=== PATIENT | female | born 1955 | race Caucasian/White ===

== ENCOUNTER 2019-10-06 11:29 | Outpatient (CLI) | payer MEDICARE, SELFPAY ==
[2019-10-06 13:02] LABS: Alanine Aminotransferase 33 U/L (4-35); Albumin Level 4.5 g/dL (3.5-5.1); Alkaline Phosphatase 84 U/L (38-126); Aspartate Amino Transferase 34 U/L (14-36); Bilirubin,Total 0.4 mg/dL (0.2-1.3); Blood Urea Nitrogen 22 mg/dL (7-17); Calcium 9.3 mg/dL (8.4-10.2); Carbon Dioxide 32 mmol/L (22-30); Chloride 99 mmol/L (98-107); Estimated Glomerular Filt Rate 50; Glucose 107 mg/dL (65-105); Sodium 137 mmol/L (137-145)
[2019-10-06 13:11] LABS: NT Pro B Type Natriuretic Pept 91 PG/ML (5-100)
== END 2019-10-06 11:30 | disposition home or self-care (01) ==
PROVIDERS: PCP Family Medicine; Visit Provider Nurse Practitioner
DX: R60.9 Edema, unspecified (principal); I10 Essential (primary) hypertension; R06.00 Dyspnea, unspecified
CPT/HCPCS: 36415; 80053; 83880

== ENCOUNTER 2019-10-12 13:41 | Emergency (ER) | payer MEDICARE, SELFPAY ==
[2019-10-12 13:56] VITALS: BP 155/88; PULSE 76; RESP 18; TEMP 36.4; O2SAT 97
--- NOTE | 2019-10-12 14:07 | ED.DENTAL ---
HPI - Dental/Oral General Chief complaint: Dental/Oral Stated complaint: abscess on left side of face Time Seen by Provider: 10/12/19 14:05 Source: patient and RN notes reviewed Mode of arrival: ambulatory Limitations: no limitations History of Present Illness HPI Narrative: 63-year-old female presents with concern for left upper facial swelling, pain. Reports her tooth fell out of the left upper side of her mouth approximately 1 week ago. Reports she has been using oxycodone, ice, salt water rinses with no relief. Reports she has not seen a dentist in many years MD Complaint: tooth pain Teeth map: 1. Broken teeth Related Data Home Medications Medication Instructions Recorded Confirmed alprazolam 10/12/19 amlodipine 10/12/19 anastrozole mg 10/12/19 escitalopram oxalate mg 10/12/19 furosemide 10/12/19 losartan 10/12/19 meloxicam 10/12/19 oxycodone-acetaminophen 10/12/19 prochlorperazine maleate 10/12/19 propranolol 10/12/19 quetiapine 10/12/19 simvastatin mg 10/12/19 zonisamide PO 10/12/19 Allergies Allergy/AdvReac Type Severity Reaction Status Date / Time varenicline Allergy Unknown Verified 06/05/15 13:47 ASPIRIN/NAUSEATED Allergy Mild Uncoded 04/10/08 18:08 Review of Systems Review of Systems: Narrative: CONSTITUTIONAL: Denies malaise, chills, sweats, or fever. EYES: Denies visual changes, redness, or discharge. ENT: Denies rhinorrhea, congestion, sinus pain, otalgia or sore throat. Reports left jaw swelling, facial pain CARDIOVASCULAR: Denies chest pain, palpitations, or edema. RESPIRATORY: Denies cough or dyspnea. MUSCULOSKELETAL: Denies myalgia. NEUROLOGIC: Denies headache. All systems reviewed & are unremarkable except as noted in HPI and below [facility] Family History Family History (Updated 10/20/15 @ 23:21 by DOCTOR UNKNOWN) Mother Patient's mother is in good health Sibling Patient's sister is in good health Patient's brother is in good health Father Family history of malignant neoplasm Patient's father is Social History Social History Smoking status: Current every day smoker Alcohol intake: never Comments At time of signature, agree with nursing past medical, surgical, social and family history. There is no relevant family history pertinent to the presenting complaint Exam Narrative: Exam Narrative: GENERAL: Well-appearing, well-nourished, and in no acute distress. HEAD: Normocephalic, atraumatic. EYES: PERRLA, conjunctivae clear ENT: Nares clear, turbinates pink, no rhinorrhea or epistaxis. Mucous membranes moist. TM pearly alcaraz with sharp light reflex bilaterally; no tragal tenderness. Oropharynx without edema, erythema or lesions. Tonsils not enlarged and without exudate. Many broken teeth, missing teeth, caries. Teeth numbers 12 and 13 broken without periapical abscesses noted NECK: Supple. CHEST: No respiratory distress. Speaks in full sentences. HEART: Regular rate and rhythm. SKIN: Warm, dry, no rash. NEURO: Alert and oriented x3. PSYCH: Normal mood and affect Course Course Emergency Course: Patient is aware of diagnosis, understands and agrees to treatment plan. Anticipatory guidance given. Patient agrees to follow-up as directed and is aware of reasons to seek care at the emergency department. Portions of this record may have been created with voice recognition software Vital Signs Vital signs: Vital Signs Temperature 97.5 F L 10/12/19 13:56 Pulse Rate 76 10/12/19 13:56 Respiratory Rate 18 10/12/19 13:56 Blood Pressure 155/88 H 10/12/19 13:56 Pulse Oximetry 97 10/12/19 13:56 Temperature 97.5 F L 10/12/19 13:56 Pulse Rate 76 10/12/19 13:56 Respiratory Rate 18 10/12/19 13:56 Blood Pressure 155/88 H 10/12/19 13:56 Pulse Oximetry 97 10/12/19 13:56 Reviewed. Patient has history of hypertension MDM - Dental/Oral MDM Narrative Medical decision making narrative: Patients yessi
== END 2019-10-12 14:24 | disposition home or self-care (01) ==
PROVIDERS: Emergency Provider Nurse Practitioner; PCP Family Medicine
DX: K04.7 Periapical abscess without sinus (principal); F17.200 Nicotine dependence, unspecified, uncomplicated; E78.00 Pure hypercholesterolemia, unspecified; I10 Essential (primary) hypertension
CPT/HCPCS: 99213; G0463

== ENCOUNTER → 2020-01-03 11:50 | Outpatient (CLI) | payer MEDICARE, SELFPAY ==
--- NOTE | ~2020-01-03 | MM_ITS ---
EXAMINATION: MM screening ankita BI w rubia HISTORY: Screening TECHNIQUE: Craniocaudal and mediolateral oblique 3-D tomosynthesis images were obtained and synthetic 2-D images were generated. CAD analysis was submitted and interpreted. COMPARISON: No prior mammogram is available for comparison at this institution. BREAST PARENCHYMAL COMPOSITION: There are scattered areas of fibroglandular density. FINDINGS: There is no evidence of suspicious mass, calcification, or architectural distortion to sugg est malignancy in either breast. There has been no suspicious interval change. IMPRESSION: 1. No mammographic evidence of malignancy. 2. Recommend routine screening mammography in one year. BI-RADS Category 1: Negative Reviewed, dictated and finalized at location A.
== END ==
PROVIDERS: PCP Family Medicine; Visit Provider Family Medicine
DX: Z12.31 Encounter for screening mammogram for malignant neoplasm of breast (principal)
CPT/HCPCS: 77063; 77067

== ENCOUNTER 2022-02-28 05:16 | Inpatient (IN) | payer MEDICARE, SELFPAY ==
[2022-02-28] VITALS (11 sets, daily range): BP systolic 117–170; BP diastolic 52–87; PULSE 62–83; RESP 14–29; TEMP 30.7–36.8; O2SAT 88–98
--- NOTE | ~2022-02-28 | XR_ITS ---
EXAMINATION: XR chest 1V portable DATE: 02/28/2022 06:38 INDICATION: Left-sided chest pain TECHNIQUE: frontal view of the chest was obtained. COMPARISON: Chest radiograph dated 07/20/18 FINDINGS: Streaky bibasilar atelectasis, mild on the right and minimal on the left. No other airspace opacities , pulmonary edema, pleural effusion or pneumothorax. The cardiomediastinal silhouette is within kulwinder l limits conifer AP technique and slight rightward rotation of the patient. 4 level lower cervical an terior spinal fusion with anterior plate and screw fixation IMPRESSION: 1. Mild right and minimal left streaky basilar atelectasis. Reviewed, dictated and finalized at location A. K HOPPER
--- NOTE | 2022-02-28 05:16 | ECG_ITS ---
Measurements Intervals [place] Rate: 82 P: 40 HI: 145 QRS: 38 QRSD: 94 T: 49 QT: 380 QTc: 446 Interpretive Statements SINUS RHYTHM NONSPECIFIC T-WAVE ABNORMALITY BORDERLINE ECG NO PREVIOUS ECG AVAILABLE FOR COMPARISON Electronically Signed On 03-01-2022 7:22:28 UTILITY WORKER by Compa Mota M.D.
--- NOTE | 2022-02-28 05:40 | ED.GENADULT ---
HPI - General Adult General Chief complaint: Shortness of Breath/Dyspnea Stated complaint: SOB/COUGH/CP Time Seen by Provider: 02/28/22 05:17 History of Present Illness HPI narrative: this is a 66-year-old female presenting ED with a chief complaint of not feeling well. patient has had subjective fevers, cough, subjective shortness of breath and body aches. Patient denies headache, nausea, vomiting diarrhea. She does have a sick son at home who has similar symptoms. She is not vaccinated against flu. She is vaccinated against COVID. Patient is also describing a left-sided chest pain that she describes as burning/ stabbing/ Jason that radiates to her left arm, is 1/10 and constant. Is worse with movement. Patient originally said that was part of her flu-like symptoms but then she recalled that 3 weeks earlier she had fallen and her left chest have been sore since then. Related Data Home Medications Medication Instructions Recorded Confirmed alprazolam 1 mg tablet 10/12/19 amlodipine 5 mg tablet 10/12/19 anastrozole 1 mg tablet mg 10/12/19 escitalopram oxalate 20 mg tablet mg 10/12/19 furosemide 40 mg tablet 10/12/19 losartan 100 mg tablet 10/12/19 meloxicam 15 mg tablet 10/12/19 oxycodone-acetaminophen 5 mg-325 10/12/19 mg tablet prochlorperazine maleate 10 mg 10/12/19 tablet propranolol 40 mg tablet 10/12/19 quetiapine 50 mg tablet 10/12/19 simvastatin 80 mg tablet mg 10/12/19 zonisamide 50 mg capsule PO 10/12/19 Allergies Allergy/AdvReac Type Severity Reaction Status Date / Time varenicline Allergy Unknown Verified 06/05/15 13:47 ASPIRIN/NAUSEATED Allergy Mild Uncoded 04/10/08 18:08 Review of Systems Review of Systems: CONSTITUTIONAL: Denies night sweats. EYES: No eye pain ENT: Denies rhinorrhea CARDIOVASCULAR: Denies palpitations RESPIRATORY: Denies hemoptysis GASTROINTESTINAL: Denies hematemesis GENITOURINARY: Denies hematuria. SKIN: Denies rash MUSCULOSKELETAL: Denies myalgia. NEUROLOGIC: Denies weakness. PSYCHIATRIC: Denies delusions PMFSH Past Medical History Medical History Arm paresthesia, left Back pain Chronic obstructive pulmonary disease, unspecified Generalized anxiety disorder Other chronic pain Family History Family History Mother Patient's mother is in good health Sibling Patient's sister is in good health Patient's brother is in good health Father Family history of malignant neoplasm Patient's father is Social History Social History Smoking status: Current every day smoker Alcohol intake: never Exam Narrative: APPEARANCE: Patient is lying supine with her eyes closed. She takes several seconds to gather herself between answering interview questions. Head: atraumatic. EYES: EOMI, NOSE: Atraumatic NECK: Trachea midline RESPIRATORY: Increased respiratory rate. scattered rhonchi and expiratory wheezing on the right. CARDIOVASCULAR: RRR, no pitting edema ABDOMINAL: Non-distended, soft tender no guarding or rebound MUSCULOSKELETAl: reproducible tenderness over the left chest wall. Pain with range of motion of the left arm. NEURO: Alert. Moving 4/4 extremities SKIN:: Warm, dry. Normal color PSYCHIATRIC: Normal affect Course Vital Signs Vital signs: Vital Signs Temperature 98.2 F 02/28/22 05:18 Pulse Rate 83 02/28/22 05:18 Respiratory Rate 20 02/28/22 05:18 Blood Pressure 170/87 H 02/28/22 05:18 Pulse Oximetry 91 02/28/22 05:18 Oxygen Delivery Room Air 02/28/22 05:18 Temperature 98.2 F 02/28/22 05:18 Pulse Rate 83 02/28/22 05:18 Respiratory Rate 20 02/28/22 05:18 Blood Pressure 170/87 H 02/28/22 05:18 Pulse Oximetry 94 02/28/22 05:24 Oxygen Delivery Room Air 02/28/22 05:24 Medical Decision Srini
[2022-02-28] MEDS: ACETAMINOPHEN 500 MG TABLET 1000 MG PO (05:41)
[2022-02-28] MEDS: IBUPROFEN 400 MG TABLET 800 MG PO (05:42)
[2022-02-28] MEDS: SODIUM CHLORIDE 0.9% IV 1,000 ML 999 ML IV CONT (05:42)
[2022-02-28 05:48] LABS: Basophils Absolute Auto 0.1 K/mm3 (0.0-0.1); Basophils Percent Auto 0.8 % (0.2-1.2); Eosinophils Absolute Auto 0.1 K/mm3 (0-0.3); Eosinophils Percent Auto 0.9 % (0-4.4); Hematocrit 42.7 % (37.0-47.0); Immature Granulocyte Absolute 0.14 K/mm3 (0.00-0.031); Immature Granulocyte Percent A 1.1 % (0-0.5); Lymphocytes Absolute Auto 1.74 K/mm3 (0.9-3.2); Lymphocytes Percent Auto 13.7 % (18.3-44.2); Mean Corpuscular HGB Conc 32.8 g/dl (32-36); Mean Corpuscular Hemoglobin 32.2 pg (26-34); Mean Corpuscular Volume 98.2 fl (80-100); Monocytes Absolute Auto 1.2 K/mm3 (0.1-0.6); Monocytes Percent Auto 9.4 % (2.6-8.5); Neutrophils Absolute Auto 9.4 K/mm3 (1.3-6.7); Neutrophils Percent Auto 74.1 % (45.5-73.1); Platelet Count Result 384 k/mm3 (150-375); Red Blood Count 4.35 M/mm3 (4.2-5.4); Red Cell Distribution Width 11.9 % (11.5-14.5); White Blood Count 12.7 K/mm3 (4.5-10.0)
[2022-02-28 06:10] LABS: Alanine Aminotransferase 15 U/L (6-35); Albumin Level 4.1 g/dL (3.5-5.1); Alkaline Phosphatase 119 U/L (38-126); Anion Gap 9 mmol/L (8-16); Aspartate Amino Transferase 24 U/L (14-36); Bilirubin,Total 0.6 mg/dL (0.2-1.3); Blood Urea Nitrogen 18 mg/dL (7-17); Calcium 9.5 mg/dL (8.4-10.2); Carbon Dioxide 24 mmol/L (22-30); Chloride 101 mmol/L (98-107); Estimated CRCL calculation 53 ml/min; Estimated Glomerular Filt Rate 55; Glucose 114 mg/dL (65-110); INR 1.1; Magnesium 2.2 mg/dL (1.6-2.3); Prothrombin Time 13.7 Seconds (11.1-14.7); Sodium 134 mmol/L (137-145)
[2022-02-28 06:13] LABS: Troponin I < 0.012 ng/mL (0.000-0.034)
[2022-02-28 06:23] LABS: Influenza A QL RT-PCR Negative (Negative); Influenza B QL RT-PCR Negative (Negative); SARS-CoV-2 RNA PCR Negative
[2022-02-28 06:36] LABS: Partial Thromboplastin Time 39.1 SECONDS (22.3-36.8)
[2022-02-28] MEDS: SODIUM CHLORIDE 0.9% IV 1,000 ML 125 ML IV CONT (07:00)
--- NOTE | 2022-02-28 08:53 | ADMGEN ---
This patient, Amairani Preciado, was admitted to [facility] Surg Room 321-01. Patient/family oriented to hospital policies and general routines including ID bracelet, bed and alarms, visiting hours, pain management, procedures, bathroom and other care routines, personal items, smoking policy, room service/diet, and visiting hours. Information on how to activate the Rapid Response Team has been discussed. Patient/Family are encouraged to report perceived risks to care and to ask questions if they do not understand what they are told or what they should do.
--- NOTE | 2022-02-28 10:18 | PM.IMHP ---
H&P: HPI History of Present Illness Date/Time: 02/28/22 10:18 Chief Complaint: Shortness of breath Narrative: Amairani Preciado is a 66 yo female with COPD, anxiety, depression and prior breast cancer. She presented to the ED for evaluation of shortness of breath, cough, anorexia, myalgias, alternating chills and diaphoresis since for several days. She reports her son, son-in-law, and daughter are sick with similar symptoms. She reports her cough is non-productive. Her breathing has been progressively worsening at rest and with exacerbation. No headaches, sore throat, abdominal pain, nausea, vomiting, diarrhea, urinary changes, orthopnea, or paroxysmal nocturnal dyspnea. In the ED, her vitals were stable and she was afebrile. Influenza A/B, COVID19 and RSV PCR were negative. Chest x-ray suggested right and left basilar atelectasis. Lab work showed WBC 12.7 with left shift, but otherwise normal CBC, CMP and troponin. She was treated with IV Rocephin, IV Azithromycin, 1 L NS fluids, 1 gram acetaminophen, and 800 mg ibuprofen. She was referred for observation of presumed viral infection, COPD exacerbation and possible secondary bacterial pneumonia. Review of Systems Review of Systems: All systems reviewed & are unremarkable except as noted in HPI and below Constitutional: Comments: Weight loss 110 lbs in 1 year. Neurologic: Comments: chronic insomnia PMFSH Past Medical History Medical History (Updated 02/28/22 @ 16:29 by Daina Bernard APRN) Arm paresthesia, left Back pain Breast cancer Chronic obstructive pulmonary disease, unspecified Generalized anxiety disorder Hypertension Neuropathy Other chronic pain Seasonal allergies Tobacco dependence Surgical History Surgical History (Updated 02/28/22 @ 16:21 by Daina Bernard APRN) H/O: hysterectomy S/P cholecystectomy Family History Family History Mother Patient's mother is in good health Sibling Patient's sister is in good health Patient's brother is in good health Father Family history of malignant neoplasm Patient's father is Social History Social History (Updated 02/28/22 @ 16:22 by Daina Bernard APRN) Smoking packs per day: 1.5 Smoking cigarettes per day: 30.0 Years smoked: 50 Smoking pack-years: 75.00 Smoking status: Current every day smoker Tobacco type: cigarettes Additional smoking assessment comments: smoking since 16 yo Alcohol intake: never Substance use: never Substance use type: does not use Lack of Transportation: YES Lack of Food: Never True Current Housing: I Have Housing Concerned About Future Housing: No Difficulty Paying Gas/Electric Bills: No Difficulty Paying for Meds: No Currently Unemployed: No Education: Don't Know Difficulty w/ Childcare or Family Care: No Additional living arrangements comments: lives with her son Spiritual care concerns: No Meds Home Medications and Allergies Home Medications Medication Instructions Recorded Confirmed Type alprazolam 1 mg tablet 1 mg PO PRN PRN Anxiety 10/12/19 02/28/22 History anastrozole 1 mg tablet 1 mg PO DAILY 10/12/19 02/28/22 History escitalopram oxalate 20 mg tablet 20 mg PO DAILY 10/12/19 02/28/22 History (Lexapro) losartan 100 mg tablet 100 mg PO DAILY 10/12/19 02/28/22 History meloxicam 15 mg tablet 15 mg PO DAILY 10/12/19 02/28/22 History propranolol 40 mg tablet 40 mg PO BID 10/12/19 02/28/22 History quetiapine 50 mg tablet 50 mg PO DAILY 10/12/19 02/28/22 History zonisamide 50 mg capsule 50 mg PO DAILY 10/12/19 02/28/22 History oxycodone-acetaminophen 7.5 mg-325 1 tablet PO Q6H 02/28/22 History mg tablet Allergies Allergy/AdvReac Type Severity Reaction Status Date / Time ASPIRIN/NAUSEATED Allergy Mild Nausea Uncoded 02/28/22 08:56 Vital Signs Vital Signs - 24 hr 02/28/22 05:18 02/28/22 05:24 Temperature 98.
[2022-02-28] MEDS: oxyCODONE/ACETAMINOPHEN (*CRX) 5-325 MG TABLET 1 TABLET PO (12:09)
[2022-02-28] MEDS: QUEtiapine FUMARATE 25 MG TABLET 50 MG PO (12:09)
[2022-02-28] MEDS: ANASTROZOLE (*CHEMO) 1 MG TABLET PO (12:10)
[2022-02-28] MEDS: ESCITALOPRAM OXALATE 10 MG TABLET 20 MG PO (12:10)
[2022-02-28] MEDS: LOSARTAN POTASSIUM 100 MG TABLET PO (12:10)
[2022-02-28] MEDS: DOXYCYCLINE 100 MG/NS 100 ML 100 MG/100 ML BAG IVPB ×2 (12:11→20:59)
[2022-02-28 12:28] LABS: RSV RNA, RT-PCR Negative (Negative)
--- NOTE | 2022-02-28 14:57 | PCPTNOTE ---
Attempted PT evaluation, pt refused stating Tired. RN aware, Will follow.
[2022-02-28 15:14] LABS: Alveolar/Arterial O2 Gradient 71.6 mmHg; Base Excess ABG -3.4 mEq/l (+/-2.0); Carboxyhemoglobin 2.3 % THb (0-2.0); Device ROOM AIR; Fractional Inspired Oxygen 28 %; HCO3 ABG 21.4 mEq/l (22.0-26.0); Methemoglobin ABG 0.3 %THb (0-1.5); Modified Allen's Test Pass; Oxygen Content ABG 17.3 %vol (16.0-22.0); Oxygen Saturation ABG 96.1 % (95.0-100.0); PCO2 ABG 37.6 mmHg (35.0-45.0); PO2 ABG 83.7 mmHg (80.0-100.0); PO2 FiO2 Ratio Arterial Blood 2.99 %; Reduced Hemoglobin 4.4 %THb (0-5.0); Site Drawn RIGHT RADIAL; Total Hemoglobin 13.2 g/dL (12.0-18.0); pH ABG 7.373 (7.350-7.450)
[2022-02-28] MEDS: ALBUTEROL SULFATE NEB 2.5 MG/3 ML INH INHALATION ×2 (15:47→20:44)
[2022-02-28] MEDS: IPRATROPIUM BR 0.02% INH SOLN 0.5 MG/2.5 ML VIAL INHALATION ×2 (15:47→20:44)
[2022-02-28] MEDS: PROPRANOLOL HCL 40 MG TABLET PO (19:17)
[2022-02-28] MEDS: predniSONE 20 MG TABLET 40 MG PO (20:58)
[2022-02-28] MEDS: MICONAZOLE NITRATE 2% CREAM 30 GM TUBE 1 APPLIC TOPICAL (20:59)
[2022-03-01] VITALS (9 sets, daily range): BP systolic 142–150; BP diastolic 69–73; PULSE 72–84; RESP 12–20; TEMP 36.1–36.2; O2SAT 93–97; BMI 36.2
[2022-03-01] MEDS: ALBUTEROL SULFATE NEB 2.5 MG/3 ML INH INHALATION ×3 (03:02→14:10)
[2022-03-01] MEDS: IPRATROPIUM BR 0.02% INH SOLN 0.5 MG/2.5 ML VIAL INHALATION ×3 (03:03→14:10)
[2022-03-01 07:10] LABS: Basophils Percent Auto 0.3 % (0.2-1.2); Hematocrit 43.1 % (37.0-47.0); Hemoglobin 13.8 g/dL (12.0-15.0); Immature Granulocyte Absolute 0.08 K/mm3 (0.00-0.031); Immature Granulocyte Percent A 1.1 % (0-0.5); Lymphocytes Absolute Auto 0.79 K/mm3 (0.9-3.2); Lymphocytes Percent Auto 10.8 % (18.3-44.2); Mean Corpuscular Hemoglobin 32.4 pg (26-34); Mean Corpuscular Volume 101.2 fl (80-100); Mean Platelet Volume 8.8 fl (7.4-10.4); Monocytes Absolute Auto 0.2 K/mm3 (0.1-0.6); Neutrophils Absolute Auto 6.2 K/mm3 (1.3-6.7); Neutrophils Percent Auto 84.8 % (45.5-73.1); Platelet Count Result 388 k/mm3 (150-375); Red Blood Count 4.26 M/mm3 (4.2-5.4); Red Cell Distribution Width 11.9 % (11.5-14.5); White Blood Count 7.3 K/mm3 (4.5-10.0)
[2022-03-01 07:30] LABS: Anion Gap 9 mmol/L (8-16); Blood Urea Nitrogen 17 mg/dL (7-17); Carbon Dioxide 22 mmol/L (22-30); Chloride 110 mmol/L (98-107); Estimated CRCL calculation 74 ml/min; Estimated Glomerular Filt Rate > 60; Glucose 107 mg/dL (65-110); Potassium 4.8 mmol/L (3.4-5.0); Sodium 141 mmol/L (137-145)
[2022-03-01] MEDS: predniSONE 20 MG TABLET 40 MG PO (10:06)
[2022-03-01] MEDS: LOSARTAN POTASSIUM 100 MG TABLET PO (10:07)
[2022-03-01] MEDS: ESCITALOPRAM OXALATE 10 MG TABLET 20 MG PO (10:07)
[2022-03-01] MEDS: PROPRANOLOL HCL 40 MG TABLET PO ×2 (10:07→18:23)
[2022-03-01] MEDS: ANASTROZOLE (*CHEMO) 1 MG TABLET PO (10:07)
[2022-03-01] MEDS: ENOXAPARIN 40 MG/0.4 ML SYRINGE SUB-Q (10:08)
[2022-03-01] MEDS: MICONAZOLE NITRATE 2% CREAM 30 GM TUBE 1 APPLIC TOPICAL (10:08)
[2022-03-01] MEDS: DOXYCYCLINE 100 MG/NS 100 ML 100 MG/100 ML BAG IVPB (13:39)
--- NOTE | 2022-03-01 17:51 | PM.DS ---
DS: Admitting Diagnosis Discharge Date 03/01/22 Admitting Diagnosis Shortness of breath DS: Discharge Diagnosis Discharge Diagnosis (1) Pneumonia: Code(s): J18.9 - Pneumonia, unspecified organism Status: Acute (2) Viral pneumonia, unspecified: Code(s): J12.9 - Viral pneumonia, unspecified Status: Acute (3) COPD (chronic obstructive pulmonary disease): Code(s): J44.9 - Chronic obstructive pulmonary disease, unspecified Status: Chronic (4) Arm pain: Code(s): M79.603 - Pain in arm, unspecified Status: Acute (5) Generalized anxiety disorder: Code(s): F41.1 - Generalized anxiety disorder Status: Chronic (6) Fall: Code(s): W19.XXXA - Unspecified fall, initial encounter Status: Acute (7) Hypertension: Code(s): I10 - Essential (primary) hypertension Status: Chronic (8) Tobacco dependence: Code(s): F17.200 - Nicotine dependence, unspecified, uncomplicated Status: Chronic DS: Summary Hospital Course Reason for hospitalization: 66yo female with COPD anxiety and prior breasth cancer here for shortness of breath. Please see H&P for details. Hospital Course: She presented with complaints of SOB. In the ED, her vitals were stable and she was afebrile. Influenza A/B, COVID19 and RSV PCR were negative. Chest x-ray suggested right and left basilar atelectasis. Lab work showed WBC 12.7 with left shift, but otherwise normal CBC, CMP and troponin. EKG was normal. She was treated with IV Rocephin, IV Azithromycin, 1 L NS fluids, 1 gram acetaminophen, and 800 mg ibuprofen. She was referred for observation. She remained stable overnight. She feels better and is agreeable about discharge. She overall did well and was able to be discharged home on 03/01/22 Status at Discharge Cognitive/behavioral status at discharge: stable Time Spent with Patient Time attestation: Total time spent providing and/or coordinating discharge services:31 minutes Time spent: Greater than 30 minutes Exam Narrative: AF 97.0 142/69 72 18 93% ra Gen - NARD HEENT - poor detition Chest - CTA bilaterally, nml RR CV - RRR S1/S2 Abd - Soft, NT/ND, Positive BS Ext - No pedal edema Psych - Nml mood and affect Skin - Warm and dry DS: Data Data Completed and Pending Labs on day of discharge: Labs from last 24 hours 03/01/22 03/01/22 06:54 06:54 WBC 7.3 RBC 4.26 Hgb 13.8 Hct 43.1 MCV 101.2 H MCH 32.4 MCHC 32.0 RDW 11.9 Plt Count 388 H MPV 8.8 Immature Gran % (Auto) 1.1 H Neut % (Auto) 84.8 H Lymph % (Auto) 10.8 L [place] % (Auto) 3.0 Eos % (Auto) 0.0 Baso % (Auto) 0.3 Lymph # (Auto) 0.79 L [place] # (Auto) 0.2 Eos # (Auto) 0.0 Baso # (Auto) 0.0 Abs Immat Gran (auto) 0.08 H Absolute Neuts (auto) 6.2 Absolute Nucleated RBC 0.0 Nucleated RBC % 0.0 Sodium 141 Potassium 4.8 Chloride 110 H Carbon Dioxide 22 Anion Gap 9 BUN 17 Creatinine 0.70 Estim Creat Clear Calc 74 Estimated GFR > 60 Glucose 107 Calcium 9.0 Discharge Plan Discharge Attending physician on discharge: Lai Pérez Discharging Clinician: Lai Pérez Anticipated Discharge Date/Time: 03/01/22 17:57 Patient Disposition: Home, Self-Care Activity: as tolerated Diet: regular Discharge Instructions: Please complete your antibiotic course even if you are starting to feel well. Take precautions to avoid falls. Rise slowly from a lying or sitting position. Pause before standing or walking. Contact your doctor or call 911 and come to the Emergency Room if you have fevers or other worrisome symptoms. Avoid NSAIDs (ibuprofen, naproxen, Aleve). Tylenol is safe to take. Follow-up with your primary care provider in 1-2 weeks. Please call for appointment. Stop using all nicotine containing products. Please follow up with a dentist as we discussed. Thank you for us
== END 2022-03-01 19:20 | disposition home or self-care (01) | DRG 192 ==
LOC: ANHED 06:56 → ANH3MEDSUR 03-01 10:23
PROVIDERS: Nurse Practitioner Family; Admitting Provider Internal Medicine; Emergency Provider Emergency Medicine; PCP Family Medicine; Visit Provider Internal Medicine
DX: J44.1 Chronic obstructive pulmonary disease with (acute) exacerbation (principal); F17.210 Nicotine dependence, cigarettes, uncomplicated; F41.9 Anxiety disorder, unspecified; F41.1 Generalized anxiety disorder; G89.29 Other chronic pain; I10 Essential (primary) hypertension; M79.602 Pain in left arm; W19.XXXA Unspecified fall, initial encounter; Z28.21 Immunization not carried out because of patient refusal; Z85.3 Personal history of malignant neoplasm of breast; Z90.710 Acquired absence of both cervix and uterus; Z90.49 Acquired absence of other specified parts of digestive tract; Z20.822 Contact with and (suspected) exposure to COVID-19
CPT/HCPCS: 36415; 36600; 71045; 80048; 80053; 82375; 82805; 83050; 83735; 84484; 85025; 85610; 85730; 87634; 87636; 93005; 94640; 96361; 96365; 97161; 97165; 99285; A9270; J0696; J1650; J7030; J7512

== ENCOUNTER 2022-05-27 10:31 | Observation (INO) | payer MEDICARE, SELFPAY ==
[2022-05-27] VITALS (15 sets, daily range): BP systolic 118–140; BP diastolic 55–103; PULSE 75–100; RESP 16–24; TEMP 36.3–36.7; O2SAT 92–98; BMI 35.4
--- NOTE | ~2022-05-27 | CT_ITS ---
EXAMINATION: CTA chest PE protocol DATE: 05/27/2022 11:17 INDICATION: Left chest pain, shortness of breath. Elevated d-dimer. TECHNIQUE: Computed tomography angiography (CTA) of the chest was performed with 100 mL Omnipaque-350 intravenous contrast timed to evaluate the pulmonary arteries. Coronal maximum intensity projection 3D-reconstructions were created by the technologist. Automated exposure control and iterative reconst ruction technique were employed. Exam dose: 383.20 mGy-cm total exam DLP. COMPARISON: 05/27/2022 AP and lateral chest FINDINGS: There is diagnostic contrast enhancement of the pulmonary arteries and no evidence of pulmo nary embolism. There is moderate pericardial effusion. Small bilateral pleural effusions, left greater than right. Mild bibasilar atelectasis There is aortic and great vessel atherosclerotic calcification. No thoracic aortic aneurysm or dissec tion. No enlarged hilar or mediastinal lymph nodes are noted. Status post cholecystectomy. Multiple calcified hepatic and splenic granulomas. Status post anterior cervical spine surgical fusion. No suspicious osteolytic or osteoblastic lesions are noted. IMPRESSION: No evidence of pulmonary embolism Moderate pericardial effusion Small pleural effusions Bibasilar atelectasis Status post cholecystectomy Reviewed, dictated and finalized at [facility]. Reviewed, dictated and finalized at location [facility]. 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
--- NOTE | ~2022-05-27 | US_ITS ---
EXAMINATION: US venous doppler [facility] DATE: 05/27/2022 11:51 INDICATION: Lower limb edema. TECHNIQUE: Grayscale ultrasound images without and with compression and Doppler ultrasound images of the bilateral lower extremity veins were obtained. COMPARISON: None. FINDINGS: The visualized portions of right common femoral vein, profunda (deep) femoral vein, femoral vein, pop liteal vein, peroneal veins, posterior tibial veins, and greater saphenous vein outflow are patent. The visualized portions of left common femoral vein, profunda femoral vein, femoral vein, popliteal v ein, peroneal veins, posterior tibial veins, and greater saphenous vein outflow are patent. IMPRESSION: 1. No deep venous thrombosis. Reviewed, dictated and finalized at location A. LE HAND
--- NOTE | ~2022-05-27 | XR_ITS ---
XR chest 2V DATE: 05/27/2022 10:29 INDICATION: Shortness of breath. History of COPD, hypertension, gastroesophageal reflux TECHNIQUE: AP and lateral views COMPARISON: 02/28/2022 portable AP chest FINDINGS: There is mild bibasilar infiltrate and/or atelectasis. Cardiomegaly. No pulmonary vascular congestion. There may be slight pleural effusions. No pneumothora x. No pulmonary vascular congestion. Status post anterior cervical spine surgical fusion. IMPRESSION: Bibasilar mild infiltrate and/or atelectasis Reviewed, dictated and finalized at location B. OW CASER
--- NOTE | 2022-05-27 09:55 | ECG_ITS ---
Measurements Intervals [place] Rate: 100 P: 30 VT: 134 QRS: 46 QRSD: 82 T: 31 QT: 342 QTc: 443 Interpretive Statements SINUS TACHYCARDIA NONSPECIFIC T-WAVE ABNORMALITY- ANT/INF LEADS BASELINE ARTIFACT- I, II, AVR BORDERLINE ECG NO PREVIOUS ECG AVAILABLE FOR COMPARISON Electronically Signed On 05-27-2022 10:22:03 CULL GRADER by Richard Arnold D.O.
--- NOTE | 2022-05-27 10:02 | ED.SOB ---
HPI - SOB/Dyspnea General Chief Complaint: Shortness of Breath/Dyspnea <Alisa Brady PA-C - Last Filed: 05/27/22 14:21> Stated Complaint: SoB <DARLINE Gomez Last Filed: 05/27/22 14:21> Source: patient and RN notes reviewed <DARLINE Gomez Last Filed: 05/27/22 14:21> Mode of arrival: EMS <DARLINE Gomez Last Filed: 05/27/22 14:21> Limitations: no limitations <DARLINE Gomez Last Filed: 05/27/22 14:21> History of Present Illness HPI Narrative: This is a 66-year-old female that presents to the emergency department for shortness of breath ongoing over the last several months. Reports history of emphysema. She is still an everyday smoker. Reports she cannot afford her inhalers. She has had a productive cough. Also reports left-sided pleuritic chest pain and left arm pain. The pain is sharp in nature. Reports lower extremity edema that is stable. Denies fevers. <Alisa Brady PA-C - Last Filed: 05/27/22 14:21> Related Data Home Medications: Home Medications Medication Instructions Recorded Confirmed escitalopram oxalate 20 mg tablet 20 mg PO DAILY 05/27/22 05/27/22 meloxicam 15 mg tablet 15 mg PO DAILY 05/27/22 05/27/22 propranolol 40 mg tablet 40 mg PO BID 05/27/22 05/27/22 simvastatin 80 mg tablet 80 mg PO HS 05/27/22 05/27/22 zonisamide 50 mg capsule 50 mg PO DAILY 05/27/22 05/27/22 <DARLINE Gomez Last Filed: 05/27/22 14:21> Allergies/Adverse Reactions: Allergies Allergy/AdvReac Type Severity Reaction Status Date / Time aspirin AdvReac Gastrointestinal Verified 05/27/22 10:46 Upset varenicline [From Chantix] AdvReac Hallucinati Verified 05/27/22 10:46 ng <DARLINE Gomez Last Filed: 05/27/22 14:21> Review of Systems Review of Systems: CONSTITUTIONAL: Denies fever ENT: Reports congestion CARDIOVASCULAR: Reports chest pain, and edema. RESPIRATORY: Reports cough and dyspnea. <Alisa Brady PA-C - Last Filed: 05/27/22 14:21> All systems reviewed & are unremarkable except as noted in HPI and below <Alisa Brady PA-C - Last Filed: 05/27/22 14:21> PMFSH Past Medical History Medical History: Medical History (Updated 05/27/22 @ 13:21 by Alisa Brady PA-C) History of COPD History of gastroesophageal reflux (GERD) History of hypertension <Alisa Brady PA-C - Last Filed: 05/27/22 14:21> Social History Social History: Social History (Updated 05/27/22 @ 10:21 by Alisa Brady PA-C) Smoking packs per day: 1.5 Smoking cigarettes per day: 30.0 Years smoked: 50 Smoking pack-years: 75.00 Smoking status: Current every day smoker Tobacco type: cigarettes Alcohol intake: never Substance use: former Substance use type: marijuana Lack of Transportation: No Lack of Food: Never True Current Housing: I Have Housing Concerned About Future Housing: No Difficulty Paying Gas/Electric Bills: No Difficulty Paying for Meds: No Currently Unemployed: No Education: High School Diploma/GED Difficulty w/ Childcare or Family Care: No Spiritual care concerns: No <Alisa Brady PA-C - Last Filed: 05/27/22 14:21> Exam Narrative: GENERAL: Well-appearing, well-nourished, and in no acute distress. HEAD: Normocephalic, atraumatic. EYES: EOMI. ENT: Nares clear, no rhinorrhea or epistaxis. Mucous membranes moist. Oropharynx without tonsillar hypertrophy exudate or other lesions. CHEST: No respiratory distress. Lung sounds are coarse with scattered wheezes. No rales or rhonchi HEART: Regular rate and rhythm. No murmur heard. Normal peripheral pulses. EXTREMITIES: Normal range of motion. Non-pitting edema to the bilateral lower extremities. Normal DP pulses SKIN: Warm, dry, no rash. NEURO: No focal deficits. Alert and oriented x3. PSYCH: Normal mood and affect <Alisa Brady PA-C - Last Filed: 05/27/22 14:21> Course Course Emergency Course:
[2022-05-27 10:18] LABS: Basophils Percent Auto 0.4 % (0.2-1.2); Eosinophils Percent Auto 0.3 % (0-4.4); Hematocrit 39.1 % (37.0-47.0); Hemoglobin 12.7 g/dL (12.0-15.0); Immature Granulocyte Absolute 0.03 K/mm3 (0.00-0.031); Immature Granulocyte Percent A 0.3 % (0-0.5); Lymphocytes Absolute Auto 1.53 K/mm3 (0.9-3.2); Lymphocytes Percent Auto 14.9 % (18.3-44.2); Mean Corpuscular HGB Conc 32.5 g/dl (32-36); Mean Corpuscular Hemoglobin 32.5 pg (26-34); Monocytes Percent Auto 9.4 % (2.6-8.5); Neutrophils Absolute Auto 7.7 K/mm3 (1.3-6.7); Neutrophils Percent Auto 74.7 % (45.5-73.1); Platelet Count Result 342 k/mm3 (150-375); Red Blood Count 3.91 M/mm3 (4.2-5.4); Red Cell Distribution Width 13.2 % (11.5-14.5); White Blood Count 10.3 K/mm3 (4.5-10.0)
[2022-05-27] MEDS: ALBUTEROL SULFATE NEB 2.5 MG/3 ML INH INHALATION ×3 (10:28→21:14)
[2022-05-27] MEDS: IPRATROPIUM BR 0.02% INH SOLN 0.5 MG/2.5 ML VIAL INHALATION ×3 (10:28→21:14)
[2022-05-27 10:29] LABS: INR 1.1; Prothrombin Time 14.1 Seconds (11.1-14.7)
[2022-05-27 10:30] LABS: Partial Thromboplastin Time 33.9 SECONDS (22.3-36.8)
[2022-05-27 10:32] LABS: Alanine Aminotransferase 13 U/L (6-35); Alkaline Phosphatase 82 U/L (38-126); Anion Gap 6 mmol/L (8-16); Aspartate Amino Transferase 18 U/L (14-36); Bilirubin,Total 0.5 mg/dL (0.2-1.3); Blood Urea Nitrogen 15 mg/dL (7-17); Calcium 8.7 mg/dL (8.4-10.2); Carbon Dioxide 25 mmol/L (22-30); Chloride 106 mmol/L (98-107); Estimated CRCL calculation 52 ml/min; Estimated Glomerular Filt Rate 55; Glucose 112 mg/dL (65-110); Potassium 3.8 mmol/L (3.4-5.0); Sodium 137 mmol/L (137-145)
[2022-05-27] MEDS: predniSONE 20 MG TABLET 40 MG PO (10:40)
[2022-05-27 10:44] LABS: Troponin I < 0.012 ng/mL (0.000-0.034)
[2022-05-27 10:53] LABS: D Dimer 2.53 ug/mL (<0.48)
[2022-05-27 10:56] LABS: NT Pro B Type Natriuretic Pept 972 pg/mL (19.9-100)
[2022-05-27 11:40] LABS: Influenza A QL RT-PCR Negative (Negative); Influenza B QL RT-PCR Negative (Negative); SARS-CoV-2 RNA PCR Negative
[2022-05-27 14:10] LABS: Troponin I < 0.012 ng/mL (0.000-0.034)
[2022-05-27 16:59] LABS: Troponin I < 0.012 ng/mL (0.000-0.034)
--- NOTE | 2022-05-27 19:44 | ADMGEN ---
This patient, Amairani Preciado, was admitted to Medical Room 255-. Patient/family oriented to hospital policies and general routines including ID bracelet, bed and alarms, visiting hours, pain management, procedures, bathroom and other care routines, personal items, smoking policy, room service/diet, and visiting hours. Information on how to activate the Rapid Response Team has been discussed. Patient/Family are encouraged to report perceived risks to care and to ask questions if they do not understand what they are told or what they should do.
--- NOTE | 2022-05-27 21:30 | PM.IMHP ---
H&P: HPI History of Present Illness Date/Time: 05/27/22 21:30 Chief Complaint: Shortness of breath. Narrative: This is a 66-year-old female smoker with COPD, hypertension, hyperlipidemia, seizure disorder, depression, anxiety, and history of breast cancer who presented to the emergency department via EMS from home for evaluation of shortness of breath. Patient provides the following history. She is a long-time smoker and has a chronic smoker's cough. Over the last several months however she has been increasingly short of breath on lesser and lesser exertion. More recently her cough has worsened and has become productive of clear phlegm. She has also had a subjective fever. Additionally she describes left anterior pleuritic chest pain which is somewhat worse with deep inspiration and cough. She has not noticed any significant alleviating factors and she has apparently been taking oxycodone for that at home without much benefit. With further questioning she has had subjective fevers but no chills or sweats. She has chronic, mild lower extremity edema. She is prescribed a diuretic but does not take that as she has stress urinary incontinence. She does not use inhalers at home as she reportedly cannot afford them. She denies sinus congestion, sore throat, nausea, vomiting, exertional chest pain, palpitations, orthopnea, paroxysmal nocturnal dyspnea, and calf pain. No sick contacts. No known history of cardiac disease or venous thromboembolism. Vital signs were stable on arrival to the ED. were significant for a WBC count of 10.3, D-dimer 2.53, troponin less than 0.012, proBNP 972. She tested negative for influenza and COVID. Chest x-ray showed bibasilar mild infiltrate and/or atelectasis. CTA of the chest showed no evidence of PE but did show small pleural effusions, moderate pericardial effusion, and bibasilar atelectasis. Venous Doppler ultrasounds of the lower extremities were negative for DVT. She is being admitted in this setting for COPD exacerbation and workup of the pericardial effusion. Review of Systems Review of Systems: Twelve systems were reviewed and are negative except for as per HPI. [facility] Past Medical History Medical History (Updated 05/27/22 @ 22:46 by Lisa Cruz PA-C) Breast cancer Chronic obstructive pulmonary disease Depression with anxiety Gastroesophageal reflux disease Hyperlipidemia Hypertension Seizure Tobacco dependence Surgical History Surgical History (Updated 05/27/22 @ 23:36 by Lisa Cruz PA-C) History of cholecystectomy History of discectomy History of hysterectomy History of lumpectomy of right breast Social History Social History (Updated 05/27/22 @ 22:45 by Lisa Cruz PA-C) Social History: Surrogate medical decision maker: Canelo Leal, brother. Code status: Full code. Smoking packs per day: 1.5 Smoking cigarettes per day: 30.0 Years smoked: 50 Smoking pack-years: 75.00 Smoking status: Current every day smoker Tobacco type: cigarettes Alcohol intake: never Substance use: former Substance use type: marijuana Lack of Transportation: No Lack of Food: Never True Current Housing: I Have Housing Concerned About Future Housing: No Difficulty Paying Gas/Electric Bills: No Difficulty Paying for Meds: No Currently Unemployed: No Education: High School Diploma/GED Difficulty w/ Childcare or Family Care: No Additional living arrangements comments: Lives in an apartment in [place]. Spiritual care concerns: No Meds Home Medications and Allergies Home Medications Medication Instructions Recorded Confirmed Type alprazolam 2 mg tablet 2 mg PO TID 05/27/22 05/27/22 History anastrozole 1 mg tablet 1 mg PO DAILY 05/27/22 05/27/22 History escitalopram oxalate 20 mg tablet 20 mg PO BID 05/27/22 05/27/22 History losartan 100 mg tablet 100 mg PO DAILY 05/27/22 05/27/22 History meloxicam 15 mg tablet 15 mg PO DAILY 05/27/22 05/27/22 Histor
[2022-05-28] VITALS (20 sets, daily range): BP systolic 110–133; BP diastolic 55–71; PULSE 64–84; RESP 16–18; TEMP 36.2–36.6; O2SAT 92–95
[2022-05-28] MEDS: PROPRANOLOL HCL 40 MG TABLET PO ×3 (00:45→21:02)
[2022-05-28] MEDS: ESCITALOPRAM OXALATE 10 MG TABLET 20 MG PO ×3 (00:46→21:01)
[2022-05-28] MEDS: AZITHROMYCIN 250 MG TABLET 500 MG PO (00:46)
[2022-05-28] MEDS: SIMVASTATIN 20 MG TABLET 80 MG PO ×2 (00:46→21:01)
[2022-05-28] MEDS: oxyCODONE HCL (*CRX) 2.5 MG TAB IR PO ×2 (02:02→18:26)
[2022-05-28] MEDS: oxyCODONE/ACETAMINOPHEN (*CRX) 5-325 MG TABLET 1 TABLET PO ×2 (02:02→18:29)
[2022-05-28] MEDS: IPRATROPIUM BR 0.02% INH SOLN 0.5 MG/2.5 ML VIAL INHALATION ×4 (02:37→20:04)
[2022-05-28] MEDS: ALBUTEROL SULFATE NEB 2.5 MG/3 ML INH INHALATION ×4 (02:37→20:04)
--- NOTE | 2022-05-28 06:00 | ECHO_ITS ---
Patient Info Name: Amairani Preciado Age: 66 years : 1955 Gender: Female Ht: 63 in Wt: 200 lbs BSA: 2.05 m2 HR: 67 bpm BP: 110 / 55 mmHg Heart Rhythm: Sinus Rhythm Technical Quality: Fair Exam Date: 05/28/2022 10:51 AM Exam Location: [facility] Patient Status: Inpatient Admit Date: 05/27/2022 Staff Ordering Physician: Alisa Brady PA-C Financial Adviser: Shauna Dorado RDCS Attending Provider: Deyanira Diaz MD Referring Physician: Jose Antonio KENNY; Exam Type: CA echo dop color flow w con Study Info Indications - pericardial effusion Complete two-dimensional, color flow and Doppler transthoracic echocardiogram is performed with contrast to opacify the left ventricle and to improve the deliniation of the left ventricle endocardial borders. Contrast/Agitated Saline Contrast/Ag. Saline: Definity Amount: 3.00 ml Administered By: Shauna Dorado RDCS Existing IV Access: Yes IV Access Condition: patent with no signs of infiltration Summary 1. Normal left ventricular size and thickness with overall good contractility of all segments. The calculated ejection fraction was 74% and visually of 65-70%. There were no focal wall motion abnormalities. Grade 2 diastolic dysfunction is present. 2. The right ventricle is not well visualized but appears mildly enlarged and mildly hypokinetic. 3. Left atrial chamber dimension is mildly enlarged. 4. There is mild tricuspid valve regurgitation. 5. Mild pulmonary hypertension, estimated pulmonary arterial systolic pressure is 42 mmHg. 6. Trivial pericardial effusion; no sign of tamponade. Pericardial thickness did not appear abnormal on this technically difficult study. 7. Dilated inferior vena cava with >50% collapse upon inspiration consistent with elevated right atrial pressure, 10 mmHg. 8. Normal sinus rhythm. 9. Technically difficult study due to body habitus and COPD; definity echo contrast used. Left Ventricle Left ventricular chamber dimension is normal. Left ventricular systolic function is normal, estimated at 65-70%. There is no increased left ventricular wall thickness. Left ventricular septal wall motion is normal. The left ventricular diastolic function is grade II diastolic dysfunction. Right Ventricle Right ventricular chamber dimension is not well visualized. Right ventricular systolic function is reduced. Left Atria Left atrial chamber dimension is mildly enlarged. Right Atria Right atrial chamber dimension is normal. Aortic Valve The aortic valve is trileaflet. There is no aortic valve sclerosis. There is no aortic valve stenosis. There is trace aortic valve regurgitation. Pulmonic Valve The pulmonic valve is normal. There is no pulmonic valve stenosis. There is no pulmonic regurgitation. Mitral Valve The mitral valve has normal leaflets. There is no mitral valve stenosis. There is no mitral valve regurgitation. Tricuspid Valve The tricuspid valve leaflets are normal. There is no significant tricuspid valve stenosis. There is mild tricuspid valve regurgitation. Mild pulmonary hypertension, estimated pulmonary arterial systolic pressure is 42 mmHg. Pericardium/Pleural The pericardium appears normal. There is trivial pericardial effusion. Inferior Vena Cava Dilated inferior vena cava with >50% collapse upon inspiration consistent with elevated right atrial pressure, 10 mmHg. Aorta The aortic root si
[2022-05-28 06:08] LABS: Anion Gap 8 mmol/L (8-16); Blood Urea Nitrogen 17 mg/dL (7-17); Calcium 8.8 mg/dL (8.4-10.2); Carbon Dioxide 25 mmol/L (22-30); Chloride 106 mmol/L (98-107); Estimated CRCL calculation 64 ml/min; Estimated Glomerular Filt Rate > 60; Glucose 95 mg/dL (65-110); Magnesium 2.4 mg/dL (1.6-2.3); Potassium 4.1 mmol/L (3.4-5.0); Sodium 139 mmol/L (137-145)
[2022-05-28 06:24] LABS: CRP 16.9 mg/dL (<1.0)
[2022-05-28 06:48] LABS: Thyroid Stimulating Hormone Reflex 0.302 uIU/mL (0.465-4.68)
[2022-05-28 06:53] LABS: Erythrocyte Sedimentation Rate 54 mm/hr (0-20)
[2022-05-28 07:27] LABS: Free T4 Free Thyroxine Reflex 1.01 ng/dL (0.78-2.19)
[2022-05-28 08:10] LABS: Total Triiodothyronine (T3) 0.73 NG/ML (0.97-1.69)
[2022-05-28 08:11] LABS: Basophils Percent Auto 0.3 % (0.2-1.2); Eosinophils Percent Auto 0.1 % (0-4.4); Hematocrit 36.5 % (37.0-47.0); Hemoglobin 11.4 g/dL (12.0-15.0); Immature Granulocyte Absolute 0.05 K/mm3 (0.00-0.031); Immature Granulocyte Percent A 0.5 % (0-0.5); Lymphocytes Absolute Auto 1.52 K/mm3 (0.9-3.2); Lymphocytes Percent Auto 15.9 % (18.3-44.2); Mean Corpuscular HGB Conc 31.2 g/dl (32-36); Mean Corpuscular Hemoglobin 31.9 pg (26-34); Mean Corpuscular Volume 102.2 fl (80-100); Mean Platelet Volume 9.6 fl (7.4-10.4); Monocytes Absolute Auto 1.1 K/mm3 (0.1-0.6); Monocytes Percent Auto 11.9 % (2.6-8.5); Neutrophils Absolute Auto 6.8 K/mm3 (1.3-6.7); Neutrophils Percent Auto 71.3 % (45.5-73.1); Platelet Count Result 326 k/mm3 (150-375); Red Blood Count 3.57 M/mm3 (4.2-5.4); Red Cell Distribution Width 13.2 % (11.5-14.5); White Blood Count 9.5 K/mm3 (4.5-10.0)
[2022-05-28 08:17] LABS: Alanine Aminotransferase 13 U/L (6-35); Albumin Level 3.5 g/dL (3.5-5.1); Alkaline Phosphatase 72 U/L (38-126); Aspartate Amino Transferase 18 U/L (14-36); Bilirubin,Total 0.4 mg/dL (0.2-1.3)
[2022-05-28] MEDS: ANASTROZOLE (*CHEMO) 1 MG TABLET PO (08:55)
[2022-05-28] MEDS: predniSONE 20 MG TABLET 40 MG PO (08:55)
[2022-05-28] MEDS: MELOXICAM 7.5 MG TABLET 15 MG PO (08:55)
[2022-05-28] MEDS: LOSARTAN POTASSIUM 100 MG TABLET PO (08:55)
[2022-05-28] MEDS: ENOXAPARIN 40 MG/0.4 ML SYRINGE SUB-Q (08:56)
[2022-05-28] MEDS: ZONISAMIDE 25 MG CAPSULE 50 MG PO (08:56)
--- NOTE | 2022-05-28 09:28 | PM.CNCAR ---
Assessment and Plan Assessment and plan (1) Viral pericarditis: Code(s): B33.23 - Viral pericarditis Status: Acute Assessment and Plan: Patient appears to have a pleuro- pericarditis, probably viral, with pleuritic chest pain and a trivial to small pericardial effusion and small pleural effusions as well. Sed rate and CMP are elevated. She did have some slight RI depression in lead II on her EKG, consistent with pericarditis. --doubt this relates to her breast cancer or radiation therapy which was right-sided --will check an RAFI and rheumatoid factor but most likely this is viral, not related to connective tissue disease --recommend ibuprofen 600 mg t.i.d. for 1-2 weeks --also colchicine 0.6 mg b.i.d. for 3 months to prevent relapse --outpatient follow-up with our office (2) Acute exacerbation of chronic obstructive pulmonary disease: Code(s): J44.1 - Chronic obstructive pulmonary disease with (acute) exacerbation Status: Acute Assessment and Plan: Treatment per hospitalists. Smoking cessation encouraged. (3) Hypertensive heart disease: Code(s): I11.9 - Hypertensive heart disease without heart failure Status: Acute Assessment and Plan: Patient has hypertension, LVH and diastolic dysfunction consistent with hypertensive heart disease. --While she does have a mild elevation of her proBNP, she does not appear to have acute CHF at this time. --states that she has been out of her propranolol for couple of weeks, unable to get refills. (4) Breast cancer: Code(s): C50.919 - Malignant neoplasm of unspecified site of unspecified female breast Status: Chronic Assessment and Plan: Breast cancer treated in the past with lumpectomy and radiation therapy. --has not seen an oncologist for a while and has not had a mammogram for few years. --encouraged follow-up mammography etc. (5) Unintentional weight loss: Code(s): R63.4 - Abnormal weight loss Status: Acute Assessment and Plan: Patient states that she has lost 100 lb over the past year due to poor appetite. --weight was [address] saw Dr[address] Cote in 2019, now is 91 kilos --follow-up with Dr. Nj History of Present Illness History of Present Illness Consult date/time: 05/28/22 09:28 Reason For Visit: COPD Exacerbation/Pericardial Effusion Narrative: Amairani Preciado is a 66 y.o. female whom I was asked to see at the request of JERARDO Cruz for my advice and opinion regarding her pericardial effusion, in consultation. She has history of COPD, hypertension, hyperlipidemia, seizures, depression, anxiety, and history of breast cancer stage IA. The patient was admitted through the emergency room on 05/27/2022 for shortness of breath the last several months. She told me she was hospitalized here in February for pneumonia (no record of this) and just never got better. She cannot afford her inhalers. She had increased SOB X 2 weeks, wheezing, cough productive of clear sputum and weakness. She also has pleuritic chest discomfort. She was brought to the ER by EMS. She was found have a D-dimer of 2.53, normal troponins, and a proBNP of 972. She was negative for influenza and COVID. Chest x-ray showed bibasilar mild infiltrates and/or atelectasis. Slight pleural effusions. CTA showed moderate pericardial effusion, no PE, small pleural effusions, bibasilar atelectasis. She had atherosclerosis of the aorta. Echo showed LVH, normal LV function, diastolic dysfunction, trivial pericardial effusion. No fever since admission and she is on room air. Heart rate is in the 60s to 70s. No history of any connective tissue disease. She states she had breast cancer in 2012 and 2018, both right-sided, treated with lumpectomy and once with radiation therapy. She used to see Dr. Strong (and I found a note written by Dr. Lowery as well) but she has not followed up with any oncologist nor had any ankita
[2022-05-28] MEDS: PERFLUTREN LIPID MICROSPHERES 1.5 ML VIAL DILUTED TO 10 ML TOTAL VOLUME IV PUSH (11:21)
--- NOTE | 2022-05-28 11:21 | IVDEFINITY ---
Prior to administration of IV Definity the patient was educated on the risks and benefits of the imaging enhancing agent including potential adverse side effects. The patient verbalized understanding. Allergies were verified. No exclusion criteria were identified and at least one of the following inclusion criteria were met: 1) physician request, 2) patient technically difficult to image (per the [employer] guidelines of two or more segments not discernable within the apical view), or 3) questionable left ventricular function. ?
--- NOTE | 2022-05-28 14:31 | PM.IMPN ---
Progress Note: A&P Assessment and Plan (1) Acute exacerbation of chronic obstructive pulmonary disease: Code(s): J44.1 - Chronic obstructive pulmonary disease with (acute) exacerbation Status: Acute Assessment and Plan: Clinically she has evidence of COPD exacerbation with coarse diminished lung sounds on exam in the ED. Azithromycin for total of 5 days Prednisone 40 mg daily for a total of 5 days Sputum culture ordered No evidence of pneumonia noted on chest x-ray or CT. Patient is requiring increased oxygen demands. (2) Pericardial effusion: Code(s): I31.39 - Other pericardial effusion (noninflammatory) Status: Acute Assessment and Plan: Chest CTA was negative for PE but did show small pleural effusions and moderate pericardial effusion which is likely the cause of her pleuritic pain. Cardiology consulted and appreciate recommendations Etiology of the effusion is not clear at this time and differential diagnosis includes malignant effusion given history of breast cancer, infectious given possible viral URI, secondary to radiation although her right breast was radiated. Echocardiogram with EF of 74%, grade 2 diastolic dysfunction, pulmonary hypertension at 42 mmHg, trivial pericardial effusion; no sign of tamponade (3) Pleuritic chest pain: Code(s): R07.81 - Pleurodynia Status: Acute Assessment and Plan: Likely due to pericardial effusion Vs pleural effusion Troponin negative x3 D-dimer 2.53 CTA negative for PE chest x-ray no acute cardiopulmonary process Cardiology following patient. (4) Tobacco dependence: Code(s): F17.200 - Nicotine dependence, unspecified, uncomplicated Status: Acute Assessment and Plan: Smoking cessation discussed for 3 to 5 minutes Nicotine patch as needed. (5) Hypertension: Code(s): I10 - Essential (primary) hypertension Status: Acute Assessment and Plan: Blood pressure stable, continue home medications continue to monitor. (6) Breast cancer: Code(s): C50.919 - Malignant neoplasm of unspecified site of unspecified female breast Status: Chronic Assessment and Plan: continue p.o. medications. (7) Seizure disorder: Code(s): G40.909 - Epilepsy, unspecified, not intractable, without status epilepticus Status: Acute Assessment and Plan: Patient taking Zonisamide. Contine. Subjective Date/time seen: 05/28/22 14:31 Interval history: Patient continued to have lateral left chest pain today. Patient does have chronic cough that is not new to her as well as shortness of breath. She states that she is typically short of breath at baseline but her shortness of breath has progressed over the past couple weeks. Patient states that she has had this left lateral chest pain for months. Patient denies dizziness, loss of consciousness headache, hemoptysis, nausea vomiting abdominal pain. Patient does drink 3/4 of a 2 L bottle of soda a day. I discussed with patient this is very bad for her health and I would recommend decreasing this amount. Review of Systems Review of Systems: All systems reviewed & are unremarkable except as noted in HPI and below Exam Narrative: GENERAL: Comfortable, no acute distress, obese HENMT: moist mucous membranes, poor dentition EYES: EOM intact b/l NECK: no lymphadenopathy RESPIRATORY: clear to auscultation CARDIO: distant heart sounds GI: soft, nontender, bowel sounds present SKIN: no rashes EXTREMITIES: no edema, redness or tenderness Objective Data Vital Signs Vital Signs: Vital Signs - 24 hr 05/27/22 14:32 05/27/22 16:46 05/27/22 17:00 Temperature 97.4 F L Pulse Rate 75 78 Respiratory Rate 19 17 Blood Pressure 118/55 L Pulse Oximetry 96 96 Oxygen Delivery Nasal Cannula Oxygen Flow Rate 2 Fraction of Inspired Oxygen 05/27/22 21:18 05/27/22 21
[2022-05-28] MEDS: ALPRAZolam (*CRX) 0.5 MG TABLET 2 MG PO (21:01)
[2022-05-28] MEDS: COLCHICINE 0.6 MG TABLET PO (21:02)
[2022-05-29] VITALS (16 sets, daily range): BP systolic 128–167; BP diastolic 69; PULSE 56–108; RESP 18; TEMP 36.3–36.6; O2SAT 93–97
[2022-05-29] MEDS: ALBUTEROL SULFATE NEB 2.5 MG/3 ML INH INHALATION ×3 (02:09→13:40)
[2022-05-29] MEDS: IPRATROPIUM BR 0.02% INH SOLN 0.5 MG/2.5 ML VIAL INHALATION ×3 (02:09→13:39)
[2022-05-29 06:20] LABS: Basophils Percent Auto 0.4 % (0.2-1.2); Eosinophils Percent Auto 0.4 % (0-4.4); Hematocrit 38.6 % (37.0-47.0); Hemoglobin 12.4 g/dL (12.0-15.0); Immature Granulocyte Absolute 0.03 K/mm3 (0.00-0.031); Immature Granulocyte Percent A 0.4 % (0-0.5); Lymphocytes Absolute Auto 2.34 K/mm3 (0.9-3.2); Lymphocytes Percent Auto 29.5 % (18.3-44.2); Mean Corpuscular HGB Conc 32.1 g/dl (32-36); Mean Corpuscular Hemoglobin 31.6 pg (26-34); Mean Corpuscular Volume 98.2 fl (80-100); Mean Platelet Volume 9.2 fl (7.4-10.4); Monocytes Absolute Auto 0.7 K/mm3 (0.1-0.6); Monocytes Percent Auto 9.1 % (2.6-8.5); Neutrophils Absolute Auto 4.8 K/mm3 (1.3-6.7); Neutrophils Percent Auto 60.2 % (45.5-73.1); Platelet Count Result 350 k/mm3 (150-375); Red Blood Count 3.93 M/mm3 (4.2-5.4); Red Cell Distribution Width 12.9 % (11.5-14.5); White Blood Count 7.9 K/mm3 (4.5-10.0)
[2022-05-29 06:29] LABS: Alanine Aminotransferase 15 U/L (6-35); Albumin Level 3.9 g/dL (3.5-5.1); Alkaline Phosphatase 78 U/L (38-126); Anion Gap 5 mmol/L (8-16); Aspartate Amino Transferase 21 U/L (14-36); Bilirubin,Total 0.5 mg/dL (0.2-1.3); Blood Urea Nitrogen 20 mg/dL (7-17); Calcium 9.5 mg/dL (8.4-10.2); Carbon Dioxide 27 mmol/L (22-30); Chloride 104 mmol/L (98-107); Estimated CRCL calculation 64 ml/min; Estimated Glomerular Filt Rate > 60; Glucose 89 mg/dL (65-110); Potassium 3.9 mmol/L (3.4-5.0); Sodium 136 mmol/L (137-145)
[2022-05-29 06:34] LABS: Rheumatoid Factor < 8.6 IU/ML (<12)
[2022-05-29] MEDS: ESCITALOPRAM OXALATE 10 MG TABLET 20 MG PO (08:08)
[2022-05-29] MEDS: predniSONE 20 MG TABLET 40 MG PO (08:08)
[2022-05-29] MEDS: ANASTROZOLE (*CHEMO) 1 MG TABLET PO (08:08)
[2022-05-29] MEDS: COLCHICINE 0.6 MG TABLET PO (08:08)
[2022-05-29] MEDS: ENOXAPARIN 40 MG/0.4 ML SYRINGE SUB-Q (08:08)
[2022-05-29] MEDS: AZITHROMYCIN 250 MG TABLET PO (08:08)
[2022-05-29] MEDS: oxyCODONE/ACETAMINOPHEN (*CRX) 5-325 MG TABLET 1 TABLET PO (08:09)
[2022-05-29] MEDS: ZONISAMIDE 25 MG CAPSULE 50 MG PO (08:09)
[2022-05-29] MEDS: LOSARTAN POTASSIUM 100 MG TABLET PO (08:09)
[2022-05-29] MEDS: PROPRANOLOL HCL 40 MG TABLET PO (08:09)
[2022-05-29] MEDS: oxyCODONE HCL (*CRX) 2.5 MG TAB IR PO (08:09)
--- NOTE | 2022-05-29 15:11 | HOMEO2EVAL ---
Evaluation was performed at [facility] Home Oxygen Evaluation RC: Home Oxygen (O2) Evaluation Start: 05/29/22 14:47 Freq: ONCE Status: Active Protocol: RPE Activity Type Activity Date Activity User E-sign Co-sign Detail Recorded Client Recorded Date Recorded By Document 05/29/22 14:40 DJO [id number] 05/29/22 15:11 DJO Document 05/29/22 14:45 [email or web address] [id number] 05/29/22 15:11 DJO Document 05/29/22 14:55 [email or web address] [email or web address] 05/29/22 15:11 DJO 05/29/22 05/29/22 05/29/22 14:40 14:45 14:55 Home O2 Evaluation [Oxygen] -Test Phase Resting Exercise Resting -Oxygen Delivery Room Air Room Air Room Air [Pulse Oximetry] -Pulse Oximetry (90-100 %) 95 94 95 [Pulse Rate] -Pulse Rate (60-100 beats/min) 88 108 H 91 [Evaluation] -Activity Tolerance Good [Charges] -Treatment Charges O2 Evaluation - Inpatient
--- NOTE | 2022-05-29 15:11 | PCRCNOTE ---
HOME O2 EVAL COMPLETE, NO REQUIREMENTS
--- NOTE | 2022-05-29 15:27 | PM.DS ---
DS: Admitting Diagnosis Discharge Date 05/29/2022 Admitting Diagnosis Acute exacerbation of chronic obstructive pulmonary disease Pericardial effusion Pleuritic chest pain ? DS: Discharge Diagnosis Discharge Diagnosis (1) Acute exacerbation of chronic obstructive pulmonary disease: Code(s): J44.1 - Chronic obstructive pulmonary disease with (acute) exacerbation Status: Acute Assessment and Plan: Clinically she has evidence of COPD exacerbation with coarse diminished lung sounds on exam in the ED. Azithromycin for total of 5 days Prednisone 40 mg daily for a total of 5 days Sputum culture ordered No evidence of pneumonia noted on chest x-ray or CT. Patient initially requiring increased oxygen demands, but weaned to room air. Home O2 eval completed on day of discharge and no home O2 needs. (2) Viral pericarditis: Code(s): B33.23 - Viral pericarditis Status: Acute Assessment and Plan: Patient appears to have a? pleuro- pericarditis, probably viral, with pleuritic chest pain and a trivial to small pericardial effusion and small pleural effusions as well.? Sed rate and CMP are elevated.? She did have some slight CA depression in lead II on her EKG, consistent with pericarditis. RAFI pending and rheumatoid factor negative. Likely viral On Prednisone 40 mg PO for COPDAE x 5 days, then recommend ibuprofen 600 mg t.i.d. for 1-2 weeks colchicine 0.6 mg b.i.d. for 3 months to prevent relapse Follow up with Cardiology outpatient (3) Pericardial effusion: Code(s): I31.39 - Other pericardial effusion (noninflammatory) Status: Acute Assessment and Plan: Chest CTA was negative for PE but did show small pleural effusions and moderate pericardial effusion which is likely the cause of her pleuritic pain. Cardiology consulted and appreciate recommendations Concern for viral pericarditis and patient treated with NSAIDs PRN, glucocorticoids as above and colchicine Echocardiogram with EF of 74%, grade 2 diastolic dysfunction, pulmonary hypertension at 42 mmHg, trivial pericardial effusion; no sign of tamponade (4) Pleuritic chest pain: Code(s): R07.81 - Pleurodynia Status: Resolved Assessment and Plan: Likely due to pericardial effusion, pleural effusion and CoPD exacerbation. Troponin negative x3 D-dimer 2.53 CTA negative for PE chest x-ray no acute cardiopulmonary process Management as above. Resolved. (5) Tobacco dependence: Code(s): F17.200 - Nicotine dependence, unspecified, uncomplicated Status: Chronic Assessment and Plan: Smoking cessation discussed for 3 to 5 minutes Nicotine patch as needed. (6) Hypertension: Code(s): I10 - Essential (primary) hypertension Status: Chronic Assessment and Plan: Blood pressure stable, continue home medications continue to monitor. (7) Breast cancer: Code(s): C50.919 - Malignant neoplasm of unspecified site of unspecified female breast Status: Chronic Assessment and Plan: continue p.o. medications. (8) Seizure disorder: Code(s): G40.909 - Epilepsy, unspecified, not intractable, without status epilepticus Status: Chronic Assessment and Plan: Patient taking Zonisamide. Contine. (9) Hypertensive heart disease: Code(s): I11.9 - Hypertensive heart disease without heart failure Status: Chronic Assessment and Plan: Continue antihypertensives. Diastolic dysfunction noted on echocardiogram. Euvolemic. DS: Summary Hospital Course Reason for hospitalization: Shortness of breath Hospital Course: is a 66-year-old female smoker with COPD, hypertension, hyperlipidemia, seizure disorder, depression, anxiety, and history of breast cancer who presented to the emergency department via EMS from home for evaluation of shortness of breath. Patient provides the following history. She is a long-time
== END 2022-05-29 16:29 | disposition home or self-care (01) ==
LOC: ANHED 13:32 → ANH2MED 05-28 09:01
PROVIDERS: Emergency Medicine; Internal Medicine Cardiovascular Disease; Internal Medicine Critical Care Medicine; Physician Assistant; Admitting Provider Internal Medicine; Emergency Provider Physician Assistant; PCP Family Medicine; Visit Provider Student in an Organized Health Care Education/Training Program
DX: J44.1 Chronic obstructive pulmonary disease with (acute) exacerbation (principal); B33.23 Viral pericarditis; I31.39 Other pericardial effusion (noninflammatory); R07.81 Pleurodynia; I11.9 Hypertensive heart disease without heart failure; C50.919 Malignant neoplasm of unspecified site of unspecified female breast; G40.909 Epilepsy, unspecified, not intractable, without status epilepticus; K21.9 Gastro-esophageal reflux disease without esophagitis; E78.5 Hyperlipidemia, unspecified; F41.8 Other specified anxiety disorders; F17.210 Nicotine dependence, cigarettes, uncomplicated; R07.9 Chest pain, unspecified; Z20.822 Contact with and (suspected) exposure to COVID-19; M79.602 Pain in left arm; I27.20 Pulmonary hypertension, unspecified; Z68.35 Body mass index [BMI] 35.0-35.9, adult; R05.9 Cough, unspecified; R60.0 Localized edema; F12.90 Cannabis use, unspecified, uncomplicated; D72.829 Elevated white blood cell count, unspecified; J90 Pleural effusion, not elsewhere classified; J98.11 Atelectasis; R00.1 Bradycardia, unspecified; N39.3 Stress incontinence (female) (male); I07.1 Rheumatic tricuspid insufficiency; R63.4 Abnormal weight loss; Z79.891 Long term (current) use of opiate analgesic; Z79.899 Other long term (current) drug therapy
CPT/HCPCS: 36415; 71046; 71275; 80048; 80053; 80076; 83735; 83880; 84439; 84443; 84480; 84484; 85025; 85380; 85610; 85652; 85730; 86038; 86039; 86140; 86430; 87636; 93005; 93970; 94618; 94640; 96365; 96366; 96372; 99285; A9270; C8929; G0378; J0131; J1650; J7512; Q9957; Q9967

== ENCOUNTER 2023-10-04 08:36 | Outpatient (CLI) | payer MEDICARE, SELFPAY ==
--- NOTE | ~2023-10-04 | MM_ITS ---
EXAMINATION: MM screening ankita BI w rubia HISTORY: Screening TECHNIQUE: Craniocaudal and mediolateral oblique 3-D tomosynthesis images were obtained and synthetic 2-D images were generated. CAD analysis was submitted and interpreted. COMPARISON: Comparison to multiple prior studies sequentially, with oldest reviewed study dated 07/15. BREAST PARENCHYMAL COMPOSITION: Not dense: There are scattered areas of fibroglandular density. FINDINGS: There is no evidence of suspicious mass, calcification, or architectural distortion to sugg est malignancy in either breast. There has been no suspicious interval change. IMPRESSION: 1. No mammographic evidence of malignancy. 2. Recommend routine screening mammography in one year. BI-RADS Category 1: Negative Reviewed, dictated and finalized at location B.
[2023-10-04 09:28] LABS: Basophils Absolute Auto 0.1 K/mm3 (0.0-0.1); Basophils Percent Auto 0.9 % (0.2-1.2); Eosinophils Absolute Auto 0.1 K/mm3 (0-0.3); Eosinophils Percent Auto 1.2 % (0-4.4); Hematocrit 47.2 % (37.0-47.0); Hemoglobin 15.3 g/dL (12.0-15.0); Immature Granulocyte Absolute 0.03 K/mm3 (0.00-0.031); Immature Granulocyte Percent A 0.4 % (0-0.5); Lymphocytes Absolute Auto 1.54 K/mm3 (0.9-3.2); Lymphocytes Percent Auto 20.8 % (18.3-44.2); Mean Corpuscular HGB Conc 32.4 g/dl (32-36); Mean Corpuscular Hemoglobin 33.5 pg (26-34); Mean Corpuscular Volume 103.3 fl (80-100); Mean Platelet Volume 9.1 fl (7.4-10.4); Monocytes Absolute Auto 0.5 K/mm3 (0.1-0.6); Monocytes Percent Auto 6.7 % (2.6-8.5); Neutrophils Absolute Auto 5.2 K/mm3 (1.3-6.7); Platelet Count Result 318 k/mm3 (150-375); Red Blood Count 4.57 M/mm3 (4.2-5.4); Red Cell Distribution Width 11.7 % (11.5-14.5); White Blood Count 7.4 K/mm3 (4.5-10.0)
[2023-10-04 09:38] LABS: Alanine Aminotransferase 13 U/L (6-35); Albumin Level 4.8 g/dL (3.5-5.1); Alkaline Phosphatase 93 U/L (38-126); Anion Gap 13 mmol/L (4-12); Aspartate Amino Transferase 22 U/L (14-36); Bilirubin,Total 0.7 mg/dL (0.2-1.3); Blood Urea Nitrogen 32 mg/dL (7-17); Calcium 9.5 mg/dL (8.4-10.2); Carbon Dioxide 21 mmol/L (22-30); Chloride 105 mmol/L (98-107); Cholesterol 309 mg/dL (0-200); Estimated Glomerular Filt Rate 30; Glucose 92 mg/dL (65-110); HDL Direct 37 mg/dL; Potassium 4.6 mmol/L (3.4-5.0); Sodium 139 mmol/L (137-145); Triglycerides 199 mg/dL (<150)
[2023-10-04 09:50] LABS: LDL Cholesterol Direct 177 mg/dL
== END 2023-10-04 08:37 | disposition home or self-care (01) ==
PROVIDERS: PCP Family Medicine; Visit Provider Registered Nurse
DX: Z12.31 Encounter for screening mammogram for malignant neoplasm of breast (principal); R53.83 Other fatigue; E78.5 Hyperlipidemia, unspecified; I10 Essential (primary) hypertension; Z02.83 Encounter for blood-alcohol and blood-drug test
CPT/HCPCS: 36415; 77063; 77067; 80053; 80061; 85025

== ENCOUNTER 2023-11-09 12:43 | Emergency (ER) | payer MEDICARE, SELFPAY ==
--- NOTE | ~2023-11-09 | XR_ITS ---
XR chest 2V DATE: 11/09/2023 14:39 INDICATION: Fall 2 days ago. Right chest pain TECHNIQUE: AP and lateral views COMPARISON: 05/27/2022 CTA chest 05/27/2022 2 view chest FINDINGS: Heart size is within normal range. No hilar or mediastinal enlargement. No pulmonary infilt rate or consolidation, pleural effusion or pulmonary vascular congestion or pneumothorax. Status post lower anterior cervical spine surgical fusion. Surgical clips, upper abdomen, likely due to cholecystectomy. Osteopenia. Levoscoliosis of the thoracic spine. IMPRESSION: No active cardiopulmonary disease Reviewed, dictated and finalized at location [facility].
--- NOTE | ~2023-11-09 | CT_ITS ---
EXAMINATION: CT facial & cervical spine wo DATE: 11/09/2023 14:52 INDICATION: Fall. Bruising to right orbital area TECHNIQUE: Computed tomography (CT) of the facial bones and maxillofacial region was performed withou t intravenous contrast. Automated exposure control and iterative reconstruction technique were employ ed. Exam dose: 218.13 mGy-cm total exam DLP. COMPARISON: None. FINDINGS: Mild right periorbital soft tissue swelling Normal alignment at the frontozygomatic sutures . The orbital rims and delgadillo and zygomatic arches and maxillary bones are intact. The paranasal sinus es are normally developed and aerated. There are multiple periapical abscesses of the T8. No mandibular fracture or dislocation. Status post anterior cervical spine surgical fusion at C4-C7. Normal alignment at the atlantoaxial joints and at C1 and C2. The odontoid process is intact. No frac ture or dislocation or locked facet of the cervical spine is noted. No prevertebral soft tissue swell ing is detected. Moderate degenerative disc disease at C2-3 and C3-4 with 1.6 mm retrolisthesis at C3-4. Severe degenerative disc disease and 2.4 mm anterolisthesis at C7-T1. IMPRESSION: Mild right periorbital soft tissue swelling. No facial fracture Status post anterior cervical spine fusion at C4-C7 Moderate degenerative disc disease at C2-3 and C3-4 with 1.6 mm retrolisthesis at C3-4 Severe degenerative disc disease and 2.4 mm anterolisthesis at C7-T1 Multiple periapical tooth abscesses with break through the anterior cortex of the mandible at the low er left central incisor. Urgent dental consultation is recommended. Reviewed, dictated and finalized at [facility]. Reviewed, dictated and finalized at location J. IMPRESSION: Mild right periorbital soft tissue swelling. No facial fracture Status post anterior cervical spine fusion at C4-C7 Moderate degenerative disc disease at C2-3 and C3-4 with 1.6 mm retrolisthesis at C3-4 Severe degenerative disc disease and 2.4 mm anterolisthesis at C7-T1 Multiple periapical tooth abscesses with break through the anterior cortex of t he mandible at the lower left central incisor. Urgent dental consultation is re commended.
--- NOTE | ~2023-11-09 | CT_ITS ---
EXAMINATION: CT brain wo con DATE: 11/09/2023 14:52 INDICATION: Patient fell from chair a few days ago. Bruising to right orbital area TECHNIQUE: Computed tomography (CT) of the head was performed without intravenous contrast. The mA wa s adjusted according to patient size. Iterative reconstruction technique was employed. Exam dose: 60 5.33 mGy-cm total exam DLP. COMPARISON: 11/05/2018 CT brain FINDINGS: Bilateral vertebral artery calcifications. No intracranial mass lesion or hemorrhage or cerebrovascular accident, midline shift or mass effect i s detected. Normal ventricular size. Mild cerebral cortical and cerebellar volume loss. No subdural or epidural hematoma is detected. There is minimal mucoperiosteal thickening of the lateral wall of the right maxillary sinus. The para nasal sinuses and mastoid air cells are otherwise unremarkable. No fracture or bone destruction of the cranial vault. IMPRESSION: No skull fracture or acute intracranial abnormality Reviewed, dictated and finalized at [facility]. Reviewed, dictated and finalized at location [facility].
[2023-11-09 12:58] VITALS: BP 135/78; PULSE 67; RESP 20; TEMP 36.2; O2SAT 93
[2023-11-09 15:05] VITALS: BP 153/88; PULSE 72; RESP 14; TEMP 36.4; O2SAT 96
--- NOTE | 2023-11-09 16:09 | ED.FALL ---
HPI - Fall General Chief Complaint: Fall Stated Complaint: injuries s/p glf 2 days ago Time Seen by Provider: 11/09/23 14:08 History of Present Illness HPI Narrative: 67-year-old female presented to the emergency department for evaluation after having a ground level fall secondary to a bad chair. Patient states that she knew that her chair was going to break but she did change the chair. Two days ago patient states the chair broke causing her to fall injure her right side of her ribs and struck the right side of her face. Patient denied loss consciousness. Patient denies any other pain or injury. Related Data Home Medications Medication Instructions Recorded Confirmed alprazolam 1 mg tablet 1 mg PO PRN PRN Anxiety 10/12/19 02/28/22 anastrozole 1 mg tablet 1 mg PO DAILY 10/12/19 02/28/22 escitalopram oxalate 20 mg tablet 20 mg PO DAILY 10/12/19 02/28/22 (Lexapro) losartan 100 mg tablet 100 mg PO DAILY 10/12/19 02/28/22 meloxicam 15 mg tablet 15 mg PO DAILY 10/12/19 02/28/22 propranolol 40 mg tablet 40 mg PO BID 10/12/19 02/28/22 quetiapine 50 mg tablet 50 mg PO DAILY 10/12/19 02/28/22 zonisamide 50 mg capsule 50 mg PO DAILY 10/12/19 02/28/22 oxycodone-acetaminophen 7.5 mg-325 1 tablet PO Q6H 02/28/22 02/28/22 mg tablet alprazolam 2 mg tablet 2 mg PO TID 05/27/22 05/27/22 anastrozole 1 mg tablet 1 mg PO DAILY 05/27/22 05/27/22 escitalopram oxalate 20 mg tablet 20 mg PO BID 05/27/22 05/27/22 losartan 100 mg tablet 100 mg PO DAILY 05/27/22 05/27/22 meloxicam 15 mg tablet 15 mg PO DAILY 05/27/22 05/27/22 oxycodone-acetaminophen 7.5 mg-325 1 tablet PO QID PRN Pain (Scale 05/27/22 05/27/22 mg tablet Score 7-10) propranolol 40 mg tablet 40 mg PO BID 05/27/22 05/27/22 simvastatin 80 mg tablet 80 mg PO HS 05/27/22 05/27/22 zonisamide 50 mg capsule 50 mg PO DAILY 05/27/22 05/27/22 Allergies Allergy/AdvReac Type Severity Reaction Status Date / Time aspirin AdvReac Gastrointestinal Verified 11/09/23 13:01 Upset varenicline [From Chantix] AdvReac Hallucinati Verified 11/09/23 13:01 ng ASPIRIN/NAUSEATED Allergy Mild Nausea Uncoded 11/09/23 13:01 Review of Systems Review of Systems: All systems reviewed & are unremarkable except as noted in HPI and below PMFSH Past Medical History Medical History (Updated 11/09/23 @ 16:44 by Flex Kenny MD) Arm paresthesia, left Back pain Breast cancer Breast cancer 2012 and 2018, both right-sided, tx'd w/ lumphectomy and one w/ radiation tx. Saw Dr. Strong? Chronic obstructive pulmonary disease Chronic obstructive pulmonary disease, unspecified Depression with anxiety Gastroesophageal reflux disease Generalized anxiety disorder Hyperlipidemia Hypertension Hypertension Hypertensive heart disease Neuropathy Other chronic pain Seasonal allergies Seizure Tobacco dependence Tobacco dependence Surgical History Surgical History (Updated 05/31/22 @ 12:21 by Tala Nolan) H/O: hysterectomy History of cholecystectomy History of discectomy History of hysterectomy History of lumpectomy of right breast S/P cholecystectomy Family History Family History Mother Patient's mother is in good health Sibling Patient's sister is in good health Patient's brother is in good health Father Family history of malignant neoplasm Patient's father is Social History Social History (System 05/31/22 @ 12:21 by Tala Nolan) Social History: , lives with her son, estranged from her daughter. 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 Surrogate medical decision maker: Canelo Leal, brother. Code status: Full code. Smoking packs per day: 1.5 Smoking cigarettes per day: 30.0 Years smoked: 50 Smoking pack-years: 75.00 Smoking status: Current every day smoker Tobacco type: cigarettes Additional smoking assessment comments: smoking since 16 yo Alcohol intake: never Substance use:
[2023-11-09 16:52] VITALS: BP 144/92; PULSE 74; RESP 16; O2SAT 97
== END 2023-11-09 16:52 | disposition home or self-care (01) ==
PROVIDERS: Emergency Provider Emergency Medicine; PCP Family Medicine
DX: S09.93XA Unspecified injury of face, initial encounter (principal); S20.211A Contusion of right front wall of thorax, initial encounter; I11.9 Hypertensive heart disease without heart failure; J44.9 Chronic obstructive pulmonary disease, unspecified; E78.5 Hyperlipidemia, unspecified; G62.9 Polyneuropathy, unspecified; K21.9 Gastro-esophageal reflux disease without esophagitis; F41.8 Other specified anxiety disorders; F17.210 Nicotine dependence, cigarettes, uncomplicated; Z85.3 Personal history of malignant neoplasm of breast; Z92.3 Personal history of irradiation; Z90.49 Acquired absence of other specified parts of digestive tract; Z79.899 Other long term (current) drug therapy; Z90.710 Acquired absence of both cervix and uterus; Z98.1 Arthrodesis status; M50.31 Other cervical disc degeneration, high cervical region; K04.7 Periapical abscess without sinus; M50.33 Other cervical disc degeneration, cervicothoracic region; W07.XXXA Fall from chair, initial encounter
CPT/HCPCS: 70450; 70486; 71046; 72125; 99284

== ENCOUNTER 2024-01-16 10:50 | Inpatient (IN) | payer MEDICARE, SELFPAY ==
[2024-01-16] VITALS (46 sets, daily range): BP systolic 111–224; BP diastolic 65–122; PULSE 51–88; RESP 14–22; TEMP 37.1; O2SAT 55–100; BMI 29.5
--- NOTE | ~2024-01-16 | XR_ITS ---
Portable chest x-ray Comparison: 01/19/2024 Clinical History: Respiratory failure Findings: Left-sided PICC line in place. Lungs are clear, without focal consolidation or pleural eff usion. Cardiomediastinal silhouette is stable. Bones and soft tissues demonstrate stable cervical sp ine fixation hardware. Impression: Clear lungs. Left-sided PICC line. Reviewed, dictated and finalized at location . Impression: Clear lungs. Left-sided PICC line.
--- NOTE | ~2024-01-16 | US_ITS ---
EXAMINATION: US venous doppler E DATE: 01/18/2024 13:56 INDICATION: Left upper limb deep vein thrombosis. TECHNIQUE: Grayscale ultrasound images without and with compression and Doppler ultrasound images of the left upper extremity veins were obtained. COMPARISON: None. FINDINGS: The visualized portions of the left internal jugular vein, subclavian vein, axillary vein, brachial v eins, basilic vein, radial vein, and ulnar vein are patent. There is thrombus in left cephalic vein. IMPRESSION: 1. No deep venous thrombosis. 2. Superficial vein thrombosis involving left cephalic vein. Reviewed, dictated and finalized at location A.
--- NOTE | ~2024-01-16 | CT_ITS ---
CTA chest PE protocol Ordering provider: Valerie Crocker MD History: 68 years Female with . hypoxia, elev dimer . Comparison: May 27, 2022 Technique: CT angiogram chest was performed following timed intravenous injection of contrast. Thin s lice axial images and reformatted coronal images were obtained. Three dimensional reformatted images of the chest were also obtained using a [employer] workstation. . Automated exposure control and iterati ve reconstruction technique were employed. The dose-length product was 763.85 mGy-cm. 100 mL Omnipaqu e 350 was given IV. Findings: PULMONARY ARTERIES: No pulmonary embolus. VISUALIZED THORACIC INLET: Normal. Nasogastric and endotracheal tubes are noted. MEDIASTINUM: Aorta/coronary arteries: Mild atheromatous disease. Heart/other: The heart is moderately enlarged. Right ventricular and left atrium with reflux of the contrast in the inferior vena cava suggestive of right-sided heart failure. Lymph nodes: No mediastinal or hilar adenopathy. LUNGS: Bilateral upper lobe and lower lobe airspace disease is seen more in the left lower lobe and right lo wer lobe suggestive of pneumonia. No pulmonary nodules or masses. Minimal bilateral pleural effusion. No pneumothorax. VISUALIZED UPPER ABDOMEN: Atrophic right kidney. Otherwise, the visualized upper abdomen is normal. MUSCULOSKELETAL: Soft tissues: The superficial soft tissues are normal. Bones: Age appropriate degenerative changes of the spine. Healing rib fractures in the right hemithor ax. Postoperative changes in the lower neck. IMPRESSION: 1. No pulmonary embolism. 2. Bilateral upper and lower lobe pneumonia more in the lower lobes. 3. Minimal bilateral pleural effusion. 4. Cardiomegaly with right ventricular and left atrial enlargement. Congestive heart failure is high ly suggestive 5. Atrophic right kidney. Reviewed, dictated and finalized at location A. IMPRESSION: 1. No pulmonary embolism. 2. Bilateral upper and lower lobe pneumonia more in the lower lobes. 3. Minimal bilateral pleural effusion. 4. Cardiomegaly with right ventricular and left atrial enlargement. Congestive heart failure is highly suggestive 5. Atrophic right kidney.
--- NOTE | ~2024-01-16 | XR_ITS ---
EXAMINATION: XR chest 1V portable DATE: 01/18/2024 05:54 INDICATION: Respiratory failure. TECHNIQUE: A single frontal view of the chest was obtained. COMPARISON: Chest single view 01/17/2024, chest CT 01/16/2024 FINDINGS: There is no pneumonia, pleural effusion, or pneumothorax. The heart size is normal. The end otracheal tube tip is 4.6 cm above the seamus. The nasogastric tube tip is beyond the inferior margin of the radiograph, but at least to the stomach. There are changes of anterior fusion procedure in ce rvical spine. Surgical clips overlie right chest. IMPRESSION: 1. No acute cardiopulmonary disease. Reviewed, dictated and finalized at location A.
--- NOTE | ~2024-01-16 | US_ITS ---
EXAMINATION: US renal BI DATE: 01/17/2024 10:54 INDICATION: Elevated creatinine. Decreased kidney function. TECHNIQUE: Multiple ultrasound grayscale images of the kidneys were obtained. COMPARISON: Chest CT 01/16/2024 FINDINGS: The right kidney measures 6.8 x 2.6 x 3.5 cm. The left kidney measures 9.1 x 4.6 x 3.6 cm. The kidney s demonstrate normal parenchymal echogenicity. There is no hydronephrosis. The bladder is decompresse d by a Trejo catheter. IMPRESSION: 1. Moderate atrophy of right kidney. No hydronephrosis. Reviewed, dictated and finalized at location A.
--- NOTE | ~2024-01-16 | XR_ITS ---
Portable chest x-ray Comparison: 01/18/2024 Clinical History: Respiratory failure Findings: Left-sided PICC line is in place. No acute consolidation, pleural effusion, or pneumothora x. Probable COPD pattern. Cardiomediastinal silhouette is stable. Bones and soft tissues are unremar kable. Impression: COPD. Left-sided PICC line in place. Reviewed, dictated and finalized at location . Impression: COPD. Left-sided PICC line in place.
--- NOTE | ~2024-01-16 | US_ITS ---
US venous doppler [facility] DATE: 01/17/2024 19:07 INDICATION: Positive d-dimer TECHNIQUE: Real-time and color flow imaging and Doppler analysis of the veins of both lower extremiti es COMPARISON: None FINDINGS: . Her saphenous veins are patent. There is spontaneous and phasic flow and normal augmentat ion and color flow signal and normal compression of the deep veins of both lower extremities. IMPRESSION: No evidence of deep venous thrombosis of the lower extremities Reviewed, dictated and finalized at Location A. Reviewed, dictated and finalized at location A.
--- NOTE | ~2024-01-16 | XR_ITS ---
Portable chest x-ray Comparison: 01/21/2024 Clinical History: Respiratory failure Findings: Left-sided PICC line remains in place. There is mild haziness in the right lung. Left lung clear. Cardiomediastinal silhouette is stable. Bones and soft tissues are unremarkable. Impression: Mild patchy haziness right lung, nonspecific. Correlate for developing pneumonia. Left-sided PICC line. Reviewed, dictated and finalized at location M. Impression: Mild patchy haziness right lung, nonspecific. Correlate for developing pneumoni a. Left-sided PICC line.
--- NOTE | ~2024-01-16 | XR_ITS ---
Exam: Abdomen 1V HISTORY: OG TUBE PLACEMENT COMPARISON: None. TECHNIQUE: Supine images of the lower chest and upper abdomen FINDINGS: Orogastric tube extends into the left upper quadrant, presumably within the stomach. IMPRESSION: Orogastric tube in good position and ready for immediate use. Reviewed, dictated and finalized at location A.
--- NOTE | ~2024-01-16 | XR_ITS ---
Portable chest x-ray Comparison: 01/20/2024 Clinical History: Respiratory failure Findings: Left-sided PICC line in place. Lungs are clear, without focal consolidation or pleural eff usion. Cardiomediastinal silhouette is stable. Bones and soft tissues are unremarkable. Impression: Clear lungs. Left-sided PICC line. Reviewed, dictated and finalized at location . Impression: Clear lungs. Left-sided PICC line.
--- NOTE | ~2024-01-16 | XR_ITS ---
EXAMINATION: XR chest 1V portable DATE: 01/17/2024 05:58 INDICATION: Pneumonia. TECHNIQUE: A single frontal view of the chest was obtained. COMPARISON: Chest single view 01/16/2024, chest CT 01/16/2024 FINDINGS: A skinfold overlies right hemithorax. There are airspace opacities in the lower lobes and p erihilar regions. No pleural effusion or pneumothorax. The heart size is normal. The endotracheal tub e tip is 4.0 cm above the seamus. The nasogastric tube tip is in the stomach. There are changes of an terior fusion procedure in cervical spine. IMPRESSION: 1. Improved airspace opacities in the lower lobes and perihilar regions, consistent with pneumonia. Reviewed, dictated and finalized at location A. IMPRESSION: 1. Improved airspace opacities in the lower lobes and perihilar regions, consis tent with pneumonia.
--- NOTE | ~2024-01-16 | XR_ITS ---
CHEST RADIOGRAPH CLINICAL HISTORY: SOB, HTN, ET TUBE PLACEMENT . COMPARISON: 11/09/2023 TECHNIQUE: Single portable view of the chest. FINDINGS Endotracheal tube tip projects approximately 5.6 cm above the base of the seamus. Advancement of appr oximately 3 cm is suggested for optimal radiographic placement. Orogastric tube tip projects over the left upper quadrant, presumably in the stomach. The remainder of the cardiomediastinal silhouette is otherwise unremarkable. Patchy opacification of the right upper and the entirety of the left hemithorax is identified consist ent with bilobar pneumonia. Right middle and right lower lobes are clear. Fixation hardware within the lower cervical spine. IMPRESSION: Endotracheal tube tip projecting 5.6 cm above the base of the seamus for which advancement of approxi mately 2 to 3 cm is suggested for optimal radiographic placement. Orogastric tube in good position and ready for immediate use. Bilobar pneumonia, as detailed above. Reviewed, dictated and finalized at location A. IMPRESSION: Endotracheal tube tip projecting 5.6 cm above the base of the seamus for which advancement of approximately 2 to 3 cm is suggested for optimal radiographic pl acement. Orogastric tube in good position and ready for immediate use. Bilobar pneumonia, as detailed above.
--- NOTE | 2024-01-16 11:42 | ED.RECABL ---
HPI - Recheck/Abnormal Lab/Rx General Chief Complaint: Recheck/Abnormal Lab/Rx Stated Complaint: htn x 3 wks Time Seen by Provider: 01/16/24 11:39 Source: RN notes reviewed Mode of arrival: EMS Limitations: clinical condition History of Present Illness HPI narrative: Patient reported in triage via EMS with report of being hypertensive at their PCP's office where she was at for a check up. She had reportedly been short of breath and had a headache for 3 weeks. Reported BP 220/100. Patient denied chest pain to RN when asked. She was complaining of bilateral lower extremity edema. Patient decompensated thus limiting my ability to obtain additional history. At the time of my assessment she was confused/altered. Related Data Home Medications Medication Instructions Recorded Confirmed anastrozole 1 mg tablet 1 mg PO DAILY 10/12/19 01/16/24 losartan 100 mg tablet 100 mg PO DAILY 10/12/19 01/16/24 meloxicam 15 mg tablet 15 mg PO DAILY 10/12/19 01/16/24 propranolol 40 mg tablet 40 mg PO BID 10/12/19 01/16/24 zonisamide 50 mg capsule 50 mg PO DAILY 10/12/19 01/16/24 alprazolam 2 mg tablet 2 mg PO TID 05/27/22 01/16/24 escitalopram oxalate 20 mg tablet 20 mg PO BID 05/27/22 01/16/24 oxycodone-acetaminophen 7.5 mg-325 1 tablet PO QID PRN Pain (Scale 05/27/22 01/16/24 mg tablet Score 7-10) simvastatin 80 mg tablet 80 mg PO HS 05/27/22 01/16/24 atorvastatin 20 mg tablet 20 mg PO DAILY 01/16/24 01/16/24 Allergies Allergy/AdvReac Type Severity Reaction Status Date / Time aspirin AdvReac Gastrointestinal Verified 01/16/24 11:07 Upset varenicline [From Chantix] AdvReac Hallucinati Verified 01/16/24 11:07 ng ASPIRIN/NAUSEATED Allergy Mild Nausea Uncoded 01/16/24 11:07 PMFSH Past Medical History Medical History Arm paresthesia, left Back pain Breast cancer 2012 and 2017, both right-sided, tx'd w/ lumphectomy and one w/ radiation tx. Saw Dr. Strong? Chronic obstructive pulmonary disease Depression with anxiety Gastroesophageal reflux disease Generalized anxiety disorder Hyperlipidemia Hypertension Hypertensive heart disease Neuropathy Other chronic pain Seasonal allergies Seizure Tobacco dependence Surgical History Surgical History (Updated 05/31/22 @ 12:21 by Tala Nolan) H/O: hysterectomy History of cholecystectomy History of discectomy History of hysterectomy History of lumpectomy of right breast S/P cholecystectomy Family History Family History Mother Patient's mother is in good health Sibling Patient's sister is in good health Patient's brother is in good health Father Family history of malignant neoplasm Patient's father is Social History Social History (System 05/31/22 @ 12:21 by Tala Nolan) Social History: , lives with her son, estranged from her daughter. 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 Surrogate medical decision maker: Canelo Leal, brother. Code status: Full code. 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 Lack of Transportation: No Lack of Food: Never True Current Housing: I Have Housing Concerned About Future Housing: No Difficulty Paying Gas/Electric Bills: No Difficulty Paying for Meds: No Currently Unemployed: No Education: High School Diploma/GED Difficulty w/ Childcare or Family Care: No Living arrangements: with family Additional living arrangements comments: Lives in an apartment in [place]. Spiritual care concerns: No Exam Narrative: GENERAL: Acutely ill-appearing, well-nourished, in moderate acute distress. HEAD: Normocephalic, atraumatic. EYES: Non injected, non icteric ENT: Nares clear, no rhinorrhea or epistaxis. NECK: Supple. CHEST: Acute respiratory distress, tachypneic. Bilateral crackles and coarse breath sounds. HEART: Regular rate and rhythm. . ABDOMEN: Soft, nondistended. EXTREMITIES: Normal range of motion. Bilateral extremity edema. SKIN: Warm, dry, no rash. Peripheral cyanosis progressing rapidly to mottling and duskiness. NEURO: No focal deficits. Alert but not answering questions, confused. Course Vital Signs Vital signs: Vital Signs Pulse Rate 62 01/16/24 11:01 Respiratory Rate 21 H 01/16/24 11:01 Blood Pressure 207/75 H 01/16/24 11:01 Pulse Oximetry 94 01/16/24 11:01 Oxygen Delivery Room Air 01/16/24 11:01 Temperature 98.8 F 01/16/24 21:14 Pulse Rate 64 01/16/24 21:14 Respiratory Rate 17 01/16/24 21:14 Blood Pressure 166/122 H 01/16/24 21:14 Pulse Oximetry 99 01/16/24 21:14 Oxygen Delivery Mechanical Ventilation 01/16/24 21:03 Oxygen Flow Rate 15 01/16/24 12:30 Fraction of Inspired Oxygen 60 01/16/24 21:03 Procedures Intubation Intubation #1: Intubation Date: 01/16/24 Time out performed: Yes sedative: Etomidate paralytic: Succinylcholine Laryngoscope: Odell Tube Size (cm): 7.0 Method of Intubation: orotracheal Number of Attempts: 1 Tube Placement Confirmation: visualized tube passing through cords, equal breath sounds bilaterally and confirmation by capnometry Patient Tolerated Procedure: well Intubation Complications: none MDM - Recheck/Abnormal Lab/Rx MDM Narrative Medical decision making narrative: Patient presents from PCP's office for reported shortness of breath and headache for 3 weeks. Found to be significantly hypertensive, reportedly 220/100. In the ED she is afebrile with VS notable for borderline hypoxia initially on 4LPM NC, tachypnea, and significant hypertension. To the nurse, she had denied chest pain and was complaining of bilateral lower extremity edema. It is reported that patient was saturating 92% with increased work of breathing per RN. I immediately went to patient's bedside and she was found to be hypoxic in the 80s and rapidly to the 70s even with uptitrating of supplemental oxygen. Patient diaphoretic with peripheral cyanosis. Bedside POC ultrasound performed by myself. There are significant bilateral B lines (>3 per field) and, combined with rapidity of decline and hypertension, I have high concern for SCAPE/flash pulmonary edema. Patient given Lasix and 1 sublingual nitroglycerin. Considered bipap but patient decompensating and not an appropriate candidate so patient was intubated for acute respiratory failure secondary to hypoxia. She did briefly desaturate to the 60s but was assisted with ventilation via BVM and had some interval improvement just prior to intubation attempt. See separate procedure note. Patient's SpO2 did improve to the low 90s within 1-2 minutes of intubation and coor improved as well. Ventilator settings ordered and urethral catheter inserted for Is/Os. Chest x-ray concerning for bilobar pneumonia per Radiology. Ceftriaxone, azithromycin, and vancomycin ordered, the latter to be added after culture obtainment. Patient is otherwise maintaining appropriate oxygen saturation of 94-96% at the time of reassessment on the ventilator. Based on CXR, I did discuss advancing tube as per recommendations as well to RT, 2cm based on concern she might have possibly been hyperextended at the neck at the time. ProBNP elevated. Patient has an elevated D dimer that can not be age adjusted. CT PE study ordered but there is a delay as transportation to ct has to be coordinated with nurse, RT, and tech. I did discuss patient with retail leasing agent Dr Hussein. Continues to be stable with improved hemodynamics, improved blood pressure and maintaining SpO2 >95% on vent. Once CT performed, patient discussed with seasonal recruiter hospitalist Dr Montanez. Patient admitted to the ICU. Presumed full code. Critical Care: 1 or more vital organ systems impaired with a high probability of imminent or life-threatening deterioration in the patient's condition requiring frequent personal assessment and manipulation of the patient's condition. This included time spent evaluating the patient, speaking with EMS pre-hospital personnel and family, reviewing/interpreting laboratory/imaging studies, discussing the case with consultants or admitting teams, retrieving data and reviewing charts, monitoring for decompensation, documenting the visit, and performing bundled procedures exclusive of separately billed procedures. Differential Diagnosis Differential diagnosis: Likely other (acute heart failure/flash pulmonary edema/SCAPE; hypertensive emergency; COPD exacerbation; pneumonia; pulmonary embolism) Lab Data Attestation: I reviewed the patient's lab results. Lab results narrative: No leukcytosis 01/16/24 12:31 01/16/24 20:27 Labs: Lab Results 01/16/24 01/16/24 01/16/24 Range/Units 12:05 12:31 13:24 WBC 6.1 (4.5-10.0) K/mm3 RBC 4.30 (4.2-5.4) M/mm3 Hgb 14.4 (12.0-15.0) g/dL Hct 44.8 (37.0-47.0) % MCV 104.2 H (80-100) fl MCH 33.5 (26-34) pg MCHC 32.1 (32-36) g/dl RDW 12.5 (11.5-14.5) % Plt Count 175 (150-375) k/mm3 MPV 10.5 H (7.4-10.4) fl Immature Gran % (Auto) 0.3 (0-0.5) % Neut % (Auto) 47.1 (45.5-73.1) % Lymph % (Auto) 36.9 (18.3-44.2) % [place] % (Auto) 10.9 H (2.6-8.5) % Eos % (Auto) 4.1 (0-4.4) % Baso % (Auto) 0.7 (0.2-1.2) % Lymph # (Auto) 2.23 (0.9-3.2) K/mm3 [place] # (Auto) 0.7 H (0.1-0.6) K/mm3 Eos # (Auto) 0.3 (0-0.3) K/mm3 Baso # (Auto) 0.0 (0.0-0.1) K/mm3 Abs Immat Gran (auto) 0.02 (0.00-0.031) K/mm3 Absolute Neuts (auto) 2.9 (1.3-6.7) K/mm3 Absolute Nucleated RBC 0.000 (0.0-0.012) K/mm3 Nucleated RBC % 0.0 (0.0-0.2) % % Immature Plt Fraction 4.7 (0.9-11.2) % D-Dimer (<0.48) ug/mL Minute Volume Not Reportable Vent Mode Cmv Tidal Volume 400 ml PEEP 5 cmH2O Peak Inspir Pressure Not Reportable Pressure Support Not Reportable Sodium (137-145) mmol/L Potassium (3.4-5.0) mmol/L Chloride (98-107) mmol/L Carbon Dioxide (22-30) mmol/L Anion Gap (4-12) mmol/L BUN (7-17) mg/dL Creatinine (0.7-1.0) mg/dL Estim Creat Clear Calc ml/min Estimated GFR (59 - ) Glucose (65-110) mg/dL Lactic Acid (0.7-2.0) mmol/L Calcium (8.4-10.2) mg/dL Total Bilirubin (0.2-1.3) mg/dL AST (14-36) U/L ALT (6-35) U/L Alkaline Phosphatase (38-126) U/L Troponin I (0.000-0.034) ng/mL NT-Pro-B Natriuret Pep (19.9-100) pg/mL Total Protein (6.3-8.2) g/dL Albumin (3.5-5.1) g/dL Procalcitonin ng/mL Nasal MRSA (PCR) (NOT DETECTE) Influenza A (RT-PCR) Negative (Negative) Influenza B (RT-PCR) Negative (Negative) RSV (RT-PCR) Negative (Negative) SARS-CoV-2 RNA (RT-PCR) Negative (Negative) 01/16/24 01/16/24 01/16/24 Range/Units 14:51 14:57 16:59 WBC (4.5-10.0) K/mm3 RBC (4.2-5.4) M/mm3 Hgb (12.0-15.0) g/dL Hct (37.0-47.0) % MCV (80-100) fl MCH (26-34) pg MCHC (32-36) g/dl RDW (11.5-14.5) % Plt Count (150-375) k/mm3 MPV (7.4-10.4) fl Immature Gran % (Auto) (0-0.5) % Neut % (Auto) (45.5-73.1) % Lymph % (Auto) (18.3-44.2) % [place] % (Auto) (2.6-8.5) % Eos % (Auto) (0-4.4) % Baso % (Auto) (0.2-1.2) % Lymph # (Auto) (0.9-3.2) K/mm3 [place] # (Auto) (0.1-0.6) K/mm3 Eos # (Auto) (0-0.3) K/mm3 Baso # (Auto) (0.0-0.1) K/mm3 Abs Immat Gran (auto) (0.00-0.031) K/mm3 Absolute Neuts (auto) (1.3-6.7) K/mm3 Absolute Nucleated RBC (0.0-0.012) K/mm3 Nucleated RBC % (0.0-0.2) % % Immature Plt Fraction (0.9-11.2) % D-Dimer 2.19 H (<0.48) ug/mL Minute Volume Vent Mode Tidal Volume ml PEEP cmH2O Peak Inspir Pressure Pressure Support Sodium 138 (137-145) mmol/L Potassium 5.5 H (3.4-5.0) mmol/L Chloride 105 (98-107) mmol/L Carbon Dioxide 23 (22-30) mmol/L Anion Gap 10 (4-12) mmol/L BUN 24 H (7-17) mg/dL Creatinine 1.30 H (0.7-1.0) mg/dL Estim Creat Clear Calc 38 ml/min Estimated GFR 41 L (59 - ) Glucose 142 H (65-110) mg/dL Lactic Acid 1.8 (0.7-2.0) mmol/L Calcium 8.9 (8.4-10.2) mg/dL Total Bilirubin 0.9 (0.2-1.3) mg/dL AST 42 H (14-36) U/L ALT 25 (6-35) U/L Alkaline Phosphatase 119 (38-126) U/L Troponin I 0.024 (0.000-0.034) ng/mL NT-Pro-B Natriuret Pep 3420 H (19.9-100) pg/mL Total Protein 8.0 (6.3-8.2) g/dL Albumin 4.6 (3.5-5.1) g/dL Procalcitonin 0.1 ng/mL Nasal MRSA (PCR) Not detected (NOT DETECTE) Influenza A (RT-PCR) (Negative) Influenza B (RT-PCR) (Negative) RSV (RT-PCR) (Negative) SARS-CoV-2 RNA (RT-PCR) (Negative) ABG Data ABG results: 01/16/24 13:24 Puncture Site Right radial ABG pH 7.143 L* ABG pCO2 54.8 H ABG pO2 73.9 L ABG PO2/FiO2 Ratio 0.74 ABG HCO3 18.4 L ABG O2 Saturation 90.0 L ABG O2 Content 21.1 ABG Base Excess -11.2 A-a Gradient 584.3 Oxyhemoglobin 88.4 L Total Hemoglobin 17.0 O2 Delivery Device Ventilator O2 Liters/Min Not Reportable Vent Rate 16 FiO2 100 Attestation: I personally reviewed and interpreted this ABG as follows: Interpretation: Primary respiratory acidosis with secondary metabolic acidosis; non anion gap Imaging Data Radiologist's impression: Impressions Abdomen X-Ray 01/16/24 13:10 IMPRESSION: Orogastric tube in good position and ready for immediate use. Chest X-Ray 01/16/24 13:12 IMPRESSION: Endotracheal tube tip projecting 5.6 cm above the base of the seamus for which advancement of approximately 2 to 3 cm is suggested for optimal radiographic placement. Orogastric tube in good position and ready for immediate use. Bilobar pneumonia, as detailed above. Chest CTA 01/16/24 18:14 IMPRESSION: 1. No pulmonary embolism. 2. Bilateral upper and lower lobe pneumonia more in the lower lobes. 3. Minimal bilateral pleural effusion. 4. Cardiomegaly with right ventricular and left atrial enlargement. Congestive heart failure is highly suggestive 5. Atrophic right kidney. ECG Data EKG #1: Attestation: I personally reviewed and interpreted this ECG as follows: ECG completion date: 01/16/24 ECG completion time: 12:18 Interpretation: Normal sinus rhythm at a rate of 66 beats per minute. W[place] interval 147. QRS 87. QT/QTC 425/438. Good R-wave progression across the precordial leads. No T-wave inversions. Normal ECG. Critical Care Time Critical Care Time Critical Care Time: Yes Total Critical Care Time: 50 Discharge Plan Discharge Clinical Impression: Acute hypoxic respiratory failure, Elevated AST (SGOT), On mechanically assisted ventilation, Acute heart failure, Bilateral pneumonia, Pleural effusion Patient Disposition: Still a Patient Condition: Serious
--- NOTE | 2024-01-16 11:46 | ECG_ITS ---
Test Date: 2024-01-16 12:18:41 Measurements Intervals [place] Rate: 66 P: 42 IN: 147 QRS: 58 QRSD: 87 T: 69 QT: 425 QTc: 446 Interpretive Statements SINUS RHYTHM No previous ECG available for comparison Electronically Signed On 01-16-2024 15:38:26 CDT by Anant Blevins M.D.
[2024-01-16] MEDS: NITROGLYCERIN SL 0.4 MG TABLET SUBLINGUAL (12:35)
[2024-01-16] MEDS: FUROSEMIDE INJ 100 MG/10 ML VIAL 80 MG IV PUSH (12:35)
[2024-01-16 12:40] LABS: Basophils Percent Auto 0.7 % (0.2-1.2); Eosinophils Absolute Auto 0.3 K/mm3 (0-0.3); Eosinophils Percent Auto 4.1 % (0-4.4); Hematocrit 44.8 % (37.0-47.0); Hemoglobin 14.4 g/dL (12.0-15.0); Immature Granulocyte Absolute 0.02 K/mm3 (0.00-0.031); Immature Granulocyte Percent A 0.3 % (0-0.5); Immature Platelet Fraction Pct 4.7 % (0.9-11.2); Lymphocytes Absolute Auto 2.23 K/mm3 (0.9-3.2); Lymphocytes Percent Auto 36.9 % (18.3-44.2); Mean Corpuscular HGB Conc 32.1 g/dl (32-36); Mean Corpuscular Hemoglobin 33.5 pg (26-34); Mean Corpuscular Volume 104.2 fl (80-100); Mean Platelet Volume 10.5 fl (7.4-10.4); Monocytes Absolute Auto 0.7 K/mm3 (0.1-0.6); Monocytes Percent Auto 10.9 % (2.6-8.5); Neutrophils Absolute Auto 2.9 K/mm3 (1.3-6.7); Neutrophils Percent Auto 47.1 % (45.5-73.1); Platelet Count Result 175 k/mm3 (150-375); Red Cell Distribution Width 12.5 % (11.5-14.5); White Blood Count 6.1 K/mm3 (4.5-10.0)
[2024-01-16] MEDS: ETOMIDATE 20 MG/10 ML AMPUL IV PUSH (12:42)
[2024-01-16] MEDS: ROCURONIUM BROMIDE 50 MG/5 ML VIAL 75 MG IV PUSH (12:43)
--- NOTE | 2024-01-16 12:44 | PC.NURSE ---
Intubation success as confirmed by good color change on C02 detector, bilateral chest rise and fall and good breath sounds bilaterally. X-ray to bedside for additional placement confirmation.
[2024-01-16 12:45] LABS: Influenza A QL RT-PCR Negative (Negative); Influenza B QL RT-PCR Negative (Negative); RSV RNA, RT-PCR Negative (Negative); SARS-CoV-2 RNA PCR Negative (Negative)
[2024-01-16] MEDS: MIDAZOLAM 100MG/NS 100ML(*CRX) 100 MG/100 ML BAG (13:20)
[2024-01-16 13:33] LABS: Alveolar/Arterial O2 Gradient 584.3 mmHg; Base Excess ABG -11.2 mEq/l (+/-2.0); Fractional Inspired Oxygen 100 %; HCO3 ABG 18.4 mEq/l (22.0-26.0); Oxygen Content ABG 21.1 %vol (16.0-22.0); Oxyhemoglobin 88.4 % THb (90.0-100.0); PCO2 ABG 54.8 mmHg (35.0-45.0); PO2 ABG 73.9 mmHg (80.0-100.0); PO2 FiO2 Ratio Arterial Blood 0.74 %
[2024-01-16 13:34] LABS: Device VENTILATOR; Modified Allen's Test Pass; Site Drawn RIGHT RADIAL; pH ABG 7.143 (7.350-7.450)
[2024-01-16 13:36] LABS: Arterial Blood Gas PEEP 5 cmH2O; Arterial Blood Gas Tidal Volume 400 ml; Arterial Blood Gas Vent Mode CMV; Arterial Blood Gas Ventilator rate 16 /MIN
--- NOTE | 2024-01-16 14:40 | PC.NURSE ---
Difficult to obtain blood cultures and other ordered labs d/t pt poor perfusion. Pt currently has 3 peripheral IVs with the inability to obtain blood from them. MELA Smith notified of difficulty. MD Crocker also notified of delay.
[2024-01-16] MEDS: PROPOFOL IV EMULSION 100 ML 2.54 MG IV CONT (14:45)
[2024-01-16 15:16] LABS: Lactic Acid Reflex 1.8 mmol/L (0.7-2.0)
[2024-01-16 15:24] LABS: Alanine Aminotransferase 25 U/L (6-35); Albumin Level 4.6 g/dL (3.5-5.1); Alkaline Phosphatase 119 U/L (38-126); Anion Gap 10 mmol/L (4-12); Aspartate Amino Transferase 42 U/L (14-36); Bilirubin,Total 0.9 mg/dL (0.2-1.3); Blood Urea Nitrogen 24 mg/dL (7-17); Calcium 8.9 mg/dL (8.4-10.2); Carbon Dioxide 23 mmol/L (22-30); Chloride 105 mmol/L (98-107); Estimated CRCL calculation 38 ml/min; Estimated Glomerular Filt Rate 41; Glucose 142 mg/dL (65-110); Potassium 5.5 mmol/L (3.4-5.0); Sodium 138 mmol/L (137-145)
[2024-01-16 15:31] LABS: NT Pro B Type Natriuretic Pept 3420 pg/mL (19.9-100)
[2024-01-16 15:38] LABS: D Dimer 2.19 ug/mL (<0.48)
[2024-01-16] MEDS: AZITHROMYCIN 500 MG/NS 250 ML 500 MG/250 ML BAG 250 MG IVPB (15:54)
--- NOTE | 2024-01-16 16:00 | PC.NURSE ---
Per Md Crocker via chest x-ray, og tube placement confirmed. OG placed on low intermittent suction.
[2024-01-16 16:06] LABS: Procalcitonin 0.1 ng/mL
--- NOTE | 2024-01-16 16:16 | PC.NURSE ---
Per MD Crocker, ET tube should be advanced. RT at bedside to complete. Tube advanced from 22 to 24 at the lip.
[2024-01-16 16:50] LABS: Troponin I 0.024 ng/mL (0.000-0.034)
[2024-01-16] MEDS: VANCOMYCIN 2,000 MG/NS 500 ML 2,000 MG/500 ML BAG 250 MG IVPB (17:16)
--- NOTE | 2024-01-16 17:55 | PC.NURSE ---
Pt to CT on a monitor with this RN and RT at bedside. Pt in no acute distress.
[2024-01-16 18:15] LABS: MRSA (PCR) NOT DETECTED (NOT DETECTE)
[2024-01-16 20:38] LABS: Alveolar/Arterial O2 Gradient 308.6 mmHg; Base Excess ABG -1.9 mEq/l (+/-2.0); Carboxyhemoglobin 1.5 % THb (0-2.0); Fractional Inspired Oxygen 60 %; Methemoglobin ABG 0.2 %THb (0-1.5); Oxygen Content ABG 20.6 %vol (16.0-22.0); Oxygen Saturation ABG 94.9 % (95.0-100.0); Oxyhemoglobin 93.5 % THb (90.0-100.0); PCO2 ABG 39.8 mmHg (35.0-45.0); PO2 ABG 75.4 mmHg (80.0-100.0); PO2 FiO2 Ratio Arterial Blood 1.26 %; Reduced Hemoglobin 4.8 %THb (0-5.0); Total Hemoglobin 15.7 g/dL (12.0-18.0); pH ABG 7.379 (7.350-7.450)
[2024-01-16 20:39] LABS: Device VENTILATOR; Modified Allen's Test Pass; Site Drawn RIGHT RADIAL
[2024-01-16 20:40] LABS: Arterial Blood Gas PEEP 5 cmH2O; Arterial Blood Gas Tidal Volume 400 ml; Arterial Blood Gas Vent Mode CMV; Arterial Blood Gas Ventilator rate 16 /MIN
[2024-01-16 20:48] LABS: Alanine Aminotransferase 23 U/L (6-35); Albumin Level 4.2 g/dL (3.5-5.1); Alkaline Phosphatase 117 U/L (38-126); Anion Gap 6 mmol/L (4-12); Aspartate Amino Transferase 32 U/L (14-36); Bilirubin,Total 0.7 mg/dL (0.2-1.3); Blood Urea Nitrogen 25 mg/dL (7-17); Calcium 8.6 mg/dL (8.4-10.2); Carbon Dioxide 28 mmol/L (22-30); Chloride 103 mmol/L (98-107); Estimated CRCL calculation 38 ml/min; Estimated Glomerular Filt Rate 41; Glucose 90 mg/dL (65-110); Lactic Acid Reflex 2.1 mmol/L (0.7-2.0); Magnesium 2.4 mg/dL (1.6-2.3); Potassium 5.5 mmol/L (3.4-5.0); Sodium 137 mmol/L (137-145)
[2024-01-16 21:08] LABS: Glucose Point of Care 91 mg/dl (65-105)
--- NOTE | 2024-01-16 21:43 | P.HP_ITS ---
H&P: HPI History of Present Illness Date/Time: 01/16/24 21:43 Chief Complaint: Hypertension Narrative: 68-year-old female with PMH active tobacco abuse, COPD, hypertension, hypertensive heart disease, LVH, diastolic dysfunction, hyperlipidemia, seizure disorder, depression and anxiety, CKD stage IIIA, history of breast cancer, viral pericarditis treated 05/2022 at [facility]. History is taken from verbal communication via ER physician and chart review. Patient is intubated. Patient was sent by PCP for concerns of elevated blood pressure. Upon arrival blood pressure found to be 224/107. She was given Lasix 80 mg IV x1, nitroglycerin 0.4 mg sublingual. Patient also became short of breath quickly desaturating and was intubated in the ER. Per chart review she was given her yoo him 75 mg IV x1, etomidate 20 mg IV x1, succinylcholine. Post intubation patient placed on propofol. Blood pressure improved. WBC 6.1, hemoglobin 14.4, D-dimer 2.19, initial pH 7.143 with pCO2 54.8 and a bicarb of 18.4. Potassium 5.5. Serum creatinine 1.3. BNP 6420. Quad viral screen negative. Abdominal x-ray with orogastric tube in good position. CTA perform demonstrating no PE, bilateral upper and lower lobe pneumonia more in the lower lobes. Minimal bilateral pleural effusion. Cardiomegaly with right ventricular and left atrial enlargement, atrophic right kidney. Seater Assembler notified from ER. Patient admitted to hospitalist service to ICU on 01/16/2024. Review of Systems Review of Systems: All systems reviewed & are unremarkable except as noted in HPI and below ROS unobtainable: Yes unobtainable due to endotracheal tube, unobtainable due to medical condition and unobtainable due to mental status [facility] Past Medical History Medical History (Updated 01/16/24 @ 21:56 by Adore Matthews MD) Arm paresthesia, left Back pain Breast cancer 2012 and 2018, both right-sided, tx'd w/ lumphectomy and one w/ radiation tx. Saw Dr. Strong? Chronic obstructive pulmonary disease Depression with anxiety Gastroesophageal reflux disease Generalized anxiety disorder Hyperlipidemia Hypertension Hypertensive heart disease Neuropathy Other chronic pain Seasonal allergies Seizure Tobacco dependence Surgical History Surgical History (Updated 05/31/22 @ 12:21 by Tala Nolan) H/O: hysterectomy History of cholecystectomy History of discectomy History of hysterectomy History of lumpectomy of right breast S/P cholecystectomy Family History Family History Mother Patient's mother is in good health Sibling Patient's sister is in good health Patient's brother is in good health Father Family history of malignant neoplasm Patient's father is Social History Social History (System 05/31/22 @ 12:21 by Tala Nolan) Social History: , lives with her son, estranged from her daughter. 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 Surrogate medical decision maker: Canelo Leal, brother. Code status: Full code. 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 Lack of Transportation: No Lack of Food: Never True Current Housing: I Have Housing Concerned About Future Housing: No Difficulty Paying Gas/Electric Bills: No Difficulty Paying for Meds: No Currently Unemployed: No Education: High School Diploma/GED Difficulty w/ Childcare or Family Care: No Living arrangements: with family Additional living arrangements comments: Lives in an apartment in [place]. Spiritual care concerns: No Meds Home Medications and Allergies Home Medications Medication Instructions Recorded Confirmed Type anastrozole 1 mg tablet 1 mg PO DAILY 10/12/19 01/16/24 History losartan 100 mg tablet 100 mg PO DAILY 10/12/19 01/16/24 History meloxicam 15 mg tablet 15 mg PO DAILY 10/12/19 01/16/24 History propranolol 40 mg tablet 40 mg PO BID 10/12/19 01/16/24 History zonisamide 50 mg capsule 50 mg PO DAILY 10/12/19 01/16/24 History alprazolam 2 mg tablet 2 mg PO TID 05/27/22 01/16/24 History escitalopram oxalate 20 mg tablet 20 mg PO BID 05/27/22 01/16/24 History oxycodone-acetaminophen 7.5 mg-325 1 tablet PO QID PRN Pain (Scale 05/27/22 01/16/24 History mg tablet Score 7-10) simvastatin 80 mg tablet 80 mg PO HS 05/27/22 01/16/24 History atorvastatin 20 mg tablet 20 mg PO DAILY 01/16/24 01/16/24 History Allergies Allergy/AdvReac Type Severity Reaction Status Date / Time aspirin AdvReac Gastrointestinal Verified 01/16/24 11:07 Upset varenicline [From Chantix] AdvReac Hallucinati Verified 01/16/24 11:07 ng ASPIRIN/NAUSEATED Allergy Mild Nausea Uncoded 01/16/24 11:07 Vital Signs Vital Signs - 24 hr 01/16/24 11:01 01/16/24 12:19 01/16/24 13:20 Temperature Pulse Rate 62 66 83 Respiratory Rate 21 H 16 14 Blood Pressure 207/75 H 206/95 H Pulse Oximetry 94 90 Oxygen Delivery Room Air Oxygen Flow Rate Fraction of Inspired Oxygen 01/16/24 12:45 01/16/24 14:45 01/16/24 13:45 Temperature Pulse Rate 87 65 70 Respiratory Rate 16 14 Blood Pressure Pulse Oximetry 100 Oxygen Delivery Mechanical Ventilation Oxygen Flow Rate Fraction of Inspired Oxygen 100 01/16/24 13:56 01/16/24 14:20 01/16/24 14:45 Temperature Pulse Rate 65 63 60 Respiratory Rate 14 14 20 Blood Pressure Pulse Oximetry Oxygen Delivery Oxygen Flow Rate Fraction of Inspired Oxygen 01/16/24 14:48 01/16/24 14:48 01/16/24 15:18 Temperature Pulse Rate 65 65 60 Respiratory Rate 20 20 14 Blood Pressure Pulse Oximetry Oxygen Delivery Oxygen Flow Rate Fraction of Inspired Oxygen 01/16/24 15:29 01/16/24 15:29 01/16/24 15:00 Temperature Pulse Rate 55 L 54 L 60 Respiratory Rate 14 14 14 Blood Pressure Pulse Oximetry Oxygen Delivery Oxygen Flow Rate Fraction of Inspired Oxygen 01/16/24 15:18 01/16/24 11:04 01/16/24 11:16 Temperature Pulse Rate 55 L 60 59 L Respiratory Rate 14 21 H 19 Blood Pressure 207/75 H 182/74 H Pulse Oximetry 94 95 Oxygen Delivery Oxygen Flow Rate Fraction of Inspired Oxygen 01/16/24 11:31 01/16/24 11:46 01/16/24 12:12 Temperature Pulse Rate 60 61 63 Respiratory Rate 21 H 19 22 H Blood Pressure 211/91 H 207/74 H 206/95 H Pulse Oximetry 93 93 91 Oxygen Delivery Oxygen Flow Rate Fraction of Inspired Oxygen 01/16/24 12:36 01/16/24 13:06 01/16/24 13:15 Temperature Pulse Rate 71 87 88 Respiratory Rate 22 H 16 16 Blood Pressure 194/105 H Pulse Oximetry 72 L 93 92 Oxygen Delivery Oxygen Flow Rate Fraction of Inspired Oxygen 01/16/24 13:31 01/16/24 13:58 01/16/24 14:30 Temperature Pulse Rate 82 69 65 Respiratory Rate 14 20 21 H Blood Pressure 224/107 H 163/109 H 182/117 H Pulse Oximetry 94 96 98 Oxygen Delivery Oxygen Flow Rate Fraction of Inspired Oxygen 01/16/24 12:00 01/16/24 12:25 01/16/24 12:30 Temperature Pulse Rate Respiratory Rate 14 Blood Pressure Pulse Oximetry 90 80 L Oxygen Delivery Nasal Cannula Non-Rebreather Mask Oxygen Flow Rate 4 15 Fraction of Inspired Oxygen 92 01/16/24 12:37 01/16/24 12:44 01/16/24 12:47 Temperature Pulse Rate Respiratory Rate Blood Pressure Pulse Oximetry 55 L 71 L 93 Oxygen Delivery Bag Valve Mask Mechanical Ventilation Mechanical Ventilation Oxygen Flow Rate Fraction of Inspired Oxygen 100 100 01/16/24 15:25 01/16/24 15:32 01/16/24 15:46 Temperature Pulse Rate 52 L 51 L 55 L Respiratory Rate 16 16 16 Blood Pressure 111/66 124/65 143/79 H Pulse Oximetry 100 100 100 Oxygen Delivery Oxygen Flow Rate Fraction of Inspired Oxygen 01/16/24 16:30 01/16/24 16:30 01/16/24 17:19 Temperature Pulse Rate 60 66 58 L Respiratory Rate 16 16 Blood Pressure 142/84 H 158/93 H Pulse Oximetry 99 99 98 Oxygen Delivery Mechanical Ventilation Oxygen Flow Rate Fraction of Inspired Oxygen 60 01/16/24 16:01 01/16/24 18:07 01/16/24 17:31 Temperature Pulse Rate 60 64 60 Respiratory Rate 16 16 Blood Pressure 155/90 H 158/86 H Pulse Oximetry 100 99 98 Oxygen Delivery Mechanical Ventilation Oxygen Flow Rate Fraction of Inspired Oxygen 60 01/16/24 19:16 01/16/24 18:00 01/16/24 17:05 Temperature Pulse Rate 61 63 60 Respiratory Rate 16 16 16 Blood Pressure 154/75 H Pulse Oximetry 100 Oxygen Delivery Oxygen Flow Rate Fraction of Inspired Oxygen 01/16/24 21:03 01/16/24 21:14 Temperature 98.8 F Pulse Rate 68 64 Respiratory Rate 17 Blood Pressure 166/122 H Pulse Oximetry 99 99 Oxygen Delivery Mechanical Ventilation Oxygen Flow Rate Fraction of Inspired Oxygen 60 Exam Const: Other: Intubated and sedated, ETT in orogastric tube in place. Eyes: Pupils: Equal, round and reactive pupils present Neck: Neck: supple Resp: Other: Mechanical breath sounds. Scant rhonchi bilaterally Cardio: Rate: regular rate Rhythm: regular rhythm Heart sounds: no gallops, no murmurs and no rubs GI: Inspection: non-distended GI Palp: Yes Soft to palpation and No Tenderness to palpation present (GI) Auscultation: normal bowel sounds : General: Yes bladder normal to palpation Urinary Catheter: Urinary Catheter: patent and draining and urine clear Neuro: Other: Unable to determine. She is moving all 4 extremities spontaneously. Extrem: General: no edema Other: Pulses faint in all 4 extremities. Skin cool to touch H&P: Results Labs Labs: Short CBC 01/16/24 Range/Units 12:31 WBC 6.1 (4.5-10.0) K/mm3 Hgb 14.4 (12.0-15.0) g/dL Hct 44.8 (37.0-47.0) % Plt Count 175 (150-375) k/mm3 BMP 01/16/24 01/16/24 14:57 20:27 Sodium 138 137 Potassium 5.5 H 5.5 H Chloride 105 103 Carbon Dioxide 23 28 BUN 24 H 25 H Creatinine 1.30 H 1.30 H Glucose 142 H 90 Calcium 8.9 8.6 Cardiac Enzymes 01/16/24 Range/Units 14:51 Troponin I 0.024 (0.000-0.034) ng/mL Liver Function 01/16/24 01/16/24 Range/Units 14:57 20:27 Total Bilirubin 0.9 0.7 (0.2-1.3) mg/dL AST 42 H 32 (14-36) U/L ALT 25 23 (6-35) U/L Alkaline Phosphatase 119 117 (38-126) U/L Albumin 4.6 4.2 (3.5-5.1) g/dL Assessment and Plan Assessment and plan (1) Acute respiratory failure with hypoxia and hypercapnia: Code(s): J96.01 - Acute respiratory failure with hypoxia; J96.02 - Acute respiratory failure with hypercapnia Status: Acute Assessment and Plan: Likely due to severe sepsis from bilateral pneumonia. Does not have wheezing. Is not fluid overloaded. Intubated admission on 01/16/2024. Seater Assembler to assist with vent management. Continue propofol goal RASS -1 to 0 (2) Respiratory acidosis with metabolic acidosis: Code(s): E87.4 - Mixed disorder of acid-base balance Status: Acute Assessment and Plan: intial AB.143/54.8/73.9/18.4 repeat ABG post intubation: 7.38, 39.8, 75.4, 23 Improved. Continue current vent settings. Lactic acid 2.1, continue to trend. (3) Severe sepsis: Code(s): A41.9 - Sepsis, unspecified organism; R65.20 - Severe sepsis without septic shock Status: Acute Assessment and Plan: Due to bilateral pneumonia with acute hypoxic and hypercarbic respiratory failure. Trend white count, procalcitonin, hemodynamics. Cultures pending. (4) Hyperkalemia: Code(s): E87.5 - Hyperkalemia Status: Acute Assessment and Plan: Potassium 5.5 on admission. Repeat status post Lasix 5.5 again. Administering insulin and dextrose, Lokelma 15 g rectal x1. Repeat BMP in 4 hours. (5) Hypertension: Code(s): I10 - Essential (primary) hypertension Status: Chronic Assessment and Plan: Presented with hypertensive urgency. Status post Lasix and nitroglycerin. Greatly improved. Labetalol 10 mg IV x1 for SBP greater than 180. (6) Bilateral pneumonia: Code(s): J18.9 - Pneumonia, unspecified organism Status: Acute Assessment and Plan: CTA on admission on 01/16/2024: 1. No pulmonary embolism. 2. Bilateral upper and lower lobe pneumonia more in the lower lobes. 3. Minimal bilateral pleural effusion. 4. Cardiomegaly with right ventricular and left atrial enlargement. Congestive heart failure is highly suggestive 5. Atrophic right kidney ----- Sputum culture and blood cultures pending. Continue ceftriaxone azithromycin and vancomycin. Pending Legionella, pneumococcal urinary antigens. Pending mycoplasma IgM titer. Quad viral screen negative. (7) Pleural effusion: Code(s): J90 - Pleural effusion, not elsewhere classified Status: Acute Assessment and Plan: Bilateral, minimal. Continue to monitor. (8) CKD (chronic kidney disease) stage 3, GFR 30-59 ml/min: Code(s): N18.30 - Chronic kidney disease, stage 3 unspecified Status: Acute Assessment and Plan: Serum creatinine 1.3 on admission. Unclear baseline. Repeat serum creatinine 1.3 status post Lasix. Continue to trend status post saline lock. (9) Seizure disorder: Code(s): G40.909 - Epilepsy, unspecified, not intractable, without status epilepticus Status: Chronic Assessment and Plan: Continue [employer] zonisamide 50 mg p.o. daily through the OG tube. (10) Hypertensive heart disease: Code(s): I11.9 - Hypertensive heart disease without heart failure Status: Chronic Assessment and Plan: Patient has history of LVH and diastolic dysfunction. Indicative of hypertensive heart disease. BNP on admission 3420 in the setting of a decreased GFR, patient was given Lasix 80 mg IV x1. She put out 1 L urine output and her blood pressure improved however she is cool to touch and has faint pulses in all 4 extremities. The patient has no lower extremity edema or pulmonary edema. She is not in acute heart failure. Surface echocardiogram ordered. Daily weights, strict intake and output. (11) Tobacco dependence: Code(s): F17.200 - Nicotine dependence, unspecified, uncomplicated Status: Chronic Assessment and Plan: Counseling when awake. (12) Depression with anxiety: Code(s): F41.8 - Other specified anxiety disorders Status: Acute Assessment and Plan: The patient takes alprazolam 2 mg p.o. t.i.d. at home. Continue 0.5 mg p.o. t.i.d. through the OG tube in an attempt to prevent the patient entering and withdrawal state Plan 68-year-old female with PMH active tobacco abuse, COPD, hypertension, hypertensive heart disease, LVH, diastolic dysfunction, hyperlipidemia, seizure disorder, depression and anxiety, CKD stage IIIA, history of breast cancer, viral pericarditis treated 05/2022 at [facility]. History is taken from verbal communication via ER physician and chart review. Patient is intubated. Patient was sent by PCP for concerns of elevated blood pressure. Upon arrival blood pressure found to be 224/107. She was given Lasix 80 mg IV x1, nitroglycerin 0.4 mg sublingual. Patient also became short of breath quickly desaturating and was intubated in the ER. Per chart review she was given her yoo him 75 mg IV x1, etomidate 20 mg IV x1, succinylcholine. Post intubation patient placed on propofol. Blood pressure improved. WBC 6.1, hemoglobin 14.4, D-dimer 2.19, initial pH 7.143 with pCO2 54.8 and a bicarb of 18.4. Potassium 5.5. Serum creatinine 1.3. BNP 6420. Quad viral screen negative. Abdominal x-ray with orogastric tube in good position. CTA perform demonstrating no PE, bilateral upper and lower lobe pneumonia more in the lower lobes. Minimal bilateral pleural effusion. Cardiomegaly with right ventricular and left atrial enlargement, atrophic right kidney. Seater Assembler notified from ER. Patient admitted to hospitalist service to ICU on 01/16/2024. ----- All home medications have been held aside from alprazolam at a lower dose and zonisamide. Restart others as appropriate. Saline lock IV, NPO, monitor hyperkalemia, daily weights and strict intake/ output Pepcid 20 mg IV b.i.d. SCDs, Heparin subQ 5000 units b.i.d. Peripheral IV, Trejo catheter and ETT placed on admission on 01/16/2024. Seater Assembler consultation Full code. Hospitalist [facility] Advance Care Plan I have confirmed that the patient's Advanced Care Plan is present, code status is documented, or surrogate decision maker is listed in patient medical record.: Yes Medication Reconciliation I have utilized all available resources to obtain, update and review the tiffany carranza current medications (includes all prescriptions, OTC, herbals, cannabis, and nutritional supplements).: No The patient is not eligible for med reconciliation; the patient is in a emergent medical situation where delaying treatment would jeopardize the patients health.: Yes
[2024-01-16] MEDS: HEPARIN SODIUM 5,000 UNITS/ML VIAL 5000 UNITS SUB-Q (21:52)
--- NOTE | 2024-01-16 22:09 | ADMGEN ---
This patient, Amairani Preciado, was admitted to Intensive Care Unit-6. Patient/family oriented to hospital policies and general routines including ID bracelet, bed and alarms, visiting hours, pain management, procedures, bathroom and other care routines, personal items, smoking policy, room service/diet, and visiting hours. Information on how to activate the Rapid Response Team has been discussed. Patient/Family are encouraged to report perceived risks to care and to ask questions if they do not understand what they are told or what they should do. Patient arrived at 2052 via stretcher with RN and RT at bedside. Received report from DANITZA Harris RN at 2029.
[2024-01-16] MEDS: SODIUM POLYSTYRENE SULFONONATE 15 GM/60 ML BTL RECTAL (22:28)
[2024-01-16] MEDS: INSULIN HUMAN REGULAR (*BKC) 100 UNITS/ML 10 UNITS IV PUSH (22:28)
[2024-01-16] MEDS: DEXTROSE 50% 25 GM/50 ML SYRINGE IV PUSH (22:28)
[2024-01-16 23:31] LABS: Reflex Lactic Acid Yes or No Add Lactic
[2024-01-17] VITALS (52 sets, daily range): BP systolic 69–220; BP diastolic 52–113; PULSE 64–87; RESP 16–25; TEMP 36.3–37.4; O2SAT 96–100
--- NOTE | 2024-01-17 | ECHO_ITS ---
Patient Info Name: Amairani Preciado Age: 68 years : 1955 Gender: Female Ht: 63 in Wt: 186 lbs BSA: 1.97 m2 HR: 67 bpm BP: 115 / 99 mmHg Heart Rhythm: Sinus Rhythm Technical Quality: Good Exam Date: 01/17/2024 8:32 AM Exam Location: Echo Lab Patient Status: Inpatient Admit Date: 01/16/2024 Staff Ordering Physician: Adore Matthews MD Language Translator: Kyung Salinas RDCS Attending Provider: Adore Matthews MD Exam Type: CA echo dop color flow w con Study Info Indications - pul edema Complete two-dimensional, color flow and Doppler transthoracic echocardiogram is performed with contrast to opacify the left ventricle and to improve the deliniation of the left ventricle endocardial borders. Summary 1. Left ventricular chamber dimension is mildly enlarged. 2. Left ventricular systolic function is normal, estimated at 60-65%. 3. There is mildly increased left ventricular wall thickness. 4. The left ventricular diastolic function is grade I diastolic dysfunction. 5. The basal inferior wall, mid inferior wall, and basal inferoseptal are hypokinetic. 6. Left atrial chamber dimension is mildly enlarged. 7. There is mild aortic valve regurgitation. 8. There is mild aortic valve sclerosis. 9. There is mild to moderate mitral valve regurgitation. 10. The mitral valve has calcified annulus. 11. There is mild tricuspid valve regurgitation. 12. Mild pulmonary hypertension, estimated pulmonary arterial systolic pressure is 44 mmHg. Left Ventricle Left ventricular chamber dimension is mildly enlarged. Left ventricular systolic function is normal, estimated at 60-65%. There is mildly increased left ventricular wall thickness. The left ventricular diastolic function is grade I diastolic dysfunction. The basal inferior wall, mid inferior wall, and basal inferoseptal are hypokinetic. All other delgadillo appear normal. Right Ventricle Right ventricular chamber dimension is normal. Right ventricular systolic function is normal. Left Atria Left atrial chamber dimension is mildly enlarged. Right Atria Right atrial chamber dimension is normal. Atrial Septum Intact interatrial septum visualized by color flow imaging. Aortic Valve The aortic valve is trileaflet. There is mild aortic valve sclerosis. There is no aortic valve stenosis. There is mild aortic valve regurgitation. Pulmonic Valve The pulmonic valve is normal. There is no pulmonic valve stenosis. There is trace pulmonic regurgitation. Mitral Valve The mitral valve has calcified annulus. There is no mitral valve stenosis. There is mild to moderate mitral valve regurgitation. Tricuspid Valve The tricuspid valve leaflets are normal. There is no significant tricuspid valve stenosis. There is mild tricuspid valve regurgitation. Mild pulmonary hypertension, estimated pulmonary arterial systolic pressure is 44 mmHg. Pericardium/Pleural The pericardium appears normal. There is no pericardial effusion. Inferior Vena Cava Normal inferior vena cava with >50% collapse upon inspiration consistent with normal right atrial pressure, 10 mmHg. Aorta The aortic root size at the sinus of Valsalva is normal. Left Ventricular Outflow Tract Name Value Normal LVOT 2D LVOT Diameter 1.89 cm LVOT Doppler LVOT Peak Gradient 5 mmHg LVOT Mean Gradient 2 mmHg LVOT VTI 24.41 cm LVOT VTI/AV VTI Ratio 0.97 LVOT Stroke Volume 68.68 ml LVOT CO 5.10 l/min LVOT CI 2.59 L/min/m2 Mitral Valve Name Value Normal MV Doppler MV Decel [place] 331.70 cm/s2 MV PHT 0 s MV Area (PHT) 3.63 cm2 4.00-5.00 MV Regurgitation Doppler MR Peak Gradient 71 mmHg MV Diastolic Function MV E Peak Velocity 69.23 cm/s MV A Peak Velocity 105.10 cm/s MV E/A 0.66 MV Decel Time 0 s MV Annular TDI MV E/e' (Septal) 14.76 <=8.00 MV E/e' (Lateral) 9.99 <=8.00 MV E/e' (Average) 12.38 Tricuspid Valve Name Value Normal TV Regurgitation Doppler TR Peak Velocity 290.74 cm/s TR Peak Gradient 34 mmHg Estimated PAP/RSVP RA Pressure 10 mmHg <=5 PA Systolic Pressure 44 mmHg <36 RV Systolic Pressure 44 mmHg <36 Aortic Valve Name Value Normal AV Doppler AV Peak Velocity 126.47 cm/s AV Peak Gradient 6 mmHg AV Mean Gradient 4 mmHg AV VTI 25.14 cm AV Area (Cont Eq VTI) 2.73 cm2 >=3.00 AV Area (Cont Eq Quang) 2.41 cm2 AV Regurgitation 2D LVOT Area 2.81 cm2 Ventricles Name Value Normal LV Dimensions 2D/MM IVS Diastolic Thickness (2D) 1.13 cm 0.60-1.00 LVID Diastole (2D) 4.81 cm 3.80-5.20 LVIW Diastolic Thickness (2D) 1.06 cm 0.60-0.90 LVID Systole (2D) 3.11 cm 2.20-3.50 LVOT Diameter 1.89 cm LV Mass (2D Cubed) 194.28 g 67.00-162.00 LV Mass Index (2D Cubed) 0.01 g/cm2 0.00-0.01 Relative Wall Thickness (2D) 0.44 LV Fractional Shortening/Ejection Fraction 2D/MM LV Fractional Shortening (2D) 35 % 27-45 LV EF (2D Teicholz) 65 % 54-74 LV Diastolic Volume (4C MOD) 99.50 ml LV EF (4C MOD) 65 % LV Diastolic Volume (2C MOD) 100.56 ml LV EF (2C MOD) 69 % LV Diastolic Volume (BP MOD) 103.90 ml 46.00-106.00 LV Diastolic Volume Index (BP MOD) 0.05 l/m2 0.03-0.06 LV Systolic Volume (BP MOD) 33.03 ml 14.00-42.00 LV Systolic Volume Index (BP MOD) 0.02 l/m2 0.01-0.02 LV EF (BP MOD) 68 % 54-74 LV Diastolic Length (4C) 8.44 cm LV Systolic Length (4C) 5.97 cm LV Stroke Volume (4C MOD) 65.09 ml Atria Name Value Normal LA Dimensions LA Volume (4C A-L) 32.48 ml LA Volume (BP A-L) 32.03 ml RA Dimensions RA Area (4C) 9.74 cm2 <=18.00 Wall Motion Scoring Wall Motion Scoring Index: 1.18 Report Signatures
[2024-01-17 00:16] LABS: Lactic Acid 2.7 mmol/L (0.7-2.0)
[2024-01-17 00:19] LABS: MRSA (PCR) NOT DETECTED (NOT DETECTE)
[2024-01-17] MEDS: PROPOFOL IV EMULSION 100 ML 10.14 MG IV CONT (00:46)
[2024-01-17 01:30] LABS: Anion Gap 7 mmol/L (4-12); Blood Urea Nitrogen 25 mg/dL (7-17); Carbon Dioxide 29 mmol/L (22-30); Chloride 102 mmol/L (98-107); Estimated CRCL calculation 36 ml/min; Estimated Glomerular Filt Rate 41; Glucose 84 mg/dL (65-110); Potassium 4.4 mmol/L (3.4-5.0); Sodium 138 mmol/L (137-145)
[2024-01-17] MEDS: SODIUM CHLORIDE 0.9% IV 1,000 ML 999 ML IV CONT (02:06)
[2024-01-17 04:11] LABS: Basophils Absolute Auto 0.1 K/mm3 (0.0-0.1); Basophils Percent Auto 0.7 % (0.2-1.2); Eosinophils Absolute Auto 0.1 K/mm3 (0-0.3); Eosinophils Percent Auto 1.1 % (0-4.4); Hematocrit 44.8 % (37.0-47.0); Hemoglobin 14.5 g/dL (12.0-15.0); Immature Granulocyte Absolute 0.04 K/mm3 (0.00-0.031); Immature Granulocyte Percent A 0.4 % (0-0.5); Lymphocytes Absolute Auto 1.04 K/mm3 (0.9-3.2); Lymphocytes Percent Auto 10.7 % (18.3-44.2); Mean Corpuscular HGB Conc 32.4 g/dl (32-36); Mean Corpuscular Hemoglobin 33.6 pg (26-34); Mean Corpuscular Volume 103.7 fl (80-100); Monocytes Absolute Auto 0.8 K/mm3 (0.1-0.6); Monocytes Percent Auto 7.7 % (2.6-8.5); Neutrophils Absolute Auto 7.7 K/mm3 (1.3-6.7); Neutrophils Percent Auto 79.4 % (45.5-73.1); Platelet Count Result 181 k/mm3 (150-375); Red Blood Count 4.32 M/mm3 (4.2-5.4); Red Cell Distribution Width 12.6 % (11.5-14.5); White Blood Count 9.7 K/mm3 (4.5-10.0)
[2024-01-17 04:18] LABS: Lactic Acid Reflex 1.7 mmol/L (0.7-2.0)
[2024-01-17 04:19] LABS: Alanine Aminotransferase 20 U/L (6-35); Albumin Level 3.9 g/dL (3.5-5.1); Alkaline Phosphatase 104 U/L (38-126); Anion Gap 8 mmol/L (4-12); Aspartate Amino Transferase 35 U/L (14-36); Bilirubin,Total 0.8 mg/dL (0.2-1.3); Blood Urea Nitrogen 26 mg/dL (7-17); Calcium 8.5 mg/dL (8.4-10.2); Carbon Dioxide 28 mmol/L (22-30); Chloride 104 mmol/L (98-107); Estimated CRCL calculation 39 ml/min; Estimated Glomerular Filt Rate 45; Glucose 90 mg/dL (65-110); Magnesium 1.9 mg/dL (1.6-2.3); Phosphorus 4.2 mg/dL (2.5-4.5); Potassium 4.6 mmol/L (3.4-5.0); Sodium 140 mmol/L (137-145)
[2024-01-17 04:41] LABS: Procalcitonin 0.1 ng/mL
[2024-01-17 05:14] LABS: Alveolar/Arterial O2 Gradient 286.8 mmHg; Base Excess ABG -0.2 mEq/l (+/-2.0); Carboxyhemoglobin 0.8 % THb (0-2.0); Fractional Inspired Oxygen 60 %; HCO3 ABG 25.3 mEq/l (22.0-26.0); Oxygen Content ABG 19.9 %vol (16.0-22.0); Oxygen Saturation ABG 96.8 % (95.0-100.0); Oxyhemoglobin 96.2 % THb (90.0-100.0); PCO2 ABG 44.7 mmHg (35.0-45.0); PO2 ABG 91.8 mmHg (80.0-100.0); PO2 FiO2 Ratio Arterial Blood 1.53 %; Total Hemoglobin 14.7 g/dL (12.0-18.0); pH ABG 7.371 (7.350-7.450)
[2024-01-17] MEDS: LABETALOL HCL INJ 100 MG/20 ML VIAL 10 MG IV PUSH ×2 (05:40→12:57)
[2024-01-17 05:50] LABS: Device VENTILATOR; Modified Allen's Test Pass; Site Drawn LEFT RADIAL
[2024-01-17 05:51] LABS: Arterial Blood Gas Vent Mode CMV; Arterial Blood Gas Ventilator rate 16 /MIN
[2024-01-17 05:52] LABS: Arterial Blood Gas PEEP 5 cmH2O; Arterial Blood Gas Tidal Volume 400 ml
[2024-01-17] MEDS: PROPOFOL IV EMULSION 100 ML 15.21 MG IV CONT ×3 (06:00→18:00)
[2024-01-17] MEDS: PERFLUTREN LIPID MICROSPHERES 1.5 ML VIAL DILUTED TO 10 ML TOTAL VOLUME IV PUSH (08:25)
[2024-01-17] MEDS: LIDOCAINE HCL 1% PF INJ 5 ML VIAL INFILTRATE (09:30)
--- NOTE | 2024-01-17 09:37 | WPDCNINT ---
Assessment and Plan Assessment and plan (1) Acute respiratory failure with hypoxia and hypercapnia: Code(s): J96.01 - Acute respiratory failure with hypoxia; J96.02 - Acute respiratory failure with hypercapnia Status: Acute Assessment and Plan: Patient presented with acute respiratory failure with hypoxia and hypercarbia. Patient has baseline COPD and this appears to be a combination of congestive heart failure with possibility of pneumonia although her presentation was more consistent with CHF. She has normal WBC low procalcitonin level, elevated BNP, lower extremity edema and presented with uncontrolled blood pressure CT scan does suggest some infiltrates Now intubated and sedated Vent settings reviewed and patient is on 60% FiO2. I will increase the PEEP to 8 and try to wean FiO2 further down Will continue diuretics Patient is on Rocephin azithromycin PCR for COVID RSV and influenza was negative Urine Legionella and pneumococcal antigen are pending Will start bronchodilators No significant wheezing on exam hence I will hold steroids Echo is pending (2) Congestive heart failure: Code(s): I50.9 - Heart failure, unspecified Status: Acute Assessment and Plan: See above (3) Pneumonia: Code(s): J18.9 - Pneumonia, unspecified organism Status: Acute Assessment and Plan: See above (4) COPD (chronic obstructive pulmonary disease): Code(s): J44.9 - Chronic obstructive pulmonary disease, unspecified Status: Chronic Assessment and Plan: See above (5) Gastroesophageal reflux disease: Code(s): K21.9 - Gastro-esophageal reflux disease without esophagitis Status: Acute Assessment and Plan: On IV Pepcid (6) Elevated serum creatinine: Code(s): R79.89 - Other specified abnormal findings of blood chemistry Status: Acute Assessment and Plan: Patient has history of chronic kidney disease. Her creatinine was normal in May of 2022 but was elevated in September of 2023 presented with creatinine of 1.3 which has remained stable since admission. CT shows atrophic right kidney Will obtain ultrasound Monitor urine output electrolytes and creatinine (7) CKD (chronic kidney disease) stage 3, GFR 30-59 ml/min: Code(s): N18.30 - Chronic kidney disease, stage 3 unspecified Status: Acute Assessment and Plan: See above (8) Hypertension: Code(s): I10 - Essential (primary) hypertension Status: Chronic Assessment and Plan: Patient presented with uncontrolled hypertension. Now she sedated with propofol and blood pressure is in acceptable range Hold antihypertensive medications at this time Plan DVT prophylaxis -subQ heparin Stress ulcer prophylaxis -Pepcid Nutrition -start Tube Feeds Code Status - Full Code Total Critical Care Time - 35 minutes Due to a high probability of clinically significant, life threatening deterioration, the patient required my highest level of preparedness to intervene emergently and I personally spent this critical care time directly and personally managing the patient. This critical care time included obtaining a history; examining the patient; pulse oximetry; ordering and review of studies; arranging urgent treatment with development of a management plan; evaluation of patient's response to treatment; frequent reassessment; and discussions with other providers. It was exclusive of separately billable procedures and treating other patients and teaching time. Please see Assessment and Plan section and the rest of the note for further information on patient assessment and treatment Court Manager Consult Note Consult date: 01/17/24 Reason for consult: Acute respiratory failure HPI: Amairani Preciado is a 68 year old female was sent from her PCP office where she was found to be hypertensive. She also is complaining of shortness of breath and headache for last 3 weeks. Her initial blood pressure was 220/100. She denied any chest pain at the time of presentation. She admitted to having bilateral lower extremity swelling. She was hypoxic and required 4 L of oxygen and was tachypneic. Eventually in the ER patient's respiratory status deteriorated with increased hypoxia and work of breathing. Workup suggested pulmonary edema. Patient was given Lasix and a intubated in the ER. Patient was also given antibiotics Workup in the ER showed elevated D-dimer and CT scan was negative for PE. Her WBC was normal, slightly elevated creatinine Patient is now being seen in the ICU this morning and is sedated with propofol and on mechanical ventilation. She does follow commands. History is not obtainable and was obtained from review of chart Review of Systems Review of Systems: ROS unobtainable: Yes unobtainable due to endotracheal tube, unobtainable due to medical condition and unobtainable due to mental status PMFSH Past Medical History Medical History Arm paresthesia, left Back pain Breast cancer 2012 and 2018, both right-sided, tx'd w/ lumphectomy and one w/ radiation tx. Saw Dr. Strong? Chronic obstructive pulmonary disease Depression with anxiety Gastroesophageal reflux disease Generalized anxiety disorder Hyperlipidemia Hypertension Hypertensive heart disease Neuropathy Other chronic pain Seasonal allergies Seizure Tobacco dependence Surgical History Surgical History H/O: hysterectomy History of cholecystectomy History of discectomy History of hysterectomy History of lumpectomy of right breast S/P cholecystectomy Family History Family History Mother Patient's mother is in good health Sibling Patient's sister is in good health Patient's brother is in good health Father Family history of malignant neoplasm Patient's father is Social History Social History Social History: , lives with her son, estranged from her daughter. 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 Surrogate medical decision maker: Canelo Blancajaqueline, brother. Code status: Full code. Smoking packs per day: 1.5 Smoking cigarettes per day: 30.0 Years smoked: 50 Smoking pack-years: 75.00 Smoking status: Current every day smoker Additional smoking assessment comments: smoking since 16 yo Do You Feel Safe in your Home?: Yes Lack of Transportation: No Lack of Food: Never True Current Housing: I Have Housing Concerned About Future Housing: No Difficulty Paying Gas/Electric Bills: No Difficulty Paying for Meds: No Currently Unemployed: No Education: High School Diploma/GED Difficulty w/ Childcare or Family Care: No Living arrangements: with family Additional living arrangements comments: Lives in an apartment in [place]. Spiritual care concerns: No Meds Home Medications and Allergies Home Medications Medication Instructions Recorded Confirmed Type anastrozole 1 mg tablet 1 mg PO DAILY 10/12/19 01/16/24 History losartan 100 mg tablet 100 mg PO DAILY 10/12/19 01/16/24 History meloxicam 15 mg tablet 15 mg PO DAILY 10/12/19 01/16/24 History propranolol 40 mg tablet 40 mg PO BID 10/12/19 01/16/24 History zonisamide 50 mg capsule 50 mg PO DAILY 10/12/19 01/16/24 History alprazolam 2 mg tablet 2 mg PO TID 05/27/22 01/16/24 History escitalopram oxalate 20 mg tablet 20 mg PO BID 05/27/22 01/16/24 History oxycodone-acetaminophen 7.5 mg-325 1 tablet PO QID PRN Pain (Scale 05/27/22 01/16/24 History mg tablet Score 7-10) simvastatin 80 mg tablet 80 mg PO HS 05/27/22 01/16/24 History atorvastatin 20 mg tablet 20 mg PO DAILY 01/16/24 01/16/24 History Allergies Allergy/AdvReac Type Severity Reaction Status Date / Time aspirin AdvReac Gastrointestinal Verified 01/16/24 11:07 Upset varenicline [From Chantix] AdvReac Hallucinati Verified 01/16/24 11:07 ng ASPIRIN/NAUSEATED Allergy Mild Nausea Uncoded 01/16/24 11:07 Vital Signs Vital Signs - 24 hr 01/16/24 11:01 01/16/24 12:19 01/16/24 13:20 Temperature Pulse Rate 62 66 83 Respiratory Rate 21 H 16 14 Blood Pressure 207/75 H 206/95 H Pulse Oximetry 94 90 Oxygen Delivery Room Air Oxygen Flow Rate Fraction of Inspired Oxygen 01/16/24 12:45 01/16/24 14:45 01/16/24 13:45 Temperature Pulse Rate 87 65 70 Respiratory Rate 16 14 Blood Pressure Pulse Oximetry 100 Oxygen Delivery Mechanical Ventilation Oxygen Flow Rate Fraction of Inspired Oxygen 100 01/16/24 13:56 01/16/24 14:20 01/16/24 14:45 Temperature Pulse Rate 65 63 60 Respiratory Rate 14 14 20 Blood Pressure Pulse Oximetry Oxygen Delivery Oxygen Flow Rate Fraction of Inspired Oxygen 01/16/24 14:48 01/16/24 14:48 01/16/24 15:18 Temperature Pulse Rate 65 65 60 Respiratory Rate 20 20 14 Blood Pressure Pulse Oximetry Oxygen Delivery Oxygen Flow Rate Fraction of Inspired Oxygen 01/16/24 15:29 01/16/24 15:29 01/16/24 15:00 Temperature Pulse Rate 55 L 54 L 60 Respiratory Rate 14 14 14 Blood Pressure Pulse Oximetry Oxygen Delivery Oxygen Flow Rate Fraction of Inspired Oxygen 01/16/24 15:18 01/16/24 11:04 01/16/24 11:16 Temperature Pulse Rate 55 L 60 59 L Respiratory Rate 14 21 H 19 Blood Pressure 207/75 H 182/74 H Pulse Oximetry 94 95 Oxygen Delivery Oxygen Flow Rate Fraction of Inspired Oxygen 01/16/24 11:31 01/16/24 11:46 01/16/24 12:12 Temperature Pulse Rate 60 61 63 Respiratory Rate 21 H 19 22 H Blood Pressure 211/91 H 207/74 H 206/95 H Pulse Oximetry 93 93 91 Oxygen Delivery Oxygen Flow Rate Fraction of Inspired Oxygen 01/16/24 12:36 01/16/24 13:06 01/16/24 13:15 Temperature Pulse Rate 71 87 88 Respiratory Rate 22 H 16 16 Blood Pressure 194/105 H Pulse Oximetry 72 L 93 92 Oxygen Delivery Oxygen Flow Rate Fraction of Inspired Oxygen 01/16/24 13:31 01/16/24 13:58 01/16/24 14:30 Temperature Pulse Rate 82 69 65 Respiratory Rate 14 20 21 H Blood Pressure 224/107 H 163/109 H 182/117 H Pulse Oximetry 94 96 98 Oxygen Delivery Oxygen Flow Rate Fraction of Inspired Oxygen 01/16/24 12:00 01/16/24 12:25 01/16/24 12:30 Temperature Pulse Rate Respiratory Rate 14 Blood Pressure Pulse Oximetry 90 80 L Oxygen Delivery Nasal Cannula Non-Rebreather Mask Oxygen Flow Rate 4 15 Fraction of Inspired Oxygen 92 01/16/24 12:37 01/16/24 12:44 01/16/24 12:47 Temperature Pulse Rate Respiratory Rate Blood Pressure Pulse Oximetry 55 L 71 L 93 Oxygen Delivery Bag Valve Mask Mechanical Ventilation Mechanical Ventilation Oxygen Flow Rate Fraction of Inspired Oxygen 100 100 01/16/24 15:25 01/16/24 15:32 01/16/24 15:46 Temperature Pulse Rate 52 L 51 L 55 L Respiratory Rate 16 16 16 Blood Pressure 111/66 124/65 143/79 H Pulse Oximetry 100 100 100 Oxygen Delivery Oxygen Flow Rate Fraction of Inspired Oxygen 01/16/24 16:30 01/16/24 16:30 01/16/24 17:19 Temperature Pulse Rate 60 66 58 L Respiratory Rate 16 16 Blood Pressure 142/84 H 158/93 H Pulse Oximetry 99 99 98 Oxygen Delivery Mechanical Ventilation Oxygen Flow Rate Fraction of Inspired Oxygen 60 01/16/24 16:01 01/16/24 18:07 01/16/24 17:31 Temperature Pulse Rate 60 64 60 Respiratory Rate 16 16 Blood Pressure 155/90 H 158/86 H Pulse Oximetry 100 99 98 Oxygen Delivery Mechanical Ventilation Oxygen Flow Rate Fraction of Inspired Oxygen 60 01/16/24 19:16 01/16/24 18:00 01/16/24 17:05 Temperature Pulse Rate 61 63 60 Respiratory Rate 16 16 16 Blood Pressure 154/75 H Pulse Oximetry 100 Oxygen Delivery Oxygen Flow Rate Fraction of Inspired Oxygen 01/16/24 21:03 01/16/24 21:14 01/16/24 21:00 Temperature 37.1 C Pulse Rate 68 64 65 Respiratory Rate 17 16 Blood Pressure 166/122 H Pulse Oximetry 99 99 Oxygen Delivery Mechanical Ventilation Oxygen Flow Rate Fraction of Inspired Oxygen 60 01/16/24 22:00 01/16/24 22:00 01/16/24 21:30 Temperature Pulse Rate 63 63 Respiratory Rate 16 16 Blood Pressure 154/74 H Pulse Oximetry 99 99 Oxygen Delivery Mechanical Ventilation Oxygen Flow Rate Fraction of Inspired Oxygen 60 01/17/24 00:08 01/16/24 23:05 01/16/24 22:00 Temperature 37.1 C Pulse Rate 65 63 63 Respiratory Rate 22 H 16 Blood Pressure 157/76 H Pulse Oximetry 99 100 Oxygen Delivery Mechanical Ventilation Oxygen Flow Rate Fraction of Inspired Oxygen 60 01/17/24 00:00 01/17/24 00:00 01/17/24 00:46 Temperature Pulse Rate 65 67 Respiratory Rate 21 H 21 H 22 H Blood Pressure Pulse Oximetry 99 Oxygen Delivery Mechanical Ventilation Oxygen Flow Rate Fraction of Inspired Oxygen 60 01/17/24 00:46 01/17/24 00:00 01/17/24 02:00 Temperature Pulse Rate 67 66 73 Respiratory Rate 22 H 20 Blood Pressure Pulse Oximetry Oxygen Delivery Oxygen Flow Rate Fraction of Inspired Oxygen 01/17/24 02:00 01/17/24 02:00 01/17/24 02:11 Temperature Pulse Rate 73 73 76 Respiratory Rate 20 Blood Pressure 163/71 H Pulse Oximetry 100 100 Oxygen Delivery Mechanical Ventilation Oxygen Flow Rate Fraction of Inspired Oxygen 60 01/17/24 02:40 01/17/24 03:00 01/17/24 03:10 Temperature Pulse Rate 76 76 77 Respiratory Rate 20 20 25 H Blood Pressure Pulse Oximetry Oxygen Delivery Oxygen Flow Rate Fraction of Inspired Oxygen 01/17/24 04:12 01/17/24 03:30 01/17/24 04:00 Temperature 36.9 C Pulse Rate 68 70 68 Respiratory Rate 17 20 20 Blood Pressure 135/55 L Pulse Oximetry 100 Oxygen Delivery Oxygen Flow Rate Fraction of Inspired Oxygen 01/17/24 04:00 01/17/24 04:00 01/16/24 21:00 Temperature Pulse Rate 69 Respiratory Rate 20 Blood Pressure Pulse Oximetry 99 Oxygen Delivery Mechanical Ventilation Oxygen Flow Rate Fraction of Inspired Oxygen 60 60 01/17/24 00:00 01/17/24 04:00 01/17/24 05:40 Temperature Pulse Rate 72 Respiratory Rate Blood Pressure Pulse Oximetry Oxygen Delivery Oxygen Flow Rate Fraction of Inspired Oxygen 60 60 01/17/24 05:00 01/17/24 06:00 01/17/24 06:00 Temperature 36.8 C Pulse Rate 70 76 76 Respiratory Rate 21 H Blood Pressure 116/99 H Pulse Oximetry 100 100 Oxygen Delivery Mechanical Ventilation Oxygen Flow Rate Fraction of Inspired Oxygen 60 01/17/24 06:00 01/17/24 06:00 01/17/24 07:45 Temperature Pulse Rate 67 67 68 Respiratory Rate 20 20 Blood Pressure Pulse Oximetry 99 Oxygen Delivery Mechanical Ventilation Oxygen Flow Rate Fraction of Inspired Oxygen 60 01/17/24 07:45 01/17/24 08:00 01/17/24 08:36 Temperature Pulse Rate 68 80 80 Respiratory Rate 20 Blood Pressure Pulse Oximetry 100 Oxygen Delivery Mechanical Ventilation Oxygen Flow Rate Fraction of Inspired Oxygen 60 01/17/24 08:00 01/17/24 08:00 Temperature 36.4 C Pulse Rate 80 Respiratory Rate 20 Blood Pressure 136/96 H Pulse Oximetry 100 Oxygen Delivery Oxygen Flow Rate Fraction of Inspired Oxygen 60 Exam Narrative: General: Pt is sedated, intubated and on mechanical ventilation Lungs/Chest: Trachea central Coarse BS B/L, bilateral crackles. Cardiac: RRR. Normal S1 S2. No murmurs Circulation: Pedal pulses are intact and symmetrical. Abdomen: Decreased bowel sounds. Obese. Soft. NT. ND. Extremities: No clubbing, cyanosis Warm. Bilateral pitting edema : Trejo in place Neurologic: Unable to assess due to sedation. Follows commands with all 4 extremities on loading sedationPERRL Results Labs 01/17/24 04:05 01/17/24 04:05 Labs: Impressions Abdomen X-Ray 01/16/24 13:10 IMPRESSION: Orogastric tube in good position and ready for immediate use. Chest X-Ray 01/16/24 13:12 IMPRESSION: Endotracheal tube tip projecting 5.6 cm above the base of the seamus for which advancement of approximately 2 to 3 cm is suggested for optimal radiographic placement. Orogastric tube in good position and ready for immediate use. Bilobar pneumonia, as detailed above. Chest CTA 01/16/24 18:14 IMPRESSION: 1. No pulmonary embolism. 2. Bilateral upper and lower lobe pneumonia more in the lower lobes. 3. Minimal bilateral pleural effusion. 4. Cardiomegaly with right ventricular and left atrial enlargement. Congestive heart failure is highly suggestive 5. Atrophic right kidney. Chest X-Ray 01/17/24 06:24 IMPRESSION: 1. Improved airspace opacities in the lower lobes and perihilar regions, consistent with pneumonia. Short CBC 01/16/24 01/17/24 Range/Units 12:31 04:05 WBC 6.1 9.7 (4.5-10.0) K/mm3 Hgb 14.4 14.5 (12.0-15.0) g/dL Hct 44.8 44.8 (37.0-47.0) % Plt Count 175 181 (150-375) k/mm3 BMP 01/16/24 01/16/24 01/17/24 14:57 20:27 01:10 Sodium 138 137 138 Potassium 5.5 H 5.5 H 4.4 Chloride 105 103 102 Carbon Dioxide 23 28 29 BUN 24 H 25 H 25 H Creatinine 1.30 H 1.30 H 1.30 H Glucose 142 H 90 84 Calcium 8.9 8.6 9.0 01/17/24 04:05 Sodium 140 Potassium 4.6 Chloride 104 Carbon Dioxide 28 BUN 26 H Creatinine 1.20 H Glucose 90 Calcium 8.5 Cardiac Enzymes 01/16/24 Range/Units 14:51 Troponin I 0.024 (0.000-0.034) ng/mL Liver Function 01/16/24 01/16/24 01/17/24 Range/Units 14:57 20:27 04:05 Total Bilirubin 0.9 0.7 0.8 (0.2-1.3) mg/dL AST 42 H 32 35 (14-36) U/L ALT 25 23 20 (6-35) U/L Alkaline Phosphatase 119 117 104 (38-126) U/L Albumin 4.6 4.2 3.9 (3.5-5.1) g/dL Quality VTE Prophylaxis VTE prophylaxis: pharmacologic ordered Hospitalist MIPS Advance Care Plan I have confirmed that the patient's Advanced Care Plan is present, code status is documented, or surrogate decision maker is listed in patient medical record.: Yes Medication Reconciliation I have utilized all available resources to obtain, update and review the patients current medications (includes all prescriptions, OTC, herbals, cannabis, and nutritional supplements).: Yes
--- NOTE | 2024-01-17 09:37 | IVDEFINITY ---
Prior to administration of IV Definity the patient was educated on the risks and benefits of the imaging enhancing agent including potential adverse side effects. The patient verbalized understanding. Allergies were verified. No exclusion criteria were identified and at least one of the following inclusion criteria were met: 1) physician request, 2) patient technically difficult to image (per the [place] [employer] guidelines of two or more segments not discernable within the apical view), or 3) questionable left ventricular function. ?
[2024-01-17 10:10] LABS: Creatine Kinase 183 U/L (30-135)
[2024-01-17] MEDS: FAMOTIDINE 20 MG/2 ML VIAL IV PUSH ×2 (10:45→20:06)
[2024-01-17] MEDS: HEPARIN SODIUM 5,000 UNITS/ML VIAL 5000 UNITS SUB-Q ×2 (10:45→20:06)
[2024-01-17] MEDS: ZONISAMIDE 25 MG CAPSULE 50 MG FEED TUBE (10:49)
[2024-01-17 11:11] LABS: Glucose Point of Care 90 mg/dl (65-105)
[2024-01-17] MEDS: FENTANYL 2,500MCG/NS250ML(*CRX 2,500 MCG/250 ML BAG IV CONT (11:14)
[2024-01-17] MEDS: FUROSEMIDE INJ 100 MG/10 ML VIAL 80 MG IV PUSH (11:14)
[2024-01-17] MEDS: AZITHROMYCIN 500 MG/NS 250 ML 500 MG/250 ML BAG 250 MG IVPB (11:15)
[2024-01-17] MEDS: TOLNAFTATE 1% POWDER 45 GM BTL 1 APPLIC (12:48)
[2024-01-17] MEDS: IPRATROPIUM 0.5 MG/ALBUTEROL SULFATE 2.5 MG AMPUL.NEB 3 ML INHALATION ×2 (13:47→20:22)
[2024-01-17] MEDS: CENTRAL LINE FLUSH 10 ML IV PUSH ×2 (14:00→20:07)
[2024-01-17 14:35] LABS: Glucose Point of Care 100 mg/dl (65-105)
[2024-01-17 17:20] LABS: Glucose Point of Care 109 mg/dl (65-105)
--- NOTE | 2024-01-17 17:45 | P.PNIM_ITS ---
Progress Note: A&P Assessment and Plan (1) Acute respiratory failure with hypoxia and hypercapnia: Code(s): J96.01 - Acute respiratory failure with hypoxia; J96.02 - Acute respiratory failure with hypercapnia Status: Acute Assessment and Plan: Patient was sent into the ED for elevated BP (207/75) but worsened to 224/107. She developed acute respiratory failure with hypoxia and hypercarbia requiring intubation. ABG 7.143/55/74 on MV. COVID, RSV and influenza PCR negative. +DDimer CT chest showing no PE but with bilateral UL and LL PNA, minimal bilateral effusions and CMG. BNP 3420. PCT 0.1. WBC normal. No fevers. BCx NGTD. Sputum Cx pending. Urine Ag pending. Etiology CHF related to the severe HTN and/or PNA. Has COPD so may be contributing. Treated with Lasix 80mg IV x 1. Dose repeated today. Brisk UOP with 1600 -> 4350mL so far today IV abx also started as Azithro, Rocephin. Vanco stopped with MRSA nasal swab negative Now intubated and sedated; stable on MV Continue intermittent diuretics Continue Rocephin azithromycin Wean MV as tolerated. Check LE venous doppler. Appreciate bisque cleaner input. Discussed (2) Congestive heart failure: Code(s): I50.9 - Heart failure, unspecified Status: Acute Assessment and Plan: Troponin negative x1. BNP 3420. Echo showing Enlarged LV with normal systolic fxn (EF 60-65%) and midly increased LV thickness, Grade I diastolic dysfxn, hypokinetic basal inferior, mid inferior and basal interoseptal [place], LAE, mild valvular disease except mild-mod MR. Mild pHTN (44mmHg). [place] realted to the severe HTN As above. (3) Hypertension: Code(s): I10 - Essential (primary) hypertension Status: Chronic Assessment and Plan: Patient presented with uncontrolled hypertension with BP as high as 224/107. She received NTG in the ED. Now she is sedated with propofol and blood pressure is in acceptable range Will shoot for <20% reduction. Holding antihypertensive medications at this time (4) Pneumonia: Code(s): J18.9 - Pneumonia, unspecified organism Status: Acute Assessment and Plan: Possible PNA by imaging. repeat CXR to show improvement since she is diuresinig well See above (5) CKD (chronic kidney disease) stage 3, GFR 30-59 ml/min: Code(s): N18.30 - Chronic kidney disease, stage 3 unspecified Status: Acute Assessment and Plan: Patient has history of CKD. Cr normal last year but was 1.7 in September. Cr 1.3 on admission. CTA chest showing right renal atrophy. RenalUS showing small right kidney with moderate atrophy but no hydronephrosis. CKD related to HTN. Consider renal duplex if BP hard to control. Monitor urine output, electrolytes and renal fxn (6) COPD (chronic obstructive pulmonary disease): Code(s): J44.9 - Chronic obstructive pulmonary disease, unspecified Status: Chronic Assessment and Plan: As above (7) Gastroesophageal reflux disease: Code(s): K21.9 - Gastro-esophageal reflux disease without esophagitis Status: Acute Assessment and Plan: On IV Pepcid Plan DVT prophylaxis -subQ heparin Code Status - Full Code Subjective Date/time seen: 01/17/24 17:45 Interval history: 68yo female with hx of breast CA s/p right lumpectomy and XRT, HTN, COPD, CKD, seizures and tobacco abuse here for severe hypertension and acute respiratory failure. Patient intubated and sedated. Review of Systems Review of Systems: ROS unobtainable: Yes unobtainable due to endotracheal tube Exam Narrative: AF 98.6 160/74 74 16 100% MV Gen - intubated and sedated HEENT - ETT and OGT secured. Chest - Coarse BS anteriorly. CV - RRR S1/S2. Tele showing no significant dysrhythmias Abd - Soft, obese, +BS - [place]jo secured with clear yellow urine in the bag. Ext - trace pedal . 1+left, 2+ right DP. cool extremities. Neuro - sedated Skin - 4sec cap refill in feet. Patches of tines noted under both breasts that has spread to the left upper abd and periumbilcal area. Objective Data Vital Signs Vital Signs: Vital Signs - 24 hr 01/16/24 18:07 01/16/24 19:16 01/16/24 18:00 Temperature Pulse Rate 64 61 63 Respiratory Rate 16 16 Blood Pressure 154/75 H Pulse Oximetry 99 100 Oxygen Delivery Mechanical Ventilation Fraction of Inspired Oxygen 60 01/16/24 21:03 01/16/24 21:14 01/16/24 21:00 Temperature 98.8 F Pulse Rate 68 64 65 Respiratory Rate 17 16 Blood Pressure 166/122 H Pulse Oximetry 99 99 Oxygen Delivery Mechanical Ventilation Fraction of Inspired Oxygen 60 01/16/24 22:00 01/16/24 22:00 01/16/24 21:30 Temperature Pulse Rate 63 63 Respiratory Rate 16 16 Blood Pressure 154/74 H Pulse Oximetry 99 99 Oxygen Delivery Mechanical Ventilation Fraction of Inspired Oxygen 60 01/17/24 00:08 01/16/24 23:05 01/16/24 22:00 Temperature 98.7 F Pulse Rate 65 63 63 Respiratory Rate 22 H 16 Blood Pressure 157/76 H Pulse Oximetry 99 100 Oxygen Delivery Mechanical Ventilation Fraction of Inspired Oxygen 60 01/17/24 00:00 01/17/24 00:00 01/17/24 00:46 Temperature Pulse Rate 65 67 Respiratory Rate 21 H 21 H 22 H Blood Pressure Pulse Oximetry 99 Oxygen Delivery Mechanical Ventilation Fraction of Inspired Oxygen 60 01/17/24 00:46 01/17/24 00:00 01/17/24 02:00 Temperature Pulse Rate 67 66 73 Respiratory Rate 22 H 20 Blood Pressure Pulse Oximetry Oxygen Delivery Fraction of Inspired Oxygen 01/17/24 02:00 01/17/24 02:00 01/17/24 02:11 Temperature Pulse Rate 73 73 76 Respiratory Rate 20 Blood Pressure 163/71 H Pulse Oximetry 100 100 Oxygen Delivery Mechanical Ventilation Fraction of Inspired Oxygen 60 01/17/24 02:40 01/17/24 03:00 01/17/24 03:10 Temperature Pulse Rate 76 76 77 Respiratory Rate 20 20 25 H Blood Pressure Pulse Oximetry Oxygen Delivery Fraction of Inspired Oxygen 01/17/24 04:12 01/17/24 03:30 01/17/24 04:00 Temperature 98.5 F Pulse Rate 68 70 68 Respiratory Rate 17 20 20 Blood Pressure 135/55 L Pulse Oximetry 100 Oxygen Delivery Fraction of Inspired Oxygen 01/17/24 04:00 01/17/24 04:00 01/16/24 21:00 Temperature Pulse Rate 69 Respiratory Rate 20 Blood Pressure Pulse Oximetry 99 Oxygen Delivery Mechanical Ventilation Fraction of Inspired Oxygen 60 60 01/17/24 00:00 01/17/24 04:00 01/17/24 05:40 Temperature Pulse Rate 72 Respiratory Rate Blood Pressure Pulse Oximetry Oxygen Delivery Fraction of Inspired Oxygen 60 60 01/17/24 05:00 01/17/24 06:00 01/17/24 06:00 Temperature 98.3 F Pulse Rate 70 76 76 Respiratory Rate 21 H Blood Pressure 116/99 H Pulse Oximetry 100 100 Oxygen Delivery Mechanical Ventilation Fraction of Inspired Oxygen 60 01/17/24 06:00 01/17/24 06:00 01/17/24 07:45 Temperature Pulse Rate 67 67 68 Respiratory Rate 20 20 Blood Pressure Pulse Oximetry 99 Oxygen Delivery Mechanical Ventilation Fraction of Inspired Oxygen 60 01/17/24 07:45 01/17/24 08:00 01/17/24 08:36 Temperature Pulse Rate 68 80 80 Respiratory Rate 20 Blood Pressure Pulse Oximetry 100 Oxygen Delivery Mechanical Ventilation Fraction of Inspired Oxygen 60 01/17/24 08:00 01/17/24 08:00 01/17/24 08:00 Temperature 97.6 F Pulse Rate 80 Respiratory Rate 20 Blood Pressure 136/96 H Pulse Oximetry 100 Oxygen Delivery Mechanical Ventilation Fraction of Inspired Oxygen 60 60 01/17/24 11:07 01/17/24 11:14 01/17/24 11:15 Temperature Pulse Rate 66 67 67 Respiratory Rate 16 16 Blood Pressure Pulse Oximetry 97 Oxygen Delivery Mechanical Ventilation Fraction of Inspired Oxygen 60 01/17/24 12:00 01/17/24 12:00 01/17/24 12:39 Temperature Pulse Rate 80 85 87 Respiratory Rate 16 16 22 H Blood Pressure Pulse Oximetry Oxygen Delivery Fraction of Inspired Oxygen 01/17/24 12:40 01/17/24 12:40 01/17/24 12:57 Temperature Pulse Rate 82 84 85 Respiratory Rate 23 H 23 H Blood Pressure Pulse Oximetry Oxygen Delivery Fraction of Inspired Oxygen 01/17/24 12:00 01/17/24 12:30 01/17/24 13:00 Temperature 98.6 F Pulse Rate 73 80 73 Respiratory Rate 20 20 19 Blood Pressure 171/105 H 220/113 H 123/67 Pulse Oximetry 100 97 96 Oxygen Delivery Fraction of Inspired Oxygen 01/17/24 13:48 01/17/24 13:51 01/17/24 13:55 Temperature Pulse Rate 81 79 78 Respiratory Rate 21 H 22 H Blood Pressure Pulse Oximetry 100 Oxygen Delivery Mechanical Ventilation Fraction of Inspired Oxygen 60 01/17/24 14:00 01/17/24 14:00 01/17/24 12:00 Temperature Pulse Rate 74 72 Respiratory Rate 19 25 H Blood Pressure Pulse Oximetry Oxygen Delivery Mechanical Ventilation Fraction of Inspired Oxygen 60 01/17/24 12:00 01/17/24 14:00 01/17/24 16:00 Temperature Pulse Rate 74 74 Respiratory Rate 19 17 Blood Pressure 160/74 H Pulse Oximetry 100 Oxygen Delivery Fraction of Inspired Oxygen 60 01/17/24 16:00 01/17/24 17:05 01/17/24 17:12 Temperature Pulse Rate 74 71 74 Respiratory Rate 19 16 Blood Pressure Pulse Oximetry 100 Oxygen Delivery Mechanical Ventilation Fraction of Inspired Oxygen 60 Intake/Output Intake/Output: Intake & Output 01/14/24 01/15/24 01/16/24 01/17/24 23:59 23:59 23:59 23:59 Intake Total 866.4 1591.8 Output Total 1600 4350 Balance -733.6 -2758.2 Meds/Results Medications: Active Medications Generic Name Dose Route Start Last Admin Trade Name Freq PRN Reason Stop Dose Admin Acetaminophen 650 mg 01/16/24 19:50 Acetaminophen 650 Mg Suppository RECTAL Q6H PRN Mild Pain (1-3) or Fever Albuterol/Ipratropium 3 ml 01/17/24 14:00 01/17/24 13:47 Ipratropium 0.5 Mg/Albuterol Sulfate 2.5 Mg Ampul.Neb 3 Ml INHALATION 3 ml Q6HRT MICKIE Administration Atorvastatin Calcium 20 mg 01/18/24 09:00 Atorvastatin 20 Mg Tablet PO DAILY MICKIE Dextrose 12.5 gm 01/16/24 19:53 Dextrose 50% 25 Gm/50 Ml Syringe IV PUSH PRN PRN Hypoglycemia Protocol Famotidine 20 mg 01/17/24 09:00 01/17/24 10:45 Famotidine 20 Mg/2 Ml Vial IV PUSH 20 mg Q12HR MICKIE Administration Glucagon 1 mg 01/16/24 19:53 Glucagon For Inj 1 Mg Vial IM PRN PRN Hypoglycemia Protocol Glucose 15 gm 01/16/24 19:53 Glucose Oral Gel 15 Gm Of Glucse In 37.5 Gm Tube PO PRN PRN Hypoglycemia Protocol Heparin Sodium (Porcine) 5,000 units 01/16/24 21:00 01/17/24 10:45 Heparin Sodium 5,000 Units/Ml Vial SUB-Q 5,000 units Q12HR MICKIE Administration Propofol 100 mls @ 15.21 mls/hr 01/16/24 14:35 01/17/24 17:05 Diprivan IV CONT 30 mcg/kg/min .[id number] MICKIE 15.21 mls/hr Infusion 30 MCG/KG/MIN Dextrose 1,000 mls @ 100 mls/hr 01/16/24 19:53 Dextrose 5% 1,000 Ml IVPB PRN PRN Hypoglycemia Protocol Ceftriaxone Sodium 1 gm in 50 mls @ 100 mls/hr 01/17/24 11:00 01/17/24 11:50 Rocephin 1 Gm/Ns 50 Ml IVPB Infused Q24H MICKIE Infusion Azithromycin 500 mg in 250 mls @ 250 mls/hr 01/17/24 12:00 01/17/24 13:00 Zithromax IVPB Infused Q24H MICKIE Infusion Fentanyl Citrate 2,500 mcg in 250 mls @ 7.5 mls/hr 01/17/24 08:40 01/17/24 16:00 Fentanyl 2,500 Mcg/Ns 250 Ml IV CONT 75 mcg/hr .[id number] MICKIE 7.5 mls/hr Titration Protocol 75 MCG/HR Insulin Aspart 2 - 5 units 01/17/24 09:00 01/17/24 17:41 Insulin Aspart (*Bkc) 100 Units/Ml SUB-Q Not Given Q4HR [facility] Protocol Labetalol HCl 10 mg 01/16/24 19:53 01/17/24 12:57 Labetalol Hcl Inj 100 Mg/20 Ml Vial IV PUSH 10 mg Q2H PRN Administration SBP > 180, hold if HR < 70 Midazolam HCl 2 mg 01/17/24 08:38 Midazolam Hcl (*Crx) 2 Mg/2 Ml Vial IV PUSH Q5M PRN ventilator asynchrony Ondansetron HCl 4 mg 01/16/24 19:12 Ondansetron Inj 4 Mg/2 Ml Vial IV PUSH Q4H PRN Nausea Sodium Chloride 20 ml 01/17/24 10:11 Central Line Flush IV PUSH PRN PRN after blood draws Sodium Chloride 10 ml 01/17/24 10:11 Central Line Flush IV PUSH PRN PRN with TPN bag changes Sodium Chloride 10 ml 01/17/24 14:00 01/17/24 14:00 Central Line Flush IV PUSH 10 ml Q8HR MICKIE Administration Zonisamide 50 mg 01/17/24 09:00 01/17/24 10:49 Zonisamide 25 Mg Capsule FEED TUBE 50 mg DAILY MICKIE Administration Radiology Results: ITS Impressions Abdomen X-Ray 01/16/24 13:10 IMPRESSION: Orogastric tube in good position and ready for immediate use. Chest CTA 01/16/24 18:14 IMPRESSION: 1. No pulmonary embolism. 2. Bilateral upper and lower lobe pneumonia more in the lower lobes. 3. Minimal bilateral pleural effusion. 4. Cardiomegaly with right ventricular and left atrial enlargement. Congestive heart failure is highly suggestive 5. Atrophic right kidney. Chest X-Ray 01/17/24 06:24 IMPRESSION: 1. Improved airspace opacities in the lower lobes and perihilar regions, consistent with pneumonia. Renal Ultrasound 01/17/24 10:59 IMPRESSION: 1. Moderate atrophy of right kidney. No hydronephrosis. Labs Labs: Laboratory Results - last 24 hr 01/16/24 01/16/24 01/16/24 16:59 20:25 20:27 WBC RBC Hgb Hct MCV MCH MCHC RDW Plt Count MPV Immature Gran % (Auto) Neut % (Auto) Lymph % (Auto) [place] % (Auto) Eos % (Auto) Baso % (Auto) Lymph # (Auto) [place] # (Auto) Eos # (Auto) Baso # (Auto) Abs Immat Gran (auto) Absolute Neuts (auto) Absolute Nucleated RBC Nucleated RBC % Puncture Site Right radial ABG pH 7.379 ABG pCO2 39.8 ABG pO2 75.4 L ABG PO2/FiO2 Ratio 1.26 ABG HCO3 23.0 ABG O2 Saturation 94.9 L ABG O2 Content 20.6 ABG Base Excess -1.9 A-a Gradient 308.6 Oxyhemoglobin 93.5 Carboxyhemoglobin 1.5 Methemoglobin 0.2 Reduced Hemoglobin 4.8 Total Hemoglobin 15.7 O2 Delivery Device Ventilator O2 Liters/Min Not Reportable Minute Volume Not Reportable Vent Rate 16 Vent Mode Cmv FiO2 60 Tidal Volume 400 PEEP 5 Peak Inspir Pressure Not Reportable Pressure Support Not Reportable Sodium 137 Potassium 5.5 H Chloride 103 Carbon Dioxide 28 Anion Gap 6 BUN 25 H Creatinine 1.30 H Estim Creat Clear Calc 38 Estimated GFR 41 L Glucose 90 POC Capillary Glucose Lactic Acid 2.1 H Calcium 8.6 Phosphorus Magnesium 2.4 H Total Bilirubin 0.7 AST 32 ALT 23 Alkaline Phosphatase 117 Total Creatine Kinase Total Protein 8.0 Albumin 4.2 Procalcitonin Nasal MRSA (PCR) Not detected 01/16/24 01/16/24 01/17/24 21:04 23:05 00:03 WBC RBC Hgb Hct MCV MCH MCHC RDW Plt Count MPV Immature Gran % (Auto) Neut % (Auto) Lymph % (Auto) [place] % (Auto) Eos % (Auto) Baso % (Auto) Lymph # (Auto) [place] # (Auto) Eos # (Auto) Baso # (Auto) Abs Immat Gran (auto) Absolute Neuts (auto) Absolute Nucleated RBC Nucleated RBC % Puncture Site ABG pH ABG pCO2 ABG pO2 ABG PO2/FiO2 Ratio ABG HCO3 ABG O2 Saturation ABG O2 Content ABG Base Excess A-a Gradient Oxyhemoglobin Carboxyhemoglobin Methemoglobin Reduced Hemoglobin Total Hemoglobin O2 Delivery Device O2 Liters/Min Minute Volume Vent Rate Vent Mode FiO2 Tidal Volume PEEP Peak Inspir Pressure Pressure Support Sodium Potassium Chloride Carbon Dioxide Anion Gap BUN Creatinine Estim Creat Clear Calc Estimated GFR Glucose POC Capillary Glucose 91 Lactic Acid 2.7 H Calcium Phosphorus Magnesium Total Bilirubin AST ALT Alkaline Phosphatase Total Creatine Kinase Total Protein Albumin Procalcitonin Nasal MRSA (PCR) Not detected 01/17/24 01/17/24 01/17/24 01:10 04:01 04:05 WBC 9.7 RBC 4.32 Hgb 14.5 Hct 44.8 MCV 103.7 H MCH 33.6 MCHC 32.4 RDW 12.6 Plt Count 181 MPV 10.0 Immature Gran % (Auto) 0.4 Neut % (Auto) 79.4 H Lymph % (Auto) 10.7 L [place] % (Auto) 7.7 Eos % (Auto) 1.1 Baso % (Auto) 0.7 Lymph # (Auto) 1.04 [place] # (Auto) 0.8 H Eos # (Auto) 0.1 Baso # (Auto) 0.1 Abs Immat Gran (auto) 0.04 H Absolute Neuts (auto) 7.7 H Absolute Nucleated RBC 0.000 Nucleated RBC % 0.0 Puncture Site ABG pH ABG pCO2 ABG pO2 ABG PO2/FiO2 Ratio ABG HCO3 ABG O2 Saturation ABG O2 Content ABG Base Excess A-a Gradient Oxyhemoglobin Carboxyhemoglobin Methemoglobin Reduced Hemoglobin Total Hemoglobin O2 Delivery Device O2 Liters/Min Minute Volume Vent Rate Vent Mode FiO2 Tidal Volume PEEP Peak Inspir Pressure Pressure Support Sodium 138 140 Potassium 4.4 4.6 Chloride 102 104 Carbon Dioxide 29 28 Anion Gap 7 8 BUN 25 H 26 H Creatinine 1.30 H 1.20 H Estim Creat Clear Calc 36 39 Estimated GFR 41 L 45 L Glucose 84 90 POC Capillary Glucose Lactic Acid 1.7 Calcium 9.0 8.5 Phosphorus 4.2 Magnesium 1.9 Total Bilirubin 0.8 AST 35 ALT 20 Alkaline Phosphatase 104 Total Creatine Kinase 183 H Total Protein 7.0 Albumin 3.9 Procalcitonin 0.1 Nasal MRSA (PCR) 01/17/24 01/17/24 01/17/24 05:00 11:09 14:30 WBC RBC Hgb Hct MCV MCH MCHC RDW Plt Count MPV Immature Gran % (Auto) Neut % (Auto) Lymph % (Auto) [place] % (Auto) Eos % (Auto) Baso % (Auto) Lymph # (Auto) [place] # (Auto) Eos # (Auto) Baso # (Auto) Abs Immat Gran (auto) Absolute Neuts (auto) Absolute Nucleated RBC Nucleated RBC % Puncture Site Left radial ABG pH 7.371 ABG pCO2 44.7 ABG pO2 91.8 ABG PO2/FiO2 Ratio 1.53 ABG HCO3 25.3 ABG O2 Saturation 96.8 ABG O2 Content 19.9 ABG Base Excess -0.2 A-a Gradient 286.8 Oxyhemoglobin 96.2 Carboxyhemoglobin 0.8 Methemoglobin 0.0 Reduced Hemoglobin 3.0 Total Hemoglobin 14.7 O2 Delivery Device Ventilator O2 Liters/Min Not Reportable Minute Volume Not Reportable Vent Rate 16 Vent Mode Cmv FiO2 60 Tidal Volume 400 PEEP 5 Peak Inspir Pressure Not Reportable Pressure Support Not Reportable Sodium Potassium Chloride Carbon Dioxide Anion Gap BUN Creatinine Estim Creat Clear Calc Estimated GFR Glucose POC Capillary Glucose 90 100 Lactic Acid Calcium Phosphorus Magnesium Total Bilirubin AST ALT Alkaline Phosphatase Total Creatine Kinase Total Protein Albumin Procalcitonin Nasal MRSA (PCR) 01/17/24 17:15 WBC RBC Hgb Hct MCV MCH MCHC RDW Plt Count MPV Immature Gran % (Auto) Neut % (Auto) Lymph % (Auto) [place] % (Auto) Eos % (Auto) Baso % (Auto) Lymph # (Auto) [place] # (Auto) Eos # (Auto) Baso # (Auto) Abs Immat Gran (auto) Absolute Neuts (auto) Absolute Nucleated RBC Nucleated RBC % Puncture Site ABG pH ABG pCO2 ABG pO2 ABG PO2/FiO2 Ratio ABG HCO3 ABG O2 Saturation ABG O2 Content ABG Base Excess A-a Gradient Oxyhemoglobin Carboxyhemoglobin Methemoglobin Reduced Hemoglobin Total Hemoglobin O2 Delivery Device O2 Liters/Min Minute Volume Vent Rate Vent Mode FiO2 Tidal Volume PEEP Peak Inspir Pressure Pressure Support Sodium Potassium Chloride Carbon Dioxide Anion Gap BUN Creatinine Estim Creat Clear Calc Estimated GFR Glucose POC Capillary Glucose 109 H Lactic Acid Calcium Phosphorus Magnesium Total Bilirubin AST ALT Alkaline Phosphatase Total Creatine Kinase Total Protein Albumin Procalcitonin Nasal MRSA (PCR)
[2024-01-17 20:33] LABS: Glucose Point of Care 99 mg/dl (65-105)
[2024-01-17] MEDS: MINERAL OIL/WHITE PETROLATUM OINTMENT 1 APPLIC EACH EYE (20:44)
[2024-01-17] MEDS: PROPOFOL IV EMULSION 100 ML 2.32 MG IV CONT (20:45)
[2024-01-17 23:25] LABS: Glucose Point of Care 102 mg/dl (65-105)
[2024-01-18] VITALS (33 sets, daily range): BP systolic 119–201; BP diastolic 49–81; PULSE 65–103; RESP 14–25; TEMP 36.6–37.4; O2SAT 94–100
[2024-01-18] MEDS: IPRATROPIUM 0.5 MG/ALBUTEROL SULFATE 2.5 MG AMPUL.NEB 3 ML INHALATION ×4 (01:35→20:17)
[2024-01-18 03:50] LABS: Glucose Point of Care 105 mg/dl (65-105)
[2024-01-18 05:40] LABS: Alveolar/Arterial O2 Gradient 111.6 mmHg; Base Excess ABG 2.3 mEq/l (+/-2.0); Carboxyhemoglobin 0.6 % THb (0-2.0); Fractional Inspired Oxygen 45 %; HCO3 ABG 28.8 mEq/l (22.0-26.0); Methemoglobin ABG 0.1 %THb (0-1.5); Oxygen Content ABG 18.5 %vol (16.0-22.0); Oxygen Saturation ABG 98.8 % (95.0-100.0); Oxyhemoglobin 98.3 % THb (90.0-100.0); PCO2 ABG 52.7 mmHg (35.0-45.0); PO2 ABG 149.3 mmHg (80.0-100.0); PO2 FiO2 Ratio Arterial Blood 3.32 %; Total Hemoglobin 13.2 g/dL (12.0-18.0); pH ABG 7.355 (7.350-7.450)
[2024-01-18 05:41] LABS: Device VENTILATOR; Modified Allen's Test Pass; Site Drawn LEFT RADIAL
[2024-01-18 05:42] LABS: Arterial Blood Gas PEEP 8 cmH2O; Arterial Blood Gas Vent Mode CMV; Arterial Blood Gas Ventilator rate 16 /MIN
[2024-01-18 05:49] LABS: Hematocrit 39.1 % (37.0-47.0); Hemoglobin 12.4 g/dL (12.0-15.0); Mean Corpuscular HGB Conc 31.7 g/dl (32-36); Mean Corpuscular Hemoglobin 33.3 pg (26-34); Mean Corpuscular Volume 105.1 fl (80-100); Mean Platelet Volume 9.7 fl (7.4-10.4); Platelet Count Result 161 k/mm3 (150-375); Red Blood Count 3.72 M/mm3 (4.2-5.4); Red Cell Distribution Width 12.7 % (11.5-14.5); White Blood Count 7.6 K/mm3 (4.5-10.0)
[2024-01-18 05:58] LABS: Arterial Blood Gas Tidal Volume 400 ml
[2024-01-18 06:00] LABS: Triglycerides 158 mg/dL (<150)
[2024-01-18] MEDS: PROPOFOL IV EMULSION 100 ML 4.64 MG IV CONT (06:00)
[2024-01-18] MEDS: CENTRAL LINE FLUSH 10 ML IV PUSH ×3 (06:04→20:12)
[2024-01-18 06:06] LABS: Alanine Aminotransferase 16 U/L (6-35); Albumin Level 3.6 g/dL (3.5-5.1); Alkaline Phosphatase 77 U/L (38-126); Anion Gap 8 mmol/L (4-12); Aspartate Amino Transferase 24 U/L (14-36); Bilirubin,Total 0.5 mg/dL (0.2-1.3); Blood Urea Nitrogen 34 mg/dL (7-17); Carbon Dioxide 28 mmol/L (22-30); Chloride 102 mmol/L (98-107); Estimated CRCL calculation 34 ml/min; Estimated Glomerular Filt Rate 37; Glucose 116 mg/dL (65-110); Potassium 3.6 mmol/L (3.4-5.0); Sodium 138 mmol/L (137-145)
[2024-01-18 07:08] LABS: Folic Acid 5.8 ng/mL (2.76->20)
[2024-01-18] MEDS: PANTOPRAZOLE SODIUM IV 40 MG VIAL IV PUSH ×2 (08:05→20:11)
[2024-01-18] MEDS: ATORVASTATIN 20 MG TABLET PO (08:06)
[2024-01-18] MEDS: ZONISAMIDE 25 MG CAPSULE 50 MG FEED TUBE (08:06)
[2024-01-18] MEDS: HEPARIN SODIUM 5,000 UNITS/ML VIAL 5000 UNITS SUB-Q ×2 (08:06→20:12)
[2024-01-18] MEDS: MINERAL OIL/WHITE PETROLATUM OINTMENT 1 APPLIC EACH EYE (08:06)
[2024-01-18 08:34] LABS: Glucose Point of Care 118 mg/dl (65-105)
--- NOTE | 2024-01-18 09:48 | WPDINTPN ---
Progress Note: A&P Assessment and Plan (1) Acute respiratory failure with hypoxia and hypercapnia: Code(s): J96.01 - Acute respiratory failure with hypoxia; J96.02 - Acute respiratory failure with hypercapnia Status: Acute Assessment and Plan: Patient presented with acute respiratory failure with hypoxia and hypercarbia. Patient has baseline COPD and this appears to be a combination of congestive heart failure with possibility of pneumonia although her presentation was more consistent with CHF. She also had significant hypertension with systolics > 200. -She has normal WBC low procalcitonin level, elevated BNP, lower extremity edema and presented with uncontrolled blood pressure 01/15: CTA chest negative for pulmonary embolism, bilateral upper and lower lobe pneumonia more in the lower lobes, cardiomegaly with right ventricular and left atrial enlargement, congestive heart failure highly suggestive -01/15: Intubated in the ER -currently on hemoglobin ventilation, peep of 8, 45% FiO2. -responded well to diuretics -chest x-ray this morning with no acute cardiopulmonary disease -continue ceftriaxone and azithromycin -PCR for COVID RSV and influenza was negative -Urine Legionella and pneumococcal antigen are pending -Continue bronchodilators -sedated with propofol, I have asked the bedside RN to hold the sedation, will place patient on SBT and evaluate for extubation Echo is pending (2) Congestive heart failure: Code(s): I50.9 - Heart failure, unspecified Status: Acute Assessment and Plan: See above (3) Pneumonia: Code(s): J18.9 - Pneumonia, unspecified organism Status: Acute Assessment and Plan: See above (4) COPD (chronic obstructive pulmonary disease): Code(s): J44.9 - Chronic obstructive pulmonary disease, unspecified Status: Chronic Assessment and Plan: See above (5) Gastroesophageal reflux disease: Code(s): K21.9 - Gastro-esophageal reflux disease without esophagitis Status: Acute Assessment and Plan: Will switch Pepcid to Protonix given her decrease creatinine clearance/GFR (6) Elevated serum creatinine: Code(s): R79.89 - Other specified abnormal findings of blood chemistry Status: Acute Assessment and Plan: Patient has history of chronic kidney disease. Her creatinine was normal in May of 2022 but was elevated in September of 2023 presented with creatinine of 1.3 which has remained stable since admission. CT shows atrophic right kidney -renal ultrasound with moderate atrophy of right kidney, no hydronephrosis Monitor urine output electrolytes and creatinine (7) CKD (chronic kidney disease) stage 3, GFR 30-59 ml/min: Code(s): N18.30 - Chronic kidney disease, stage 3 unspecified Status: Acute Assessment and Plan: See above (8) Hypertension: Code(s): I10 - Essential (primary) hypertension Status: Chronic Assessment and Plan: Patient presented with uncontrolled hypertension. Now she sedated with propofol and blood pressure is in acceptable range Hold antihypertensive medications at this time -p.r.n. hydralazine has been ordered Plan DVT prophylaxis -subQ heparin Stress ulcer prophylaxis -Protonix Nutrition -will hold tube feeds for possible extubation Code Status - Full Code Total Critical Care Time - 33 minutes Discussed with patient's brother, Canelo and updated with patient's condition and plan of care. He is aware that she has been placed on a breathing trial and will evaluate for extubation if she does well. Due to a high probability of clinically significant, life threatening deterioration, the patient required my highest level of preparedness to intervene emergently and I personally spent this critical care time directly and personally managing the patient. This critical care time included obtaining a history; examining the patient; pulse oximetry; ordering and review of studies; arranging urgent treatment with development of a management plan; evaluation of patient's response to treatment; frequent reassessment; and discussions with other providers. It was exclusive of separately billable procedures and treating other patients and teaching time. Please see Assessment and Plan section and the rest of the note for further information on patient assessment and treatment This dictation may have been done utilizing a voice recognition system. Attempts have been made to correct errors. However, there may be uncorrected grammatical, spelling, and recognitions errors present. Subjective Date/time seen: 01/18/24 09:48 Interval history: Reason for consult: Acute respiratory failure likely related to pneumonia, CHF, COPD exacerbation 01/18/2024: Patient seen and examined the ICU, remains intubated on CMV mode of ventilation, peep of 8, 45% FiO2. Sedated with propofol infusion, hemodynamically stable, adequate urine output in response to diuresis with negative fluid balance in the last 24 hours and since admission. Patient is awake, alert, nods to questions. Review of Systems Review of Systems: ROS unobtainable: Yes unobtainable due to endotracheal tube and unobtainable due to medical condition Exam Narrative: General: Pt is sedated, intubated and on mechanical ventilation Lungs/Chest: Mildly coarse breath sounds bilaterally, decreased at bases, adequate air entry Cardiac: RRR. Normal S1 S2. No murmurs Circulation: Pedal pulses are intact and symmetrical. Abdomen: Decreased bowel sounds. Obese. Soft. NT. ND. Extremities: No clubbing, cyanosis Warm. Bilateral pitting edema : Trejo in place Neurologic: Intubated, sedated, currently awake, nods to questions and follows simple commands in all extremities. Pupils are equal and reactive, sclerae skin Objective Data Vital Signs Vital Signs: Vital Signs - 24 hr 01/17/24 11:07 01/17/24 11:14 01/17/24 11:15 Temperature Pulse Rate 66 67 67 Respiratory Rate 16 16 Blood Pressure Pulse Oximetry 97 Oxygen Delivery Mechanical Ventilation Fraction of Inspired Oxygen 60 01/17/24 12:00 01/17/24 12:00 01/17/24 12:39 Temperature Pulse Rate 80 85 87 Respiratory Rate 16 16 22 H Blood Pressure Pulse Oximetry Oxygen Delivery Fraction of Inspired Oxygen 01/17/24 12:40 01/17/24 12:40 01/17/24 12:57 Temperature Pulse Rate 82 84 85 Respiratory Rate 23 H 23 H Blood Pressure Pulse Oximetry Oxygen Delivery Fraction of Inspired Oxygen 01/17/24 12:00 01/17/24 12:30 01/17/24 13:00 Temperature 98.6 F Pulse Rate 73 80 73 Respiratory Rate 20 20 19 Blood Pressure 171/105 H 220/113 H 123/67 Pulse Oximetry 100 97 96 Oxygen Delivery Fraction of Inspired Oxygen 01/17/24 13:48 01/17/24 13:51 01/17/24 13:55 Temperature Pulse Rate 81 79 78 Respiratory Rate 21 H 22 H Blood Pressure Pulse Oximetry 100 Oxygen Delivery Mechanical Ventilation Fraction of Inspired Oxygen 60 01/17/24 14:00 01/17/24 14:00 01/17/24 12:00 Temperature Pulse Rate 74 72 Respiratory Rate 19 25 H Blood Pressure Pulse Oximetry Oxygen Delivery Mechanical Ventilation Fraction of Inspired Oxygen 60 01/17/24 12:00 01/17/24 14:00 01/17/24 16:00 Temperature Pulse Rate 74 74 Respiratory Rate 19 17 Blood Pressure 160/74 H Pulse Oximetry 100 Oxygen Delivery Fraction of Inspired Oxygen 60 01/17/24 16:00 01/17/24 17:05 01/17/24 17:12 Temperature Pulse Rate 74 71 74 Respiratory Rate 19 16 Blood Pressure Pulse Oximetry 100 Oxygen Delivery Mechanical Ventilation Fraction of Inspired Oxygen 60 01/17/24 18:00 01/17/24 18:00 01/17/24 18:00 Temperature Pulse Rate 73 73 71 Respiratory Rate 16 16 16 Blood Pressure Pulse Oximetry Oxygen Delivery Fraction of Inspired Oxygen 01/17/24 16:00 01/17/24 18:00 01/17/24 16:00 Temperature 97.9 F Pulse Rate 69 71 Respiratory Rate 18 16 Blood Pressure 149/89 H 129/75 Pulse Oximetry 100 100 Oxygen Delivery Mechanical Ventilation Fraction of Inspired Oxygen 60 01/17/24 16:00 01/17/24 18:30 01/17/24 18:30 Temperature Pulse Rate 73 Respiratory Rate 16 Blood Pressure 85/59 L Pulse Oximetry Oxygen Delivery Fraction of Inspired Oxygen 60 01/17/24 18:40 01/17/24 18:45 01/17/24 18:50 Temperature Pulse Rate 70 70 75 Respiratory Rate 16 16 16 Blood Pressure Pulse Oximetry Oxygen Delivery Fraction of Inspired Oxygen 01/17/24 18:55 01/17/24 19:00 01/17/24 18:40 Temperature Pulse Rate 74 70 Respiratory Rate 16 16 Blood Pressure 80/63 L Pulse Oximetry Oxygen Delivery Fraction of Inspired Oxygen 01/17/24 18:45 01/17/24 18:50 01/17/24 19:05 Temperature Pulse Rate Respiratory Rate Blood Pressure 69/52 L 76/53 L 137/95 H Pulse Oximetry Oxygen Delivery Fraction of Inspired Oxygen 01/17/24 20:00 01/17/24 20:00 01/17/24 20:00 Temperature 99.4 F Pulse Rate 70 70 70 Respiratory Rate 17 17 16 Blood Pressure 118/73 Pulse Oximetry 100 Oxygen Delivery Fraction of Inspired Oxygen 01/17/24 20:22 01/17/24 20:30 01/17/24 20:31 Temperature Pulse Rate 72 71 69 Respiratory Rate 22 H 16 Blood Pressure Pulse Oximetry 100 Oxygen Delivery Mechanical Ventilation Fraction of Inspired Oxygen 50 01/17/24 20:24 01/17/24 20:45 01/17/24 20:00 Temperature Pulse Rate 72 76 Respiratory Rate 16 18 Blood Pressure Pulse Oximetry Oxygen Delivery Fraction of Inspired Oxygen 50 01/17/24 22:00 01/17/24 22:00 01/17/24 20:00 Temperature Pulse Rate 68 68 Respiratory Rate 16 16 Blood Pressure Pulse Oximetry 100 Oxygen Delivery Mechanical Ventilation Fraction of Inspired Oxygen 50 01/17/24 22:00 01/17/24 22:00 01/17/24 20:00 Temperature Pulse Rate 69 69 70 Respiratory Rate 17 Blood Pressure 147/63 H Pulse Oximetry 100 Oxygen Delivery Fraction of Inspired Oxygen 01/17/24 22:37 01/17/24 23:50 01/17/24 23:57 Temperature 97.4 F L Pulse Rate 64 Respiratory Rate Blood Pressure Pulse Oximetry 100 100 Oxygen Delivery Mechanical Ventilation Mechanical Ventilation Fraction of Inspired Oxygen 50 50 01/17/24 23:57 01/18/24 00:00 01/18/24 00:00 Temperature Pulse Rate 65 65 Respiratory Rate 16 16 Blood Pressure Pulse Oximetry Oxygen Delivery Fraction of Inspired Oxygen 50 01/18/24 00:00 01/17/24 23:01 01/18/24 00:00 Temperature Pulse Rate 65 64 65 Respiratory Rate 16 16 Blood Pressure 146/55 H 142/60 H Pulse Oximetry 100 100 Oxygen Delivery Fraction of Inspired Oxygen 01/18/24 01:35 01/18/24 01:37 01/18/24 01:41 Temperature Pulse Rate 72 71 70 Respiratory Rate 15 15 Blood Pressure Pulse Oximetry 100 Oxygen Delivery Mechanical Ventilation Fraction of Inspired Oxygen 45 01/18/24 02:00 01/18/24 02:00 01/18/24 02:00 Temperature Pulse Rate 71 71 71 Respiratory Rate 16 16 Blood Pressure Pulse Oximetry Oxygen Delivery Fraction of Inspired Oxygen 01/18/24 01:00 01/18/24 02:01 01/18/24 04:00 Temperature Pulse Rate 66 70 70 Respiratory Rate 16 16 16 Blood Pressure 140/55 L 156/56 H Pulse Oximetry 100 100 Oxygen Delivery Fraction of Inspired Oxygen 01/18/24 04:00 01/18/24 04:00 01/18/24 04:00 Temperature Pulse Rate 70 Respiratory Rate 16 Blood Pressure Pulse Oximetry 100 Oxygen Delivery Mechanical Ventilation Fraction of Inspired Oxygen 45 45 01/18/24 04:00 01/18/24 03:01 01/18/24 04:01 Temperature Pulse Rate 68 73 71 Respiratory Rate 16 16 Blood Pressure 133/50 L 119/53 L Pulse Oximetry 100 100 Oxygen Delivery Fraction of Inspired Oxygen 01/18/24 05:36 01/18/24 06:00 01/18/24 06:00 Temperature Pulse Rate 69 68 68 Respiratory Rate 14 14 Blood Pressure Pulse Oximetry 100 Oxygen Delivery Mechanical Ventilation Fraction of Inspired Oxygen 45 01/18/24 06:00 01/18/24 06:00 01/18/24 06:00 Temperature Pulse Rate 68 66 66 Respiratory Rate 16 16 Blood Pressure 121/59 L Pulse Oximetry 98 Oxygen Delivery Fraction of Inspired Oxygen 01/18/24 07:56 01/18/24 08:00 01/18/24 08:08 Temperature Pulse Rate 70 74 78 Respiratory Rate 22 H 17 Blood Pressure Pulse Oximetry 100 Oxygen Delivery Mechanical Ventilation Fraction of Inspired Oxygen 35 01/18/24 08:00 01/18/24 07:55 01/18/24 07:55 Temperature 98.1 F Pulse Rate 75 75 75 Respiratory Rate 18 18 18 Blood Pressure 132/65 Pulse Oximetry 99 Oxygen Delivery Fraction of Inspired Oxygen 01/18/24 08:00 01/18/24 08:00 01/18/24 08:47 Temperature Pulse Rate 72 72 Respiratory Rate 17 Blood Pressure Pulse Oximetry 99 99 Oxygen Delivery Mechanical Ventilation Mechanical Ventilation Fraction of Inspired Oxygen 35 35 35 Intake/Output Intake/Output: Intake & Output 01/15/24 01/16/24 01/17/24 01/18/24 23:59 23:59 23:59 23:59 Intake Total 866.4 1755.3 634.4 Output Total 1600 5210 400 Balance -733.6 -3454.7 234.4 Meds/Results Medications: Active Medications Generic Name Dose Route Start Last Admin Trade Name Freq PRN Reason Stop Dose Admin Acetaminophen 650 mg 01/16/24 19:50 Acetaminophen 650 Mg Suppository RECTAL Q6H PRN Mild Pain (1-3) or Fever Albuterol/Ipratropium 3 ml 01/17/24 14:00 01/18/24 07:56 Ipratropium 0.5 Mg/Albuterol Sulfate 2.5 Mg Ampul.Neb 3 Ml INHALATION 3 ml Q6HRT MICKIE Administration Atorvastatin Calcium 20 mg 01/18/24 09:00 01/18/24 08:06 Atorvastatin 20 Mg Tablet PO 20 mg DAILY MICKIE Administration Dextrose 12.5 gm 01/16/24 19:53 Dextrose 50% 25 Gm/50 Ml Syringe IV PUSH PRN PRN Hypoglycemia Protocol Glucagon 1 mg 01/16/24 19:53 Glucagon For Inj 1 Mg Vial IM PRN PRN Hypoglycemia Protocol Glucose 15 gm 01/16/24 19:53 Glucose Oral Gel 15 Gm Of Glucse In 37.5 Gm Tube PO PRN PRN Hypoglycemia Protocol Heparin Sodium (Porcine) 5,000 units 01/16/24 21:00 01/18/24 08:06 Heparin Sodium 5,000 Units/Ml Vial SUB-Q 5,000 units Q12HR MICKIE Administration Dextrose 1,000 mls @ 100 mls/hr 01/16/24 19:53 Dextrose 5% 1,000 Ml IVPB PRN PRN Hypoglycemia Protocol Ceftriaxone Sodium 1 gm in 50 mls @ 100 mls/hr 01/17/24 11:00 01/17/24 11:50 Rocephin 1 Gm/Ns 50 Ml IVPB Infused Q24H MICKIE Infusion Azithromycin 500 mg in 250 mls @ 250 mls/hr 01/17/24 12:00 01/17/24 13:00 Zithromax IVPB Infused Q24H MICKIE Infusion Fentanyl Citrate 2,500 mcg in 250 mls @ 0 mls/hr 01/17/24 08:40 01/18/24 07:55 Fentanyl 2,500 Mcg/Ns 250 Ml IV CONT 0 mcg/hr .Q0M MICKIE 0 mls/hr Titration Protocol Propofol 100 mls @ 0 mls/hr 01/17/24 20:30 01/18/24 07:55 Diprivan IV CONT 0 mcg/kg/min .Q0M MICKIE 0 mls/hr Titration Protocol Insulin Aspart 2 - 5 units 01/17/24 09:00 01/18/24 08:02 Insulin Aspart (*Bkc) 100 Units/Ml SUB-Q Not Given Q4HR MICKIE Protocol Labetalol HCl 10 mg 01/16/24 19:53 01/17/24 12:57 Labetalol Hcl Inj 100 Mg/20 Ml Vial IV PUSH 10 mg Q2H PRN Administration SBP > 180, hold if HR < 70 Midazolam HCl 2 mg 01/17/24 08:38 Midazolam Hcl (*Crx) 2 Mg/2 Ml Vial IV PUSH Q5M PRN ventilator asynchrony Multi-Ingred Cream/Lotion/Oil/Oint 1 applic 01/17/24 21:00 01/18/24 08:06 Mineral Oil/White Petrolatum Ointment EACH EYE 1 applic Q12HR MICKIE Administration Ondansetron HCl 4 mg 01/16/24 19:12 Ondansetron Inj 4 Mg/2 Ml Vial IV PUSH Q4H PRN Nausea Pantoprazole Sodium 40 mg 01/18/24 09:00 01/18/24 08:05 Pantoprazole Sodium Iv 40 Mg Vial IV PUSH 40 mg Q12HR MICKIE Administration Sodium Chloride 20 ml 01/17/24 10:11 Central Line Flush IV PUSH PRN PRN after blood draws Sodium Chloride 10 ml 01/17/24 10:11 Central Line Flush IV PUSH PRN PRN with TPN bag changes Sodium Chloride 10 ml 01/17/24 14:00 01/18/24 06:04 Central Line Flush IV PUSH 10 ml Q8HR MICKIE Administration Zonisamide 50 mg 01/17/24 09:00 01/18/24 08:06 Zonisamide 25 Mg Capsule FEED TUBE 50 mg DAILY MICKIE Administration Radiology Results: ITS Impressions Abdomen X-Ray 01/16/24 13:10 IMPRESSION: Orogastric tube in good position and ready for immediate use. Chest CTA 01/16/24 18:14 IMPRESSION: 1. No pulmonary embolism. 2. Bilateral upper and lower lobe pneumonia more in the lower lobes. 3. Minimal bilateral pleural effusion. 4. Cardiomegaly with right ventricular and left atrial enlargement. Congestive heart failure is highly suggestive 5. Atrophic right kidney. Renal Ultrasound 01/17/24 10:59 IMPRESSION: 1. Moderate atrophy of right kidney. No hydronephrosis. Venous Doppler Study 01/17/24 20:37 IMPRESSION: No evidence of deep venous thrombosis of the lower extremities Chest X-Ray 01/18/24 06:06 IMPRESSION: 1. No acute cardiopulmonary disease. Labs Labs: Laboratory Results - last 24 hr 01/17/24 01/17/24 01/17/24 04:01 11:09 14:30 WBC RBC Hgb Hct MCV MCH MCHC RDW Plt Count MPV Puncture Site ABG pH ABG pCO2 ABG pO2 ABG PO2/FiO2 Ratio ABG HCO3 ABG O2 Saturation ABG O2 Content ABG Base Excess A-a Gradient Oxyhemoglobin Carboxyhemoglobin Methemoglobin Reduced Hemoglobin Total Hemoglobin O2 Delivery Device O2 Liters/Min Minute Volume Vent Rate Vent Mode FiO2 Tidal Volume PEEP Peak Inspir Pressure Pressure Support Sodium Potassium Chloride Carbon Dioxide Anion Gap BUN Creatinine Estim Creat Clear Calc Estimated GFR Glucose POC Capillary Glucose 90 100 Calcium Magnesium Total Bilirubin AST ALT Alkaline Phosphatase Total Creatine Kinase 183 H Total Protein Albumin Triglycerides Vitamin B12 Folate 01/17/24 01/17/24 01/17/24 17:15 20:04 23:22 WBC RBC Hgb Hct MCV MCH MCHC RDW Plt Count MPV Puncture Site ABG pH ABG pCO2 ABG pO2 ABG PO2/FiO2 Ratio ABG HCO3 ABG O2 Saturation ABG O2 Content ABG Base Excess A-a Gradient Oxyhemoglobin Carboxyhemoglobin Methemoglobin Reduced Hemoglobin Total Hemoglobin O2 Delivery Device O2 Liters/Min Minute Volume Vent Rate Vent Mode FiO2 Tidal Volume PEEP Peak Inspir Pressure Pressure Support Sodium Potassium Chloride Carbon Dioxide Anion Gap BUN Creatinine Estim Creat Clear Calc Estimated GFR Glucose POC Capillary Glucose 109 H 99 102 Calcium Magnesium Total Bilirubin AST ALT Alkaline Phosphatase Total Creatine Kinase Total Protein Albumin Triglycerides Vitamin B12 Folate 01/18/24 01/18/24 01/18/24 03:32 05:19 05:44 WBC 7.6 RBC 3.72 L Hgb 12.4 Hct 39.1 MCV 105.1 H MCH 33.3 MCHC 31.7 L RDW 12.7 Plt Count 161 MPV 9.7 Puncture Site Left radial ABG pH 7.355 ABG pCO2 52.7 H ABG pO2 149.3 H ABG PO2/FiO2 Ratio 3.32 ABG HCO3 28.8 H ABG O2 Saturation 98.8 ABG O2 Content 18.5 ABG Base Excess 2.3 A-a Gradient 111.6 Oxyhemoglobin 98.3 Carboxyhemoglobin 0.6 Methemoglobin 0.1 Reduced Hemoglobin 1.0 Total Hemoglobin 13.2 O2 Delivery Device Ventilator O2 Liters/Min Not Reportable Minute Volume Not Reportable Vent Rate 16 Vent Mode Cmv FiO2 45 Tidal Volume 400 PEEP 8 Peak Inspir Pressure Not Reportable Pressure Support Not Reportable Sodium 138 Potassium 3.6 Chloride 102 Carbon Dioxide 28 Anion Gap 8 BUN 34 H Creatinine 1.40 H Estim Creat Clear Calc 34 Estimated GFR 37 L Glucose 116 H POC Capillary Glucose 105 Calcium 8.0 L Magnesium 2.0 Total Bilirubin 0.5 AST 24 ALT 16 Alkaline Phosphatase 77 Total Creatine Kinase Total Protein 6.0 L Albumin 3.6 Triglycerides 158 H Vitamin B12 316.0 Folate 5.8 01/18/24 08:01 WBC RBC Hgb Hct MCV MCH MCHC RDW Plt Count MPV Puncture Site ABG pH ABG pCO2 ABG pO2 ABG PO2/FiO2 Ratio ABG HCO3 ABG O2 Saturation ABG O2 Content ABG Base Excess A-a Gradient Oxyhemoglobin Carboxyhemoglobin Methemoglobin Reduced Hemoglobin Total Hemoglobin O2 Delivery Device O2 Liters/Min Minute Volume Vent Rate Vent Mode FiO2 Tidal Volume PEEP Peak Inspir Pressure Pressure Support Sodium Potassium Chloride Carbon Dioxide Anion Gap BUN Creatinine Estim Creat Clear Calc Estimated GFR Glucose POC Capillary Glucose 118 H Calcium Magnesium Total Bilirubin AST ALT Alkaline Phosphatase Total Creatine Kinase Total Protein Albumin Triglycerides Vitamin B12 Folate Quality VTE Prophylaxis VTE prophylaxis: pharmacologic ordered
[2024-01-18 10:47] LABS: Alveolar/Arterial O2 Gradient 104.5 mmHg; Base Excess ABG 1.5 mEq/l (+/-2.0); Carboxyhemoglobin 0.9 % THb (0-2.0); Fractional Inspired Oxygen 35 %; HCO3 ABG 27.3 mEq/l (22.0-26.0); Methemoglobin ABG 0.1 %THb (0-1.5); Oxygen Content ABG 17.8 %vol (16.0-22.0); Oxygen Saturation ABG 96.6 % (95.0-100.0); Oxyhemoglobin 95.7 % THb (90.0-100.0); PO2 ABG 89.3 mmHg (80.0-100.0); PO2 FiO2 Ratio Arterial Blood 2.55 %; Reduced Hemoglobin 3.3 %THb (0-5.0); Total Hemoglobin 13.2 g/dL (12.0-18.0); pH ABG 7.373 (7.350-7.450)
[2024-01-18 10:51] LABS: Device VENTILATOR; Site Drawn LEFT RADIAL
[2024-01-18 10:52] LABS: Arterial Blood Gas Vent Mode PRESSURE SUPPORT
[2024-01-18 10:53] LABS: Arterial Blood Gas PEEP 5 cmH2O; Arterial Blood Gas Pressure Support 5 cmH2O
[2024-01-18] MEDS: AZITHROMYCIN 500 MG/NS 250 ML 500 MG/250 ML BAG 250 MG IVPB (12:11)
[2024-01-18 12:20] LABS: Glucose Point of Care 109 mg/dl (65-105)
--- NOTE | 2024-01-18 15:22 | P.PNIM_ITS ---
Progress Note: A&P Assessment and Plan (1) Acute respiratory failure with hypoxia and hypercapnia: Code(s): J96.01 - Acute respiratory failure with hypoxia; J96.02 - Acute respiratory failure with hypercapnia Status: Acute Assessment and Plan: Patient was sent into the ED for elevated BP (207/75) but worsened to 224/107. She developed acute respiratory failure with hypoxia and hypercarbia requiring intubation 01/15. ABG 7.143/55/74 on MV. COVID, RSV and influenza PCR negative. +DDimer CT chest showing no PE but bilateral UL and LL PNA, minimal bilateral effusions and CMG. UE and LE venous doppler negative for DVT. BNP 3420. PCT 0.1. WBC normal. No fevers. BCx NGTD. Sputum Cx pending. Urine Ag pending. Etiology CHF related to the severe HTN and less likely PNA. Has COPD so may be contributing. Treated with Lasix 80mg IV x 1. Dose repeated yesterday. Brisk UOP with 5200mL yesterday IV abx also started as Azithro, Rocephin. Vanco stopped with MRSA nasal swab negative CXR clear today. Sedation held and she dd well with breathing trial. Patient able to be extubated today. Continue Rocephin, azithromycin and bronchodilators. 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 Discussed (2) Congestive heart failure: Code(s): I50.9 - Heart failure, unspecified Status: Acute Assessment and Plan: Troponin negative x1. BNP 3420. Echo showing enlarged LV with normal systolic fxn (EF 60-65%) and mildly increased LV thickness, Grade I diastolic dysfxn, hypokinetic basal inferior, mid inferior and basal interoseptal [place]gadillo, LAE, mild valvular disease except mild-mod MR. Mild pHTN (44mmHg). [place] CHF related to the severe HTN As above. (3) Hypertension: Code(s): I10 - Essential (primary) hypertension Status: Chronic Assessment and Plan: Patient presented with uncontrolled hypertension with BP as high as 224/107. She received NTG in the ED. She was sedated with propofol and blood pressure dropped into acceptable range Holding antihypertensive medications at this time. Monitor off sedation (4) Pneumonia: Code(s): J18.9 - Pneumonia, unspecified organism Status: Acute Assessment and Plan: Possible PNA by imaging. repeat CXR is clear making PNA less likely Will discuss with patient to see if she had symptoms of PNA but consider stopping or providing short course of abx (5) CKD (chronic kidney disease) stage 3, GFR 30-59 ml/min: Code(s): N18.30 - Chronic kidney disease, stage 3 unspecified Status: Acute Assessment and Plan: Patient has history of CKD. Cr normal last year but was 1.7 in September. Cr 1.3 on admission. CTA chest showing right renal atrophy. RenalUS showing small right kidney with moderate atrophy but no hydronephrosis. CKD related to HTN. Consider renal duplex if BP hard to control. Cr remaining stable and within her baseline. Monitor urine output, electrolytes and renal fxn (6) COPD (chronic obstructive pulmonary disease): Code(s): J44.9 - Chronic obstructive pulmonary disease, unspecified Status: Chronic Assessment and Plan: As above (7) Gastroesophageal reflux disease: Code(s): K21.9 - Gastro-esophageal reflux disease without esophagitis Status: Acute Assessment and Plan: On IV Protonix Plan DVT prophylaxis -subQ heparin Code Status - Full Code Subjective Date/time seen: 01/18/24 15:22 Interval history: 68yo female with hx of breast CA s/p right lumpectomy and XRT, HTN, COPD, CKD, seizures and tobacco abuse here for severe hypertension and acute respiratory failure. Patient seen this morning and was intubated. Sedation held with plan for weaning trial today. She was able to be extubated later in the day. No problems overnight per RN. Review of Systems Review of Systems: ROS unobtainable: Yes unobtainable due to endotracheal tube Exam Narrative: AF 98.3 138/80 86 16 MV -> 100% 2l NC Gen - intubated at the time of my exam HEENT - ETT and OGT secured. Chest - CTA anteriorly bilaterally. nml RR CV - RRR S1/S2. Tele showing no significant dysrhythmias Abd - Soft, obese, +BS - Trejo secured with clear yellow urine in the bag. Ext - trace pedal edema. 2+ radial and DP pulses Neuro - sedated Skin - Tinea under both breasts, left upper abd and periumbilical area. Cap refill brisk Objective Data Vital Signs Vital Signs: Vital Signs - 24 hr 01/17/24 16:00 01/17/24 16:00 01/17/24 17:05 Temperature Pulse Rate 74 74 71 Respiratory Rate 17 19 16 Blood Pressure Pulse Oximetry Oxygen Delivery Oxygen Flow Rate Fraction of Inspired Oxygen 01/17/24 17:12 01/17/24 18:00 01/17/24 18:00 Temperature Pulse Rate 74 73 73 Respiratory Rate 16 16 Blood Pressure Pulse Oximetry 100 Oxygen Delivery Mechanical Ventilation Oxygen Flow Rate Fraction of Inspired Oxygen 60 01/17/24 18:00 01/17/24 16:00 01/17/24 18:00 Temperature 97.9 F Pulse Rate 71 69 71 Respiratory Rate 16 18 16 Blood Pressure 149/89 H 129/75 Pulse Oximetry 100 100 Oxygen Delivery Oxygen Flow Rate Fraction of Inspired Oxygen 01/17/24 16:00 01/17/24 16:00 01/17/24 18:30 Temperature Pulse Rate Respiratory Rate Blood Pressure 85/59 L Pulse Oximetry Oxygen Delivery Mechanical Ventilation Oxygen Flow Rate Fraction of Inspired Oxygen 60 60 01/17/24 18:30 01/17/24 18:40 01/17/24 18:45 Temperature Pulse Rate 73 70 70 Respiratory Rate 16 16 16 Blood Pressure Pulse Oximetry Oxygen Delivery Oxygen Flow Rate Fraction of Inspired Oxygen 01/17/24 18:50 01/17/24 18:55 01/17/24 19:00 Temperature Pulse Rate 75 74 70 Respiratory Rate 16 16 16 Blood Pressure Pulse Oximetry Oxygen Delivery Oxygen Flow Rate Fraction of Inspired Oxygen 01/17/24 18:40 01/17/24 18:45 01/17/24 18:50 Temperature Pulse Rate Respiratory Rate Blood Pressure 80/63 L 69/52 L 76/53 L Pulse Oximetry Oxygen Delivery Oxygen Flow Rate Fraction of Inspired Oxygen 01/17/24 19:05 01/17/24 20:00 01/17/24 20:00 Temperature Pulse Rate 70 70 Respiratory Rate 17 17 Blood Pressure 137/95 H Pulse Oximetry Oxygen Delivery Oxygen Flow Rate Fraction of Inspired Oxygen 01/17/24 20:00 01/17/24 20:22 01/17/24 20:30 Temperature 99.4 F Pulse Rate 70 72 71 Respiratory Rate 16 22 H 16 Blood Pressure 118/73 Pulse Oximetry 100 Oxygen Delivery Oxygen Flow Rate Fraction of Inspired Oxygen 01/17/24 20:31 01/17/24 20:24 01/17/24 20:45 Temperature Pulse Rate 69 72 76 Respiratory Rate 16 18 Blood Pressure Pulse Oximetry 100 Oxygen Delivery Mechanical Ventilation Oxygen Flow Rate Fraction of Inspired Oxygen 50 01/17/24 20:00 01/17/24 22:00 01/17/24 22:00 Temperature Pulse Rate 68 68 Respiratory Rate 16 16 Blood Pressure Pulse Oximetry Oxygen Delivery Oxygen Flow Rate Fraction of Inspired Oxygen 50 01/17/24 20:00 01/17/24 22:00 01/17/24 22:00 Temperature Pulse Rate 69 69 Respiratory Rate 17 Blood Pressure 147/63 H Pulse Oximetry 100 100 Oxygen Delivery Mechanical Ventilation Oxygen Flow Rate Fraction of Inspired Oxygen 50 01/17/24 20:00 01/17/24 22:37 01/17/24 23:50 Temperature Pulse Rate 70 64 Respiratory Rate Blood Pressure Pulse Oximetry 100 100 Oxygen Delivery Mechanical Ventilation Mechanical Ventilation Oxygen Flow Rate Fraction of Inspired Oxygen 50 50 01/17/24 23:57 01/17/24 23:57 01/18/24 00:00 Temperature 97.4 F L Pulse Rate 65 Respiratory Rate 16 Blood Pressure Pulse Oximetry Oxygen Delivery Oxygen Flow Rate Fraction of Inspired Oxygen 50 01/18/24 00:00 01/18/24 00:00 01/17/24 23:01 Temperature Pulse Rate 65 65 64 Respiratory Rate 16 16 Blood Pressure 146/55 H Pulse Oximetry 100 Oxygen Delivery Oxygen Flow Rate Fraction of Inspired Oxygen 01/18/24 00:00 01/18/24 01:35 01/18/24 01:37 Temperature Pulse Rate 65 72 71 Respiratory Rate 16 15 Blood Pressure 142/60 H Pulse Oximetry 100 100 Oxygen Delivery Mechanical Ventilation Oxygen Flow Rate Fraction of Inspired Oxygen 45 01/18/24 01:41 01/18/24 02:00 01/18/24 02:00 Temperature Pulse Rate 70 71 71 Respiratory Rate 15 16 16 Blood Pressure Pulse Oximetry Oxygen Delivery Oxygen Flow Rate Fraction of Inspired Oxygen 01/18/24 02:00 01/18/24 01:00 01/18/24 02:01 Temperature Pulse Rate 71 66 70 Respiratory Rate 16 16 Blood Pressure 140/55 L 156/56 H Pulse Oximetry 100 100 Oxygen Delivery Oxygen Flow Rate Fraction of Inspired Oxygen 01/18/24 04:00 01/18/24 04:00 01/18/24 04:00 Temperature Pulse Rate 70 70 Respiratory Rate 16 16 Blood Pressure Pulse Oximetry 100 Oxygen Delivery Mechanical Ventilation Oxygen Flow Rate Fraction of Inspired Oxygen 45 01/18/24 04:00 01/18/24 04:00 01/18/24 03:01 Temperature Pulse Rate 68 73 Respiratory Rate 16 Blood Pressure 133/50 L Pulse Oximetry 100 Oxygen Delivery Oxygen Flow Rate Fraction of Inspired Oxygen 45 01/18/24 04:01 01/18/24 05:36 01/18/24 06:00 Temperature Pulse Rate 71 69 68 Respiratory Rate 16 14 Blood Pressure 119/53 L Pulse Oximetry 100 100 Oxygen Delivery Mechanical Ventilation Oxygen Flow Rate Fraction of Inspired Oxygen 45 01/18/24 06:00 01/18/24 06:00 01/18/24 06:00 Temperature Pulse Rate 68 68 66 Respiratory Rate 14 16 Blood Pressure Pulse Oximetry Oxygen Delivery Oxygen Flow Rate Fraction of Inspired Oxygen 01/18/24 06:00 01/18/24 07:56 01/18/24 08:00 Temperature Pulse Rate 66 70 74 Respiratory Rate 16 22 H Blood Pressure 121/59 L Pulse Oximetry 98 100 Oxygen Delivery Mechanical Ventilation Oxygen Flow Rate Fraction of Inspired Oxygen 35 01/18/24 08:08 01/18/24 08:00 01/18/24 07:55 Temperature 98.1 F Pulse Rate 78 75 75 Respiratory Rate 17 18 18 Blood Pressure 132/65 Pulse Oximetry 99 Oxygen Delivery Oxygen Flow Rate Fraction of Inspired Oxygen 01/18/24 07:55 01/18/24 08:00 01/18/24 08:00 Temperature Pulse Rate 75 72 Respiratory Rate 18 17 Blood Pressure Pulse Oximetry 99 Oxygen Delivery Mechanical Ventilation Oxygen Flow Rate Fraction of Inspired Oxygen 35 35 01/18/24 08:47 01/18/24 08:00 01/18/24 10:00 Temperature Pulse Rate 72 81 69 Respiratory Rate Blood Pressure Pulse Oximetry 99 Oxygen Delivery Mechanical Ventilation Oxygen Flow Rate Fraction of Inspired Oxygen 35 01/18/24 08:00 01/18/24 08:00 01/18/24 10:00 Temperature Pulse Rate 77 77 69 Respiratory Rate 16 16 14 Blood Pressure Pulse Oximetry Oxygen Delivery Oxygen Flow Rate Fraction of Inspired Oxygen 01/18/24 10:00 01/18/24 10:00 01/18/24 11:10 Temperature Pulse Rate 69 69 Respiratory Rate 14 14 Blood Pressure 141/57 H Pulse Oximetry 99 95 Oxygen Delivery Nasal Cannula Oxygen Flow Rate 2 Fraction of Inspired Oxygen 01/18/24 11:10 01/18/24 12:00 01/18/24 12:00 Temperature 98.3 F Pulse Rate 85 83 Respiratory Rate 17 Blood Pressure 157/49 H Pulse Oximetry 94 94 Oxygen Delivery Nasal Cannula Oxygen Flow Rate 2 Fraction of Inspired Oxygen 01/18/24 12:00 01/18/24 13:58 01/18/24 14:06 Temperature Pulse Rate 88 86 Respiratory Rate 16 16 Blood Pressure Pulse Oximetry 94 Oxygen Delivery Nasal Cannula Oxygen Flow Rate 2 Fraction of Inspired Oxygen 01/18/24 14:00 01/18/24 14:00 Temperature Pulse Rate 89 89 Respiratory Rate 16 Blood Pressure 138/80 Pulse Oximetry 100 Oxygen Delivery Oxygen Flow Rate Fraction of Inspired Oxygen Intake/Output Intake/Output: Intake & Output 01/15/24 01/16/24 01/17/24 01/18/24 23:59 23:59 23:59 23:59 Intake Total 866.4 1755.3 934.4 Output Total 1600 5210 400 Balance -733.6 -3454.7 534.4 Meds/Results Medications: Active Medications Generic Name Dose Route Start Last Admin Trade Name Freq PRN Reason Stop Dose Admin Acetaminophen 650 mg 01/16/24 19:50 Acetaminophen 650 Mg Suppository RECTAL Q6H PRN Mild Pain (1-3) or Fever Albuterol/Ipratropium 3 ml 01/17/24 14:00 01/18/24 13:58 Ipratropium 0.5 Mg/Albuterol Sulfate 2.5 Mg Ampul.Neb 3 Ml INHALATION 3 ml Q6HRT MICKIE Administration Atorvastatin Calcium 20 mg 01/18/24 09:00 01/18/24 08:06 Atorvastatin 20 Mg Tablet PO 20 mg DAILY MICKIE Administration Dextrose 12.5 gm 01/16/24 19:53 Dextrose 50% 25 Gm/50 Ml Syringe IV PUSH PRN PRN Hypoglycemia Protocol Glucagon 1 mg 01/16/24 19:53 Glucagon For Inj 1 Mg Vial IM PRN PRN Hypoglycemia Protocol Glucose 15 gm 01/16/24 19:53 Glucose Oral Gel 15 Gm Of Glucse In 37.5 Gm Tube PO PRN PRN Hypoglycemia Protocol Heparin Sodium (Porcine) 5,000 units 01/16/24 21:00 01/18/24 08:06 Heparin Sodium 5,000 Units/Ml Vial SUB-Q 5,000 units Q12HR MICKIE Administration Hydralazine HCl 10 mg 01/18/24 10:00 Hydralazine Hcl 20 Mg/Ml Vial IV PUSH Q4H PRN Blood Pressure - High Dextrose 1,000 mls @ 100 mls/hr 01/16/24 19:53 Dextrose 5% 1,000 Ml IVPB PRN PRN Hypoglycemia Protocol Ceftriaxone Sodium 1 gm in 50 mls @ 100 mls/hr 01/17/24 11:00 01/18/24 11:53 Rocephin 1 Gm/Ns 50 Ml IVPB Infused Q24H MICKIE Infusion Azithromycin 500 mg in 250 mls @ 250 mls/hr 01/17/24 12:00 01/18/24 13:11 Zithromax IVPB Infused Q24H MICKIE Infusion Insulin Aspart 2 - 5 units 01/17/24 09:00 01/18/24 12:10 Insulin Aspart (*Bkc) 100 Units/Ml SUB-Q Not Given Q4HR MICKIE Protocol Labetalol HCl 10 mg 01/16/24 19:53 01/17/24 12:57 Labetalol Hcl Inj 100 Mg/20 Ml Vial IV PUSH 10 mg Q2H PRN Administration SBP > 180, hold if HR < 70 Midazolam HCl 2 mg 01/17/24 08:38 Midazolam Hcl (*Crx) 2 Mg/2 Ml Vial IV PUSH Q5M PRN ventilator asynchrony Multi-Ingred Cream/Lotion/Oil/Oint 1 applic 01/17/24 21:00 01/18/24 08:06 Mineral Oil/White Petrolatum Ointment EACH EYE 1 applic Q12HR MICKIE Administration Ondansetron HCl 4 mg 01/16/24 19:12 Ondansetron Inj 4 Mg/2 Ml Vial IV PUSH Q4H PRN Nausea Pantoprazole Sodium 40 mg 01/18/24 09:00 01/18/24 08:05 Pantoprazole Sodium Iv 40 Mg Vial IV PUSH 40 mg Q12HR MICKIE Administration Sodium Chloride 20 ml 01/17/24 10:11 Central Line Flush IV PUSH PRN PRN after blood draws Sodium Chloride 10 ml 01/17/24 10:11 Central Line Flush IV PUSH PRN PRN with TPN bag changes Sodium Chloride 10 ml 01/17/24 14:00 01/18/24 13:55 Central Line Flush IV PUSH 10 ml Q8HR MICKIE Administration Zonisamide 50 mg 01/17/24 09:00 01/18/24 08:06 Zonisamide 25 Mg Capsule FEED TUBE 50 mg DAILY MICKIE Administration Radiology Results: ITS Impressions Abdomen X-Ray 01/16/24 13:10 IMPRESSION: Orogastric tube in good position and ready for immediate use. Chest CTA 01/16/24 18:14 IMPRESSION: 1. No pulmonary embolism. 2. Bilateral upper and lower lobe pneumonia more in the lower lobes. 3. Minimal bilateral pleural effusion. 4. Cardiomegaly with right ventricular and left atrial enlargement. Congestive heart failure is highly suggestive 5. Atrophic right kidney. Renal Ultrasound 01/17/24 10:59 IMPRESSION: 1. Moderate atrophy of right kidney. No hydronephrosis. Chest X-Ray 01/18/24 06:06 IMPRESSION: 1. No acute cardiopulmonary disease. Venous Doppler Study 01/18/24 13:56 IMPRESSION: 1. No deep venous thrombosis. 2. Superficial vein thrombosis involving left cephalic vein. Labs Labs: Laboratory Results - last 24 hr 01/17/24 01/17/24 01/17/24 17:15 20:04 23:22 WBC RBC Hgb Hct MCV MCH MCHC RDW Plt Count MPV Puncture Site ABG pH ABG pCO2 ABG pO2 ABG PO2/FiO2 Ratio ABG HCO3 ABG O2 Saturation ABG O2 Content ABG Base Excess A-a Gradient Oxyhemoglobin Carboxyhemoglobin Methemoglobin Reduced Hemoglobin Total Hemoglobin O2 Delivery Device O2 Liters/Min Minute Volume Vent Rate Vent Mode FiO2 Tidal Volume PEEP Peak Inspir Pressure Pressure Support Sodium Potassium Chloride Carbon Dioxide Anion Gap BUN Creatinine Estim Creat Clear Calc Estimated GFR Glucose POC Capillary Glucose 109 H 99 102 Calcium Magnesium Total Bilirubin AST ALT Alkaline Phosphatase Total Protein Albumin Triglycerides Vitamin B12 Folate 01/18/24 01/18/24 01/18/24 03:32 05:19 05:44 WBC 7.6 RBC 3.72 L Hgb 12.4 Hct 39.1 MCV 105.1 H MCH 33.3 MCHC 31.7 L RDW 12.7 Plt Count 161 MPV 9.7 Puncture Site Left radial ABG pH 7.355 ABG pCO2 52.7 H ABG pO2 149.3 H ABG PO2/FiO2 Ratio 3.32 ABG HCO3 28.8 H ABG O2 Saturation 98.8 ABG O2 Content 18.5 ABG Base Excess 2.3 A-a Gradient 111.6 Oxyhemoglobin 98.3 Carboxyhemoglobin 0.6 Methemoglobin 0.1 Reduced Hemoglobin 1.0 Total Hemoglobin 13.2 O2 Delivery Device Ventilator O2 Liters/Min Not Reportable Minute Volume Not Reportable Vent Rate 16 Vent Mode Cmv FiO2 45 Tidal Volume 400 PEEP 8 Peak Inspir Pressure Not Reportable Pressure Support Not Reportable Sodium 138 Potassium 3.6 Chloride 102 Carbon Dioxide 28 Anion Gap 8 BUN 34 H Creatinine 1.40 H Estim Creat Clear Calc 34 Estimated GFR 37 L Glucose 116 H POC Capillary Glucose 105 Calcium 8.0 L Magnesium 2.0 Total Bilirubin 0.5 AST 24 ALT 16 Alkaline Phosphatase 77 Total Protein 6.0 L Albumin 3.6 Triglycerides 158 H Vitamin B12 316.0 Folate 5.8 01/18/24 01/18/24 01/18/24 08:01 10:44 12:09 WBC RBC Hgb Hct MCV MCH MCHC RDW Plt Count MPV Puncture Site Left radial ABG pH 7.373 ABG pCO2 48.0 H ABG pO2 89.3 ABG PO2/FiO2 Ratio 2.55 ABG HCO3 27.3 H ABG O2 Saturation 96.6 ABG O2 Content 17.8 ABG Base Excess 1.5 A-a Gradient 104.5 Oxyhemoglobin 95.7 Carboxyhemoglobin 0.9 Methemoglobin 0.1 Reduced Hemoglobin 3.3 Total Hemoglobin 13.2 O2 Delivery Device Ventilator O2 Liters/Min Not Reportable Minute Volume Not Reportable Vent Rate Not Reportable Vent Mode Pressure support FiO2 35 Tidal Volume Not Reportable PEEP 5 Peak Inspir Pressure Not Reportable Pressure Support 5 Sodium Potassium Chloride Carbon Dioxide Anion Gap BUN Creatinine Estim Creat Clear Calc Estimated GFR Glucose POC Capillary Glucose 118 H 109 H Calcium Magnesium Total Bilirubin AST ALT Alkaline Phosphatase Total Protein Albumin Triglycerides Vitamin B12 Folate
[2024-01-18 17:14] LABS: Glucose Point of Care 115 mg/dl (65-105)
[2024-01-18] MEDS: hydrALAZINE HCL 20 MG/ML VIAL 10 MG IV PUSH (17:23)
[2024-01-18 19:46] LABS: Glucose Point of Care 119 mg/dl (65-105)
[2024-01-18] MEDS: MELATONIN 5 MG TABLET PO (20:11)
[2024-01-19] VITALS (26 sets, daily range): BP systolic 105–188; BP diastolic 58–89; PULSE 68–105; RESP 15–23; TEMP 36.3–37.3; O2SAT 94–100
[2024-01-19 00:01] LABS: Glucose Point of Care 120 mg/dl (65-105)
[2024-01-19] MEDS: IPRATROPIUM 0.5 MG/ALBUTEROL SULFATE 2.5 MG AMPUL.NEB 3 ML INHALATION ×4 (01:43→21:00)
[2024-01-19 04:39] LABS: Basophils Percent Auto 0.7 % (0.2-1.2); Eosinophils Absolute Auto 0.1 K/mm3 (0-0.3); Eosinophils Percent Auto 1.5 % (0-4.4); Hematocrit 34.7 % (37.0-47.0); Hemoglobin 11.4 g/dL (12.0-15.0); Immature Granulocyte Absolute 0.01 K/mm3 (0.00-0.031); Immature Granulocyte Percent A 0.2 % (0-0.5); Lymphocytes Percent Auto 30.9 % (18.3-44.2); Mean Corpuscular HGB Conc 32.9 g/dl (32-36); Mean Corpuscular Hemoglobin 33.5 pg (26-34); Mean Corpuscular Volume 102.1 fl (80-100); Mean Platelet Volume 9.8 fl (7.4-10.4); Monocytes Absolute Auto 0.7 K/mm3 (0.1-0.6); Monocytes Percent Auto 11.7 % (2.6-8.5); Neutrophils Absolute Auto 3.4 K/mm3 (1.3-6.7); Platelet Count Result 147 k/mm3 (150-375); Red Cell Distribution Width 12.5 % (11.5-14.5); White Blood Count 6.2 K/mm3 (4.5-10.0)
[2024-01-19 04:53] LABS: Alanine Aminotransferase 15 U/L (6-35); Albumin Level 3.5 g/dL (3.5-5.1); Alkaline Phosphatase 77 U/L (38-126); Anion Gap 7 mmol/L (4-12); Aspartate Amino Transferase 26 U/L (14-36); Bilirubin,Total 0.7 mg/dL (0.2-1.3); Blood Urea Nitrogen 24 mg/dL (7-17); Calcium 8.4 mg/dL (8.4-10.2); Carbon Dioxide 29 mmol/L (22-30); Chloride 104 mmol/L (98-107); Estimated CRCL calculation 47 ml/min; Estimated Glomerular Filt Rate 55; Glucose 95 mg/dL (65-110); Phosphorus 3.5 mg/dL (2.5-4.5); Potassium 3.5 mmol/L (3.4-5.0); Sodium 140 mmol/L (137-145)
[2024-01-19] MEDS: CENTRAL LINE FLUSH 10 ML IV PUSH ×3 (04:57→20:38)
[2024-01-19] MEDS: hydrALAZINE HCL 20 MG/ML VIAL 10 MG IV PUSH (05:41)
[2024-01-19 07:54] LABS: Glucose Point of Care 103 mg/dl (65-105)
[2024-01-19] MEDS: LABETALOL HCL INJ 100 MG/20 ML VIAL 20 MG IV PUSH (08:23)
[2024-01-19] MEDS: POTASSIUM CHLORIDE 20 MEQ PACKET (FOR LIQUID) 40 MEQ PO (08:23)
[2024-01-19] MEDS: PANTOPRAZOLE SODIUM IV 40 MG VIAL IV PUSH (08:23)
[2024-01-19] MEDS: LOSARTAN POTASSIUM 100 MG TABLET PO (08:24)
[2024-01-19] MEDS: ATORVASTATIN 20 MG TABLET PO (08:24)
[2024-01-19] MEDS: ZONISAMIDE 25 MG CAPSULE 50 MG FEED TUBE (08:24)
[2024-01-19] MEDS: NICOTINE (*PBKC) 14 MG PATCH 1 PATCH TRANSDERM (08:24)
[2024-01-19] MEDS: HEPARIN SODIUM 5,000 UNITS/ML VIAL 5000 UNITS SUB-Q ×2 (08:24→20:29)
[2024-01-19] MEDS: PROPRANOLOL HCL 40 MG TABLET PO ×2 (08:26→17:15)
--- NOTE | 2024-01-19 09:41 | P.PNINT_ITS ---
Progress Note: A&P Assessment and Plan (1) Acute respiratory failure with hypoxia and hypercapnia: Code(s): J96.01 - Acute respiratory failure with hypoxia; J96.02 - Acute respiratory failure with hypercapnia Status: Acute Assessment and Plan: Patient presented with acute respiratory failure with hypoxia and hypercarbia. Patient has baseline COPD and this appears to be a combination of congestive heart failure with possibility of pneumonia although her presentation was more consistent with CHF. She also had significant hypertension with systolics > 200. -She has normal WBC low procalcitonin level, elevated BNP, lower extremity edema and presented with uncontrolled blood pressure 01/15: CTA chest negative for pulmonary embolism, bilateral upper and lower lobe pneumonia more in the lower lobes, cardiomegaly with right ventricular and left atrial enlargement, congestive heart failure highly suggestive -01/15: Intubated in the ER - 01/17 extubated -pulmonary edema appears have resolved the patient has lower extremity edema 1 continue diuresis -chest x-ray this morning reviewed -continue ceftriaxone and azithromycin -PCR for COVID RSV and influenza was negative -Urine Legionella and pneumococcal antigen are pending -Continue bronchodilators (2) Congestive heart failure: Code(s): I50.9 - Heart failure, unspecified Status: Acute Assessment and Plan: Echo Summary 1. Left ventricular chamber dimension is mildly enlarged. 2. Left ventricular systolic function is normal, estimated at 60-65%. 3. There is mildly increased left ventricular wall thickness. 4. The left ventricular diastolic function is grade I diastolic dysfunction. 5. The basal inferior wall, mid inferior wall, and basal inferoseptal are hypokinetic. 6. Left atrial chamber dimension is mildly enlarged. 7. There is mild aortic valve regurgitation. 8. There is mild aortic valve sclerosis. 9. There is mild to moderate mitral valve regurgitation. 10. The mitral valve has calcified annulus. 11. There is mild tricuspid valve regurgitation. 12. Mild pulmonary hypertension, estimated pulmonary arterial systolic pressure is 44 mmHg. Consult cardiology (3) Pneumonia: Code(s): J18.9 - Pneumonia, unspecified organism Status: Acute Assessment and Plan: See above (4) COPD (chronic obstructive pulmonary disease): Code(s): J44.9 - Chronic obstructive pulmonary disease, unspecified Status: Chronic Assessment and Plan: See above (5) Gastroesophageal reflux disease: Code(s): K21.9 - Gastro-esophageal reflux disease without esophagitis Status: Acute Assessment and Plan: Switched Pepcid to Protonix given her decrease creatinine clearance/GFR (6) Elevated serum creatinine: Code(s): R79.89 - Other specified abnormal findings of blood chemistry Status: Acute Assessment and Plan: Patient has history of chronic kidney disease. Her creatinine was normal in May of 2022 but was elevated in September of 2023 presented with creatinine of 1.3 which has remained stable since admission. CT shows atrophic right kidney -renal ultrasound with moderate atrophy of right kidney, no hydronephrosis Creatinine improved 1.0 Continue diuresis Monitor urine output electrolytes and creatinine (7) CKD (chronic kidney disease) stage 3, GFR 30-59 ml/min: Code(s): N18.30 - Chronic kidney disease, stage 3 unspecified Status: Acute Assessment and Plan: See above (8) Hypertension: Code(s): I10 - Essential (primary) hypertension Status: Chronic Assessment and Plan: Resume propranolol and losartan -p.r.n. Labetalol and hydralazine has been ordered Plan DVT prophylaxis -subQ heparin Stress ulcer prophylaxis -Protonix Nutrition -diet ordered PT OT Transfer out ICU Code Status - Full Code Subjective Date/time seen: 01/19/24 Overnight events reviewed. Afebrile On nasal cannula 1 L Elevated blood pressure Other Vitals acceptable Denies any complaints. Has chronic cough. Has chronic shortness of breath. Has chronic lower extremity swelling. Requesting nicotine patch. All other systems were reviewed and were negative Interval history: Reason for consult: Acute respiratory failure likely related to pneumonia, CHF, COPD exacerbation Review of Systems Review of Systems: All systems reviewed & are unremarkable except as noted in HPI and below (Subjective) Exam Narrative: General: Awake alert and in no distress Lungs/Chest: Mildly coarse breath sounds bilaterally, decreased at bases, adequate air entry Cardiac: RRR. Normal S1 S2. No murmurs Circulation: Pedal pulses are intact and symmetrical. Abdomen: Decreased bowel sounds. Obese. Soft. NT. ND. Extremities: No clubbing, cyanosis Warm. Bilateral pitting edema : Trejo in place Neurologic: AO x3, follows all commands with all 4 extremities Pupils are equal and reactive, sclerae skin Objective Data Vital Signs Vital Signs: Vital Signs - 24 hr 01/18/24 10:00 01/18/24 10:00 01/18/24 10:00 Temperature Pulse Rate 69 69 69 Respiratory Rate 14 14 Blood Pressure Pulse Oximetry Oxygen Delivery Oxygen Flow Rate Fraction of Inspired Oxygen 01/18/24 10:00 01/18/24 11:10 01/18/24 11:10 Temperature Pulse Rate 69 Respiratory Rate 14 Blood Pressure 141/57 H Pulse Oximetry 99 95 94 Oxygen Delivery Nasal Cannula Nasal Cannula Oxygen Flow Rate 2 2 Fraction of Inspired Oxygen 01/18/24 12:00 01/18/24 12:00 01/18/24 12:00 Temperature 36.8 C Pulse Rate 85 83 Respiratory Rate 17 Blood Pressure 157/49 H Pulse Oximetry 94 94 Oxygen Delivery Nasal Cannula Oxygen Flow Rate 2 Fraction of Inspired Oxygen 01/18/24 13:58 01/18/24 14:06 01/18/24 14:00 Temperature Pulse Rate 88 86 89 Respiratory Rate 16 16 16 Blood Pressure 138/80 Pulse Oximetry 100 Oxygen Delivery Oxygen Flow Rate Fraction of Inspired Oxygen 01/18/24 14:00 01/18/24 16:00 01/18/24 16:00 Temperature 36.6 C Pulse Rate 89 87 Respiratory Rate 18 Blood Pressure 150/56 H Pulse Oximetry 98 98 Oxygen Delivery Nasal Cannula Oxygen Flow Rate 2 Fraction of Inspired Oxygen 01/18/24 17:23 01/18/24 18:00 01/18/24 16:00 Temperature Pulse Rate 93 93 Respiratory Rate 17 Blood Pressure 201/81 H 164/70 H Pulse Oximetry 98 Oxygen Delivery Oxygen Flow Rate Fraction of Inspired Oxygen 01/18/24 18:00 01/18/24 19:58 01/18/24 20:17 Temperature 37.4 C Pulse Rate 87 97 103 H Respiratory Rate 15 25 H Blood Pressure 178/61 H Pulse Oximetry 94 Oxygen Delivery Oxygen Flow Rate Fraction of Inspired Oxygen 01/18/24 20:36 01/18/24 20:30 01/18/24 20:00 Temperature Pulse Rate 97 Respiratory Rate 22 H Blood Pressure 158/59 H Pulse Oximetry 97 Oxygen Delivery Nasal Cannula Oxygen Flow Rate 2 Fraction of Inspired Oxygen 01/18/24 22:00 01/18/24 20:00 01/18/24 22:00 Temperature Pulse Rate 93 97 92 Respiratory Rate 19 Blood Pressure 155/67 H Pulse Oximetry 98 Oxygen Delivery Oxygen Flow Rate Fraction of Inspired Oxygen 01/19/24 00:00 01/19/24 00:00 01/19/24 00:00 Temperature 37.3 C Pulse Rate 83 82 Respiratory Rate 18 Blood Pressure 146/58 H Pulse Oximetry 96 97 Oxygen Delivery Nasal Cannula Oxygen Flow Rate 2 Fraction of Inspired Oxygen 01/18/24 23:00 01/19/24 01:43 01/19/24 01:53 Temperature Pulse Rate 80 75 Respiratory Rate 19 15 Blood Pressure Pulse Oximetry 99 Oxygen Delivery Nasal Cannula Oxygen Flow Rate 2 Fraction of Inspired Oxygen 01/19/24 02:00 01/19/24 02:00 01/19/24 04:36 Temperature 37.2 C Pulse Rate 83 81 84 Respiratory Rate 18 18 Blood Pressure 160/68 H 172/79 H Pulse Oximetry 95 97 Oxygen Delivery Oxygen Flow Rate Fraction of Inspired Oxygen 01/19/24 04:00 01/19/24 04:00 01/19/24 05:41 Temperature Pulse Rate 81 Respiratory Rate Blood Pressure 166/60 H Pulse Oximetry 100 Oxygen Delivery Nasal Cannula Oxygen Flow Rate 1 Fraction of Inspired Oxygen 01/19/24 02:30 01/19/24 06:00 01/19/24 06:00 Temperature Pulse Rate 89 82 Respiratory Rate 17 Blood Pressure 171/89 H Pulse Oximetry 96 96 Oxygen Delivery Nasal Cannula Oxygen Flow Rate 1 Fraction of Inspired Oxygen 01/19/24 06:51 01/19/24 07:24 01/19/24 07:24 Temperature Pulse Rate 88 Respiratory Rate 16 Blood Pressure 183/59 H Pulse Oximetry 100 Oxygen Delivery Nasal Cannula Oxygen Flow Rate 1 Fraction of Inspired Oxygen 01/19/24 07:39 01/19/24 08:23 01/19/24 08:26 Temperature Pulse Rate 81 105 H 102 H Respiratory Rate 16 Blood Pressure Pulse Oximetry Oxygen Delivery Oxygen Flow Rate Fraction of Inspired Oxygen 01/19/24 08:00 Temperature 37.1 C Pulse Rate 97 Respiratory Rate 17 Blood Pressure 180/60 H Pulse Oximetry 96 Oxygen Delivery Oxygen Flow Rate Fraction of Inspired Oxygen Intake/Output Intake/Output: Intake & Output 01/16/24 01/17/24 01/18/24 01/19/24 23:59 23:59 23:59 23:59 Intake Total 866.4 1755.3 1174.4 240 Output Total 1600 5210 1025 950 Balance -733.6 -3454.7 149.4 -710 Meds/Results Medications: Active Medications Generic Name Dose Route Start Last Admin Trade Name Freq PRN Reason Stop Dose Admin Acetaminophen 650 mg 10/25/24 19:50 Acetaminophen 650 Mg Suppository RECTAL Q6H PRN Mild Pain (1-3) or Fever Albuterol/Ipratropium 3 ml 01/17/24 14:00 01/19/24 07:24 Ipratropium 0.5 Mg/Albuterol Sulfate 2.5 Mg Ampul.Neb 3 Ml INHALATION 3 ml Q6HRT MICKIE Administration Atorvastatin Calcium 20 mg 01/18/24 09:00 01/19/24 08:24 Atorvastatin 20 Mg Tablet PO 20 mg DAILY MICKIE Administration Dextrose 12.5 gm 01/16/24 19:53 Dextrose 50% 25 Gm/50 Ml Syringe IV PUSH PRN PRN Hypoglycemia Protocol Glucagon 1 mg 01/16/24 19:53 Glucagon For Inj 1 Mg Vial IM PRN PRN Hypoglycemia Protocol Glucose 15 gm 01/16/24 19:53 Glucose Oral Gel 15 Gm Of Glucse In 37.5 Gm Tube PO PRN PRN Hypoglycemia Protocol Heparin Sodium (Porcine) 5,000 units 01/16/24 21:00 01/19/24 08:24 Heparin Sodium 5,000 Units/Ml Vial SUB-Q 5,000 units Q12HR MICKIE Administration Hydralazine HCl 10 mg 01/18/24 10:00 01/19/24 05:41 Hydralazine Hcl 20 Mg/Ml Vial IV PUSH 10 mg Q4H PRN Administration Blood Pressure - High Dextrose 1,000 mls @ 100 mls/hr 01/16/24 19:53 Dextrose 5% 1,000 Ml IVPB PRN PRN Hypoglycemia Protocol Ceftriaxone Sodium 1 gm in 50 mls @ 100 mls/hr 01/17/24 11:00 01/18/24 11:53 Rocephin 1 Gm/Ns 50 Ml IVPB Infused Q24H MICKIE Infusion Azithromycin 500 mg in 250 mls @ 250 mls/hr 01/17/24 12:00 01/18/24 13:11 Zithromax IVPB Infused Q24H MICKIE Infusion Labetalol HCl 20 mg 01/19/24 08:08 01/19/24 08:23 Labetalol Hcl Inj 100 Mg/20 Ml Vial IV PUSH 20 mg Q2H PRN Administration SBP > 180, hold if HR < 70 Losartan Potassium 100 mg 01/19/24 09:00 01/19/24 08:24 Losartan Potassium 100 Mg Tablet PO 100 mg DAILY MICKIE Administration Melatonin 5 mg 01/18/24 21:00 01/18/24 20:11 Melatonin 5 Mg Tablet PO 5 mg HS MICKIE Administration Nicotine 1 patch 01/19/24 09:00 01/19/24 08:24 Nicotine (*Pbkc) 14 Mg Patch TRANSDERM 1 patch DAILY MICKIE Administration Ondansetron HCl 4 mg 01/16/24 19:12 Ondansetron Inj 4 Mg/2 Ml Vial IV PUSH Q4H PRN Nausea Pantoprazole Sodium 40 mg 01/18/24 09:00 01/19/24 08:23 Pantoprazole Sodium Iv 40 Mg Vial IV PUSH 40 mg Q12HR MICKIE Administration Propranolol HCl 40 mg 01/19/24 09:00 01/19/24 08:26 Propranolol Hcl 40 Mg Tablet PO 40 mg BID MICKIE Administration Sodium Chloride 20 ml 01/17/24 10:11 Central Line Flush IV PUSH PRN PRN after blood draws Sodium Chloride 10 ml 01/17/24 10:11 Central Line Flush IV PUSH PRN PRN with TPN bag changes Sodium Chloride 10 ml 01/17/24 14:00 01/19/24 04:57 Central Line Flush IV PUSH 10 ml Q8HR MICKIE Administration Zonisamide 50 mg 01/17/24 09:00 01/19/24 08:24 Zonisamide 25 Mg Capsule FEED TUBE 50 mg DAILY MICKIE Administration Radiology Results: ITS Impressions Abdomen X-Ray 01/16/24 13:10 IMPRESSION: Orogastric tube in good position and ready for immediate use. Chest CTA 01/16/24 18:14 IMPRESSION: 1. No pulmonary embolism. 2. Bilateral upper and lower lobe pneumonia more in the lower lobes. 3. Minimal bilateral pleural effusion. 4. Cardiomegaly with right ventricular and left atrial enlargement. Congestive heart failure is highly suggestive 5. Atrophic right kidney. Renal Ultrasound 01/17/24 10:59 IMPRESSION: 1. Moderate atrophy of right kidney. No hydronephrosis. Venous Doppler Study 01/18/24 13:56 IMPRESSION: 1. No deep venous thrombosis. 2. Superficial vein thrombosis involving left cephalic vein. Chest X-Ray 01/19/24 06:47 Impression: COPD. Left-sided PICC line in place. Labs Labs: Laboratory Results - last 24 hr 01/18/24 01/18/24 01/18/24 10:44 12:09 17:11 WBC RBC Hgb Hct MCV MCH MCHC RDW Plt Count MPV Immature Gran % (Auto) Neut % (Auto) Lymph % (Auto) [place] % (Auto) Eos % (Auto) Baso % (Auto) Lymph # (Auto) [place] # (Auto) Eos # (Auto) Baso # (Auto) Abs Immat Gran (auto) Absolute Neuts (auto) Absolute Nucleated RBC Nucleated RBC % Puncture Site Left radial ABG pH 7.373 ABG pCO2 48.0 H ABG pO2 89.3 ABG PO2/FiO2 Ratio 2.55 ABG HCO3 27.3 H ABG O2 Saturation 96.6 ABG O2 Content 17.8 ABG Base Excess 1.5 A-a Gradient 104.5 Oxyhemoglobin 95.7 Carboxyhemoglobin 0.9 Methemoglobin 0.1 Reduced Hemoglobin 3.3 Total Hemoglobin 13.2 O2 Delivery Device Ventilator O2 Liters/Min Not Reportable Minute Volume Not Reportable Vent Rate Not Reportable Vent Mode Pressure support FiO2 35 Tidal Volume Not Reportable PEEP 5 Peak Inspir Pressure Not Reportable Pressure Support 5 Sodium Potassium Chloride Carbon Dioxide Anion Gap BUN Creatinine Estim Creat Clear Calc Estimated GFR Glucose POC Capillary Glucose 109 H 115 H Calcium Phosphorus Magnesium Total Bilirubin AST ALT Alkaline Phosphatase Total Protein Albumin 01/18/24 01/18/24 01/19/24 19:41 23:58 04:31 WBC 6.2 RBC 3.40 L Hgb 11.4 L Hct 34.7 L MCV 102.1 H MCH 33.5 MCHC 32.9 RDW 12.5 Plt Count 147 L MPV 9.8 Immature Gran % (Auto) 0.2 Neut % (Auto) 55.0 Lymph % (Auto) 30.9 [place] % (Auto) 11.7 H Eos % (Auto) 1.5 Baso % (Auto) 0.7 Lymph # (Auto) 1.90 [place] # (Auto) 0.7 H Eos # (Auto) 0.1 Baso # (Auto) 0.0 Abs Immat Gran (auto) 0.01 Absolute Neuts (auto) 3.4 Absolute Nucleated RBC 0.000 Nucleated RBC % 0.0 Puncture Site ABG pH ABG pCO2 ABG pO2 ABG PO2/FiO2 Ratio ABG HCO3 ABG O2 Saturation ABG O2 Content ABG Base Excess A-a Gradient Oxyhemoglobin Carboxyhemoglobin Methemoglobin Reduced Hemoglobin Total Hemoglobin O2 Delivery Device O2 Liters/Min Minute Volume Vent Rate Vent Mode FiO2 Tidal Volume PEEP Peak Inspir Pressure Pressure Support Sodium 140 Potassium 3.5 Chloride 104 Carbon Dioxide 29 Anion Gap 7 BUN 24 H D Creatinine 1.00 Estim Creat Clear Calc 47 Estimated GFR 55 L Glucose 95 POC Capillary Glucose 119 H 120 H Calcium 8.4 Phosphorus 3.5 Magnesium 2.0 Total Bilirubin 0.7 AST 26 ALT 15 Alkaline Phosphatase 77 Total Protein 6.0 L Albumin 3.5 01/19/24 07:47 WBC RBC Hgb Hct MCV MCH MCHC RDW Plt Count MPV Immature Gran % (Auto) Neut % (Auto) Lymph % (Auto) [place] % (Auto) Eos % (Auto) Baso % (Auto) Lymph # (Auto) [place] # (Auto) Eos # (Auto) Baso # (Auto) Abs Immat Gran (auto) Absolute Neuts (auto) Absolute Nucleated RBC Nucleated RBC % Puncture Site ABG pH ABG pCO2 ABG pO2 ABG PO2/FiO2 Ratio ABG HCO3 ABG O2 Saturation ABG O2 Content ABG Base Excess A-a Gradient Oxyhemoglobin Carboxyhemoglobin Methemoglobin Reduced Hemoglobin Total Hemoglobin O2 Delivery Device O2 Liters/Min Minute Volume Vent Rate Vent Mode FiO2 Tidal Volume PEEP Peak Inspir Pressure Pressure Support Sodium Potassium Chloride Carbon Dioxide Anion Gap BUN Creatinine Estim Creat Clear Calc Estimated GFR Glucose POC Capillary Glucose 103 Calcium Phosphorus Magnesium Total Bilirubin AST ALT Alkaline Phosphatase Total Protein Albumin Quality VTE Prophylaxis VTE prophylaxis: pharmacologic ordered
[2024-01-19] MEDS: AZITHROMYCIN 250 MG TABLET 500 MG PO (11:18)
[2024-01-19] MEDS: FUROSEMIDE 40 MG TABLET PO (11:18)
[2024-01-19] MEDS: AMOXICILLIN/CLAVULANATE K 875-125 MG TAB 1 TABLET PO ×2 (11:18→20:29)
--- NOTE | 2024-01-19 11:23 | PM.CNCAR ---
Assessment and Plan Assessment and plan (1) Congestive heart failure: Code(s): I50.9 - Heart failure, unspecified Status: Acute Assessment and Plan: Secondary to severe hypertension. She has improved with diuretics and is now on p.o. lasix. Continue with p.o. furosemide Blood pressure control. BP is acceptable for now, will adjust antihypertensive regimen as appropriate She does have hypokinesis of the basal inferior wall, mid inferior wall, and basal inferoseptal wall compared to echo from May 2022 showing no focal WMA. Ischemic evaluation is recommended, however, as she is not having anginal symptoms this can be performed as an outpatient. (2) Acute respiratory failure with hypoxia and hypercapnia: Code(s): J96.01 - Acute respiratory failure with hypoxia; J96.02 - Acute respiratory failure with hypercapnia Status: Acute Assessment and Plan: Secondary to above, also has COPD. She has improved and is now extubated to room air. History of Present Illness History of Present Illness Consult date/time: 01/19/24 11:23 Requesting physician: Corey Hussein MD Consult reason: congestive heart failure Reason For Visit: Acute Hypoxic Resp Failure/Acute Heart Failure/PNA Narrative: Amairani Preciado is a 68 year old female with hypertensive heart disease and viral pericarditis (2022) who presents to the hospital because of elevated blood pressure. Upon her presentation to the ED she had acute respiratory distress, desaturate, and was intubated. She was extubated yesterday. Cardiology is consulted for CHF, HTN, and new wall motion abnormalities on echo. She is feeling better today and does not have any complaints aside from fatigue. She denies chest pain, shortness of breath, palpitations. Review of Systems Review of Systems: All systems reviewed & are unremarkable except as noted in HPI and below PMFSH Past Medical History Medical History Arm paresthesia, left Back pain Breast cancer 2012 and 2018, both right-sided, tx'd w/ lumphectomy and one w/ radiation tx. Saw Dr. Strong? Chronic obstructive pulmonary disease Depression with anxiety Gastroesophageal reflux disease Generalized anxiety disorder Hyperlipidemia Hypertension Hypertensive heart disease Neuropathy Other chronic pain Seasonal allergies Seizure Tobacco dependence Surgical History Surgical History H/O: hysterectomy History of cholecystectomy History of discectomy History of hysterectomy History of lumpectomy of right breast S/P cholecystectomy Family History Family History Mother Patient's mother is in good health Sibling Patient's sister is in good health Patient's brother is in good health Father Family history of malignant neoplasm Patient's father is Social History Social History Social History: , lives with her son, estranged from her daughter. 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 Surrogate medical decision maker: Canelo Blancajaqueline, brother. Code status: Full code. Smoking packs per day: 1.5 Smoking cigarettes per day: 30.0 Years smoked: 50 Smoking pack-years: 75.00 Smoking status: Current every day smoker Additional smoking assessment comments: smoking since 16 yo Do You Feel Safe in your Home?: Yes Lack of Transportation: No Lack of Food: Never True Current Housing: I Have Housing Concerned About Future Housing: No Difficulty Paying Gas/Electric Bills: No Difficulty Paying for Meds: No Currently Unemployed: No Education: High School Diploma/GED Difficulty w/ Childcare or Family Care: No Living arrangements: with family Additional living arrangements comments: Lives in an apartment in [place]. Spiritual care concerns: No Meds Home Medications and Allergies Home Medications Medication Instructions Recorded Confirmed Type anastrozole 1 mg tablet 1 mg PO DAILY 10/12/19 01/16/24 History losartan 100 mg tablet 100 mg PO DAILY 10/12/19 01/16/24 History meloxicam 15 mg tablet 15 mg PO DAILY 10/12/19 01/16/24 History propranolol 40 mg tablet 40 mg PO BID 10/12/19 01/16/24 History zonisamide 50 mg capsule 50 mg PO DAILY 10/12/19 01/16/24 History alprazolam 2 mg tablet 2 mg PO TID 05/27/22 01/16/24 History escitalopram oxalate 20 mg tablet 20 mg PO BID 05/27/22 01/16/24 History oxycodone-acetaminophen 7.5 mg-325 1 tablet PO QID PRN Pain (Scale 05/27/22 01/16/24 History mg tablet Score 7-10) simvastatin 80 mg tablet 80 mg PO HS 05/27/22 01/16/24 History atorvastatin 20 mg tablet 20 mg PO DAILY 01/16/24 01/16/24 History Allergies Allergy/AdvReac Type Severity Reaction Status Date / Time aspirin AdvReac Gastrointestinal Verified 01/19/24 08:12 Upset/Nauseated varenicline [From Chantix] AdvReac Hallucinati Verified 01/16/24 11:07 ng Vital Signs Vital Signs - 24 hr 01/18/24 12:00 01/18/24 12:00 01/18/24 12:00 Temperature 36.8 C Pulse Rate 85 83 Respiratory Rate 17 Blood Pressure 157/49 H Pulse Oximetry 94 94 Oxygen Delivery Nasal Cannula Oxygen Flow Rate 2 Fraction of Inspired Oxygen 01/18/24 13:58 01/18/24 14:06 01/18/24 14:00 Temperature Pulse Rate 88 86 89 Respiratory Rate 16 16 16 Blood Pressure 138/80 Pulse Oximetry 100 Oxygen Delivery Oxygen Flow Rate Fraction of Inspired Oxygen 01/18/24 14:00 01/18/24 16:00 01/18/24 16:00 Temperature 36.6 C Pulse Rate 89 87 Respiratory Rate 18 Blood Pressure 150/56 H Pulse Oximetry 98 98 Oxygen Delivery Nasal Cannula Oxygen Flow Rate 2 Fraction of Inspired Oxygen 01/18/24 17:23 01/18/24 18:00 01/18/24 16:00 Temperature Pulse Rate 93 93 Respiratory Rate 17 Blood Pressure 201/81 H 164/70 H Pulse Oximetry 98 Oxygen Delivery Oxygen Flow Rate Fraction of Inspired Oxygen 01/18/24 18:00 01/18/24 19:58 01/18/24 20:17 Temperature 37.4 C Pulse Rate 87 97 103 H Respiratory Rate 15 25 H Blood Pressure 178/61 H Pulse Oximetry 94 Oxygen Delivery Oxygen Flow Rate Fraction of Inspired Oxygen 01/18/24 20:36 01/18/24 20:30 01/18/24 20:00 Temperature Pulse Rate 97 Respiratory Rate 22 H Blood Pressure 158/59 H Pulse Oximetry 97 Oxygen Delivery Nasal Cannula Oxygen Flow Rate 2 Fraction of Inspired Oxygen 01/18/24 22:00 01/18/24 20:00 01/18/24 22:00 Temperature Pulse Rate 93 97 92 Respiratory Rate 19 Blood Pressure 155/67 H Pulse Oximetry 98 Oxygen Delivery Oxygen Flow Rate Fraction of Inspired Oxygen 01/19/24 00:00 01/19/24 00:00 01/19/24 00:00 Temperature 37.3 C Pulse Rate 83 82 Respiratory Rate 18 Blood Pressure 146/58 H Pulse Oximetry 96 97 Oxygen Delivery Nasal Cannula Oxygen Flow Rate 2 Fraction of Inspired Oxygen 01/18/24 23:00 01/19/24 01:43 01/19/24 01:53 Temperature Pulse Rate 80 75 Respiratory Rate 19 15 Blood Pressure Pulse Oximetry 99 Oxygen Delivery Nasal Cannula Oxygen Flow Rate 2 Fraction of Inspired Oxygen 01/19/24 02:00 01/19/24 02:00 01/19/24 04:36 Temperature 37.2 C Pulse Rate 83 81 84 Respiratory Rate 18 18 Blood Pressure 160/68 H 172/79 H Pulse Oximetry 95 97 Oxygen Delivery Oxygen Flow Rate Fraction of Inspired Oxygen 01/19/24 04:00 01/19/24 04:00 01/19/24 05:41 Temperature Pulse Rate 81 Respiratory Rate Blood Pressure 166/60 H Pulse Oximetry 100 Oxygen Delivery Nasal Cannula Oxygen Flow Rate 1 Fraction of Inspired Oxygen 01/19/24 02:30 01/19/24 06:00 01/19/24 06:00 Temperature Pulse Rate 89 82 Respiratory Rate 17 Blood Pressure 171/89 H Pulse Oximetry 96 96 Oxygen Delivery Nasal Cannula Oxygen Flow Rate 1 Fraction of Inspired Oxygen 01/19/24 06:51 01/19/24 07:24 01/19/24 07:24 Temperature Pulse Rate 88 Respiratory Rate 16 Blood Pressure 183/59 H Pulse Oximetry 100 Oxygen Delivery Nasal Cannula Oxygen Flow Rate 1 Fraction of Inspired Oxygen 01/19/24 07:39 01/19/24 08:23 01/19/24 08:26 Temperature Pulse Rate 81 105 H 102 H Respiratory Rate 16 Blood Pressure Pulse Oximetry Oxygen Delivery Oxygen Flow Rate Fraction of Inspired Oxygen 01/19/24 08:00 01/19/24 08:00 01/19/24 08:00 Temperature 37.1 C Pulse Rate 97 104 H Respiratory Rate 17 Blood Pressure 180/60 H Pulse Oximetry 96 Oxygen Delivery Room Air Oxygen Flow Rate Fraction of Inspired Oxygen 01/19/24 10:00 01/19/24 10:00 Temperature Pulse Rate 75 83 Respiratory Rate 17 Blood Pressure 182/59 H Pulse Oximetry 94 Oxygen Delivery Oxygen Flow Rate Fraction of Inspired Oxygen Exam Const: General: comfortable, no acute distress, alert and awake Orientation/consciousness: patient oriented x3 HENMT: Head: normal to inspection Eyes: General: appearance normal, both eyes and all related structures Pupils: Equal, round and reactive pupils present Neck: Neck: normal visual inspection, supple and no JVD Carotids: normal carotid upstroke Resp: Effort & Inspection: normal respiratory effort Auscultation: clear to auscultation bilaterally Cardio: Rate: regular rate Rhythm: regular rhythm Heart sounds: S1 normal heart sound present, S2 normal heart sound present and no murmurs GI: Auscultation: normal bowel sounds Skin: General skin exam: normal color Neuro: General: patient oriented x3 Cranial nerves: Yes Equal, round and reactive pupils present Extrem: General: normal to inspection Other: no edema Psych: Appearance: grossly normal Mental Status: mental status grossly normal Results Labs and Meds 01/19/24 04:31 01/19/24 04:31 Lab results: Cardiac Enzymes 01/19/24 Range/Units 04:31 AST 26 (14-36) U/L CBC 01/19/24 Range/Units 04:31 WBC 6.2 (4.5-10.0) K/mm3 RBC 3.40 L (4.2-5.4) M/mm3 Hgb 11.4 L (12.0-15.0) g/dL Hct 34.7 L (37.0-47.0) % Plt Count 147 L (150-375) k/mm3 Lymph # (Auto) 1.90 (0.9-3.2) K/mm3 [place] # (Auto) 0.7 H (0.1-0.6) K/mm3 Eos # (Auto) 0.1 (0-0.3) K/mm3 Baso # (Auto) 0.0 (0.0-0.1) K/mm3 Comprehensive Metabolic Panel 01/19/24 Range/Units 04:31 Sodium 140 (137-145) mmol/L Potassium 3.5 (3.4-5.0) mmol/L Chloride 104 (98-107) mmol/L Carbon Dioxide 29 (22-30) mmol/L BUN 24 H D (7-17) mg/dL Creatinine 1.00 (0.7-1.0) mg/dL Glucose 95 (65-110) mg/dL Calcium 8.4 (8.4-10.2) mg/dL AST 26 (14-36) U/L ALT 15 (6-35) U/L Alkaline Phosphatase 77 (38-126) U/L Total Protein 6.0 L (6.3-8.2) g/dL Albumin 3.5 (3.5-5.1) g/dL Intake and Output 01/18/24 01/19/24 01/19/24 23:59 07:59 15:59 Intake Total 240 240 240 Output Total 625 950 Balance -385 -710 240 Intake: Oral 240 240 240 Output: Catheter Urine 625 950 Urethral Catheter 625 950 Other: Number of Bowel Movements Today 1 2 Patient Weight 01/19/24 23:59 Weight 77.5 kg
--- NOTE | 2024-01-19 16:09 | P.PNIM_ITS ---
Progress Note: A&P Assessment and Plan (1) Acute respiratory failure with hypoxia and hypercapnia: Code(s): J96.01 - Acute respiratory failure with hypoxia; J96.02 - Acute respiratory failure with hypercapnia Status: Acute Assessment and Plan: Patient was sent into the ED for elevated BP (207/75) but worsened to 224/107. She developed acute respiratory failure with hypoxia and hypercarbia requiring intubation 01/15. ABG 7.143/55/74 on MV. COVID, RSV and influenza PCR negative. +DDimer CT chest showing no PE but bilateral UL and LL PNA, minimal bilateral effusions and CMG. UE and LE venous doppler negative for DVT. BNP 3420. PCT 0.1. WBC normal. No fevers. BCx NGTD. Sputum Cx negative. Urine Ag pending. Etiology CHF related to the severe HTN and less likely PNA. Has COPD so may be contributing. Treated with Lasix 80mg IV x 1. Dose repeated yesterday. Brisk UOP up to 5200mL one day. Negative fluid balance since admission IV abx also started as Azithro Rocephin. Vanco stopped with MRSA nasal swab negative CXR clear. Sedation stopped. She did well with SBT and was rahul to be extubated on 01/18/24 CXR clear today. Abx adjusted. Okay to move out of ICU (2) Congestive heart failure: Code(s): I50.9 - Heart failure, unspecified Status: Acute Assessment and Plan: Troponin negative x1. BNP 3420. Echo showing enlarged LV with normal systolic fxn (EF 60-65%) and mildly increased LV thickness, Grade I diastolic dysfxn, hypokinetic basal inferior, mid inferior and basal interoseptal [place], LAE, mild valvular disease except mild-mod MR. Mild pHTN (44mmHg). [place] CHF related to the severe HTN Cardiology consulted and appreciate their input As above. (3) Hypertension: Code(s): I10 - Essential (primary) hypertension Status: Chronic Assessment and Plan: Patient presented with uncontrolled hypertension with BP as high as 224/107. She received NTG in the ED. She was sedated with propofol and blood pressure dropped into acceptable range We held antihypertensive medications initially since BP well controlled. Since extubation, BP higher and medications resumed. Add Norvasc today. Consider changing inderal to metoprolol. Irbesartan could provide better BP control then losartan. (4) Pneumonia: Code(s): J18.9 - Pneumonia, unspecified organism Status: Acute Assessment and Plan: Possible PNA by imaging. repeat CXR is clear making PNA less likely Abx changed to oral to complete a course (5) CKD (chronic kidney disease) stage 3, GFR 30-59 ml/min: Code(s): N18.30 - Chronic kidney disease, stage 3 unspecified Status: Acute Assessment and Plan: Patient has history of CKD. Cr normal last year but was 1.7 in September. Cr 1.3 on admission. CTA chest showing right renal atrophy. Renal US showing small right kidney with moderate atrophy but no hydronephrosis. CKD related to HTN. Consider renal duplex if BP hard to control. Cr remaining stable and within her baseline. Monitor urine output, electrolytes and renal fxn (6) COPD (chronic obstructive pulmonary disease): Code(s): J44.9 - Chronic obstructive pulmonary disease, unspecified Status: Chronic Assessment and Plan: As above (7) Gastroesophageal reflux disease: Code(s): K21.9 - Gastro-esophageal reflux disease without esophagitis Status: Acute Assessment and Plan: On IV Protonix Plan DVT prophylaxis -subQ heparin Code Status - Full Code Subjective Date/time seen: 01/19/24 16:09 Interval history: 68yo female with hx of breast CA s/p right lumpectomy and XRT, HTN, COPD, CKD, seizures and tobacco abuse here for severe hypertension and acute respiratory failure. Up to the chair today. Walking to bathroom with therapy stand by. She does have issue with dysphagia when eating intermittently at home. She hasn't spoken to a provider about this nor has she had a swallow study. She denies CP. She has cough that is chronic. She smokes 1.5ppd. Her family rolls the patient's cigarettes. Trejo out and she has voided Exam Narrative: AF 999.2 186/78 77 23 98% ra Gen - NARD sitting up in chair feeding herself Chest - distant clear BS, nml RR CV - RRR S1/S2. Tele showing no significant dysrhythmias Abd - Soft, obese, +BS Ext - no edema Psych - normal mood and affect Skin - warm and dry Objective Data Vital Signs Vital Signs: Vital Signs - 24 hr 01/18/24 17:23 01/18/24 18:00 01/18/24 18:00 Temperature Pulse Rate 93 87 Respiratory Rate 17 Blood Pressure 201/81 H 164/70 H Pulse Oximetry 98 Oxygen Delivery Oxygen Flow Rate Fraction of Inspired Oxygen 01/18/24 19:58 01/18/24 20:17 01/18/24 20:36 Temperature 99.4 F Pulse Rate 97 103 H 97 Respiratory Rate 15 25 H 22 H Blood Pressure 178/61 H Pulse Oximetry 94 Oxygen Delivery Oxygen Flow Rate Fraction of Inspired Oxygen 01/18/24 20:30 01/18/24 20:00 01/18/24 22:00 Temperature Pulse Rate 93 Respiratory Rate 19 Blood Pressure 158/59 H 155/67 H Pulse Oximetry 97 98 Oxygen Delivery Nasal Cannula Oxygen Flow Rate 2 Fraction of Inspired Oxygen 01/18/24 20:00 01/18/24 22:00 01/19/24 00:00 Temperature Pulse Rate 97 92 Respiratory Rate Blood Pressure Pulse Oximetry 96 Oxygen Delivery Nasal Cannula Oxygen Flow Rate 2 Fraction of Inspired Oxygen 01/19/24 00:00 01/19/24 00:00 01/18/24 23:00 Temperature 99.2 F Pulse Rate 83 82 Respiratory Rate 18 Blood Pressure 146/58 H Pulse Oximetry 97 99 Oxygen Delivery Nasal Cannula Oxygen Flow Rate 2 Fraction of Inspired Oxygen 01/19/24 01:43 01/19/24 01:53 01/19/24 02:00 Temperature Pulse Rate 80 75 83 Respiratory Rate 19 15 18 Blood Pressure 160/68 H Pulse Oximetry 95 Oxygen Delivery Oxygen Flow Rate Fraction of Inspired Oxygen 01/19/24 02:00 01/19/24 04:36 01/19/24 04:00 Temperature 99.0 F Pulse Rate 81 84 81 Respiratory Rate 18 Blood Pressure 172/79 H Pulse Oximetry 97 Oxygen Delivery Oxygen Flow Rate Fraction of Inspired Oxygen 01/19/24 04:00 01/19/24 05:41 01/19/24 02:30 Temperature Pulse Rate Respiratory Rate Blood Pressure 166/60 H Pulse Oximetry 100 96 Oxygen Delivery Nasal Cannula Nasal Cannula Oxygen Flow Rate 1 1 Fraction of Inspired Oxygen 01/19/24 06:00 01/19/24 06:00 01/19/24 06:51 Temperature Pulse Rate 89 82 Respiratory Rate 17 Blood Pressure 171/89 H 183/59 H Pulse Oximetry 96 Oxygen Delivery Oxygen Flow Rate Fraction of Inspired Oxygen 01/19/24 07:24 01/19/24 07:24 01/19/24 07:39 Temperature Pulse Rate 88 81 Respiratory Rate 16 16 Blood Pressure Pulse Oximetry 100 Oxygen Delivery Nasal Cannula Oxygen Flow Rate 1 Fraction of Inspired Oxygen 01/19/24 08:23 01/19/24 08:26 01/19/24 08:00 Temperature 98.8 F Pulse Rate 105 H 102 H 97 Respiratory Rate 17 Blood Pressure 180/60 H Pulse Oximetry 96 Oxygen Delivery Oxygen Flow Rate Fraction of Inspired Oxygen 01/19/24 08:00 01/19/24 08:00 01/19/24 10:00 Temperature Pulse Rate 104 H 75 Respiratory Rate 17 Blood Pressure 182/59 H Pulse Oximetry 94 Oxygen Delivery Room Air Oxygen Flow Rate Fraction of Inspired Oxygen 01/19/24 10:00 01/19/24 12:00 01/19/24 12:00 Temperature Pulse Rate 83 74 Respiratory Rate Blood Pressure Pulse Oximetry Oxygen Delivery Room Air Oxygen Flow Rate Fraction of Inspired Oxygen 01/19/24 12:00 01/19/24 13:17 01/19/24 13:17 Temperature 99.2 F Pulse Rate 74 74 Respiratory Rate 16 18 Blood Pressure 166/62 H Pulse Oximetry 94 96 Oxygen Delivery Room Air Oxygen Flow Rate Fraction of Inspired Oxygen 21 01/19/24 13:28 01/19/24 14:12 01/19/24 14:00 Temperature Pulse Rate 73 77 Respiratory Rate 16 23 H Blood Pressure 186/78 H Pulse Oximetry 98 Oxygen Delivery Room Air Oxygen Flow Rate Fraction of Inspired Oxygen 01/19/24 14:00 Temperature Pulse Rate 77 Respiratory Rate Blood Pressure Pulse Oximetry Oxygen Delivery Oxygen Flow Rate Fraction of Inspired Oxygen Intake/Output Intake/Output: Intake & Output 01/16/24 01/17/24 01/18/24 01/19/24 23:59 23:59 23:59 23:59 Intake Total 866.4 1755.3 1174.4 480 Output Total 1600 5210 1025 2050 Balance -733.6 -2084.7 149.4 -1570 Meds/Results Medications: Active Medications Generic Name Dose Route Start Last Admin Trade Name Freq PRN Reason Stop Dose Admin Acetaminophen 650 mg 01/16/24 19:50 Acetaminophen 650 Mg Suppository RECTAL Q6H PRN Mild Pain (1-3) or Fever Albuterol/Ipratropium 3 ml 01/17/24 14:00 01/19/24 13:17 Ipratropium 0.5 Mg/Albuterol Sulfate 2.5 Mg Ampul.Neb 3 Ml INHALATION 3 ml Q6HRT MICKIE Administration Amoxicillin/Clavulanate Potassium 1 tablet 01/19/24 12:00 01/19/24 11:18 Amoxicillin/Clavulanate K 875-125 Mg Tab PO 01/20/24 21:01 1 tablet Q12HR MICKIE Administration Atorvastatin Calcium 20 mg 01/18/24 09:00 01/19/24 08:24 Atorvastatin 20 Mg Tablet PO 20 mg DAILY MICKIE Administration Azithromycin 500 mg 01/19/24 12:00 01/19/24 11:18 Azithromycin 250 Mg Tablet PO 01/20/24 09:01 500 mg DAILY MICKIE Administration Dextrose 12.5 gm 01/16/24 19:53 Dextrose 50% 25 Gm/50 Ml Syringe IV PUSH PRN PRN Hypoglycemia Protocol Furosemide 40 mg 01/19/24 09:50 01/19/24 11:18 Furosemide 40 Mg Tablet PO 40 mg DAILY MICKIE Administration Glucagon 1 mg 01/16/24 19:53 Glucagon For Inj 1 Mg Vial IM PRN PRN Hypoglycemia Protocol Glucose 15 gm 01/16/24 19:53 Glucose Oral Gel 15 Gm Of Glucse In 37.5 Gm Tube PO PRN PRN Hypoglycemia Protocol Heparin Sodium (Porcine) 5,000 units 01/16/24 21:00 01/19/24 08:24 Heparin Sodium 5,000 Units/Ml Vial SUB-Q 5,000 units Q12HR MICKIE Administration Hydralazine HCl 10 mg 01/18/24 10:00 01/19/24 05:41 Hydralazine Hcl 20 Mg/Ml Vial IV PUSH 10 mg Q4H PRN Administration Blood Pressure - High Dextrose 1,000 mls @ 100 mls/hr 01/16/24 19:53 Dextrose 5% 1,000 Ml IVPB PRN PRN Hypoglycemia Protocol Labetalol HCl 20 mg 01/19/24 08:08 01/19/24 08:23 Labetalol Hcl Inj 100 Mg/20 Ml Vial IV PUSH 20 mg Q2H PRN Administration SBP > 180, hold if HR < 70 Losartan Potassium 100 mg 01/19/24 09:00 01/19/24 08:24 Losartan Potassium 100 Mg Tablet PO 100 mg DAILY MICKIE Administration Melatonin 5 mg 01/18/24 21:00 01/18/24 20:11 Melatonin 5 Mg Tablet PO 5 mg HS MICKIE Administration Nicotine 1 patch 01/19/24 09:00 01/19/24 08:24 Nicotine (*Pbkc) 14 Mg Patch TRANSDERM 1 patch DAILY MICKIE Administration Ondansetron HCl 4 mg 01/16/24 19:12 Ondansetron Inj 4 Mg/2 Ml Vial IV PUSH Q4H PRN Nausea Pantoprazole Sodium 40 mg 01/18/24 09:00 01/19/24 08:23 Pantoprazole Sodium Iv 40 Mg Vial IV PUSH 40 mg Q12HR MICKIE Administration Propranolol HCl 40 mg 01/19/24 09:00 01/19/24 08:26 Propranolol Hcl 40 Mg Tablet PO 40 mg BID MICKIE Administration Sodium Chloride 20 ml 01/17/24 10:11 Central Line Flush IV PUSH PRN PRN after blood draws Sodium Chloride 10 ml 01/17/24 10:11 Central Line Flush IV PUSH PRN PRN with TPN bag changes Sodium Chloride 10 ml 01/17/24 14:00 01/19/24 14:10 Central Line Flush IV PUSH 10 ml Q8HR MICKIE Administration Zonisamide 50 mg 01/17/24 09:00 01/19/24 08:24 Zonisamide 25 Mg Capsule FEED TUBE 50 mg DAILY MICKIE Administration Radiology Results: ITS Impressions Abdomen X-Ray 01/16/24 13:10 IMPRESSION: Orogastric tube in good position and ready for immediate use. Chest CTA 01/16/24 18:14 IMPRESSION: 1. No pulmonary embolism. 2. Bilateral upper and lower lobe pneumonia more in the lower lobes. 3. Minimal bilateral pleural effusion. 4. Cardiomegaly with right ventricular and left atrial enlargement. Congestive heart failure is highly suggestive 5. Atrophic right kidney. Renal Ultrasound 01/17/24 10:59 IMPRESSION: 1. Moderate atrophy of right kidney. No hydronephrosis. Venous Doppler Study 01/18/24 13:56 IMPRESSION: 1. No deep venous thrombosis. 2. Superficial vein thrombosis involving left cephalic vein. Chest X-Ray 01/19/24 06:47 Impression: COPD. Left-sided PICC line in place. Labs Labs: Laboratory Results - last 24 hr 10/27/24 10/27/24 10/27/24 17:11 19:41 23:58 WBC RBC Hgb Hct MCV MCH MCHC RDW Plt Count MPV Immature Gran % (Auto) Neut % (Auto) Lymph % (Auto) [place] % (Auto) Eos % (Auto) Baso % (Auto) Lymph # (Auto) [place] # (Auto) Eos # (Auto) Baso # (Auto) Abs Immat Gran (auto) Absolute Neuts (auto) Absolute Nucleated RBC Nucleated RBC % Sodium Potassium Chloride Carbon Dioxide Anion Gap BUN Creatinine Estim Creat Clear Calc Estimated GFR Glucose POC Capillary Glucose 115 H 119 H 120 H Calcium Phosphorus Magnesium Total Bilirubin AST ALT Alkaline Phosphatase Total Protein Albumin 01/19/24 01/19/24 04:31 07:47 WBC 6.2 RBC 3.40 L Hgb 11.4 L Hct 34.7 L MCV 102.1 H MCH 33.5 MCHC 32.9 RDW 12.5 Plt Count 147 L MPV 9.8 Immature Gran % (Auto) 0.2 Neut % (Auto) 55.0 Lymph % (Auto) 30.9 [place] % (Auto) 11.7 H Eos % (Auto) 1.5 Baso % (Auto) 0.7 Lymph # (Auto) 1.90 [place] # (Auto) 0.7 H Eos # (Auto) 0.1 Baso # (Auto) 0.0 Abs Immat Gran (auto) 0.01 Absolute Neuts (auto) 3.4 Absolute Nucleated RBC 0.000 Nucleated RBC % 0.0 Sodium 140 Potassium 3.5 Chloride 104 Carbon Dioxide 29 Anion Gap 7 BUN 24 H D Creatinine 1.00 Estim Creat Clear Calc 47 Estimated GFR 55 L Glucose 95 POC Capillary Glucose 103 Calcium 8.4 Phosphorus 3.5 Magnesium 2.0 Total Bilirubin 0.7 AST 26 ALT 15 Alkaline Phosphatase 77 Total Protein 6.0 L Albumin 3.5
[2024-01-19] MEDS: ESCITALOPRAM OXALATE 10 MG TABLET 20 MG PO (17:15)
[2024-01-19] MEDS: SIMVASTATIN 20 MG TABLET 80 MG PO (20:28)
[2024-01-19] MEDS: ALPRAZolam (*CRX) 0.5 MG TABLET 1 MG PO (20:28)
[2024-01-19] MEDS: MELATONIN 5 MG TABLET PO (20:29)
[2024-01-19] MEDS: amLODIPine BESYLATE 5 MG TABLET PO (20:29)
[2024-01-20] VITALS (21 sets, daily range): BP systolic 169–178; BP diastolic 71–81; PULSE 59–73; RESP 12–17; TEMP 36.2–36.7; O2SAT 94–100
[2024-01-20] MEDS: IPRATROPIUM 0.5 MG/ALBUTEROL SULFATE 2.5 MG AMPUL.NEB 3 ML INHALATION ×4 (02:53→20:00)
[2024-01-20] MEDS: CENTRAL LINE FLUSH 10 ML IV PUSH ×3 (05:36→20:15)
[2024-01-20 07:01] LABS: Hematocrit 39.1 % (37.0-47.0); Hemoglobin 12.8 g/dL (12.0-15.0); Mean Corpuscular HGB Conc 32.7 g/dl (32-36); Mean Corpuscular Volume 100.8 fl (80-100); Mean Platelet Volume 9.6 fl (7.4-10.4); Platelet Count Result 159 k/mm3 (150-375); Red Blood Count 3.88 M/mm3 (4.2-5.4); Red Cell Distribution Width 12.2 % (11.5-14.5); White Blood Count 5.8 K/mm3 (4.5-10.0)
[2024-01-20 07:11] LABS: Alanine Aminotransferase 21 U/L (6-35); Albumin Level 4.2 g/dL (3.5-5.1); Alkaline Phosphatase 87 U/L (38-126); Anion Gap 11 mmol/L (4-12); Aspartate Amino Transferase 36 U/L (14-36); Bilirubin,Total 1.2 mg/dL (0.2-1.3); Blood Urea Nitrogen 24 mg/dL (7-17); Carbon Dioxide 27 mmol/L (22-30); Chloride 99 mmol/L (98-107); Estimated CRCL calculation 52 ml/min; Estimated Glomerular Filt Rate > 60; Glucose 79 mg/dL (65-110); Potassium 3.4 mmol/L (3.4-5.0); Sodium 137 mmol/L (137-145)
[2024-01-20] MEDS: ESCITALOPRAM OXALATE 10 MG TABLET 20 MG PO ×2 (08:49→16:47)
[2024-01-20] MEDS: ANASTROZOLE (*CHEMO) 1 MG TABLET PO (08:49)
[2024-01-20] MEDS: HEPARIN SODIUM 5,000 UNITS/ML VIAL 5000 UNITS SUB-Q ×2 (08:49→20:14)
[2024-01-20] MEDS: AZITHROMYCIN 250 MG TABLET 500 MG PO (08:49)
[2024-01-20] MEDS: FUROSEMIDE 40 MG TABLET PO (08:49)
[2024-01-20] MEDS: AMOXICILLIN/CLAVULANATE K 875-125 MG TAB 1 TABLET PO ×2 (08:49→20:14)
[2024-01-20] MEDS: ATORVASTATIN 20 MG TABLET PO (08:49)
[2024-01-20] MEDS: NICOTINE (*PBKC) 14 MG PATCH 1 PATCH TRANSDERM (08:50)
[2024-01-20] MEDS: PROPRANOLOL HCL 40 MG TABLET PO ×2 (08:50→16:47)
[2024-01-20] MEDS: LOSARTAN POTASSIUM 100 MG TABLET PO (08:50)
[2024-01-20] MEDS: ZONISAMIDE 25 MG CAPSULE 50 MG PO (08:51)
--- NOTE | 2024-01-20 09:00 | PCSTNOTE ---
Please refer to the Bedside Swallow Evaluation in the EMR. Please note, silent aspiration cannot be ruled out at bedside.
--- NOTE | 2024-01-20 13:46 | HOMEO2EVAL ---
Evaluation was performed at [facility] Home Oxygen Evaluation RC: Home Oxygen (O2) Evaluation Start: 01/20/24 12:55 Freq: ONCE Status: Active Protocol: RPE Activity Type Activity Date Activity User E-sign Co-sign Detail Recorded Client Recorded Date Recorded By Document 01/20/24 13:37 KRM [id number] 01/20/24 13:46 KRM Document 01/20/24 13:45 KRM [id number] 01/20/24 13:46 KRM 01/20/24 01/20/24 13:37 13:45 Home O2 Evaluation [Oxygen] -Test Phase Resting Exercise -Oxygen Delivery Room Air Room Air [Pulse Oximetry] -Pulse Oximetry (90-100 %) 97 94 [Pulse Rate] -Pulse Rate (60-100 beats/min) 62 65 [Evaluation] -Activity Tolerance Good [Exercise] -Ambulation Distance (feet) 150 -Ambulation Distance (meters) 45.71 [Charges] -Evaluation Charges O2 Evaluation by Pulmonary
--- NOTE | 2024-01-20 14:56 | P.PNIM_ITS ---
Progress Note: A&P Assessment and Plan (1) Diarrhea: Code(s): R19.7 - Diarrhea, unspecified Status: Acute Assessment and Plan: Patient having frequent loose stools with incontinence. She also having nausea with taste disturbance (like nicotine or cleaning supplies). Bedside swallow study okay. Consider CDiff. Consider abx induced diarrhea. Check CDiff. Stop Nicotine patch to see if this is contributing to her taste issues. (2) Acute respiratory failure with hypoxia and hypercapnia: Code(s): J96.01 - Acute respiratory failure with hypoxia; J96.02 - Acute respiratory failure with hypercapnia Status: Acute Assessment and Plan: Patient was sent into the ED for elevated BP (207/75) but worsened to 224/107. She developed acute respiratory failure with hypoxia and hypercarbia requiring intubation 01/15. ABG 7.143/55/74 on MV. COVID, RSV and influenza PCR negative. +DDimer CT chest showing no PE but bilateral UL and LL PNA, minimal bilateral effusions and CMG. UE and LE venous doppler negative for DVT. BNP 3420. PCT 0.1. WBC normal. No fevers. BCx NGTD. Sputum Cx negative. Urine Ag pending. Etiology CHF related to the severe HTN and less likely PNA. Has COPD so may be contributing. Treated with Lasix 80mg IV x 1. Dose repeated with brisk UOP up to 5200mL in one day. Negative fluid balance since admission IV abx started as Azithro, Rocephin. Vanco stopped with MRSA nasal swab negative CXR clear. Sedation stopped. She did well with SBT and was able to be extubated on 01/18/24 CXR clear today. Home O2 evaluation showing she does not need O2. (3) Congestive heart failure: Code(s): I50.9 - Heart failure, unspecified Status: Acute Assessment and Plan: Troponin negative x1. BNP 3420. Echo showing enlarged LV with normal systolic fxn (EF 60-65%) and mildly increased LV thickness, Grade I diastolic dysfxn, hypokinetic basal inferior, mid inferior and basal interoseptal delgadillo, LAE, mild valvular disease except mild-mod MR. Mild pHTN (44mmHg). [place] CHF related to the severe HTN Cardiology consulted and appreciate their input As above. (4) Hypertension: Code(s): I10 - Essential (primary) hypertension Status: Chronic Assessment and Plan: Patient presented with uncontrolled hypertension with BP as high as 224/107. She received NTG in the ED. She was sedated with propofol and blood pressure dropped into acceptable range We held antihypertensive medications initially since BP well controlled. Since extubation, BP higher and medications resumed. SBP running 160-180 mostly. Continue Norvasc, Inderal and losartan. Norvasc added last night. Will monitor BP for today. (5) Pneumonia: Code(s): J18.9 - Pneumonia, unspecified organism Status: Acute Assessment and Plan: Possible PNA by imaging. Repeat CXR is clear making PNA less likely Abx changed to oral to complete a course (6) CKD (chronic kidney disease) stage 3, GFR 30-59 ml/min: Code(s): N18.30 - Chronic kidney disease, stage 3 unspecified Status: Acute Assessment and Plan: Patient has history of CKD. Cr normal last year but was 1.7 in September. Cr 1.3 on admission. CTA chest showing right renal atrophy. Renal US showing small right kidney with moderate atrophy but no hydronephrosis. CKD related to HTN. Consider renal duplex if BP hard to control. Cr remaining stable and within her baseline. Monitor urine output, electrolytes and renal fxn (7) COPD (chronic obstructive pulmonary disease): Code(s): J44.9 - Chronic obstructive pulmonary disease, unspecified Status: Chronic Assessment and Plan: Stable. No wheezing. As above (8) Gastroesophageal reflux disease: Code(s): K21.9 - Gastro-esophageal reflux disease without esophagitis Status: Acute Assessment and Plan: On IV Protonix Plan DVT prophylaxis -subQ heparin Code Status - Full Code Subjective Date/time seen: 01/20/24 14:56 Interval history: 68yo female with hx of breast CA s/p right lumpectomy and XRT, HTN, COPD, CKD, seizures and tobacco abuse here for severe hypertension and acute respiratory failure. Complains of nausea today. No CP or palpitations. Feels warm at times. Complains of taste disturbance. RN states patient having frequent loose stools with incontinece. Exam Narrative: AF 97.2 169/73 64 16 94% ra Gen - NARD Chest - distant clear BS, nml RR CV - RRR S1/S2 Abd - Soft, obese, +BS Ext - no edema Psych - normal mood and affect Skin - warm and dry Objective Data Vital Signs Vital Signs: Vital Signs - 24 hr 01/19/24 15:25 01/19/24 16:00 01/19/24 16:00 Temperature 98.0 F Pulse Rate 77 78 Respiratory Rate 18 Blood Pressure 105/86 Pulse Oximetry 96 Oxygen Delivery Room Air Oxygen Flow Rate 01/19/24 17:15 01/19/24 21:07 01/19/24 21:00 Temperature 97.4 F L Pulse Rate 71 68 75 Respiratory Rate 16 18 Blood Pressure 188/76 H Pulse Oximetry 98 Oxygen Delivery Oxygen Flow Rate 01/19/24 21:10 01/19/24 20:00 01/20/24 02:55 Temperature Pulse Rate 74 65 Respiratory Rate 18 16 Blood Pressure Pulse Oximetry Oxygen Delivery Room Air Oxygen Flow Rate 01/20/24 02:56 01/19/24 20:00 01/20/24 00:00 Temperature Pulse Rate 69 62 Respiratory Rate Blood Pressure Pulse Oximetry 99 Oxygen Delivery Nasal Cannula Oxygen Flow Rate 2 01/20/24 04:00 01/20/24 05:29 01/20/24 07:26 Temperature 97.2 F L Pulse Rate 59 L 63 Respiratory Rate 12 Blood Pressure 169/73 H Pulse Oximetry 99 100 Oxygen Delivery Nasal Cannula Oxygen Flow Rate 2 01/20/24 07:26 01/20/24 07:34 01/20/24 08:50 Temperature Pulse Rate 64 60 68 Respiratory Rate 16 16 Blood Pressure Pulse Oximetry Oxygen Delivery Oxygen Flow Rate 01/20/24 08:00 01/20/24 10:08 01/20/24 08:00 Temperature Pulse Rate 64 Respiratory Rate Blood Pressure Pulse Oximetry 100 97 Oxygen Delivery Nasal Cannula Room Air Oxygen Flow Rate 2 01/20/24 12:02 01/20/24 13:37 01/20/24 13:45 Temperature Pulse Rate 62 62 65 Respiratory Rate Blood Pressure Pulse Oximetry 97 94 Oxygen Delivery Room Air Room Air Oxygen Flow Rate 01/20/24 13:56 01/20/24 14:08 Temperature Pulse Rate 64 64 Respiratory Rate 16 16 Blood Pressure Pulse Oximetry Oxygen Delivery Oxygen Flow Rate Intake/Output Intake/Output: Intake & Output 01/17/24 01/18/24 01/19/24 01/20/24 23:59 23:59 23:59 23:59 Intake Total 1755.3 1174.4 600 500 Output Total 5210 1025 2050 300 Balance -3454.7 149.4 -1450 200 Meds/Results Medications: Active Medications Generic Name Dose Route Start Last Admin Trade Name Freq PRN Reason Stop Dose Admin Acetaminophen 650 mg 01/16/24 19:50 Acetaminophen 650 Mg Suppository RECTAL Q6H PRN Mild Pain (1-3) or Fever Albuterol/Ipratropium 3 ml 01/17/24 14:00 01/20/24 13:56 Ipratropium 0.5 Mg/Albuterol Sulfate 2.5 Mg Ampul.Neb 3 Ml INHALATION 3 ml Q6HRT MICKIE Administration Alprazolam 1 mg 01/19/24 16:32 01/19/24 20:28 Alprazolam (*Crx) 0.5 Mg Tablet PO 1 mg TID PRN Administration Anxiety Amlodipine Besylate 5 mg 01/19/24 21:00 01/19/24 20:29 Amlodipine Besylate 5 Mg Tablet PO 5 mg HS MICKIE Administration Amoxicillin/Clavulanate Potassium 1 tablet 01/19/24 12:00 01/20/24 08:49 Amoxicillin/Clavulanate K 875-125 Mg Tab PO 01/20/24 21:01 1 tablet Q12HR MICKIE Administration Anastrozole 1 mg 01/20/24 09:00 01/20/24 08:49 Anastrozole (*Chemo) 1 Mg Tablet PO 1 mg DAILY MICKIE Administration Atorvastatin Calcium 20 mg 01/18/24 09:00 01/20/24 08:49 Atorvastatin 20 Mg Tablet PO 20 mg DAILY MICKIE Administration Dextrose 12.5 gm 01/16/24 19:53 Dextrose 50% 25 Gm/50 Ml Syringe IV PUSH PRN PRN Hypoglycemia Protocol Escitalopram Oxalate 20 mg 01/19/24 17:00 01/20/24 08:49 Escitalopram Oxalate 10 Mg Tablet PO 20 mg BID MICKIE Administration Furosemide 40 mg 01/19/24 09:50 01/20/24 08:49 Furosemide 40 Mg Tablet PO 40 mg DAILY MICKIE Administration Glucagon 1 mg 01/16/24 19:53 Glucagon For Inj 1 Mg Vial IM PRN PRN Hypoglycemia Protocol Glucose 15 gm 01/16/24 19:53 Glucose Oral Gel 15 Gm Of Glucse In 37.5 Gm Tube PO PRN PRN Hypoglycemia Protocol Heparin Sodium (Porcine) 5,000 units 01/16/24 21:00 01/20/24 08:49 Heparin Sodium 5,000 Units/Ml Vial SUB-Q 5,000 units Q12HR MICKIE Administration Hydralazine HCl 10 mg 01/18/24 10:00 01/19/24 05:41 Hydralazine Hcl 20 Mg/Ml Vial IV PUSH 10 mg Q4H PRN Administration Blood Pressure - High Dextrose 1,000 mls @ 100 mls/hr 01/16/24 19:53 Dextrose 5% 1,000 Ml IVPB PRN PRN Hypoglycemia Protocol Labetalol HCl 20 mg 01/19/24 08:08 01/19/24 08:23 Labetalol Hcl Inj 100 Mg/20 Ml Vial IV PUSH 20 mg Q2H PRN Administration SBP > 180, hold if HR < 70 Losartan Potassium 100 mg 01/19/24 09:00 01/20/24 08:50 Losartan Potassium 100 Mg Tablet PO 100 mg DAILY MICKIE Administration Melatonin 5 mg 01/18/24 21:00 01/19/24 20:29 Melatonin 5 Mg Tablet PO 5 mg HS MICKIE Administration Ondansetron HCl 4 mg 01/16/24 19:12 Ondansetron Inj 4 Mg/2 Ml Vial IV PUSH Q4H PRN Nausea Propranolol HCl 40 mg 01/19/24 09:00 01/20/24 08:50 Propranolol Hcl 40 Mg Tablet PO 40 mg BID MICKIE Administration Simvastatin 80 mg 01/19/24 21:00 01/19/24 20:28 Simvastatin 20 Mg Tablet PO 80 mg HS MICKIE Administration Sodium Chloride 20 ml 01/17/24 10:11 Central Line Flush IV PUSH PRN PRN after blood draws Sodium Chloride 10 ml 01/17/24 10:11 Central Line Flush IV PUSH PRN PRN with TPN bag changes Sodium Chloride 10 ml 01/17/24 14:00 01/20/24 05:36 Central Line Flush IV PUSH 10 ml Q8HR MICKIE Administration Zonisamide 50 mg 01/20/24 09:00 01/20/24 08:51 Zonisamide 25 Mg Capsule PO 50 mg DAILY MICKIE Administration Radiology Results: ITS Impressions Abdomen X-Ray 01/16/24 13:10 IMPRESSION: Orogastric tube in good position and ready for immediate use. Chest CTA 01/16/24 18:14 IMPRESSION: 1. No pulmonary embolism. 2. Bilateral upper and lower lobe pneumonia more in the lower lobes. 3. Minimal bilateral pleural effusion. 4. Cardiomegaly with right ventricular and left atrial enlargement. Congestive heart failure is highly suggestive 5. Atrophic right kidney. Renal Ultrasound 01/17/24 10:59 IMPRESSION: 1. Moderate atrophy of right kidney. No hydronephrosis. Venous Doppler Study 01/18/24 13:56 IMPRESSION: 1. No deep venous thrombosis. 2. Superficial vein thrombosis involving left cephalic vein. Chest X-Ray 01/20/24 07:21 Impression: Clear lungs. Left-sided PICC line. Labs Labs: Laboratory Results - last 24 hr 01/20/24 06:49 WBC 5.8 RBC 3.88 L Hgb 12.8 Hct 39.1 MCV 100.8 H MCH 33.0 MCHC 32.7 RDW 12.2 Plt Count 159 MPV 9.6 Sodium 137 Potassium 3.4 Chloride 99 Carbon Dioxide 27 Anion Gap 11 BUN 24 H Creatinine 0.90 Estim Creat Clear Calc 52 Estimated GFR > 60 Glucose 79 Calcium 9.0 Magnesium 2.0 Total Bilirubin 1.2 AST 36 ALT 21 Alkaline Phosphatase 87 Total Protein 7.0 Albumin 4.2
[2024-01-20] MEDS: ALPRAZolam (*CRX) 0.5 MG TABLET 1 MG PO ×2 (15:27→21:36)
[2024-01-20] MEDS: MELATONIN 5 MG TABLET PO (20:14)
[2024-01-20] MEDS: amLODIPine BESYLATE 5 MG TABLET PO (20:14)
[2024-01-20] MEDS: SIMVASTATIN 20 MG TABLET 80 MG PO (20:14)
[2024-01-21] VITALS (16 sets, daily range): BP systolic 139–174; BP diastolic 59–60; PULSE 59–70; RESP 12–20; TEMP 36.2–36.6; O2SAT 93–97
[2024-01-21] MEDS: CENTRAL LINE FLUSH 10 ML IV PUSH ×3 (05:00→20:27)
[2024-01-21 05:18] LABS: Hemoglobin 13.3 g/dL (12.0-15.0); Mean Corpuscular HGB Conc 33.3 g/dl (32-36); Mean Corpuscular Volume 99.3 fl (80-100); Mean Platelet Volume 9.8 fl (7.4-10.4); Platelet Count Result 165 k/mm3 (150-375); Red Blood Count 4.03 M/mm3 (4.2-5.4); White Blood Count 5.5 K/mm3 (4.5-10.0)
[2024-01-21 05:37] LABS: Alanine Aminotransferase 29 U/L (6-35); Albumin Level 4.4 g/dL (3.5-5.1); Alkaline Phosphatase 91 U/L (38-126); Anion Gap 9 mmol/L (4-12); Aspartate Amino Transferase 46 U/L (14-36); Bilirubin,Total 1.1 mg/dL (0.2-1.3); Blood Urea Nitrogen 27 mg/dL (7-17); Calcium 9.2 mg/dL (8.4-10.2); Carbon Dioxide 29 mmol/L (22-30); Chloride 99 mmol/L (98-107); Estimated CRCL calculation 43 ml/min; Estimated Glomerular Filt Rate 49; Glucose 88 mg/dL (65-110); Magnesium 2.1 mg/dL (1.6-2.3); Potassium 2.9 mmol/L (3.4-5.0); Sodium 137 mmol/L (137-145)
--- NOTE | 2024-01-21 06:24 | PCRCNOTE ---
Patient did not want to be woken for 0200 breathing tx. Patient breathing tx will continue at 0800 on 01/21/24.
[2024-01-21] MEDS: IPRATROPIUM 0.5 MG/ALBUTEROL SULFATE 2.5 MG AMPUL.NEB 3 ML INHALATION ×3 (07:18→20:25)
[2024-01-21] MEDS: HEPARIN SODIUM 5,000 UNITS/ML VIAL 5000 UNITS SUB-Q ×2 (08:15→20:23)
[2024-01-21] MEDS: LOSARTAN POTASSIUM 100 MG TABLET PO (08:16)
[2024-01-21] MEDS: ATORVASTATIN 20 MG TABLET PO (08:16)
[2024-01-21] MEDS: PROPRANOLOL HCL 40 MG TABLET PO ×2 (08:16→16:00)
[2024-01-21] MEDS: ESCITALOPRAM OXALATE 10 MG TABLET 20 MG PO ×2 (08:16→16:00)
[2024-01-21] MEDS: FUROSEMIDE 40 MG TABLET PO (08:17)
[2024-01-21] MEDS: ANASTROZOLE (*CHEMO) 1 MG TABLET PO (08:17)
[2024-01-21] MEDS: ZONISAMIDE 25 MG CAPSULE 50 MG PO (08:17)
--- NOTE | 2024-01-21 10:03 | P.PNIM_ITS ---
Progress Note: A&P Assessment and Plan (1) Diarrhea: Code(s): R19.7 - Diarrhea, unspecified Status: Acute (2) Acute respiratory failure with hypoxia and hypercapnia: Code(s): J96.01 - Acute respiratory failure with hypoxia; J96.02 - Acute respiratory failure with hypercapnia Status: Acute (3) COPD (chronic obstructive pulmonary disease): Code(s): J44.9 - Chronic obstructive pulmonary disease, unspecified Status: Chronic Plan (1) Diarrhea: Code(s): R19.7 - Diarrhea, unspecified Status: Acute Assessment and Plan: Patient having frequent loose stools with incontinence. She also having nausea with taste disturbance (like nicotine or cleaning supplies). Bedside swallow study okay. Consider CDiff. Consider abx induced diarrhea. Stop Nicotine patch to see if this is contributing to her taste issues. pending c diff . stool culture (2) Acute respiratory failure with hypoxia and hypercapnia: Code(s): J96.01 - Acute respiratory failure with hypoxia; J96.02 - Acute respiratory failure with hypercapnia Status: Acute Assessment and Plan: Patient was sent into the ED for elevated BP (207/75) but worsened to 224/107. She developed acute respiratory failure with hypoxia and hypercarbia requiring intubation 01/15. ABG 7.143/55/74 on MV. COVID, RSV and influenza PCR negative. +DDimer CT chest showing no PE but bilateral UL and LL PNA, minimal bilateral effusions and CMG. UE and LE venous doppler negative for DVT. BNP 3420. PCT 0.1. WBC normal. No fevers. BCx NGTD. Sputum Cx negative. Urine Ag pending. Etiology CHF related to the severe HTN and less likely PNA. Has COPD so may be contributing. Treated with Lasix 80mg IV x 1. Dose repeated with brisk UOP up to 5200mL in one day. Negative fluid balance since admission IV abx started as Azithro, Rocephin. Vanco stopped with MRSA nasal swab negative CXR clear. Sedation stopped. She did well with SBT and was able to be extubated on 01/18/24 CXR clear Home O2 evaluation showing she does not need O2. (3) Congestive heart failure: Code(s): I50.9 - Heart failure, unspecified Status: Acute Assessment and Plan: Troponin negative x1. BNP 3420. Echo showing enlarged LV with normal systolic fxn (EF 60-65%) and mildly increased LV thickness, Grade I diastolic dysfxn, hypokinetic basal inferior, mid inferior and basal interoseptal delgadillo, LAE, mild valvular disease except mild-mod MR. Mild pHTN (44mmHg). [place] CHF related to the severe HTN Cardiology consulted and appreciate their input As above. (4) Hypertension: Code(s): I10 - Essential (primary) hypertension Status: Chronic Assessment and Plan: Patient presented with uncontrolled hypertension with BP as high as 224/107. She received NTG in the ED. She was sedated with propofol and blood pressure dropped into acceptable range We held antihypertensive medications initially since BP well controlled. Since extubation, BP higher and medications resumed. SBP running 160-180 mostly. Continue Norvasc, Inderal and losartan. Norvasc added last night. Will monitor BP for today. (5) Pneumonia: Code(s): J18.9 - Pneumonia, unspecified organism Status: Acute Assessment and Plan: Possible PNA by imaging. Repeat CXR is clear making PNA less likely Abx changed to oral to complete a course (6) CKD (chronic kidney disease) stage 3, GFR 30-59 ml/min: Code(s): N18.30 - Chronic kidney disease, stage 3 unspecified Status: Acute Assessment and Plan: Patient has history of CKD. Cr normal last year but was 1.7 in September. Cr 1.3 on admission. CTA chest showing right renal atrophy. Renal US showing small right kidney with moderate atrophy but no hydronephrosis. CKD related to HTN. Consider renal duplex if BP hard to control. Cr remaining stable and within her baseline. Monitor urine output, electrolytes and renal fxn now cr 1.1 (7) COPD (chronic obstructive pulmonary disease): Code(s): J44.9 - Chronic obstructive pulmonary disease, unspecified Status: Chronic Assessment and Plan: Stable. No wheezing. As above (8) Gastroesophageal reflux disease: Code(s): K21.9 - Gastro-esophageal reflux disease without esophagitis Status: Acute Assessment and Plan: On IV Protonix Plan DVT prophylaxis -subQ heparin Code Status - Full Code Subjective Date/time seen: 01/21/24 10:03 Interval history: I saw examined patient today, patient still has general weakness, has diarrhea, 3 bowel movement today. Denies nausea vomiting black stool. Labs reviewed, Exam Narrative: GENERAL: Pleasant, in no acute distress. Well-nourished. - EYES: EOMI. Anicteric. - HENT: Moist mucous membranes. - LUNGS: Distant breath sounds bilatera lly, no wheezing, rhonchi, or rales. - CARDIOVASCULAR: Regular rate and rhyth m. No murmur. No JVD. - ABDOMEN: Soft, non-tender and non-dist ended. No palpable masses. - EXTREMITIES: No edema. Peripheral puls es 2+. Non-tender. - NEUROLOGIC: No focal neurological defi cits. CN II-XII grossly intact. - PSYCHIATRIC: Awake, Alert and oriented x 3. Appropriate mood and affect. - SKIN: No rashes or lesions. Warm. - LYMPH: No cervical lymphadenopathy. Objective Data Vital Signs Vital Signs: Vital Signs - 24 hr 01/20/24 10:08 01/20/24 12:02 01/20/24 13:37 Temperature Pulse Rate 62 62 Respiratory Rate Blood Pressure Pulse Oximetry 97 97 Oxygen Delivery Room Air Room Air Fraction of Inspired Oxygen 01/20/24 13:45 01/20/24 13:56 01/20/24 14:08 Temperature Pulse Rate 65 64 64 Respiratory Rate 16 16 Blood Pressure Pulse Oximetry 94 Oxygen Delivery Room Air Fraction of Inspired Oxygen 01/20/24 16:00 01/20/24 16:00 01/20/24 16:47 Temperature 98.1 F Pulse Rate 70 73 68 Respiratory Rate 17 Blood Pressure 178/71 H Pulse Oximetry 99 Oxygen Delivery Fraction of Inspired Oxygen 01/20/24 20:02 01/20/24 20:02 01/20/24 20:09 Temperature Pulse Rate 69 70 Respiratory Rate 16 16 Blood Pressure Pulse Oximetry 95 Oxygen Delivery Room Air Fraction of Inspired Oxygen 21 01/20/24 20:00 01/20/24 21:11 01/20/24 20:00 Temperature 97.6 F Pulse Rate 69 72 Respiratory Rate 13 Blood Pressure 169/81 H Pulse Oximetry 96 Oxygen Delivery Room Air Fraction of Inspired Oxygen 01/21/24 00:00 01/21/24 04:00 01/21/24 05:52 Temperature 97.4 F L Pulse Rate 64 69 68 Respiratory Rate 12 Blood Pressure 139/60 Pulse Oximetry 96 Oxygen Delivery Fraction of Inspired Oxygen 01/21/24 07:18 01/21/24 07:18 01/21/24 07:30 Temperature Pulse Rate 70 62 Respiratory Rate 16 16 Blood Pressure Pulse Oximetry 93 Oxygen Delivery Room Air Fraction of Inspired Oxygen 01/21/24 08:13 01/21/24 08:16 01/21/24 08:00 Temperature Pulse Rate 68 64 Respiratory Rate Blood Pressure 142/60 H Pulse Oximetry 97 Oxygen Delivery Room Air Fraction of Inspired Oxygen Intake/Output Intake/Output: Intake & Output 01/18/24 01/19/24 01/20/24 01/21/24 23:59 23:59 23:59 23:59 Intake Total 1174.4 600 800 850 Output Total 1025 2050 300 Balance 149.4 -1450 500 850 Meds/Results Medications: Active Medications Generic Name Dose Route Start Last Admin Trade Name Freq PRN Reason Stop Dose Admin Acetaminophen 650 mg 01/16/24 19:50 Acetaminophen 650 Mg Suppository RECTAL Q6H PRN Mild Pain (1-3) or Fever Albuterol/Ipratropium 3 ml 01/17/24 14:00 01/21/24 07:18 Ipratropium 0.5 Mg/Albuterol Sulfate 2.5 Mg Ampul.Neb 3 Ml INHALATION 3 ml Q6HRT MICKIE Administration Alprazolam 1 mg 01/19/24 16:32 01/20/24 21:36 Alprazolam (*Crx) 0.5 Mg Tablet PO 1 mg TID PRN Administration Anxiety Amlodipine Besylate 5 mg 01/19/24 21:00 01/20/24 20:14 Amlodipine Besylate 5 Mg Tablet PO 5 mg HS MICKIE Administration Anastrozole 1 mg 01/20/24 09:00 01/21/24 08:17 Anastrozole (*Chemo) 1 Mg Tablet PO 1 mg DAILY MICKIE Administration Atorvastatin Calcium 20 mg 01/18/24 09:00 01/21/24 08:16 Atorvastatin 20 Mg Tablet PO 20 mg DAILY MICKIE Administration Dextrose 12.5 gm 01/16/24 19:53 Dextrose 50% 25 Gm/50 Ml Syringe IV PUSH PRN PRN Hypoglycemia Protocol Escitalopram Oxalate 20 mg 01/19/24 17:00 01/21/24 08:16 Escitalopram Oxalate 10 Mg Tablet PO 20 mg BID MICKIE Administration Furosemide 40 mg 01/19/24 09:50 01/21/24 08:17 Furosemide 40 Mg Tablet PO 40 mg DAILY MICKIE Administration Glucagon 1 mg 01/16/24 19:53 Glucagon For Inj 1 Mg Vial IM PRN PRN Hypoglycemia Protocol Glucose 15 gm 01/16/24 19:53 Glucose Oral Gel 15 Gm Of Glucse In 37.5 Gm Tube PO PRN PRN Hypoglycemia Protocol Heparin Sodium (Porcine) 5,000 units 01/16/24 21:00 01/21/24 08:15 Heparin Sodium 5,000 Units/Ml Vial SUB-Q 5,000 units Q12HR MICKIE Administration Hydralazine HCl 10 mg 01/18/24 10:00 01/19/24 05:41 Hydralazine Hcl 20 Mg/Ml Vial IV PUSH 10 mg Q4H PRN Administration Blood Pressure - High Dextrose 1,000 mls @ 100 mls/hr 01/16/24 19:53 Dextrose 5% 1,000 Ml IVPB PRN PRN Hypoglycemia Protocol Labetalol HCl 20 mg 01/19/24 08:08 01/19/24 08:23 Labetalol Hcl Inj 100 Mg/20 Ml Vial IV PUSH 20 mg Q2H PRN Administration SBP > 180, hold if HR < 70 Losartan Potassium 100 mg 01/19/24 09:00 01/21/24 08:16 Losartan Potassium 100 Mg Tablet PO 100 mg DAILY MICKIE Administration Melatonin 5 mg 01/18/24 21:00 01/20/24 20:14 Melatonin 5 Mg Tablet PO 5 mg HS MICKIE Administration Ondansetron HCl 4 mg 01/16/24 19:12 Ondansetron Inj 4 Mg/2 Ml Vial IV PUSH Q4H PRN Nausea Propranolol HCl 40 mg 01/19/24 09:00 01/21/24 08:16 Propranolol Hcl 40 Mg Tablet PO 40 mg BID MICKIE Administration Simvastatin 80 mg 01/19/24 21:00 01/20/24 20:14 Simvastatin 20 Mg Tablet PO 80 mg HS MICKIE Administration Sodium Chloride 20 ml 01/17/24 10:11 Central Line Flush IV PUSH PRN PRN after blood draws Sodium Chloride 10 ml 01/17/24 10:11 Central Line Flush IV PUSH PRN PRN with TPN bag changes Sodium Chloride 10 ml 01/17/24 14:00 01/21/24 05:00 Central Line Flush IV PUSH 10 ml Q8HR MICKIE Administration Zonisamide 50 mg 01/20/24 09:00 01/21/24 08:17 Zonisamide 25 Mg Capsule PO 50 mg DAILY MICKIE Administration Radiology Results: ITS Impressions Abdomen X-Ray 01/16/24 13:10 IMPRESSION: Orogastric tube in good position and ready for immediate use. Chest CTA 01/16/24 18:14 IMPRESSION: 1. No pulmonary embolism. 2. Bilateral upper and lower lobe pneumonia more in the lower lobes. 3. Minimal bilateral pleural effusion. 4. Cardiomegaly with right ventricular and left atrial enlargement. Congestive heart failure is highly suggestive 5. Atrophic right kidney. Renal Ultrasound 01/17/24 10:59 IMPRESSION: 1. Moderate atrophy of right kidney. No hydronephrosis. Venous Doppler Study 01/18/24 13:56 IMPRESSION: 1. No deep venous thrombosis. 2. Superficial vein thrombosis involving left cephalic vein. Chest X-Ray 01/21/24 06:16 Impression: Clear lungs. Left-sided PICC line. Labs Labs: Laboratory Results - last 24 hr 01/21/24 05:02 WBC 5.5 RBC 4.03 L Hgb 13.3 Hct 40.0 MCV 99.3 MCH 33.0 MCHC 33.3 RDW 12.0 Plt Count 165 MPV 9.8 Sodium 137 Potassium 2.9 L Chloride 99 Carbon Dioxide 29 Anion Gap 9 BUN 27 H Creatinine 1.10 H Estim Creat Clear Calc 43 Estimated GFR 49 L Glucose 88 Calcium 9.2 Magnesium 2.1 Total Bilirubin 1.1 AST 46 H ALT 29 Alkaline Phosphatase 91 Total Protein 8.0 Albumin 4.4
[2024-01-21 10:41] LABS: Toxigenic C. Diff NEGATIVE (NEGATIVE)
[2024-01-21] MEDS: POTASSIUM CHLORIDE 20 MEQ ER TABLET 40 MEQ PO ×2 (12:42→16:00)
[2024-01-21] MEDS: ALPRAZolam (*CRX) 0.5 MG TABLET 1 MG PO ×2 (15:00→20:22)
[2024-01-21 18:58] LABS: Pneumococcal Antigen Urine NOT DETECTED
[2024-01-21] MEDS: SIMVASTATIN 20 MG TABLET 80 MG PO (20:22)
[2024-01-21] MEDS: amLODIPine BESYLATE 5 MG TABLET PO (20:23)
[2024-01-21] MEDS: MELATONIN 5 MG TABLET PO (20:23)
[2024-01-22] VITALS (11 sets, daily range): BP systolic 146–159; BP diastolic 71–89; PULSE 56–85; RESP 14–18; TEMP 36.4–36.8; O2SAT 96–98
[2024-01-22] MEDS: CENTRAL LINE FLUSH 10 ML IV PUSH (05:28)
[2024-01-22 06:04] LABS: Hematocrit 41.5 % (37.0-47.0); Hemoglobin 13.4 g/dL (12.0-15.0); Mean Corpuscular HGB Conc 32.3 g/dl (32-36); Mean Corpuscular Hemoglobin 32.7 pg (26-34); Mean Corpuscular Volume 101.2 fl (80-100); Platelet Count Result 171 k/mm3 (150-375); Red Cell Distribution Width 12.3 % (11.5-14.5); White Blood Count 5.1 K/mm3 (4.5-10.0)
[2024-01-22 06:23] LABS: Alanine Aminotransferase 41 U/L (6-35); Albumin Level 4.4 g/dL (3.5-5.1); Alkaline Phosphatase 74 U/L (38-126); Anion Gap 10 mmol/L (4-12); Aspartate Amino Transferase 64 U/L (14-36); Bilirubin,Total 0.7 mg/dL (0.2-1.3); Blood Urea Nitrogen 25 mg/dL (7-17); Calcium 9.1 mg/dL (8.4-10.2); Carbon Dioxide 27 mmol/L (22-30); Chloride 101 mmol/L (98-107); Estimated CRCL calculation 38 ml/min; Estimated Glomerular Filt Rate 45; Glucose 123 mg/dL (65-110); Magnesium 2.1 mg/dL (1.6-2.3); Potassium 3.4 mmol/L (3.4-5.0); Sodium 138 mmol/L (137-145)
[2024-01-22] MEDS: IPRATROPIUM 0.5 MG/ALBUTEROL SULFATE 2.5 MG AMPUL.NEB 3 ML INHALATION ×2 (06:55→12:43)
[2024-01-22] MEDS: HEPARIN SODIUM 5,000 UNITS/ML VIAL 5000 UNITS SUB-Q (09:56)
[2024-01-22] MEDS: ZONISAMIDE 25 MG CAPSULE 50 MG PO (09:56)
[2024-01-22] MEDS: ATORVASTATIN 20 MG TABLET PO (09:56)
[2024-01-22] MEDS: POTASSIUM CHLORIDE 20 MEQ ER TABLET 40 MEQ PO (09:57)
[2024-01-22] MEDS: PROPRANOLOL HCL 40 MG TABLET PO (09:57)
[2024-01-22] MEDS: LOSARTAN POTASSIUM 100 MG TABLET PO (09:57)
[2024-01-22] MEDS: ESCITALOPRAM OXALATE 10 MG TABLET 20 MG PO (09:57)
[2024-01-22] MEDS: FUROSEMIDE 40 MG TABLET PO (09:58)
[2024-01-22] MEDS: ANASTROZOLE (*CHEMO) 1 MG TABLET PO (09:58)
--- NOTE | 2024-01-22 13:36 | P.DS_ITS ---
DS: Admitting Diagnosis Discharge Date 01/22/2020 Admitting Diagnosis Respiratory failure DS: Discharge Diagnosis Discharge Diagnosis (1) Diarrhea: Code(s): R19.7 - Diarrhea, unspecified Status: Acute (2) Acute respiratory failure with hypoxia and hypercapnia: Code(s): J96.01 - Acute respiratory failure with hypoxia; J96.02 - Acute respiratory failure with hypercapnia Status: Acute (3) COPD (chronic obstructive pulmonary disease): Code(s): J44.9 - Chronic obstructive pulmonary disease, unspecified Status: Chronic DS: Summary Hospital Course Hospital Course: # Diarrhea: Patient having frequent loose stools with incontinence. She also having nausea with taste disturbance (like nicotine or cleaning supplies). Bedside swallow study okay. C diff came back negative. Consider abx induced diarrhea. Stop Nicotine patch to see if this is contributing to her taste issues. # Acute respiratory failure with hypoxia and hypercapnia: Patient was sent into the ED for elevated BP (207/75) but worsened to 224/107. She developed acute respiratory failure with hypoxia and hypercarbia requiring intubation 01/15. ABG 7.143/55/74 on MV. COVID, RSV and influenza PCR negative. +DDimer CT chest showing no PE but bilateral UL and LL PNA, minimal bilateral effusions and CMG. UE and LE venous doppler negative for DVT. BNP 3420. PCT 0.1. WBC normal. No fevers. BCx NGTD. Sputum Cx negative. Urine Ag pneumococcal negative, Legionella and mycoplasma is pending Etiology CHF related to the severe HTN and less likely PNA. Has COPD so may be contributing. Treated with Lasix 80mg IV x 1. Dose repeated with brisk UOP up to 5200mL in one day. Negative fluid balance since admission IV abx started as Azithro, Rocephin. Vanco stopped with MRSA nasal swab negative CXR clear. Sedation stopped. She did well with SBT and was able to be extubated on 01/18/24 CXR clear Home O2 evaluation showing she does not need O2. She finished her antibiotics during the hospital stay # Congestive heart failure: Troponin negative x1. BNP 3420. Echo showing enlarged LV with normal systolic fxn (EF 60-65%) and mildly increased LV thickness, Grade I diastolic dysfxn, hypokinetic basal inferior, mid inferior and basal interoseptal delgadillo, LAE, mild valvular disease except mild-mod MR. Mild pHTN (44mmHg). Zephyr CHF related to the severe HTN Cardiology consulted and appreciate their input As above. Follow-up with cardiology as an outpatient basis for any ischemic evaluation # Hypertension: Patient presented with uncontrolled hypertension with BP as high as 224/107. She received NTG in the ED. She was sedated with propofol and blood pressure dropped into acceptable range We held antihypertensive medications initially since BP well controlled. Since extubation, BP higher and medications resumed. SBP running 160-180 mostly. Continue Norvasc, Inderal and losartan. Norvasc added last night. Blood pressure or acceptable. Titrated as an outpatient basis # Pneumonia: Possible PNA by imaging. Repeat CXR is clear making PNA less likely Abx changed to oral to complete a course and has completed the course # CKD (chronic kidney disease) stage 3, GFR 30-59 ml/min: Patient has history of CKD. Cr normal last year but was 1.7 in September. Cr 1.3 on admission. CTA chest showing right renal atrophy. Renal US showing small right kidney with moderate atrophy but no hydronephrosis. CKD related to HTN. Consider renal duplex if BP hard to control. Cr remaining stable and within her baseline. Monitor urine output, electrolytes and renal fxn now cr 1.1 # COPD (chronic obstructive pulmonary disease): Stable. No wheezing. As above # Gastroesophageal reflux disease: On Protonix # DVT prophylaxis -subQ heparin # Code Status - Full Code Time Spent with Patient Time attestation: Total time spent providing and/or coordinating discharge services: 35 minutes Exam Narrative: GENERAL: Pleasant, in no acute distress. Well-nourished. - EYES: EOMI. Anicteric. - HENT: Moist mucous membranes. - LUNGS: Distant breath sounds bilatera lly, no wheezing, rhonchi, or rales. - CARDIOVASCULAR: Regular rate and rhyth m. No murmur. No JVD. - ABDOMEN: Soft, non-tender and non-dist ended. No palpable masses. - EXTREMITIES: No edema. Peripheral puls es 2+. Non-tender. - NEUROLOGIC: No focal neurological defi cits. CN II-XII grossly intact. - PSYCHIATRIC: Awake, Alert and oriented x 3. Appropriate mood and affect. - SKIN: No rashes or lesions. Warm. - LYMPH: No cervical lymphadenopathy. DS: Data Data Completed and Pending Labs on day of discharge: Labs from last 24 hours 01/22/24 01/16/24 05:28 20:27 WBC 5.1 RBC 4.10 L Hgb 13.4 Hct 41.5 MCV 101.2 H MCH 32.7 MCHC 32.3 RDW 12.3 Plt Count 171 MPV 10.0 Sodium 138 Potassium 3.4 Chloride 101 Carbon Dioxide 27 Anion Gap 10 BUN 25 H Creatinine 1.20 H Estim Creat Clear Calc 38 Estimated GFR 45 L Glucose 123 H Calcium 9.1 Magnesium 2.1 Total Bilirubin 0.7 AST 64 H ALT 41 H Alkaline Phosphatase 74 Total Protein 8.0 Albumin 4.4 Urine Pneumococcal Ag Not detected Imaging Radiologist's impression: ITS Impressions Abdomen X-Ray 01/16/24 13:10 IMPRESSION: Orogastric tube in good position and ready for immediate use. Chest X-Ray 01/16/24 13:12 IMPRESSION: Endotracheal tube tip projecting 5.6 cm above the base of the seamus for which advancement of approximately 2 to 3 cm is suggested for optimal radiographic placement. Orogastric tube in good position and ready for immediate use. Bilobar pneumonia, as detailed above. Chest CTA 01/16/24 18:14 IMPRESSION: 1. No pulmonary embolism. 2. Bilateral upper and lower lobe pneumonia more in the lower lobes. 3. Minimal bilateral pleural effusion. 4. Cardiomegaly with right ventricular and left atrial enlargement. Congestive heart failure is highly suggestive 5. Atrophic right kidney. Chest X-Ray 01/17/24 06:24 IMPRESSION: 1. Improved airspace opacities in the lower lobes and perihilar regions, consistent with pneumonia. Renal Ultrasound 01/17/24 10:59 IMPRESSION: 1. Moderate atrophy of right kidney. No hydronephrosis. Venous Doppler Study 01/17/24 20:37 IMPRESSION: No evidence of deep venous thrombosis of the lower extremities Chest X-Ray 01/18/24 06:06 IMPRESSION: 1. No acute cardiopulmonary disease. Venous Doppler Study 01/18/24 13:56 IMPRESSION: 1. No deep venous thrombosis. 2. Superficial vein thrombosis involving left cephalic vein. Chest X-Ray 01/19/24 06:47 Impression: COPD. Left-sided PICC line in place. Chest X-Ray 01/20/24 07:21 Impression: Clear lungs. Left-sided PICC line. Chest X-Ray 01/21/24 06:16 Impression: Clear lungs. Left-sided PICC line. Chest X-Ray 01/22/24 06:40 Impression: Mild patchy haziness right lung, nonspecific. Correlate for developing pneumonia. Left-sided PICC line. Discharge Plan Discharge Attending physician on discharge: Ha Manzanares Consulting providers: Corey Hussein; Yolanda Banrhart Discharging Clinician: Ha Manzanares Anticipated Discharge Date/Time: 01/22/24 13:42 Patient Disposition: Home Health Service Activity: as tolerated Diet: heart healthy Discharge Instructions: Per Care Coordination Patient has been accepted to have [facility] for RN, PT, [phone] RN please fax completed discharge instructions to [phone] Patient Instructions: Antibiotic Form, Heart Failure (GEN), Pneumonia (GEN) Stand Alone Forms: General Discharge Information Follow-up/Referrals: Yolanda Barnhart, BUILDING CONSTRUCTION CONTRACTOR-C [Advanced Practice Nurse] - Call for Appointment Syd Nj MD [Primary Care Provider] - 1 Week Discharge Medications: New furosemide 40 mg Tablet 40 mg PO DAILY Qty: 30 0RF potassium chloride [K-Tab] 20 mEq Tablet Extended Release 20 meq PO DAILY Qty: 30 0RF amlodipine [Norvasc] 5 mg Tablet 5 mg PO HS Qty: 30 0RF Continued anastrozole 1 mg tablet 1 mg PO DAILY meloxicam 15 mg tablet 15 mg PO DAILY propranolol 40 mg tablet 40 mg PO BID losartan 100 mg tablet 100 mg PO DAILY zonisamide 50 mg capsule 50 mg PO DAILY escitalopram oxalate 20 mg tablet 20 mg PO BID alprazolam 2 mg tablet 2 mg PO TID oxycodone-acetaminophen 7.5-325 mg tablet 1 tablet PO QID PRN (Reason: Pain (Scale Score 7-10)) atorvastatin 20 mg tablet 20 mg PO DAILY Discontinued simvastatin 80 mg tablet 80 mg PO HS Other Ambulatory Orders: Complete Blood Count with Diff (Routine) Timeframe: 1 Week Location: Determined by Patient Ordered By: Ha Manzanares Comprehensive Metabolic Panel (Routine) Timeframe: 1 Week Location: Determined by Patient Ordered By: Ha Manzanares Date of admission: 01/16/24 19:12 Primary Care Provider: Syd Nj Admitting Provider: Adore Matthews Attending physician on admission: Adore Matthews Condition: Improved Hospitalist MIPS Heart Failure (Exclusion) Patient has history of Heart Transplant or Left Ventricular Assistive Device?: No IF YES, STOP HERE Heart Failure (Qualifier) Patient has current or prior documentation of LVEF less than or equal to 40%, or mod/servere depressed LVSF?: No IF NO, STOP HERE
--- NOTE | 2024-01-22 17:56 | PC.NURSE ---
Pt PICC line removed prior to discharge. Pt tolerated well. Pt had son pick her up at discharge. Pt educated on discharge instructions. Pt verbalizes understanding. Discharge orders faxed to home health. Pt was monitored for any changes in status while here.
[2024-01-22 19:08] LABS: Mycoplasma IgM Antibody Titer 155 U/mL
[2024-01-22 21:44] LABS: Legionella pneumophila Ag Ur NOT DETECTED
[2024-01-24 07:08] LABS: Methylmalonic Acid 758 nmol/L (69-390)
== END 2024-01-22 16:10 | disposition home health service (06) | DRG 291 ==
LOC: ANHED 19:08 → ANHICU 20:33 → ANH3MEDSUR 01-19 18:38
PROVIDERS: Internal Medicine; Admitting Provider General Practice; Emergency Provider Student in an Organized Health Care Education/Training Program; PCP Family Medicine; Visit Provider Internal Medicine
DX: I13.0 Hypertensive heart and chronic kidney disease with heart failure and stage 1 through stage 4 chronic kidney disease, or unspecified chronic kidney disease (principal); J18.9 Pneumonia, unspecified organism; J96.02 Acute respiratory failure with hypercapnia; J96.01 Acute respiratory failure with hypoxia; E87.4 Mixed disorder of acid-base balance; J44.0 Chronic obstructive pulmonary disease with (acute) lower respiratory infection; I50.32 Chronic diastolic (congestive) heart failure; N18.31 Chronic kidney disease, stage 3a; R19.7 Diarrhea, unspecified; E78.5 Hyperlipidemia, unspecified; F17.210 Nicotine dependence, cigarettes, uncomplicated; F41.8 Other specified anxiety disorders; G40.909 Epilepsy, unspecified, not intractable, without status epilepticus; K21.9 Gastro-esophageal reflux disease without esophagitis; R13.10 Dysphagia, unspecified; Z85.3 Personal history of malignant neoplasm of breast; Z20.822 Contact with and (suspected) exposure to COVID-19; Z90.49 Acquired absence of other specified parts of digestive tract
CPT/HCPCS: 31500; 36415; 36569; 36600; 71045; 71275; 76775; 80048; 80053; 82375; 82550; 82607; 82746; 82805; 82948; 83050; 83605; 83735; 83880; 83921; 84100; 84145; 84478; 84484; 85018; 85025; 85027; 85055; 85380; 86738; 87040; 87045; 87070; 87205; 87427; 87449; 87493; 87637; 87641; 87899; 92610; 93005; 93970; 94002; 94003; 94618; 94640; 96365; 96366; 96367; 96368; 96375; 97110; 97116; 97161; 97165; 97530; 97535; 99291; A9270; C8929; J0360; J0456; J0696; J1644; J1815; J1940; J2003; J2250; J2470; J2704; J3010; J3370; J7030; Q9957; Q9967

== ENCOUNTER 2024-04-19 10:14 | Outpatient (CLI) | payer MEDICARE, SELFPAY ==
[2024-04-19 11:09] LABS: Basophils Percent Auto 0.5 % (0.2-1.2); Eosinophils Absolute Auto 0.2 K/mm3 (0-0.3); Eosinophils Percent Auto 4.8 % (0-4.4); Hematocrit 41.5 % (37.0-47.0); Hemoglobin 13.5 g/dL (12.0-15.0); Immature Granulocyte Absolute 0.02 K/mm3 (0.00-0.031); Immature Granulocyte Percent A 0.5 % (0-0.5); Lymphocytes Absolute Auto 2.03 K/mm3 (0.9-3.2); Lymphocytes Percent Auto 48.2 % (18.3-44.2); Mean Corpuscular HGB Conc 32.5 g/dl (32-36); Mean Corpuscular Hemoglobin 32.8 pg (26-34); Mean Corpuscular Volume 100.7 fl (80-100); Mean Platelet Volume 9.5 fl (7.4-10.4); Monocytes Absolute Auto 0.4 K/mm3 (0.1-0.6); Monocytes Percent Auto 9.5 % (2.6-8.5); Neutrophils Absolute Auto 1.5 K/mm3 (1.3-6.7); Neutrophils Percent Auto 36.5 % (45.5-73.1); Platelet Count Result 205 k/mm3 (150-375); Red Blood Count 4.12 M/mm3 (4.2-5.4); White Blood Count 4.2 K/mm3 (4.5-10.0)
--- OUTSIDE RECORDS SUMMARY | 2024-04-19 11:15 | XMS_ITS | Clinical Summary ---
Author Organization [facility] Address [facility] [facility] [place] [address] [place] [address] Care Team Providers Care Audio Visual Collections Coordinator Name Role Phone Syd Nj MD Primary Care Provider [phone] [facility] Un[facility] [phone] Jovan Lowery MD Unavailable [phone] Guadalupe Sorenson MD Unavailable [phone] [facility] Unavailable [phone] Ollie Cote MD Unavailable [phone] River Braun MD Unavailable [phone] Allergies Active Allergy Reactions Criticality Noted Date Comments Insect Stings Swelling 09/16/2018 Red ants cause intense swelling Varenicline Hallucinations Medium 08/11/2018 Medications amlodipine 5 MG tablet Take 5 mg by mouth daily. 08/20/2018 Active meloxicam 15 MG tablet Take 1 tablet by mouth nightly. 01/23/2016 Active simvastatin 80 MG tablet Take 80 mg by mouth nightly. 08/20/2018 Active losartan 100 MG tablet Take 100 mg by mouth nightly. 08/20/2018 Active escitalopram 20 MG tablet Take 1 tablet by mouth daily. 01/23/2016 Active propranolol 40 MG tablet Take 40 mg by mouth 2 (two) times daily. 01/23/2016 Active zonisamide 50 MG capsule Take 1 capsule by mouth daily. 01/23/2016 Active acyclovir 400 MG tablet Take 400 mg by mouth nightly. 01/23/2016 Active prochlorperazin e 10 MG tablet Take 10 mg by mouth 3 (three) times daily as needed. nausea 05/18/2018 Active oxyCODONE-aceta minophen 5-325 MG tablet Take 1 tablet by mouth 2 (two) times daily as needed. 09/15/2018 Active ALPRAZolam 1 MG tablet Take 1 tablet by mouth 2 (two) times a day. 01/23/2016 Active loperamide (ANTI-DIARRHEAL ) 2 MG tablet Take 2 mg by mouth daily as needed. 01/23/2016 Active NON FORMULARY Take 20 mg by mouth daily as needed. EQUATE ALLERGY Active budesonide-form oterol 80-4.5 MCG/ACT inhaler Inhale 2 puffs into the lungs 2 (two) times daily as needed. Active loratadine 10 MG tablet Take 10 mg by mouth daily. Active omeprazole 40 MG capsule Take 40 mg by mouth daily. Active hydrocodone-darian taminophen 5-325 MG tabletIndicatio ns:Acute Pain < 7 Day Supply Take 1-2 tablets by mouth every 6 (six) hours as needed for Pain. Indications: Acute Pain < 7 Day Supply 20 tablet 02/03/2019 Active Active Problems Problem Noted Date Diagnosed Date Cigarette nicotine dependenc e with nicotine-induced disorder 02/01/2019 Chronic obstructive pulmonar y disease, unspecified COPD type ([facility]) 02/01/2019 MONICA (obstructive sleep apnea) 02/01/2019 Environmental and seasonal allergies 02/01/2019 Excessive daytime sleepiness 02/01/2019 Physical deconditioning 02/01/2019 Malignant neoplasm of upper- outer quadrant of right female breast ([facility]) 08/06/2018 Abnormal blood testing 02/01/2016 Arthritis 01/23/2016 Depression 01/23/2016 Dyslipidemia 01/23/2016 Gastroesophageal reflux dise ase, esophagitis presence not specified 01/23/2016 Hypertension 01/23/2016 Insomnia 01/23/2016 Memory loss 01/23/2016 Nausea 01/23/2016 Seizures ([facility]) 01/23/2016 Skin rash 01/23/2016 Vertigo 01/23/2016 Resolved Problems Problem Noted Date Diagnosed Date Resolved Date Encounter for preventive health examination 01/23/2016 12/03/2019 Family History Medical History Relation Comments Heart Disease Father Diabetes Maternal Aunt Cancer Paternal Uncle 3 paternal uncle s of cancer Cancer Sister hpv Relation Status Comments Daughter Alive Father (Age 67) OF HEART ATTACK Maternal Aunt Mother Alive Paternal Uncle Sister Alive Son Alive Social History Tobacco Use Types Packs/Day Years Used Date Smoking Tobacco: Every Day Cigarettes 1.5 46 Smokeless Tobacco: Never Alcohol Use Standard Drinks/Week Comments No 0 (1 standard drink = 0.6 oz pur e alcohol) AUDIT-C Answer Date Recorded Frequency of Alcohol Consumption Never 09/16/2018 Average Number of Drinks Not on file 019 Frequency of Binge Drinking Not on file 08/23 Comments No Sex and Gender Information Value Date Recorded Sex Assigned at Not on file Legal Sex Female 9:26 PM CDT Gender Identity Not on file Sexual Orientation Not on file Last Filed Vital Signs Vital Sign Reading Time Taken Comments Blood Pressure 143/90 02/03/2019 1:15 PM UNIVERSAL BANKER Pulse 77 02/03/2019 1:15 PM UNIVERSAL BANKER Temperature 36.7 ??C (98.1 ??F) 02/03/2019 1:15 PM CS T Respiratory Rate 18 02/03/2019 1:15 PM UNIVERSAL BANKER Oxygen Saturation 95% 02/03/2019 1:15 PM UNIVERSAL BANKER Inhaled Oxygen Concentration - - Weight 116.2 kg (256 lb 2.8 oz) 02/03/2019 7:38 AM UNIVERSAL BANKER Height 160 cm (5' 3 ) 02/03/2019 7:38 AM UNIVERSAL BANKER Body Mass Index 45.38 02/03/2019 7:38 AM UNIVERSAL BANKER Plan of Treatment Health Maintenance Due Date Last Done Comments Colorectal Cancer Screening Colonoscopy (10 Years) 1955 Pneumococcal Vaccine: 65+ Ye ars (1 of 2 - PCV) 12/03/1961 Hepatitis C 12/03/1973 DTaP, Tdap and Td Vaccines ( 1 - Tdap) 12/03/1974 Zoster Vaccines (1 of 2) 12/03/2005 RSV Immunization or 60+ Years (1 - Risk 60-74 years 1-dose series) 2015 Annual Medicare Wellness Visit 12/03/2020 Dexa Scan (General) 12/03/2020 Mammogram Screening 02/03/2021 02/03/2019 COVID-19 Vaccine ( - 2023-2 5 season) 2023 Influenza Adult (#1) 2023 01/11/2002 Meningococcal B Vaccine Aged Out No l onger eligible based on patient's age to complete this topic Meningococcal Vaccine Aged Out No annie dennis eligible based on patient's age to complete this topic RSV Immunizations Under 20 Months Aged Out No longer eligible based on patient's age to complete this topic Procedures Procedure Name Priority Date/Time Associated Diagnosis Comments MG DIAGNOSTIC RT DIGI Routine 02/03/2019 9:22 AM UNIVERSAL BANKER Breast CA ([facility]) from Last 3 Months or Most Recently Relevant to Health Maintenance Results * MG DIAGNOSTIC RT DIGI (02/03/2019 9:22 AM UNIVERSAL BANKER) Anatomical Region Laterality Modality Breast Right Mammography 02/03/2019 9:45 AM UNIVERSAL BANKER Impressions 02/03/2019 9:48 AM UNIVERSAL BANKER ===== IMPRESSION: ===== 1. ??Satisfactory positioning of the hook wire with the needle posterior and hook wire distal to the mass and clip. Assessment: ACR BI-RADS Category 6 - Known biopsy proven malignancy. Recommendation: 1: Awaiting surgical specimen. Comments: ? Narrative 02/03/2019 9:48 AM UNIVERSAL BANKER Examination: Digital right diagnostic mammogram Exam Date/Time: 02/03/2019 9:22 AM Reason For Exam: ??POST ? Post wire localization. Comparison: Ultrasound February 03, 2019, prior mammogram July 27, 2018 Technique: CC and lateral view of the right breast was performed. Tissue density: The breast tissue contains scattered fibroglandular densities. Findings: The hook wire is present within the patient's right breast. This requires present posterior to the mass lesion. Wire has been deployed and is distal to the clip on both CC as well as true lateral view. us Tunde Benavides MD MAMMO Final Result from Last 3 Months or Most Recently Relevant to Health Maintenance Insurance [facility] Care Teams Audio Visual Collections Coordinator Relationship Specialty Start Date End Date Syd Nj MD [address] [place], [place] [id number] PCP - General FAMILY PRACTICE 09/14/18 Tunde Benavides MD [address] [place] [address] Surgeon SURGERY 09/16/18 Jovan Lowery MD [address] [place], [place] [id number] ONCOLOGY 09/16/18 Guadalupe Sorenson MD [address] [place] [address] [phone] Referring Physician RADIATION ONCOLOGY 09/16/18 Tunde Benavides MD [address] [place] [address] Surgeon SURGERY 01/27/19 Ollie Cote MD [address] [place] [address] [phone] CARDIOVASCULAR DISEASE 01/27/19 River Braun MD [address] [place] [id number] NEUROLOGY 01/27/19
--- OUTSIDE RECORDS SUMMARY | 2024-04-19 11:15 | XMS_ITS | Encounter Summary ---
Author Organization [facility] Address [address] [place] [address] Phone Care Team Providers Care Professional Healthcare Representative Name Role Phone Syd Nj MD Primary Care Provider [phone] Tunde Benavides MD Unavailable [phone] Encounter Details Date Type Department Care Team (Late st Contact Info) Description 08/14/2018 Documentation [facility] Oncology [address] [place] [id number] Rosana Michael, MAURICE Social History Tobacco Use Types Packs/Day Years Used Date Smoking Tobacco: Every Day Cigarettes 1 51.1 Started: 1973 Smokeless Tobacco: Never Alcohol Use Standard Drinks/Week Comments Not Currently 0 (1 standard drink = 0.6 oz pur e alcohol) Comments Unknown Sex and Gender Information Value Date Recorded Sex Assigned at Not on file Legal Sex Female 3:06 AM RADIOSONDE OPERATOR Gender Identity Not on file Sexual Orientation Not on file documented as of this encounter Plan of Treatment Not on file documented as of this encounter Visit Diagnoses Not on filedocumented in this encounter Care Teams Professional Healthcare Representative Relationship Specialty Start Date End Date Syd Nj MD PCP - General Family Medicine 08/11/18 Tunde Benavides MD Referring Physician Surgery 03/15/19 documented as of this encounter
--- OUTSIDE RECORDS SUMMARY | 2024-04-19 11:15 | XMS_ITS | Clinical Summary ---
Author Organization [facility] Address [address] [place] [address] Care Team Providers Care Commercial Loan Assistant Name Role Phone Syd Nj MD Primary Care Provider [phone] [facility] Unavailable [phone] Allergies Active Allergy Reactions Criticality Noted Date Comments Varenicline Hallucinations Medium 08/11/2018 Medications losartan (COZAAR) 100 mg tablet 06/18/2018 Active escitalopram (LEXAPRO) 20 mg tablet Take 20 mg by mouth daily 06/18/2018 Active propranolol (INDERAL) 40 mg tablet Take 40 mg by mouth 2 (two) times a day 06/18/2018 Active acyclovir (ZOVIRAX) 400 mg tablet Take 400 mg by mouth every 4 (four) hours while awake 06/18/2018 Active meloxicam (MOBIC) 15 mg tablet 06/18/2018 Active zonisamide (ZONEGRAN) 50 mg capsule Take 50 mg by mouth daily 06/18/2018 Active ALPRAZolam (XANAX) 1 mg tablet TK 1 T PO TID 0 07/16/2018 Activ e oxyCODONE-aceta minophen (PERCOCET) 5-325 mg per tablet TK 1 T PO Q 8 H PRN 0 07/16/2018 Active prochlorperazin e (COMPAZINE) 10 mg tablet 05/18/2018 Active amLODIPine (NORVASC) 5 mg tablet Take 5 mg by mouth daily Active simvastatin (ZOCOR) 80 mg tablet Take 80 mg by mouth nightly Active omeprazole (PriLOSEC) 40 mg capsule Take 40 mg by mouth daily Active loperamide (IMODIUM) 2 mg capsule Take 2 mg by mouth 4 (four) times a day as needed for diarrhea Active loratadine (CLARITIN) 10 mg tablet Take 10 mg by mouth daily Active Active Problems Problem Noted Date Diagnosed Date Preoperative cardiovascular examination 12/25/19 19 SIMENTAL (dyspnea on exertion) 12/24/2018 COPD (chronic obstructive pulmonary disease) 05/2018 Tobacco abuse 12/24/2018 HTN (hypertension), benign 12/24/2018 MONICA (obstructive sleep apnea) 12/24/2018 Dyslipidemia 12/24/2018 Localized edema 12/24/2018 Morbid obesity with BMI of 40.0-44.9, adult 05/2018 Malignant neoplasm of upper- outer quadrant of right breast in female, estrogen receptor positive 08/06/2018 Cancer Staging:Clinical: Unsigned Pathologic stage from 03/03/2019:Stage IA(pT1b, pN0(sn), cM0, G2, ER+, AR+, HER2-) - Signed by Jovan Lowery MD on 03/03/2019 Encounters Date Type Department Care Team Description 02/18/2024 Orders Only [facility] Cardiology [address] [place] [address] Yolanda Barnhart NP from Last 3 Months Immunizations Name Administration Dates Next Due Influenza, Unspecified 01/11/2002 Surgical History Surgery Date Site/Laterality Comments CHOLECYSTECTOMY HYSTERECTOMY COLONOSCOPY BREAST BIOPSY BREAST LUMPECTOMY BLADDER REPAIR Medical History Medical History Date Comments Breast cancer (HCC) Anxiety Arthritis Asthma Bronchitis Depression COPD (chronic obstructive pulmonary disease) (HC C) Hypertension Hypercholesteremia Chronic kidney disease Stroke (HCC) Seizures (HCC) Epilepsy (HCC) Emphysema lung (HCC) Noon functioning bladder Herpes Emphysema lung (HCC) Family History Medical History Relation Name Comments Heart attack Father Cervical cancer Sister Relation Name Status Comments Father (Age 67) Mother Alive Sister Alive Sister had hpv diagnosed at age 58 Social History Tobacco Use Types Packs/Day Years Used Date Smoking Tobacco: Every Day Cigarettes 1 51.1 Started: 1973 Smokeless Tobacco: Never Tobacco Cessation:Ready to Q uit: No; Counseling Given: Yes Comments:Trying to quit Alcohol Use Standard Drinks/Week Comments Not Currently 0 (1 standard drink = 0.6 oz pur e alcohol) Personal Safety Answer Date Recorded Getting School Help Needed Not on file 05/17 Comments Unknown Sex and Gender Information Value Date Recorded Sex Assigned at Not on file Legal Sex Female 3:06 AM CNC MILL OPERATOR Gender Identity Not on file Sexual Orientation Not on file Obstetrics History Last Filed Vital Signs Vital Sign Reading Time Taken Comments Blood Pressure 144/66 03/03/2019 8:19 AM CNC MILL OPERATOR Pulse 69 03/03/2019 8:19 AM CNC MILL OPERATOR Temperature 37.1 ??C (98.7 ??F) 03/03/2019 8:19 AM CS T Respiratory Rate 16 03/03/2019 8:19 AM CNC MILL OPERATOR Oxygen Saturation 95% 03/03/2019 8:19 AM CNC MILL OPERATOR Inhaled Oxygen Concentration - - Weight 123.9 kg (273 lb 3.2 oz) 03/03/2019 8:19 AM CNC MILL OPERATOR Height 160 cm (5' 2.99 ) 03/03/2019 8:19 AM CNC MILL OPERATOR Body Mass Index 48.41 03/03/2019 8:19 AM CNC MILL OPERATOR Plan of Treatment Health Maintenance Due Date Last Done Comments Breast Cancer Screening-Mammogram 1955 Colon Cancer Screening-Colonoscopy 1955 Depression Screening 1955 Fall Risk Assessment 1955 Hepatitis C Screening 1955 Osteoporosis Screening-Bone Density Scan 1955 Pneumococcal vaccine 65+ (1 of 2 - PCV) 12/03/1961 DTaP/Tdap/Td Vaccine (1 - Tdap) 12/03/1966 Hepatitis B Screening 12/03/1973 Zoster Vaccine (1 of 2) 12/03/2005 Well Visit 65+ 12/03/2020 Covid-19 Vaccine (3 - season) 2023, 06/06/2020 Influenza Vaccine (#1) 2023 01/11/2018, 2001 Procedures Procedure Name Priority Date/Time Associated Diagnosis Comments CARDIOLOGY DOCUMENT SCAN Routine 024 11:07 AM CDT from Last 3 Months Results * Cardiology Document Scan (01/19/2024 11:07 AM CDT) Anatomical Region Laterality Modality Other Yolanda Barnhart NP CV CARDIAC SERVICES PROCEDUR ES Final Result from Last 3 Months Insurance [place] [id number] [facility] [place] [id number] MEDICARE SOLUTIONS [place] [id number] [facility] [place] [address] MED[employer]ARE SOL[employer] [place] [id number] Care Teams Commercial Loan Assistant Relationship Specialty Start Date End Date Syd Nj MD PCP - General Family Medicine 08/11/18 Tunde Benavides MD Referring Physician Surgery 03/15/19
--- OUTSIDE RECORDS SUMMARY | 2024-04-19 11:15 | XMS_ITS | Referral Summary ---
Author Organization [facility] Address [address] [place] [address] Care Team Providers Care Residential Mortgage Underwriter Name Role Phone Syd Nj MD Primary Care Provider [phone] [facility] [phone] Encounters Date Type Department Care Team Description 02/18/2024 Orders Only [facility] Cardiology [address] [place] [address] Yolanda Barnhart NP from Last 3 Months Allergies Active Allergy Reactions Criticality Noted Date [...] from 03/03/2019:Stage IA(pT1b, pN0(sn), cM0, G2, ER+, GA+, HER2-) - Signed by Jovan Lowery MD on 03/03/2019 Immunizations Name Administration Dates Next Due Influenza, Unspecified 01/11/2002 Social History Tobacco Use Types Packs/Day Years [...] on file Legal Sex Female 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 Gender Identity Not on file Sexual Orientation Not on file Last Filed Vital Signs Vital Sign Reading Time Taken Comments Blood Pressure 144/66 03/03/2019 8:19 AM RENOVATION PLANT SUPERVISOR Pulse 69 03/03/2019 8:19 AM RENOVATION PLANT SUPERVISOR Temperature 37.1 ??C (98.7 ??F) 03/03/2019 8:19 AM CS T Respiratory Rate 16 03/03/2019 8:19 AM RENOVATION PLANT SUPERVISOR Oxygen Saturation 95% 03/03/2019 8:19 AM RENOVATION PLANT SUPERVISOR Inhaled Oxygen Concentration - - Weight 123.9 kg (273 lb 3.2 oz) 03/03/2019 8:19 AM RENOVATION PLANT SUPERVISOR Height 160 cm (5' 2.99 ) 03/03/2019 8:19 AM RENOVATION PLANT SUPERVISOR Body Mass Index 48.41 03/03/2019 8:19 AM RENOVATION PLANT SUPERVISOR Plan of Treatment Not on file Procedures Procedure Name Priority Date/Time Associated Diagnosis Comments CARDIOLOGY DOCUMENT SCAN Routine 11:07 AM CDT from Last 3 Months Results * Cardiology Document Scan (01/19/2024 11:07 AM CDT) Anatomical Region Laterality Modality Other Yolanda Barnhart NP CV CARDIAC SERVICES PROCEDUR ES Final Result from Last 3 Months Insurance * Guarantor: Amairani Preciado Account Type Relation to Patient Date of Phone Billing Address Personal/Family Self [phone] [place] [address] MEDICARE SOLUTIONS MEDICARE SOLUTIONS Care Teams Residential Mortgage Underwriter Relationship Specialty Start Date End Date Syd Nj MD PCP - General Family Medicine 08/11/18 Tunde Benavides MD Referring Physician Surgery 03/15/19
--- OUTSIDE RECORDS SUMMARY | 2024-04-19 11:15 | XMS_ITS ---
Author Organization [facility] Address [address] [place] [address] Care Team Providers Care Sports Official Name Role Phone Syd Nj MD Primary Care Provider [phone] [facility] Un[facility] [phone] Active Problems Problem Noted Date Diagnosed Date [...] from 03/03/2019:Stage IA(pT1b, pN0(sn), cM0, G2, ER+, [place]+, HER2-) - Signed by Jovan Lowery MD on 03/03/2019 Current Oncology Plans No current plan information found. Past Plans No past plan information found. Radiation Treatments * Plan Last Treated On Elapsed Days Fractions Treated Prescribed Fraction Dose Prescribed Total Dose 10X RT BREAST 05/03/2019 26 10 267 cGy 4,005 cGy Reference Point Last Treated On Elapsed Days Session Dose Total Dose RT BREAST 05/03/2019 26 267 cGy 2,670 cGy
--- OUTSIDE RECORDS SUMMARY | 2024-04-19 11:15 | XMS_ITS | Continuity of Care Document ---
Author Organization [facility] Address [id number] [place] [address] [address] [place] [address] Phone Care Team Providers Care Boilermaker'S Assistant Name Role Phone Jose, Edward Unavailable Unavailable Advance Directives Directive Yes / No Effective Date File Name No Information Encounters Encounter Description Practice Location Reason(s) For Visit Diagnoses Date Provider Providers Copied on Encounter [facility], [address], [place], [place], [id number], [place] tel:[phone] [facility] No Information Mar-2 4-200 4 Doisy Edward. [address] , [address], [place], [address], [place]. tel:[phone] Family History Family Member Type Diagnosis Age At Onset No Information Payers Payer name Insurance type Covered republican ID Authoriza tion(s) [facility] Commercial CI [id number] Social History Type Description Quantity Date Captured [...]
[2024-04-19 11:19] LABS: Alanine Aminotransferase 20 U/L (6-35); Albumin Level 4.6 g/dL (3.5-5.1); Alkaline Phosphatase 81 U/L (38-126); Anion Gap 10 mmol/L (4-12); Aspartate Amino Transferase 28 U/L (14-36); Bilirubin,Total 0.7 mg/dL (0.2-1.3); Blood Urea Nitrogen 50 mg/dL (7-17); Calcium 9.2 mg/dL (8.4-10.2); Carbon Dioxide 26 mmol/L (22-30); Chloride 99 mmol/L (98-107); Cholesterol 192 mg/dL (0-200); Estimated Glomerular Filt Rate 21; Glucose 102 mg/dL (65-110); HDL Direct 40 mg/dL; Potassium 4.9 mmol/L (3.4-5.0); Sodium 135 mmol/L (137-145); Triglycerides 251 mg/dL (<150)
[2024-04-19 11:31] LABS: LDL Cholesterol Direct 85 mg/dL
[2024-04-19 11:33] LABS: Hemoglobin A1C 5.6 % (<5.7)
[2024-04-19 12:41] LABS: Hepatitis C Virus Antibody Negative (Negative)
== END 2024-04-19 10:15 | disposition home or self-care (01) ==
PROVIDERS: PCP Family Medicine; Visit Provider Family Medicine
DX: E78.5 Hyperlipidemia, unspecified (principal); I10 Essential (primary) hypertension; R73.01 Impaired fasting glucose; Z11.59 Encounter for screening for other viral diseases
CPT/HCPCS: 36415; 80053; 80061; 83036; 85025; 86803

== ENCOUNTER 2024-06-28 14:56 | Emergency (ER) | payer MEDICARE, SELFPAY ==
--- NOTE | ~2024-06-28 | XR_ITS ---
CHEST RADIOGRAPH, PA AND LATERAL CLINICAL HISTORY: SOB . COMPARISON: 01/22/2024 TECHNIQUE: PA and lateral views of the chest. FINDINGS The cardiomediastinal silhouette is unremarkable. The lungs are clear. IMPRESSION: No focal infiltrate or effusion. Reviewed, dictated and finalized at location A.
[2024-06-28 15:27] VITALS: BP 128/90; PULSE 95; RESP 20; TEMP 37.1; O2SAT 96
--- NOTE | 2024-06-28 16:05 | ED_ITS ---
HPI - SOB/Dyspnea General Chief Complaint: Shortness of Breath/Dyspnea <Alisa Brady PA-C - Last Filed: 06/29/24 09:13> Stated Complaint: Shortness of breath/cough x 1 week <Alisa Brady PA-C - Last Filed: 06/29/24 09:13> Time Seen by Provider: 06/28/24 16:05 <Alisa Brady PA-C - Last Filed: 06/29/24 09:13> Focused HPI: This is a 68 year old female that presents to the ER for a cough x 1 week. Reports shortness of breath. She has not seen anyone for this complaint. Reports history of COPD, she is a smoker. Denies chest pain, fevers. GENERAL: Well-appearing, well-nourished, and in no acute distress. HEAD: Normocephalic, atraumatic. CHEST: Clear to auscultation. ?No respiratory distress. HEART: Regular rate and rhythm.? NEURO: ?Alert and oriented x3. Patient screened in triage and initial orders placed.? ?Additional care and disposition to be based upon?diagnostic testing and treatment. <Alisa Brady PA-C - Last Filed: 06/29/24 09:13> Source: patient <Jason Bhardwaj MD - Last Filed: 06/28/24 19:41> Mode of arrival: EMS <Jason Bhardwaj MD - Last Filed: 06/28/24 19:41> Limitations: no limitations <Jason Bhardwaj MD - Last Filed: 06/28/24 19:41> History of Present Illness HPI Narrative: 68-year-old with a history of CAD was brought in from home with the complaints of cough and shortness of breath for past 1 week. She denies any fever or chills. Denies any chest pain. She is not on any home oxygen. <Jason Bhardwaj MD - Last Filed: 06/28/24 19:41> MD elicited complaint: shortness of breath and cough <Jason Bhardwaj MD - Last Filed: 06/28/24 19:41> Onset (ago): week(s) (1) <Jason Bhardwaj MD - Last Filed: 06/28/24 19:41> Timing: constant <Jason Bhardwaj MD - Last Filed: 06/28/24 19:41> Severity: mild <Jason Bhardwaj MD - Last Filed: 06/28/24 19:41> Exacerbating factors: nothing <Jason Bhardwaj MD - Last Filed: 06/28/24 19:41> Relieving factors: nothing <Jason Bhardwaj MD - Last Filed: 06/28/24 19:41> Known history of: congestive heart failure <Jason Bhardwaj MD - Last Filed: 06/28/24 19:41> Associated symptoms: denies other symptoms <Jason Bhardwaj MD - Last Filed: 06/28/24 19:41> Related Data Home Medications: Home Medications ?Medication ?Instructions ?Recorded ?Confirmed ?Last Taken ?Type anastrozole 1 mg tablet 1 mg PO DAILY 10/12/19 01/16/24 Unknown History losartan 100 mg tablet 100 mg PO DAILY 10/12/19 01/16/24 Unknown History meloxicam 15 mg tablet 15 mg PO DAILY 10/12/19 01/16/24 Unknown History propranolol 40 mg tablet 40 mg PO BID 10/12/19 01/16/24 Unknown History zonisamide 50 mg capsule 50 mg PO DAILY 10/12/19 01/16/24 Unknown History alprazolam 2 mg tablet 2 mg PO TID 05/27/22 01/16/24 Unknown History escitalopram oxalate 20 mg tablet 20 mg PO BID 05/27/22 01/16/24 Unknown History oxycodone-acetaminophen 7.5 mg-325 1 tablet PO QID PRN Pain (Scale 05/27/22 01/16/24 Unknown History mg tablet Score 7-10) atorvastatin 20 mg tablet 20 mg PO DAILY 01/16/24 01/16/24 Unknown History <Alisa Brady PA-C - Last Filed: 06/29/24 09:13> Allergies/Adverse Reactions: Allergies Allergy/AdvReac Type Severity Reaction Status Date / Time bupropion (From Wellbutrin) AdvReac Intermediate Vomiting Verified 06/28/24 17:26 aspirin AdvReac Gastrointestinal Verified 06/28/24 17:26 Upset/Nauseated varenicline (From Chantix) AdvReac Hallucinati Verified 06/28/24 17:26 ng <Alisa Brady PA-C - Last Filed: 06/29/24 09:13> Review of Systems 2 Review of Systems: All systems reviewed & are unremarkable except as noted in HPI and below <Jason Bhardwaj MD - Last Filed: 06/28/24 19:41> Constitutional: Constitutional: Reports no additional constitutional complaints <Jason Bhardwaj MD - Last Filed: 06/28/24 19:41> Eyes: Eyes: Reports no additional eye complaints <Jason Bhardwaj MD - Last Filed: 06/28/24 19:41> ENT: Reports system reviewed and no additional complaints, except as documented <Jason Bhardwaj MD - Last Filed: 06/28/24 19:41> Cardiovascular: Cardiovascular: Reports no additional cardiovascular complaints <Jason Bhardwaj MD - Last Filed: 06/28/24 19:41> Respiratory: Respiratory: Reports as per HPI <Jason Bhardwaj MD - Last Filed: 06/28/24 19:41> Gastrointestinal: Gastrointestinal: Reports no additional gastrointestinal complaints <Jason Bhardwaj MD - Last Filed: 06/28/24 19:41> Musculoskeletal: Musculoskeletal: Reports no additional musculoskeletal complaints <Jaosn Bhardwaj MD - Last Filed: 06/28/24 19:41> Integumentary/Breasts: Skin/Breast: Reports system reviewed and no additional complaints, except as docu <Jason Bhardwaj MD - Last Filed: 06/28/24 19:41> Neurologic: Reports system reviewed and no additional complaints, except as documented <Jason Bhardwaj MD - Last Filed: 06/28/24 19:41> Psychiatric: Psychiatric: Reports no additional psychiatric complaints < Jason Bhardwaj MD - Last Filed: 06/28/24 19:41> PMFSH Past Medical History Medical History: Medical History Hypertensive heart disease Hyperlipidemia Breast cancer 2012 and 2018, both right-sided, tx'd w/ lumphectomy and one w/ radiation tx. Saw Dr. Strong? Depression with anxiety Seizure Gastroesophageal reflux disease Chronic obstructive pulmonary disease Hypertension Tobacco dependence Seasonal allergies Neuropathy Back pain Other chronic pain Generalized anxiety disorder Arm paresthesia, left <DARLINE Gomez Last Filed: 06/29/24 09:13> Surgical History Surgical History: Surgical History History of lumpectomy of right breast History of hysterectomy History of discectomy History of cholecystectomy H/O: hysterectomy S/P cholecystectomy <DARLINE Gomez Last Filed: 06/29/24 09:13> Family History Family History: Family History Mother Patient's mother is in good health Sibling Patient's sister is in good health Patient's brother is in good health Father Family history of malignant neoplasm Patient's father is <DARLINE Gomez Last Filed: 06/29/24 09:13> Social History Social History: Social History Social History: , lives with her son, estranged from her daughter. 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 Surrogate medical decision maker: Canelo Leal, brother. Code status: Full code. Smoking packs per day: 1.5 Smoking cigarettes per day: 30.0 Years smoked: 50 Smoking pack-years: 75.00 Smoking status: Current every day smoker Additional smoking assessment comments: smoking since 16 yo Do You Feel Safe in your Home?: Yes Lack of Transportation: No Lack of Food: Never True Current Housing: I Have Housing Concerned About Future Housing: No Difficulty Paying Gas/Electric Bills: No Difficulty Paying for Meds: No Currently Unemployed: No Education: High School Diploma/GED Difficulty w/ Childcare or Family Care: No Living arrangements: with family Additional living arrangements comments: Lives in an apartment in [place]. Spiritual care concerns: No <DARLINE Gomez Last Filed: 06/29/24 09:13> Exam 2 Narrative: GENERAL: Well-appearing, well-nourished, and in no acute distress. HEAD: Normocephalic, atraumatic. EYES: PERRLA and EOMI. NECK: Supple. CHEST: Clear to auscultation. No respiratory distress. HEART: Regular rate and rhythm. No murmur heard. Normal peripheral pulses. ABDOMEN: Soft, nontender, nondistended, normal active bowel sounds. EXTREMITIES: Normal range of motion. No edema. SKIN: Warm, dry, no rash. NEURO: No focal deficits. Alert and oriented x3. PSYCH: Normal mood and affect. <Jason Bhardwaj MD - Last Filed: 06/28/24 19:41> Course Course Emergency Course: Patient comfortably resting on the bed in no discomfort with SpO2 93% on room air. And her about the lab work, EKG findings as the symptoms are being ongoing for 1 week no indication of trauma starting Tamiflu at this time I advised to continue home medications, follow with the primary doctor <Jason Bhardwaj MD - Last Filed: 06/28/24 19:41> Vital Signs Vital signs: Vital Signs Temperature 98.8 F 06/28/24 15:27 Pulse Rate 95 06/28/24 15:27 Respiratory Rate 20 06/28/24 15:27 Blood Pressure 128/90 06/28/24 15:27 Pulse Oximetry 96 06/28/24 15:27 Oxygen Delivery Room Air 06/28/24 15:27 Temperature 98.8 F 06/28/24 15:27 Pulse Rate 97 06/28/24 19:30 Respiratory Rate 17 06/28/24 19:30 Blood Pressure 161/95 H 06/28/24 19:30 Pulse Oximetry 98 06/28/24 19:30 Oxygen Delivery Room Air 06/28/24 17:19 <Alisa Brady PA-C - Last Filed: 06/29/24 09:13> Vital Signs Temperature 98.8 F 06/28/24 15:27 Pulse Rate 95 06/28/24 15:27 Respiratory Rate 20 06/28/24 15:27 Blood Pressure 128/90 06/28/24 15:27 Pulse Oximetry 96 06/28/24 15:27 Oxygen Delivery Room Air 06/28/24 15:27 Temperature 98.8 F 06/28/24 15:27 Pulse Rate 97 06/28/24 19:30 Respiratory Rate 17 06/28/24 19:30 Blood Pressure 161/95 H 06/28/24 19:30 Pulse Oximetry 98 06/28/24 19:30 Oxygen Delivery Room Air 06/28/24 17:19 <Jason Bhardwaj MD - Last Filed: 06/28/24 19:41> MDM - SOB/Dyspnea Differential Diagnosis Differential diagnosis: Likely acute exacerbation of chronic obstructive airways disease, congestive heart failure, community acquired pneumonia and asthma with exacerbation <Jason Bhardwaj MD - Last Filed: 06/28/24 19:41> Medical Records Attestation: I reviewed the patient's medical records. <Jason Bhardwaj MD - Last Filed: 06/28/24 19:41> Lab Data Attestation: I reviewed the patient's lab results. <Jason Bhardwaj MD - Last Filed: 06/28/24 19:41> Result diagrams: 06/28/24 17:36 06/28/24 17:37 <Alisa Brady PA-C - Last Filed: 06/29/24 09:13> Labs: Lab Results 06/28/24 06/28/24 Range/Units 17:36 17:37 WBC 4.9 (4.5-10.0) K/mm3 RBC 4.68 (4.2-5.4) M/mm3 Hgb 15.2 H (12.0-15.0) g/dL Hct 47.9 H (37.0-47.0) % MCV 102.4 H (80-100) fl MCH 32.5 (26-34) pg MCHC 31.7 L (32-36) g/dl RDW 12.3 (11.5-14.5) % Plt Count 224 (150-375) k/mm3 MPV 10.1 (7.4-10.4) fl Immature Gran % (Auto) 0.2 (0-0.5) % Neut % (Auto) 56.6 (45.5-73.1) % Lymph % (Auto) 32.0 (18.3-44.2) % [place] % (Auto) 9.8 H (2.6-8.5) % Eos % (Auto) 0.8 (0-4.4) % Baso % (Auto) 0.6 (0.2-1.2) % Lymph # (Auto) 1.56 (0.9-3.2) K/mm3 [place] # (Auto) 0.5 (0.1-0.6) K/mm3 Eos # (Auto) 0.0 (0-0.3) K/mm3 Baso # (Auto) 0.0 (0.0-0.1) K/mm3 Abs Immat Gran (auto) 0.01 (0.00-0.031) K/mm3 Absolute Neuts (auto) 2.8 (1.3-6.7) K/mm3 Absolute Nucleated RBC 0.000 (0.0-0.012) K/mm3 Nucleated RBC % 0.0 (0.0-0.2) % PT 13.5 (11.1-14.7) Seconds INR 1.0 APTT 25.9 (22.3-36.8) Seconds Sodium 142 (137-145) mmol/L Potassium 4.3 (3.4-5.0) mmol/L Chloride 107 (98-107) mmol/L Carbon Dioxide 26 (22-30) mmol/L Anion Gap 9 (4-12) mmol/L BUN 19 H D (7-17) mg/dL Creatinine 1.44 H (0.7-1.0) mg/dL Estim Creat Clear Calc 32 ml/min Estimated GFR 36 L (59 - ) Glucose 107 (65-110) mg/dL Calcium 9.4 (8.4-10.2) mg/dL Total Bilirubin 1.0 (0.2-1.3) mg/dL AST 28 (14-36) U/L ALT 15 (6-35) U/L Alkaline Phosphatase 103 (38-126) U/L NT-Pro-B Natriuret Pep 1760 H (19.9-100) pg/mL Total Protein 8.0 (6.3-8.2) g/dL Albumin 4.5 (3.5-5.1) g/dL Influenza A (RT-PCR) Positive A (Negative) Influenza B (RT-PCR) Negative (Negative) RSV (RT-PCR) Negative (Negative) SARS-CoV-2 RNA (RT-PCR) Negative (Negative) <Alisa Brady PA-C - Last Filed: 06/29/24 09:13> Lab Results 06/28/24 06/28/24 Range/Units 17:36 17:37 WBC 4.9 (4.5-10.0) K/mm3 RBC 4.68 (4.2-5.4) M/mm3 Hgb 15.2 H (12.0-15.0) g/dL Hct 47.9 H (37.0-47.0) % MCV 102.4 H (80-100) fl MCH 32.5 (26-34) pg MCHC 31.7 L (32-36) g/dl RDW 12.3 (11.5-14.5) % Plt Count 224 (150-375) k/mm3 MPV 10.1 (7.4-10.4) fl Immature Gran % (Auto) 0.2 (0-0.5) % Neut % (Auto) 56.6 (45.5-73.1) % Lymph % (Auto) 32.0 (18.3-44.2) % [place] % (Auto) 9.8 H (2.6-8.5) % Eos % (Auto) 0.8 (0-4.4) % Baso % (Auto) 0.6 (0.2-1.2) % Lymph # (Auto) 1.56 (0.9-3.2) K/mm3 [place] # (Auto) 0.5 (0.1-0.6) K/mm3 Eos # (Auto) 0.0 (0-0.3) K/mm3 Baso # (Auto) 0.0 (0.0-0.1) K/mm3 Abs Immat Gran (auto) 0.01 (0.00-0.031) K/mm3 Absolute Neuts (auto) 2.8 (1.3-6.7) K/mm3 Absolute Nucleated RBC 0.000 (0.0-0.012) K/mm3 Nucleated RBC % 0.0 (0.0-0.2) % PT 13.5 (11.1-14.7) Seconds INR 1.0 APTT 25.9 (22.3-36.8) Seconds Sodium 142 (137-145) mmol/L Potassium 4.3 (3.4-5.0) mmol/L Chloride 107 (98-107) mmol/L Carbon Dioxide 26 (22-30) mmol/L Anion Gap 9 (4-12) mmol/L BUN 19 H D (7-17) mg/dL Creatinine 1.44 H (0.7-1.0) mg/dL Estim Creat Clear Calc 32 ml/min Estimated GFR 36 L (59 - ) Glucose 107 (65-110) mg/dL Calcium 9.4 (8.4-10.2) mg/dL Total Bilirubin 1.0 (0.2-1.3) mg/dL AST 28 (14-36) U/L ALT 15 (6-35) U/L Alkaline Phosphatase 103 (38-126) U/L NT-Pro-B Natriuret Pep 1760 H (19.9-100) pg/mL Total Protein 8.0 (6.3-8.2) g/dL Albumin 4.5 (3.5-5.1) g/dL Influenza A (RT-PCR) Positive A (Negative) Influenza B (RT-PCR) Negative (Negative) RSV (RT-PCR) Negative (Negative) SARS-CoV-2 RNA (RT-PCR) Negative (Negative) <Jason Bhardwaj MD - Last Filed: 06/28/24 19:41> Imaging Data Radiologist's impression: ITS Impressions Chest X-Ray 06/28/24 17:29 IMPRESSION: No focal infiltrate or effusion. <Jason Bhardwaj MD - Last Filed: 06/28/24 19:41> ECG Data EKG #1: ECG completion date: 06/28/24 <Jason Bhardwaj MD - Last Filed: 06/28/24 19:41> ECG completion time: 18:09 <Jason Bhardwaj MD - Last Filed: 06/28/24 19:41> EKG Interpretation: normal rate (82), sinus rhythm, no ectopy, no ST changes and normal QRS <Jason Bhardwaj MD - Last Filed: 06/28/24 19:41> Critical Care Time Critical Care Time Critical Care Time: No <Alisa Brady PA-C - Last Filed: 06/29/24 09:13> Discharge Plan Discharge Clinical Impression: Influenza A, Breath shortness <Alisa Brady PA-C - Last Filed: 06/29/24 09:13> Patient Disposition: Home <Alisa Brady PA-C - Last Filed: 06/29/24 09:13> Condition: Stable <Alisa Brady PA-C - Last Filed: 06/29/24 09:13> Instructions: Antibiotic Form, Influenza (ED) <Alisa Brady PA-C - Last Filed: 06/29/24 09:13> Additional Instructions: Continue home medications, follow-up with your primary doctor if symptoms not improving 1 week. <Alisa Brady PA-C - Last Filed: 06/29/24 09:13> Patient Language: Kazakh <Alisa Brady PA-C - Last Filed: 06/29/24 09:13> Prescriptions: No Action anastrozole 1 mg tablet 1 mg PO DAILY meloxicam 15 mg tablet 15 mg PO DAILY propranolol 40 mg tablet 40 mg PO BID losartan 100 mg tablet 100 mg PO DAILY zonisamide 50 mg capsule 50 mg PO DAILY escitalopram oxalate 20 mg tablet 20 mg PO BID alprazolam 2 mg tablet 2 mg PO TID oxycodone-acetaminophen 7.5-325 mg tablet 1 tablet PO QID PRN (Reason: Pain (Scale Score 7-10)) atorvastatin 20 mg tablet 20 mg PO DAILY furosemide 40 mg Tablet 40 mg PO DAILY Qty: 30 0RF amlodipine [Norvasc] 5 mg Tablet 5 mg PO HS Qty: 30 0RF potassium chloride [K-Tab] 20 mEq Tablet Extended Release 20 meq PO DAILY Qty: 30 0RF <Alisa Brady PA-C - Last Filed: 06/29/24 09:13> Follow-up/Referrals: Syd Nj MD [Primary Care Provider] - <Alisa Brady PA-C - Last Filed: 06/29/24 09:13> Time of Disposition: 19:40 <Alisa Brady PA-C - Last Filed: 06/29/24 09:13> 19:40 <Jason Bhardwaj MD - Last Filed: 06/28/24 19:41>
--- NOTE | 2024-06-28 16:09 | ECG_ITS ---
Test Date: 2024-06-28 18:09:51 Measurements Intervals [place] Rate: 82 P: 74 ND: 137 QRS: 64 QRSD: 88 T: 60 QT: 410 QTc: 481 Interpretive Statements SINUS RHYTHM ST ABNORMALITY IN ANTEROLAT/INF LEADS- CONSIDER ISCHEMIA BASELINE ARTIFACT- I, II, III, AVR, AVL, AVF, V1-V6 ABNORMAL ECG Compared to ECG 01/16/2024 12:18:41 ST abnormality now present Possible ischemia now present Electronically Signed On 06-28-2024 19:32:09 CDT by Richard Arnold D.O.
[2024-06-28] MEDS: IPRATROPIUM 0.5 MG/ALBUTEROL SULFATE 2.5 MG AMPUL.NEB 3 ML INHALATION (16:44)
[2024-06-28 16:45] VITALS: PULSE 104; RESP 20
--- NOTE | 2024-06-28 16:50 | PCRCNOTE ---
Pt. does not have a room yet; Pt. taken back to ED 18 for the tx then back to the waiting room.
[2024-06-28 16:55] VITALS: PULSE 96; RESP 20
--- OUTSIDE RECORDS SUMMARY | 2024-06-28 17:08 | XMS_ITS | Clinical Summary ---
Author Organization [facility] Address [address] [place] [id number] Care Team Providers Care Material Liaison Name Role Phone Syd Nj MD Primary Care Provider [phone] [facility] Unavailable [phone] Allergies Active Allergy Reactions Criticality Noted [...] Morbid obesity with BMI of 40.0-44.9, adult 1005/2018 Malignant neoplasm of upper- outer quadrant of right breast in female, estrogen receptor positive 08/06/2018 Cancer Staging:Clinical: Unsigned Pathologic stage from 03/03/2019:Stage IA(pT1b, pN0(sn), cM0, G2, ER+, UT+, HER2-) - Signed by Jovan Lowery MD on 03/03/2019 Immunizations Immunization Administration Dates Next Due Influenza, Unspecified 01/11/2002 [...] Date Smoking Tobacco: Every Day Cigarettes 1 51.3 Started: 1973 Smokeless Tobacco: Never Tobacco Cessation:Ready [...] on file 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 Gender Identity Not on file Sexual Orientation Not on file Obstetrics History Last Filed Vital Signs Vital Sign Reading Time Taken Comments Blood Pressure 144/66 03/03/2019 8:19 AM TRIMMER LOADER Pulse 69 03/03/2019 8:19 AM TRIMMER LOADER Temperature 37.1 C (98.7 F) 03/03/2019 8:19 AM TRIMMER LOADER Respiratory Rate 16 03/03/2019 8:19 AM TRIMMER LOADER Oxygen Saturation 95% 03/03/2019 8:19 AM TRIMMER LOADER Inhaled Oxygen Concentration - - Weight 123.9 kg (273 lb 3.2 oz) 03/03/2019 8:19 AM TRIMMER LOADER Height 160 cm (5' 2.99 ) 03/03/2019 8:19 AM TRIMMER LOADER Body Mass Index 48.41 03/03/2019 8:19 AM TRIMMER LOADER Plan of Treatment Health Maintenance Due Date Last Done Comments Breast Cancer Screening-Mammogram 1955 Colon Cancer Screening-Colonoscopy 1955 Depression Screening 1955 Fall Risk Assessment 1955 Hepatitis C Screening 1955 Osteoporosis Screening-Bone Density Scan 1955 DTaP/Tdap/Td Vaccine (1 - Tdap) 12/03/1966 Hepatitis B Screening 12/03/1973 Pneumococcal vaccine 65+ (1 of 2 - PCV) 12/03/1974 Zoster Vaccine (1 of 2) 12/03/2005 Well Visit 65+ 12/03/2020 Covid-19 Vaccine ( season) 2023, 06/06/2020 Influenza Vaccine (Season Ended) 2024 01/12/20 18, 01/11/2002 Insurance [facility] HMO REF [facility] Address: [id number] [place] [address] MEDICARE ADVANTAGE [facility] Address: [id number] [place] [address] MEDICARE ADVANTAGE [facility] Address: [address] [place] [address] [address] [phone] Care Teams Material Liaison Relationship Specialty Start Date End Date Syd Nj MD PCP - General Family Medicine 08/11/18 Tunde Benavides MD Referring Physician Surgery 03/15/19
--- OUTSIDE RECORDS SUMMARY | 2024-06-28 17:08 | XMS_ITS | Clinical Summary ---
Author Organization [facility] Address [address] [place] [address] Care Team Providers Care Dba Developer Name Role Phone Syd Nj MD Primary Care Provider [phone] [facility], Tunde Rascon MD Unavailable [phone] Jovan Lowery MD Unavailable [phone] Guadalupe Sorenson MD Unavailable [phone] [facility] Un[facility] [phone] Ollie Cote MD Unavailable [phone] River Braun MD Unavailable [phone] Allergies Active Allergy Reactions Criticality Noted [...] obstructive pulmonar y disease, unspecified COPD type ([facility]) 02/01/2019 [place] (obstructive sleep apnea) 02/01/2019 Environmental and seasonal allergies 02/01/2019 Excessive daytime sleepiness 02/01/2019 Physical deconditioning 02/01/2019 Malignant neoplasm of upper- outer quadrant of right female breast ([facility]) 08/06/2018 Abnormal blood testing 02/01/2016 Arthritis 01/23/2016 Depression 01/23/2016 Dyslipidemia 01/23/2016 Gastroesophageal reflux dise ase, esophagitis presence not specified 01/23/2016 Hypertension 01/23/2016 Insomnia 01/23/2016 Memory loss 01/23/2016 Nausea 01/23/2016 Seizures ([facility]) 01/23/2016 Skin rash 01/23/2016 Vertigo 01/23/2016 Resolved [...] Comments Blood Pressure 143/90 02/03/2019 1:15 PM STUDIO DATA ANALYST Pulse 77 02/03/2019 1:15 PM STUDIO DATA ANALYST Temperature 36.7 C (98.1 F) 02/03/2019 1:15 PM STUDIO DATA ANALYST Respiratory Rate 18 02/03/2019 1:15 PM STUDIO DATA ANALYST Oxygen Saturation 95% 02/03/2019 1:15 PM STUDIO DATA ANALYST Inhaled Oxygen Concentration - - Weight 116.2 kg (256 lb 2.8 oz) 02/03/2019 7:38 AM STUDIO DATA ANALYST Height 160 cm (5' 3 ) 02/03/2019 7:38 AM STUDIO DATA ANALYST Body Mass Index 45.38 02/03/2019 7:38 AM STUDIO DATA ANALYST Plan of Treatment Health Maintenance Due Date [...] Vaccine ( - 2023-2 5 season) 2023 Meningococcal B Vaccine Aged Out No l [...] DIAGNOSTIC RT DIGI Routine 02/03/2019 9:22 AM STUDIO DATA ANALYST Breast CA from Last 3 Months or Most Recently Relevant to Health Maintenance Results * MG DIAGNOSTIC RT DIGI (02/03/2019 9:22 AM STUDIO DATA ANALYST) Anatomical Region Laterality Modality Breast Right Mammography 02/03/2019 9:45 AM STUDIO DATA ANALYST Impressions 02/03/2019 9:48 AM STUDIO DATA ANALYST ===== IMPRESSION: ===== 1. Satisfactory positioning of the hook wire with the needle posterior and hook wire distal to the mass and clip. Assessment: ACR BI-RADS Category 6 - Known biopsy proven malignancy. Recommendation: 1: Awaiting surgical specimen. Comments: Narrative 02/03/2019 9:48 AM STUDIO DATA ANALYST Examination: Digital right diagnostic mammogram Exam Date/Time: 02/03/2019 9:22 AM Reason For Exam: POST Post wire localization. Comparison: Ultrasound February 03, [...] CC as well as true lateral view. Tunde Benavides MD MAMMO Final Result from Last 3 Months or Most Recently Relevant to Health Maintenance Insurance [facility] Care Teams Dba Developer Relationship Specialty Start Date End Date Syd Nj MD [address] [place] [address] PCP - General FAMILY PRACTICE 09/14/18 Tunde Benavides MD [address] [place] [address] Surgeon SURGERY 09/16/18 oJvan Lowery MD [address] [place] [address] ONCOLOGY 09/16/18 Guadalupe Sorenson MD [address] [place] [id number] Referring Physician RADIATION ONCOLOGY 09/16/18 Tunde Benavides MD [address] [place] [address] Surgeon SURGERY 01/27/19 Ollie Cote MD [address] [place] [id number] CARDIOVASCULAR DISEASE 01/27/19 River Braun MD [address] [place] [id number] NEUROLOGY 01/27/19
--- OUTSIDE RECORDS SUMMARY | 2024-06-28 17:08 | XMS_ITS | Referral Summary ---
Author Organization [facility] Address [address] [place] [id number] Care Team Providers Care Medical Records Specialist Name Role Phone Syd Nj MD Primary Care Provider [phone] [facility] Un[facility] [phone] Allergies Active Allergy Reactions Criticality Noted [...] from 03/03/2019:Stage IA(pT1b, pN0(sn), cM0, G2, ER+, CA+, HER2-) - Signed by Jovan Lowery MD [...] on file Legal Sex Female 3:06 AM DIRECTOR OF MATERIALS MANAGEMENT Gender Identity Not on file Sexual Orientation Not on file Last Filed Vital Signs Vital Sign Reading Time Taken Comments Blood Pressure 144/66 03/03/2019 8:19 AM DIRECTOR OF MATERIALS MANAGEMENT Pulse 69 03/03/2019 8:19 AM DIRECTOR OF MATERIALS MANAGEMENT Temperature 37.1 C (98.7 F) 03/03/2019 8:19 AM DIRECTOR OF MATERIALS MANAGEMENT Respiratory Rate 16 03/03/2019 8:19 AM DIRECTOR OF MATERIALS MANAGEMENT Oxygen Saturation 95% 03/03/2019 8:19 AM DIRECTOR OF MATERIALS MANAGEMENT Inhaled Oxygen Concentration - - Weight 123.9 kg (273 lb 3.2 oz) 03/03/2019 8:19 AM DIRECTOR OF MATERIALS MANAGEMENT Height 160 cm (5' 2.99 ) 03/03/2019 8:19 AM DIRECTOR OF MATERIALS MANAGEMENT Body Mass Index 48.41 03/03/2019 8:19 AM DIRECTOR OF MATERIALS MANAGEMENT Plan of Treatment Not on file Insurance [employer] MEDICARE ADVANTAGE MEDICARE ADVANTAGE Care Teams Medical Records Specialist Relationship Specialty Start Date End Date Syd Nj MD PCP - General Family Medicine 08/11/18 Tunde Benavides MD Referring Physician Surgery 03/15/19
--- OUTSIDE RECORDS SUMMARY | 2024-06-28 17:08 | XMS_ITS | Continuity of Care Document ---
Author Organization [facility] Address [address] [place] [address] [address] [place] [address] Phone Care Team Providers Care Import Export Manager Name Role Phone Jose, Edward Unavailable Unavailable Advance Directives Directive Yes / No Effective Date File Name No Information Encounters Encounter Description Practice Location Reason(s) For Visit Diagnoses Date Provider Providers Copied on Encounter [facility], [address], [place], [place], [id number], [place] tel:[phone] [facility] (formerly [facility])[3] No Information Mar-2 4-200 4 Doisy Edward. [address] , [address], [place], [address], [place]. tel:[phone] Family History Family Member Type Diagnosis Age At Onset No Information Payers Payer name Insurance type Covered democrat ID Authoriza tion(s) [facility] Commercial CI [id number] Social History Type Description Quantity Date Captured [...]
--- OUTSIDE RECORDS SUMMARY | 2024-06-28 17:08 | XMS_ITS ---
Author Organization [facility] Address [address] [place] [address] Care Team Providers Care Manager Global Name Role Phone Syd Nj MD Primary Care Provider [phone] [facility] Un[facility] [phone] Active Problems Problem Noted Date Diagnosed [...] from 03/03/2019:Stage IA(pT1b, pN0(sn), cM0, G2, ER+, CT+, HER2-) - Signed by Jovan Lowery MD on 03/03/2019 Current Treatment and Therapy Plans No current plan information found. Past Treatment and Therapy Plans No past plan information found. Radiation Treatments * Course C1 RT PRONE BRS 04/07/2019 - 05/03/2019 Treatment Period Energy Fraction Dose Fractions Total Dose Plans Planned 10X RT BREAST 04/07/2019 - 05/03/2019 267 10 / 4,005 Reference Points Delivered RT BREAST 04/07/2019 - 05/03/2019 2,670
--- OUTSIDE RECORDS SUMMARY | 2024-06-28 17:08 | XMS_ITS | Encounter Summary ---
Author Organization [facility] Address [address] [place] [address] Phone Care Team Providers Care Utility Spray Operator Name Role Phone Syd Nj MD Primary Care Provider [phone] Tunde Benavides MD Unavailable [phone] Encounter Details Date Type Department Care Team (Late st Contact Info) Description 08/14/[address] [facility] Oncology [address] [place] [id number] Rosana Michael, MAURICE Social History Tobacco Use Types Packs/Day Years Used Date Smoking Tobacco: Every Day Cigarettes 1 51.3 Started: 1973 Smokeless Tobacco: Never Alcohol Use Standard Drinks/Week Comments Not Currently 0 (1 standard drink = 0.6 oz pur e alcohol) Comments Unknown Sex and Gender Information Value Date Recorded Sex Assigned at Not on file Legal Sex Female 3:06 AM BIO MEDICAL TECHNICIAN Gender Identity Not on file Sexual Orientation Not on file documented as of this encounter Plan of Treatment Not on file documented as of this encounter Visit Diagnoses Not on filedocumented in this encounter Care Teams Utility Spray Operator Relationship Specialty Start Date End Date Syd Nj MD PCP - General Family Medicine 08/11/18 Tunde Benavides MD Referring Physician Surgery 03/15/19 documented as of this encounter
[2024-06-28] MEDS: methylPREDNISolone SOD SUCC 125 MG VIAL IV PUSH (17:22)
[2024-06-28 18:04] LABS: Alanine Aminotransferase 15 U/L (6-35); Albumin Level 4.5 g/dL (3.5-5.1); Alkaline Phosphatase 103 U/L (38-126); Anion Gap 9 mmol/L (4-12); Aspartate Amino Transferase 28 U/L (14-36); Blood Urea Nitrogen 19 mg/dL (7-17); Calcium 9.4 mg/dL (8.4-10.2); Carbon Dioxide 26 mmol/L (22-30); Chloride 107 mmol/L (98-107); Estimated CRCL calculation 32 ml/min; Estimated Glomerular Filt Rate 36; Glucose 107 mg/dL (65-110); Potassium 4.3 mmol/L (3.4-5.0); Sodium 142 mmol/L (137-145)
[2024-06-28 18:05] LABS: Prothrombin Time 13.5 Seconds (11.1-14.7)
[2024-06-28 18:06] LABS: Partial Thromboplastin Time 25.9 Seconds (22.3-36.8)
[2024-06-28 18:12] LABS: NT Pro B Type Natriuretic Pept 1760 pg/mL (19.9-100)
[2024-06-28 18:25] LABS: Influenza A QL RT-PCR Positive (Negative); Influenza B QL RT-PCR Negative (Negative); RSV RNA, RT-PCR Negative (Negative); SARS-CoV-2 RNA PCR Negative (Negative)
--- OUTSIDE RECORDS SUMMARY | 2024-06-28 18:38 | XMS_ITS | Clinical Summary ---
Author Organization [facility] Address [address] [place] [address] Care Team Providers Care Block Piler Name Role Phone Syd Nj MD Primary Care Provider [phone] [facility] [phone] Allergies Active Allergy Reactions Criticality Noted [...] from 03/03/2019:Stage IA(pT1b, pN0(sn), cM0, G2, ER+, [place]+, HER2-) - Signed by Jovan Lowery MD [...] on file Legal Sex Female 3:06 AM VULCANIZER RUBBER PLATE Gender Identity Not on file Sexual Orientation Not on file Obstetrics History Last Filed Vital Signs Vital Sign Reading Time Taken Comments Blood Pressure 144/66 03/03/2019 8:19 AM VULCANIZER RUBBER PLATE Pulse 69 03/03/2019 8:19 AM VULCANIZER RUBBER PLATE Temperature 37.1 C (98.7 F) 03/03/2019 8:19 AM VULCANIZER RUBBER PLATE Respiratory Rate 16 03/03/2019 8:19 AM VULCANIZER RUBBER PLATE Oxygen Saturation 95% 03/03/2019 8:19 AM VULCANIZER RUBBER PLATE Inhaled Oxygen Concentration - - Weight 123.9 kg (273 lb 3.2 oz) 03/03/2019 8:19 AM VULCANIZER RUBBER PLATE Height 160 cm (5' 2.99 ) 03/03/2019 8:19 AM VULCANIZER RUBBER PLATE Body Mass Index 48.41 03/03/2019 8:19 AM VULCANIZER RUBBER PLATE Plan of Treatment Health Maintenance Due Date [...] (Season Ended) 2024 01/12/20 18, 01/11/2002 Insurance [facility] HMO REF MEDICARE ADVANTAGE MEDICARE ADVANTAGE [place] [id number] Care Teams Block Piler Relationship Specialty Start Date End Date Syd Nj MD PCP - General Family Medicine 08/11/18 Tunde Benavides MD Referring Physician Surgery 03/15/19
--- OUTSIDE RECORDS SUMMARY | 2024-06-28 18:38 | XMS_ITS | Continuity of Care Document ---
Author Organization [facility] Address [address] [place] [address] [address] [place] [address] Phone Care Team Providers Care Mine Safety Director Name Role Phone Jose, Edward Unavailable Unavailable Advance Directives Directive Yes / No Effective Date File Name No Information Encounters Encounter Description Practice Location Reason(s) For Visit Diagnoses Date Provider Providers Copied on Encounter [facility], [address], [place], [place], [address], [place] tel:[phone] [facility] No Information Mar-2 4-200 4 Doisy Edward. [address] , [address], [place], [address], [place]. tel:[phone] Family History Family Member Type Diagnosis Age At Onset No Information Payers Payer name Insurance type Covered libertarian ID Authoriza tion(s) [facility] Commercial CI [id number] Social History Type Description Quantity Date Captured [...]
--- OUTSIDE RECORDS SUMMARY | 2024-06-28 18:38 | XMS_ITS | Referral Summary ---
Author Organization [facility] Address [address] [place] [address] Care Team Providers Care Department Manager Name Role Phone Syd Nj MD Primary Care Provider [phone] [facility] [phone] Allergies Active Allergy Reactions Criticality Noted [...] from 03/03/2019:Stage IA(pT1b, pN0(sn), cM0, G2, ER+, [place]+, HER2-) - Signed by Jovan Lowery MD [...] on file Legal Sex Female 3:06 AM OB GYN Gender Identity Not on file Sexual Orientation Not on file Last Filed Vital Signs Vital Sign Reading Time Taken Comments Blood Pressure 144/66 03/03/2019 8:19 AM OB GYN Pulse 69 03/03/2019 8:19 AM OB GYN Temperature 37.1 C (98.7 F) 03/03/2019 8:19 AM OB GYN Respiratory Rate 16 03/03/2019 8:19 AM OB GYN Oxygen Saturation 95% 03/03/2019 8:19 AM OB GYN Inhaled Oxygen Concentration - - Weight 123.9 kg (273 lb 3.2 oz) 03/03/2019 8:19 AM OB GYN Height 160 cm (5' 2.99 ) 03/03/2019 8:19 AM OB GYN Body Mass Index 48.41 03/03/2019 8:19 AM OB GYN Plan of Treatment Not on file Insurance [employer] MEDICARE ADVANTAGE MEDICARE ADVANTAGE Care Teams Department Manager Relationship Specialty Start Date End Date Syd Nj MD PCP - General Family Medicine 08/11/18 Tunde Benavides MD Referring Physician Surgery 03/15/19
--- OUTSIDE RECORDS SUMMARY | 2024-06-28 18:38 | XMS_ITS | Clinical Summary ---
Author Organization [facility] Address [address] [place] [address] Care Team Providers Care Specialty Sales Representative Name Role Phone Syd Nj MD Primary Care Provider [facility], Tunde Rascon MD Unavailable [phone] Jovan Lowery MD Unavailable [phone] Guadalupe Sorenson MD Unavailable [phone] [facility] Unavailable [phone] Ollie Cote MD Unavailable [phone] River Braun MD Unavailable [phone] Allergies Active Allergy Reactions Criticality Noted [...] obstructive pulmonar y disease, unspecified COPD type ([facility]) 02/01/2019 MONICA (obstructive sleep apnea) 02/01/2019 Environmental and seasonal allergies 02/01/2019 Excessive daytime sleepiness 02/01/2019 Physical deconditioning 02/01/2019 Malignant neoplasm of upper- outer quadrant of right female breast ([facility]) 08/06/2018 Abnormal blood testing 02/01/2016 Arthritis 01/23/2016 Depression 01/23/2016 Dyslipidemia 01/23/2016 Gastroesophageal reflux dise ase, esophagitis presence not specified 01/23/2016 Hypertension 01/23/2016 Insomnia 01/23/2016 Memory loss 01/23/2016 Nausea 01/23/2016 Seizures ([facility]) 01/23/2016 Skin rash 01/23/2016 Vertigo [...] Comments Blood Pressure 143/90 02/03/2019 1:15 PM SCRAP METAL BURNER Pulse 77 02/03/2019 1:15 PM SCRAP METAL BURNER Temperature 36.7 C (98.1 F) 02/03/2019 1:15 PM SCRAP METAL BURNER Respiratory Rate 18 02/03/2019 1:15 PM SCRAP METAL BURNER Oxygen Saturation 95% 02/03/2019 1:15 PM SCRAP METAL BURNER Inhaled Oxygen Concentration - - Weight 116.2 kg (256 lb 2.8 oz) 02/03/2019 7:38 AM SCRAP METAL BURNER Height 160 cm (5' 3 ) 02/03/2019 7:38 AM SCRAP METAL BURNER Body Mass Index 45.38 02/03/2019 7:38 AM SCRAP METAL BURNER Plan of Treatment Health Maintenance Due Date [...] DIAGNOSTIC RT DIGI Routine 02/03/2019 9:22 AM SCRAP METAL BURNER Breast CA from Last 3 Months or Most Recently Relevant to Health Maintenance Results * MG DIAGNOSTIC RT DIGI (02/03/2019 9:22 AM SCRAP METAL BURNER) Anatomical Region Laterality Modality Breast Right Mammography 02/03/2019 9:45 AM SCRAP METAL BURNER Impressions 02/03/2019 9:48 AM SCRAP METAL BURNER ===== IMPRESSION: ===== 1. Satisfactory positioning of the hook wire with the needle posterior and hook wire distal to the mass and clip. Assessment: ACR BI-RADS Category 6 - Known biopsy proven malignancy. Recommendation: 1: Awaiting surgical specimen. Comments: Narrative 02/03/2019 9:48 AM SCRAP METAL BURNER Examination: Digital right diagnostic mammogram Exam Date/Time: [...] Most Recently Relevant to Health Maintenance Insurance [facility] Care Teams Specialty Sales Representative Relationship Specialty Start Date End Date Syd Nj MD [address] [place] [address] PCP - General FAMILY PRACTICE 09/14/18 Tunde Benavides MD [address] [place] [address] Surgeon SURGERY 09/16/18 Jovan Lowery MD [address] [place] [address] ONCOLOGY 09/16/18 Guadalupe Sorenson MD [address] [place] [address] Referring Physician RADIATION ONCOLOGY 09/16/18 Tunde Benavides MD [address] [place] [address] Surgeon SURGERY 01/27/19 Ollie Cote MD [address] [place] [phone] CARDIOVASCULAR DISEASE 01/27/19 River Braun MD [address] [place] [phone] NEUROLOGY 01/27/19
--- OUTSIDE RECORDS SUMMARY | 2024-06-28 18:38 | XMS_ITS | Encounter Summary ---
Author Organization [facility] Address [address] [place] [address] Phone Care Team Providers Care Heavy Mobile Equipment Operator Name Role Phone Syd Nj MD Primary Care Provider [phone] Tunde Benavides MD Unavailable [phone] Encounter Details Date Type Department Care Team (Late st Contact Info) Description 08/14/2018 Documentation [facility] Oncology [address] [place] [phone] Rosana Michael, MAURICE Social History Tobacco Use Types Packs/Day Years Used Date Smoking Tobacco: Every Day Cigarettes 1 51.3 Started: 1973 Smokeless Tobacco: Never Alcohol Use Standard Drinks/Week Comments Not Currently 0 (1 standard drink = 0.6 oz pur e alcohol) Comments Unknown Sex and Gender Information Value Date Recorded Sex Assigned at Not on file Legal Sex Female 3:06 AM UNDERWATER 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
--- OUTSIDE RECORDS SUMMARY | 2024-06-28 18:38 | XMS_ITS ---
Author Organization [facility] Address [address] [place] [address] Care Team Providers Care Pet Feeder Name Role Phone Syd Nj MD Primary Care Provider [phone] [facility] Un[facility] [phone] Active Problems Problem Noted Date Diagnosed [...] from 03/03/2019:Stage IA(pT1b, pN0(sn), cM0, G2, ER+, [place]+, HER2-) - Signed by Jovan Lowery MD [...]
[2024-06-28 19:22] LABS: Basophils Percent Auto 0.6 % (0.2-1.2); Eosinophils Percent Auto 0.8 % (0-4.4); Hematocrit 47.9 % (37.0-47.0); Hemoglobin 15.2 g/dL (12.0-15.0); Immature Granulocyte Absolute 0.01 K/mm3 (0.00-0.031); Immature Granulocyte Percent A 0.2 % (0-0.5); Lymphocytes Absolute Auto 1.56 K/mm3 (0.9-3.2); Mean Corpuscular HGB Conc 31.7 g/dl (32-36); Mean Corpuscular Hemoglobin 32.5 pg (26-34); Mean Corpuscular Volume 102.4 fl (80-100); Mean Platelet Volume 10.1 fl (7.4-10.4); Monocytes Absolute Auto 0.5 K/mm3 (0.1-0.6); Monocytes Percent Auto 9.8 % (2.6-8.5); Neutrophils Absolute Auto 2.8 K/mm3 (1.3-6.7); Neutrophils Percent Auto 56.6 % (45.5-73.1); Platelet Count Result 224 k/mm3 (150-375); Red Blood Count 4.68 M/mm3 (4.2-5.4); Red Cell Distribution Width 12.3 % (11.5-14.5); White Blood Count 4.9 K/mm3 (4.5-10.0)
[2024-06-28 19:30] VITALS: BP 161/95; PULSE 97; RESP 17; O2SAT 98
== END 2024-06-28 19:58 | disposition home or self-care (01) ==
PROVIDERS: Physician Assistant; Emergency Provider Family Medicine; PCP Family Medicine
DX: J10.1 Influenza due to other identified influenza virus with other respiratory manifestations (principal); R06.02 Shortness of breath; Z20.822 Contact with and (suspected) exposure to COVID-19; J44.9 Chronic obstructive pulmonary disease, unspecified; I11.9 Hypertensive heart disease without heart failure; E78.5 Hyperlipidemia, unspecified; K21.9 Gastro-esophageal reflux disease without esophagitis; G62.9 Polyneuropathy, unspecified; F41.8 Other specified anxiety disorders; F17.210 Nicotine dependence, cigarettes, uncomplicated; Z92.3 Personal history of irradiation; Z85.3 Personal history of malignant neoplasm of breast; Z90.49 Acquired absence of other specified parts of digestive tract; Z90.710 Acquired absence of both cervix and uterus
CPT/HCPCS: 36415; 71046; 80053; 83880; 85025; 85610; 85730; 87637; 93005; 94640; 96374; 99284; J2919

== ENCOUNTER 2024-12-03 11:10 | Outpatient (CLI) | payer MEDICARE, SELFPAY ==
--- OUTSIDE RECORDS SUMMARY | 2003-06-15 09:30 | XMS_ITS | Continuity of Care Document ---
Author Organization [facility] Address [address] [place] [address] [address] [place] [address] Phone Care Team Providers Care Professional Application Designer Name Role Phone Jose, Edward Unavailable Unavailable Advance Directives Directive Yes / No Effective Date File Name No Information Encounters Encounter Description Practice Location Reason(s) For Visit Diagnoses Date Provider Providers Copied on Encounter [facility], [address] [place], [place], [id number], [place] tel:[phone] [facility] No Information Mar-2 4-200 4 Doisy Edward. [address] , [address], [place], [address], [place]. tel:[phone] Family History Family Member Type Diagnosis Age At Onset No Information Payers Payer name Insurance type Covered democrat ID Authoriza tion(s) [facility] Commercial CI [id number] Social History Type Description Quantity Date Captured Comments Sex Female Smoking Status No Information Chief Complaint And Reason For Visit No Information Reason For Referral Reason For Referral No Information History Of Present Illness Encounter Date Complaint History Of Prese nt Illness No Information Functional Status Date Functional Assessmen t No Information Instructions Date Instruction Additional Infor mation No Information Assessments Type Assessment Date No Information Patient Care Teams Name Effective Dates (start - stop) Status Members No Information
--- NOTE | 2024-12-03 | ECG_ITS ---
Test Date: 2024-12-03 12:28:43 Measurements Intervals [place] Rate: 58 P: -15 [place]: 140 QRS: 50 QRSD: 82 T: 58 QT: 440 QTc: 434 Interpretive Statements SINUS BRADYCARDIA Compared to ECG 06/28/2024 18:09:51 Sinus rhythm no longer present ST (T wave) deviation no longer present Possible ischemia no longer present Electronically Signed On 12-03-2024 15:43:38 CDT by Vladimir Nichols M.D.
[2024-12-03 12:07] LABS: Hematocrit 41.1 % (37.0-47.0); Hemoglobin 13.2 g/dL (12.0-15.0); Immature Granulocyte Percent A 0.3 % (0-0.5); Lymphocytes Absolute Auto 1.86 K/mm3 (0.9-3.2); Mean Corpuscular HGB Conc 32.1 g/dl (32-36); Mean Corpuscular Hemoglobin 32.8 pg (26-34); Mean Corpuscular Volume 102.0 fl (80-100); Nucleated Red Blood Cells Absolute Auto 0.000 K/mm3 (0.0-0.012); Nucleated Red Blood Cells Perc 0.0 % (0.0-0.2); Platelet Count Result 260 k/mm3 (150-375); Red Blood Count 4.03 M/mm3 (4.2-5.4); White Blood Count 6.3 K/mm3 (4.5-10.0)
--- OUTSIDE RECORDS SUMMARY | 2024-12-03 12:26 | XMS_ITS | Encounter Summary ---
Author Organization [facility] Address [address] [place] [address] Phone Care Team Providers Care Armature Connector Name Role Phone Syd Nj MD Primary Care Provider [phone] Tunde Benavides MD Unavailable [phone] Encounter Details Date Type Department Care Team (Late st Contact Info) Description 08/14/2018 Documentation [facility] Oncology [address] [place] [phone] Rosana Michael, MAURICE Social History Tobacco Use Types Packs/Day Years Used Date Smoking Tobacco: Every Day Cigarettes 1 51.7 Started: 1973 Smokeless Tobacco: Never Alcohol Use Standard Drinks/Week Comments Not Currently 0 (1 standard drink = 0.6 oz pur e alcohol) Comments Unknown Sex and Gender Information Value Date Recorded Sex Assigned at Not on file Legal Sex Female 3:06 AM ASSISTANT 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
--- OUTSIDE RECORDS SUMMARY | 2024-12-03 12:26 | XMS_ITS | Encounter Summary ---
Author Organization [facility] Healthcare Address [address] [place] [address] Care Team Providers Care Supervisor Smoke Control Name Role Phone Syd Nj MD Primary Care Provider [phone] [facility] [phone] Encounter Details Date Type Department Care Team (Late st Contact Info) Description 01/22/2024 Orders Only [facility] Health Information Management [address] [place] [address] Scanning, Provider Social History Tobacco Use Types Packs/Day Years Used Date Smoking Tobacco: Every Day Cigarettes 1 51.7 Started: 1973 Smokeless Tobacco: Never Comments:Trying to quit Alcohol Use Standard Drinks/Week Comments Not Currently 0 (1 standard drink = 0.6 oz pur e alcohol) Personal Safety Answer Date Recorded Getting School Help Needed Not on file 05/17 Comments Unknown Sex and Gender Information Value Date Recorded Sex Assigned at Not on file Legal Sex Female 3:06 AM REPORTING MANAGER Gender Identity Not on file Sexual Orientation Not on file documented as of this encounter Plan of Treatment Not on file documented as of this encounter Procedures Procedure Name Priority Date/Time Associated Diagnosis Comments SCAN - LABS 01/22/2024 documented in this encounter Results * SCAN - LABS (01/22/2024) Provider Scanning Final Result documented in this encounter Visit Diagnoses Not on filedocumented in this encounter Care Teams Supervisor Smoke Control Relationship Specialty Start Date End Date Syd Nj MD PCP - General Family Medicine 08/11/18 Tunde Benavides MD Referring Physician Surgery 03/15/19 documented as of this encounter
--- OUTSIDE RECORDS SUMMARY | 2024-12-03 12:26 | XMS_ITS ---
Author Organization [facility] Address [address] [place] [address] Care Team Providers Care Pyrometallurgical Engineer Name Role Phone Syd Nj MD Primary Care Provider [phone] [facility] Un[facility] [phone] Active Problems Problem Noted Date Diagnosed [...] from 03/03/2019:Stage IA(pT1b, pN0(sn), cM0, G2, ER+, [place]+, HER2-) - Signed by Jovan Lowery MD [...]
--- OUTSIDE RECORDS SUMMARY | 2024-12-03 12:26 | XMS_ITS | Encounter Summary ---
Author Organization [facility] Healthcare Address [address] [place] [address] Care Team Providers Care Word Processor Technician Name Role Phone Syd Nj MD Primary Care Provider [phone] [facility] Un[facility] [phone] Encounter Details Date Type Department Care Team (Late st Contact Info) Description 01/16/2024 Orders Only [facility] Health Information Management [address] [place] [address] Scanning, Provider Social History Tobacco Use Types [...] on file Legal Sex Female 3:06 AM SHIPPING AGENT Gender Identity Not on file Sexual Orientation Not on file documented as of this encounter Plan of Treatment Not on file documented as of this encounter Procedures Procedure Name Priority Date/Time Associated Diagnosis Comments SCAN - RADIOLOGY/IMAGING 01/16/2024 documented in this encounter Results * SCAN - RADIOLOGY/IMAGING (01/16/2024) Anatomical Region Laterality Modality Other Provider Scanning Final Result documented in this encounter Visit Diagnoses Not on filedocumented in this encounter Care Teams Word Processor Technician Relationship Specialty Start Date End Date Syd Nj MD PCP - General Family Medicine 08/11/18 Tunde Benavides MD Referring Physician Surgery 03/15/19 documented as of this encounter
--- OUTSIDE RECORDS SUMMARY | 2024-12-03 12:26 | XMS_ITS | Clinical Summary ---
Author Organization [facility] Address [address] [place] [address] Care Team Providers Care Car Mover Name Role Phone Syd Nj MD Primary Care Provider [phone] [facility] Un[facility] [phone] Allergies Active Allergy Reactions Criticality Noted [...] from 03/03/2019:Stage IA(pT1b, pN0(sn), cM0, G2, ER+, [place]+, HER2-) - Signed by Jovan Lowery MD on 03/03/2019 Immunizations Immunization Administration Dates Next Due Influenza, Unspecified 01/11/2002 Surgical History Surgery Date Site/Laterality Comments CHOLECYSTECTOMY HYSTERECTOMY COLONOSCOPY BREAST BIOPSY BREAST LUMPECTOMY BLADDER REPAIR Medical History Medical History Date Comments Breast cancer (HCC) Anxiety Arthritis Asthma Bronchitis Depression COPD (chronic obstructive pulmonary disease) Hypertension Hypercholesteremia Chronic kidney disease Stroke (HCC) Seizures (HCC) Epilepsy (HCC) Emphysema lung Noon functioning bladder Herpes Emphysema lung Family History Medical History Relation Name Comments Heart attack Father Cervical cancer Sister Relation Name Status Comments Father (Age 67) Mother Alive Sister Alive Sister had hpv diagnosed at age 58 Social History Tobacco Use Types Packs/Day Years Used Date Smoking Tobacco: Every Day Cigarettes 1 51.7 Started: 1973 Smokeless Tobacco: Never Tobacco Cessation:Ready [...] on file Legal 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 Gender Identity Not on file Sexual Orientation Not on file Obstetrics History Last Filed Vital Signs Vital Sign Reading Time Taken Comments Blood Pressure 144/66 03/03/2019 8:19 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 Pulse 69 03/03/2019 8:19 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 Temperature 37.1 C (98.7 F) 03/03/2019 8:19 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 Respiratory Rate 16 03/03/2019 8:19 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 Oxygen Saturation 95% 03/03/2019 8:19 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 Inhaled Oxygen Concentration - - Weight 123.9 kg (273 lb 3.2 oz) 03/03/2019 8:19 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 Height 160 cm (5' 2.99) 03/03/2019 8:19 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 Body Mass Index 48.41 03/03/2019 8:19 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 Plan of Treatment Health Maintenance Due [...] 65+ 12/03/2020 Covid-19 Vaccine (3 - season) 2024, 06/06/2020 Influenza Vaccine (#1) 2024 01/11/2018, 2001 Insurance [facility] Address: [facility] [address] [place] [address] MEDICARE ADVANTAGE [facility] Address: [address] [place] [address] MEDICARE ADVANTAGE [facility] Address: [facility] [address] [place] [phone] Care Teams Car Mover Relationship Specialty Start Date End Date Syd Nj MD PCP - General Family Medicine 08/11/18 Tunde Benavides MD Referring Physician Surgery 03/15/19
[2024-12-03 12:36] LABS: Alanine Aminotransferase 31 U/L (6-35); Albumin Level 4.4 g/dL (3.5-5.1); Alkaline Phosphatase 106 U/L (38-126); Anion Gap 11 mmol/L (4-12); Aspartate Amino Transferase 33 U/L (14-36); Bilirubin,Total 0.6 mg/dL (0.2-1.3); Blood Urea Nitrogen 67 mg/dL (7-17); Calcium 9.1 mg/dL (8.4-10.2); Carbon Dioxide 21 mmol/L (22-30); Chloride 106 mmol/L (98-107); Cholesterol 206 mg/dL (0-200); Estimated Glomerular Filt Rate 23; Glucose 95 mg/dL (65-110); HDL Direct 42 mg/dL; Magnesium 2.5 mg/dL (1.6-2.3); Potassium 5.0 mmol/L (3.4-5.0); Sodium 138 mmol/L (137-145); Total Protein 8.1 g/dL (6.3-8.2); Triglycerides 96 mg/dL (<150)
[2024-12-03 12:41] LABS: NT Pro B Type Natriuretic Pept 290 pg/mL (19.9-100)
[2024-12-03 13:38] LABS: Vitamin B12 329.0 pg/mL (239-931)
[2024-12-04 07:09] LABS: TSH 1.680 uIU/mL (0.450-4.500)
== END 2024-12-03 11:11 | disposition home or self-care (01) ==
PROVIDERS: PCP Family Medicine; Visit Provider Nurse Practitioner Family
DX: I13.0 Hypertensive heart and chronic kidney disease with heart failure and stage 1 through stage 4 chronic kidney disease, or unspecified chronic kidney disease (principal); N18.9 Chronic kidney disease, unspecified; I50.9 Heart failure, unspecified; R55 Syncope and collapse; R63.4 Abnormal weight loss; E78.5 Hyperlipidemia, unspecified; R53.83 Other fatigue; E55.9 Vitamin D deficiency, unspecified
CPT/HCPCS: 36415; 80053; 80061; 82306; 82607; 82746; 83735; 83880; 84439; 84443; 84481; 85025; 86376; 93005